=== PATIENT | female | born 1945 | race Caucasian/White ===

== ENCOUNTER 2021-11-06 13:30 | Inpatient (IN) | payer MEDICARE, MEDICAID, SELFPAY ==
[2021-11-06] VITALS (7 sets, daily range): BP systolic 116–150; BP diastolic 68–83; PULSE 59–94; RESP 16–26; TEMP 36.4–36.6; O2SAT 91–97; BMI 58.6; BMI 63.8
--- NOTE | 2021-11-06 13:43 | ECG_ITS ---
[facility] Test Date: 2021-11-06 Pat Name: Rossy Brooke Department: Room: Gender: Female Clinical Care Leader: : 1945 Requested By: Rg Yusuf Order Number: [id number] Irwin MD: Emilee Pitts M.D. Measurements Intervals [place] Rate: 54 P: MT: QRS: 5 QRSD: 102 T: 36 QT: 425 QTc: 406 Interpretive Statements Sinus rhythm with a second-degree type I AV block LOW QRS VOLTAGE IN PRECORDIAL LEADS [QRS DEFLECTION < 1.0 mV IN CHEST LEADS] ABNORMAL RHYTHM ECG Compared to ECG 11/06/2021 14:08:55 No significant changes Electronically Signed On 11-06-2021 23:28:58 CDT by Emilee Pitts M.D. [id number]
--- NOTE | 2021-11-06 13:43 | XRR_ITS ---
PROCEDURE INFORMATION: Exam: XR Chest Exam date and time: 11/06/2021 1:55 PM Age: 76 years old Clinical indication: Dyspnea TECHNIQUE: Imaging protocol: XR of the chest. Views: 1 view. COMPARISON: No relevant prior studies available. FINDINGS: Lungs: There is a patchy airspace opacity in the right lung base in association with indistinctness of the right hemidiaphragm loss of volume, suggestive of atelectasis. Streaky atelectasis noted in the left lung base. Pneumonia should be excluded clinically. Pleural spaces: Unremarkable. No pleural effusion. No pneumothorax. Heart/Mediastinum: Mildly enlarged heart. Bones/joints: Unremarkable. XR/XR chest 1V portable [id number] IMPRESSION: Patchy airspace opacity with loss of volume in the right lower lobe, concerning for atelectasis. Pneumonia should be excluded clinically.
--- NOTE | 2021-11-06 13:51 | ED_ITS ---
HPI - General Adult General: Chief complaint: Shortness of Breath/Dyspnea Stated complaint: SOB, SWELLING OF FEET Time Seen by Provider: 11/06/21 13:40 History of Present Illness: CC: Dyspnea HPI: This is a [76]yo patient w/ hx of CHF, COPD on 3L of NC at baseline presenting ot the ED with dyspnea and chest pain x 3 weeks in the setting of increased weight gain and lower extremity swelling. Endorses of orthopnea and increased pillow usage at night. At baseline, patient takes 80mg of lasix at at baseline. Patient also reports intermittent chest pain throughout last few weeks. She denies N/V, diaphoresis, shoulder pain pain or back pain. Patient has no fever/chill, or sputum production. No GI or other complaints. Denies any pleuritic chest pain, recent surgery/immobilization/travel, or hematemesis or hx of VTE in the past. Onset: 3 weeks ago Duration: ongoing for the last 3 weeks Location: home Severity: moderate/severe Associated symptoms: Reports chest pain and dyspnea; Deny nausea, rash, palpitations or vomiting Review of Systems Const: Denies: fever(s) or chills Eyes: Denies: change in vision ENMT: Denies: mouth pain Card: Reports: chest pain; Denies: palpitations Resp: Reports: dyspnea; Denies: non-productive cough GI: Denies: abdominal pain, nausea, vomiting or diarrhea : Denies: dysuria Musc: Denies: extremity pain Skin/Breast: Denies: rash or new lesions Neuro: Denies: weakness in extremities Psych: Reports: other (Normal mood) Jose Luis/Lymph: Denies: easy bruising [facility] ED PFSH: Medical History (Updated 11/06/21 @ 13:52 by Rg Yusuf MD) CHF exacerbation COPD (chronic obstructive pulmonary disease) Requires oxygen therapy Social History (Updated 11/06/21 @ 13:52 by Rg Yusuf MD) Smoking and tobacco status: never smoked Alcohol intake: never Substance/Drug Use: never Physical Exam Const: COMMON NORMALS: alert HENMT: COMMON NORMALS: atraumatic HEAD & SCALP: atraumatic MOUTH: moist mucous membranes not abnormal Eye: COMMON NORMALS: EOMs intact bilaterally and conjunctivae normal CONJUNCTIVA: Yes conjunctivae normal Neck/C-Spine: COMMON NORMALS: full ROM and supple Resp: COMMON NORMALS: normal respiratory effort OTHER: +coarse breath sounds b/l Cardio: COMMON NORMALS: regular rate RATE: regular rate GI: COMMON NORMALS: Soft to palpation PALPATION: Yes Soft to palpation OTHER: +abdominal distension, no focal TTP. NO guarding rebound, guarding, rigidity. No CVA tenderness to percussion. Neg Wall/Neg McBurney's point tenderness, no suprabupic tenderness to palpation. Extremity: COMMON NORMALS: full ROM OTHER: 3+ lower extremity edema b/l Neuro: SENSORIUM/ORIENTATION: Yes alert MOTOR EXAM: No Abnormal motor strength present and Other motor observations present (no focal motor deficits) Psych: COMMON NORMALS: speech normal SPEECH: Yes normal speech MOOD & AFFECT: Yes euthymic mood Course Vital Signs: Vital signs: Vital Signs Pulse Rate 75 11/06/21 13:46 Respiratory Rate 26 H 11/06/21 13:46 Blood Pressure 150/77 11/06/21 13:46 Pulse Oximetry 97 11/06/21 13:46 MDM - General Adult Medical Decision Making [76]yo pt w/ hx of CHF, COPD on 3L of NC chronically presenting to the ED with dyspnea and increased work of breathing and worsening leg swelling w/ intermittent chest pain. Physical exam consistent signs of fluid overload including crackles bilaterally and LE swelling. Workup today: ECGx 2, CBC, BMP, Troponinx2, BNP, CXR. Intervention: IV lasix after potassium check Based on history, exam and findings, presentation most consistent with acute on chronic heart failure. Low suspicion for PNA, ACS, tamponade, aortic dissection. EKG: No STEMI and no evidence of Brugada?s sign, delta wave, epsilon wave, significantly prolonged QTc, or malignant arrhythmia. CXR: diffuse interstitial edema consistent with CHF exacerbation. [3:30pm] On reassessment, patient is stable and patient is mentating without issues. On NC 3L. Given lasix 80mg x 1 in the ER with significant symptom improvement in dyspnea. No signs of increased work of breathing requiring BIPAP. Given the current presentation, I believe the patient would benefit from inpatient admission for continued diuresis and fluid removal. I have discussed a plan with a patient who agrees with inpatient admission. On chest x-ray, patient was found to have right-sided airspace opacity. Clinically, patient is afebrile, has no leukocytosis, has no cough or sputum production, I do not suspect that this is pneumonia. Disposition: Admission Lab Data : 11/06/21 13:55 11/06/21 13:55 Radiology Impressions Chest X-Ray 11/06/21 13:43 IMPRESSION: Patchy airspace opacity with loss of volume in the right lower lobe, concerning for atelectasis. Pneumonia should be excluded clinically. Laboratory Results WBC 9.3 10^3/uL (4.0-10.0) 11/06/21 13:55 RBC 3.77 10^6/uL (4.1-5.3) L 11/06/21 13:55 Hgb 9.7 g/dL (11.5-15.3) L 11/06/21 13:55 Hct 32.8 % (37.0-47.0) L 11/06/21 13:55 MCV 87.0 fl (81-99) 11/06/21 13:55 MCH 25.7 pg (28.0-34.0) L 11/06/21 13:55 MCHC 29.6 g/dL (30.0-36.0) L 11/06/21 13:55 RDW 14.3 % (12.1-15.1) 11/06/21 13:55 Plt Count 230 10^3/cmm (130-400) 11/06/21 13:55 MPV 10.0 fL (7.4-10.4) 11/06/21 13:55 Neut % (Auto) 73.0 % 11/06/21 13:55 Lymph % (Auto) 15.7 % 11/06/21 13:55 Meagher % (Auto) 8.4 % 11/06/21 13:55 Eos % (Auto) 2.2 % 11/06/21 13:55 Baso % (Auto) 0.4 % 11/06/21 13:55 Neut # (Auto) 6.79 10^3/uL (1.8-7.7) 11/06/21 13:55 Lymph # (Auto) 1.5 10^3/uL (0.8-4.8) 11/06/21 13:55 Meagher # (Auto) 0.8 10^3/uL (0.2-0.9) 11/06/21 13:55 Eos # (Auto) 0.2 10^3/uL (0.0-0.8) 11/06/21 13:55 Baso # (Auto) 0.0 10^3/uL (0.0-0.1) 11/06/21 13:55 Nucleated RBC % (auto) 0 % 11/06/21 13:55 Nucleated RBCs # 0.0 /100WBC 11/06/21 13:55 Imaging Data Other Imaging: Radiologist's impression: [facility] [employer] [address] XRay Report Signed Patient: Rossy Brooke Unit #: [id number] : 1945 Age/Sex: 76 / F ADM Date: 11/06/21 Loc: ER Room/Bed: Attending Dr: Ordering Provider/Ordering MD: Rg Yusuf MD Date of Service: 11/06/21 Procedure(s): XR chest 1V portable [id number] Accession Number(s): [id number] Report Number: [id number] PROCEDURE INFORMATION: Exam: XR Chest Exam date and time: 11/06/2021 1:55 PM Age: 76 years old Clinical indication: Dyspnea TECHNIQUE: Imaging protocol: XR of the chest. Views: 1 view. COMPARISON: No relevant prior studies available. FINDINGS: Lungs: There is a patchy airspace opacity in the right lung base in association with indistinctness of the right hemidiaphragm loss of volume, suggestive of atelectasis. Streaky atelectasis noted in the left lung base. Pneumonia should be excluded clinically. Pleural spaces: Unremarkable. No pleural effusion. No pneumothorax. Heart/Mediastinum: Mildly enlarged heart. Bones/joints: Unremarkable. XR/XR chest 1V portable [id number] IMPRESSION: Patchy airspace opacity with loss of volume in the right lower lobe, concerning for atelectasis. Pneumonia should be excluded clinically. ? Dictated By: Boo Zarate Signed By: Boo Zarate Signed Date/Time: 11/06/21 1432 DD/ 1355 Discharge Plan Discharge Patient Disposition: Admitted As Inpatient Clinical Impression: Volume overload, CHF exacerbation Condition: Stable Coding Level of Care Code ED Communication Skills Instructor for g Fwd Exam Comprehensive
[2021-11-06 14:21] LABS: Basophils % 0.4 %; Eosinophils # 0.2 10^3/uL (0.0-0.8); Eosinophils % 2.2 %; Hematocrit 32.8 % (37.0-47.0); Hemoglobin 9.7 g/dL (11.5-15.3); Lymphocytes # 1.5 10^3/uL (0.8-4.8); Lymphocytes % 15.7 %; Mean Corpuscular HGB Conc 29.6 g/dL (30.0-36.0); Mean Corpuscular Hemoglobin 25.7 pg (28.0-34.0); Monocytes # 0.8 10^3/uL (0.2-0.9); Monocytes % 8.4 %; Neutrophils # 6.79 10^3/uL (1.8-7.7); Nucleated Red Blood Cells % 0 %; Platelet Count 230 10^3/cmm (130-400); Red Blood Count 3.77 10^6/uL (4.1-5.3); Red Cell Distribution Width 14.3 % (12.1-15.1); White Blood Count 9.3 10^3/uL (4.0-10.0)
[2021-11-06 14:52] LABS: Troponin(5th) Baseline 21 ng/L (0-10)
[2021-11-06 15:01] LABS: Blood Urea Nitrogen 20 mg/dL (8-23); Calcium 9.4 mg/dL (8.5-10.5); Carbon Dioxide 39 mmol/L (22-29); Chloride 94 mmol/L (98-107); Glucose 113 mg/dL (65-115); NT Pro B Type Natriuretic Pept 221 pg/mL (0-450); Osmolality Calculated 291 mOsm/kg (285-295); Sodium 139 mmol/L (136-145)
[2021-11-06 15:02] LABS: Anion Gap 10.2 (5-19); Potassium 4.2 mmol/L (3.5-5.1)
[2021-11-06] MEDS: FUROsemide 10 mg/mL SDV 10mL 80 MG IVP (15:53)
--- NOTE | 2021-11-06 16:00 | PC.NURSE ---
Pt was incontinent of stool, states she has IBS and had celery today. Assisted pt up to BSC, soiled pants removed,skin cleaned. Pt had additional BM while sitting BSC. Assisted pt back to bed, skin cleaned. Increased shortness of breath with activity.
[2021-11-06 16:25] LABS: Troponin 5 2HR 22.93 ng/L (0-10); Troponin 5 2HR Delta 1.93 ABS# (0-10)
--- NOTE | 2021-11-06 17:03 | PC.NURSE ---
800cc yellow urine emptied from catheter bag
--- NOTE | 2021-11-06 17:14 | USCV_ITS ---
Rossy Brooke Age: 76 Gender: F : 1945 Exam Date: 11/06/2021 23:38 Ordering Phys: Marbin Zhang MD Technologist: Sulaiman Inman Exam Location: [facility] [place] Indication: SOB BP: / HR: 62 Rhythm: Sinus Technical Quality: Adequate MEASUREMENTS (Male / Female) Normal Values 2D ECHO LV Diastolic Diameter PLAX 4.1 cm 4.2 - 5.9 / 3.9 - 5.3 cm LV Systolic Diameter PLAX 2.3 cm IVS Diastolic Thickness 1.1 cm 0.6 - 1.0 / 0.6 - 0.9 cm IVS Systolic Thickness 2.2 cm LVPW Diastolic Thickness 1.9 cm 0.6 - 1.0 / 0.6 - 0.9 cm LVPW Systolic Thickness 2.1 cm LVOT Diameter 2.1 cm LV Ejection Fraction 2D Teich 75.5 % LV Ejection Fraction MOD 2C 67.6 % LV Ejection Fraction 2C AL 68.2 % LA Diameter 3.7 cm LA Width 3.6 cm LA Height 5.2 cm RA Width 3.6 cm RA Height 4.6 cm Aorta at Sinotubular Diameter 2.5 cm M-MODE Aortic Annulus Diameter 2.4 cm LA Ao Ratio MM 1.8 MV E Point Septal Separation 0.8 cm DOPPLER AV Peak Velocity 155.0 cm/s LVOT Peak Velocity 110.0 cm/s AV Area Cont Eq vti 2.0 cm squared AV Area Cont Eq pk 2.5 cm squared MV Peak Velocity 88.0 cm/s MV Area PHT 2.4 cm squared Mitral E to A Ratio 0.8 MV E' Velocity 40.5 cm/s Mitral E to MV E' Ratio 7.0 Mitral E to LV E' Lateral Ratio 7.1 Mitral E to LV E' Septal Ratio 7.0 TR Peak Velocity 279.4 cm/s TR Peak Gradient 31.2 mmHg TR Mean Velocity 204.6 cm/s TR Mean Gradient 19.0 mmHg TR Velocity Time Integral 81.2 cm Right Atrial Pressure 15.0 mmHg Pulmonary Artery Systolic Pressu 46.2 mmHg PV Peak Velocity 119.0 cm/s RV Acceleration Time 0.2 s RV Ejection Time 0.4 s RV AcT/ET 0.6 FINDINGS Left Ventricle Normal left ventricular size. LV systolic function is normal with EF of 55-60%. No regional wall motion abnormalities.Grade 1 diastolic dysfunction Right Ventricle The right ventricle is normal in size and function. Right Atrium The right atrium is normal in size. Left Atrium The left atrium is normal in size. Mitral Valve Mild mitral annular calcification without significant stenosis or prolapse. There is trace mitral regurgitation. Aortic Valve Structurally normal aortic valve without significant sclerosis or stenosis. There is no aortic regurgitation. Tricuspid Valve Structurally normal tricuspid valve without significant stenosis. Mild tricuspid regurgitation. Pulmonary artery systolic pressure is normal. Pulmonic Valve Structurally normal pulmonic valve without significant stenosis. There is no pulmonic regurgitation. Pericardium Normal pericardium without effusion. Aorta Normal ascending aorta dimension. CONCLUSIONS Technically limited quality echocardiogram because of poor ultrasonic windows LV systolic function is normal with EF of 55-60% Grade 1 diastolic dysfunction Mild mitral annuarl calcifcation Trace mitral regurgitation Mild tricuspid regurgitation No comparison studies are available Chidi Benitez MD (Electronically Signed) Final Date: 07 November 2021 11:28 S
--- NOTE | 2021-11-06 17:17 | PM.HP ---
Providers/Chief Complaint Chief Complaint: SOB, SWELLING OF FEET History of Present Illness Rossy Brooke is a 76 year old female with past medical history of COPD on 3Ls home oxygen , heart failure , morbid obesity , diabetes , hypothyroidism was brought in with chief complaint of worsening shortness of breath, PND , orthopnea, worsening bilateral lower extremity swelling, weight gain, nonproductive cough, going on for the last 3 weeks, she denies any fever chills , headache, nausea vomiting, diarrhea. Upon arrival in the ER she was worked up for above-mentioned complaint: Imaging studies: X-ray chest: Patchy airspace opacity with loss of volume in the right lower lobe, concerning for atelectasis. Pneumonia should be excluded clinically. EC sinus rhythm with blocked PACs EC Mobitz type I Pertinent labs: WBC : 9.3 , H&H 9.7 32.8, PLT : 230 , sodium 139 potassium 4.2 BUN serum creatinine 20 / 0.7 , Troponin trend: 21 ,22 , proBNP 221 Patient received 80 of Lasix one-time dose in the ER Review of Systems General: Reports: 10 or more systems reviewed and unremarkable except in HPI and below Const: Denies: fever(s), chills, body aches, change in appetite or diaphoresis Card: Reports: edema, swelling of feet/ankles, dyspnea on exertion and orthopnea; Denies: palpitations or leg pain with exertion Resp: Reports: dyspnea; Denies: productive cough, wheezing or pain on inspiration GI: Denies: abdominal pain, nausea, vomiting, diarrhea or constipation : Denies: flank pain Musc: Reports: extremity swelling; Denies: back pain or extremity pain Neuro: Denies: headache(s), difficulty walking or confusion Medications/Allergies Home Medications Medication Instructions Recorded Confirmed Last Taken Type aspirin 81 mg chewable tablet 81 mg PO DAILY 11/06/21 11/06/21 11/06/21 History atorvastatin 40 mg tablet 40 mg PO BEDTIME 11/06/21 11/06/21 11/05/21 History furosemide 40 mg tablet 40 mg PO BID 11/06/21 11/06/21 11/06/21 History hyoscyamine sulfate 0.125 mg tablet 0.125 mg PO Q12H PRN 11/06/21 11/06/21 Unknown History levothyroxine 75 mcg tablet 75 mcg PO DAILY 11/06/21 11/06/21 11/06/21 History metformin 500 mg tablet 500 mg PO BID 11/06/21 11/06/21 11/06/21 History metoprolol tartrate 50 mg tablet 25 mg PO DAILY 11/06/21 11/06/21 11/06/21 History mirabegron 50 mg tablet,extended 50 mg PO DAILY 11/06/21 11/06/21 11/06/21 History release 24 hr (Myrbetriq) potassium chloride 20 mEq 20 meq PO BID 11/06/21 11/06/21 11/06/21 History tablet,extended release(part/cryst) Allergies Allergy/AdvReac Type Severity Reaction Status Date / Time cinnamon Allergy Unknown Unknown Verified 11/06/21 14:49 Sulfa (Sulfonamide Allergy Unknown Unknown Verified 11/06/21 14:49 Antibiotics) PFSH Acute PFSH: Medical History (Updated 11/06/21 @ 17:37 by Marbin Zhang MD) CHF exacerbation COPD (chronic obstructive pulmonary disease) Requires oxygen therapy Social History (Updated 11/06/21 @ 13:52 by Rg Yusuf MD) Smoking and tobacco status: never smoked Alcohol intake: never Substance/Drug Use: never Vitals/I&O/Wt Last Vital Signs Pulse 64 11/06/21 15:51 Resp 18 11/06/21 15:51 BP 136/83 11/06/21 15:51 Pulse Ox 95 11/06/21 15:51 Weight last 48 hrs Weight 136.078 kg Physical Exam Const: COMMON NORMALS: patient oriented x3 HENMT: COMMON NORMALS: normocephalic and atraumatic HEAD & SCALP: normocephalic and atraumatic Eye: GENERAL EYE: appearance normal, both eyes and all related structures Chest: CHEST: Yes Symmetrical chest wall rise Resp: COMMON NORMALS: normal respiratory effort and clear to auscultation bilaterally EFFORT & INSPECTION: Yes symmetric chest movement AUSCULTATION: clear to auscultation bilaterally OTHER: Diminished air entry bilaterally Cardio: COMMON NORMALS: regular rate, regular rhythm, S1 normal heart sound present, S2 normal heart sound present, No gallops present (Cardio), No murmurs present (Cardio), No rub (Cardio) and Peripheral pulses 2+ throughout RATE: regular rate RHYTHM: regular rhythm HEART SOUNDS: S1 normal heart sound present and S2 normal heart sound present PERIPHERAL PULSES: Peripheral pulses 2+ throughout GI: COMMON NORMALS: Normal to inspection, nondistended, normoactive bowel sounds present, Soft to palpation, non-tender, No hepatosplenomegaly present and no masses AUSCULTATION: Yes normoactive bowel sounds PALPATION: Yes Soft to palpation and Yes No hepatosplenomegaly present RECTAL EXAM: deferred Extremity: NARRATIVE EXTREMITY EXAM: 2+ bilateral pitting edema in both the lower extremity Neuro: COMMON NORMALS: patient oriented x3 Data : 11/06/21 13:55 11/06/21 13:55 A&P Assessment and plan (1) CHF exacerbation: Status: Acute (2) COPD (chronic obstructive pulmonary disease): Status: Acute (3) Diabetes: Status: Acute (4) Hypothyroidism: Status: Acute Plan 76 year old female is on 3 L home oxygen , heart failure , morbid obesity , diabetes , hypothyroidism was brought in with chief complaint of worsening shortness of breath, PND , orthopnea, worsening bilateral lower extremity swelling, weight gain, nonproductive cough, going on for the last 3 weeks. Assessment: Decompensated heart failure: Patient came in with chief complaint of worsening shortness of breath PND orthopnea weight gain bilateral lower extremities swelling. Follow 2D echo proBNP:221 Intake output charting Daily weight K.4,MG>2 Lasix 60 IV twice daily #Diabetes: Sliding scale insulin Finger stick glucose Carb consistent diet HbA1c #Hypothyroidism: Continue levothyroxine 75 mcg p.o. daily #COPD: Currently not in exacerbation DuoNebs as needed #CODE STATUS: Full code #DVT prophylaxis: On Lovenox Attestations Medical Necessity Statement*: Patient is still in hospital management of decompensated heart failure.Anticipated length of stay greater than 2 midnights Time Spent in Patient Care: Greater than 35 minutes (>than 50% of time spent in counselling and/or direct pt care on unit). Coding Level of Care Code Acute Channel Lip Wetter for Chg Fwd Exam Comprehensive Diagnoses CHF exacerbation I50.9 COPD (chronic obstructive pulmonary disease) J44.9 Diabetes E11.9 Hypothyroidism E03.9
[2021-11-06] MEDS: enoxaparin 40 mg/0.4 mL Syringe SUBCUT (19:24)
--- NOTE | 2021-11-06 19:43 | ECG_ITS ---
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 Measurements Intervals [place] Rate: 65 P: MN: QRS: 6 QRSD: 98 T: 37 QT: 408 QTc: 426 Interpretive Statements Sinus rhythm with a second-degree type I AV block LOW QRS VOLTAGE IN PRECORDIAL LEADS [QRS DEFLECTION < 1.0 mV IN CHEST LEADS] ABNORMAL RHYTHM ECG No previous ECG available for comparison Electronically Signed On 11-06-2021 23:32:29 CDT by Emilee Pitts M.D. [id number]
[2021-11-06] MEDS: atorvastatin 40 mg Tablet PO (20:20)
[2021-11-06 21:02] LABS: Glucose Point of Care 177 mg/dL (70-110)
[2021-11-06 21:15] LABS: Troponin 5 6HR 18.89 ng/L (0-10)
[2021-11-06 21:28] LABS: Troponin 5 6HR Delta -2.11 ng/L (0-12)
[2021-11-07] VITALS (8 sets, daily range): BP systolic 107–128; BP diastolic 55–82; PULSE 65–106; RESP 17–19; TEMP 36.7–37.3; O2SAT 90–94
[2021-11-07 06:14] LABS: Glucose Point of Care 111 mg/dL (70-110)
[2021-11-07] MEDS: FUROsemide 10 mg/mL SDV 10mL 60 MG IVP ×2 (06:40→17:49)
[2021-11-07] MEDS: levothyroxine 75 mcg Tablet PO (08:28)
[2021-11-07] MEDS: potassium chloride ER 20 mEq Tablet PO ×2 (08:28→17:50)
[2021-11-07] MEDS: aspirin 81 mg Chew Tablet PO (08:28)
[2021-11-07 10:22] LABS: Basophils % 0.4 %; Eosinophils # 0.1 10^3/uL (0.0-0.8); Eosinophils % 1.3 %; Hematocrit 35.9 % (37.0-47.0); Hemoglobin 10.1 g/dL (11.5-15.3); Lymphocytes # 0.9 10^3/uL (0.8-4.8); Lymphocytes % 9.3 %; Mean Corpuscular HGB Conc 28.1 g/dL (30.0-36.0); Mean Corpuscular Hemoglobin 25.1 pg (28.0-34.0); Mean Corpuscular Volume 89.1 fl (81-99); Mean Platelet Volume 10.1 fL (7.4-10.4); Monocytes # 0.6 10^3/uL (0.2-0.9); Monocytes % 6.2 %; Neutrophils # 7.59 10^3/uL (1.8-7.7); Neutrophils % 82.5 %; Nucleated Red Blood Cells % 0 %; Platelet Count 228 10^3/cmm (130-400); Red Blood Count 4.03 10^6/uL (4.1-5.3); Red Cell Distribution Width 14.2 % (12.1-15.1); White Blood Count 9.2 10^3/uL (4.0-10.0)
[2021-11-07 10:44] LABS: Blood Urea Nitrogen 16 mg/dL (8-23); Calcium 9.2 mg/dL (8.5-10.5); Carbon Dioxide 38 mmol/L (22-29); Chloride 93 mmol/L (98-107); Glucose 158 mg/dL (65-115); Magnesium 2.1 mg/dL (1.7-2.3); Osmolality Calculated 292 mOsm/kg (285-295); Sodium 139 mmol/L (136-145)
--- NOTE | 2021-11-07 10:57 | PC.CHAP ---
Pastoral Care Encounter/Spiritual Assessment Type of Contact [] Declined on air director visit [] Patient/Family/Request visit [] Outpatient visit [] Follow-up visit [] Physician referral [] Code/Alert [x] Routine visit [] Staff referral [] Actively dying [] Patient sleeping [] Family support [] [] Out of room [] Palliative care [] [x] Receiving care in room [] Pre-surgical visit [] Trauma [] Long length of stay [] ICU visit [] Other: Relational/Emotional Strength [x] Patient feels connected with others/family/visitors/staff [] Distress [] Loneliness/isolation [] Abandonment Spirituality of Patient [x] Person of Solange [] Attends Baptism of their Solange [x] Believes in Prayer [] Reads Bible or Voodoo materials [] There are Spiritual issues to be addressed News Editor Interventions [x] Prayer [x] Active listening [x] Non-anxious presence [x] Spiritual/emotional support [] Crisis/trauma care [x] Spiritual counseling [] Bereavement support [] Provided bereavement packet [] Provided Bible/devotional materials [] Provided toy/stuffed animal, coloring book to patient or family member [] Provided Communion [] Anointing/[place] [] Salvation [x] Completed spiritual assessment [] Other: Impact on Illness or Injury [] Angry [] Fearful [x] Anxious [] Often cries [] Exhaustion [] Unable to work [] Unable to attend christianity [] Unable to walk/stand [] Unable to read [] Unable to drive [] Unable to eat/drink [] Unable to sleep [] Unable to be with family [] Patient intubated [] Other: Summary had a fusion on back in some pain will be going home has a good attitude Time spent with patient 10 mins
[2021-11-07 12:39] LABS: Glucose Point of Care 150 mg/dL (70-110)
[2021-11-07] MEDS: insulin lispro 100 unit/1 mL SUBCUT (13:11)
[2021-11-07] MEDS: pantoprazole 40 mg SDV IVP (13:11)
[2021-11-07] MEDS: fluticasone nasal spray 16gm Btl 1 SPRAY NASAL (13:11)
[2021-11-07] MEDS: azithromycin 500 MG in sodium chloride 0.9% 250 ML 250 MG IV (13:13)
--- NOTE | 2021-11-07 14:01 | P.PN_ITS ---
Subjective Subjective: Patient is complaining of acidity as well as, nagging cough, shortness of breath is improved, good urine output overnight. Her other vitals and labs have been reviewed Medications: Medication Review Details: Generic Name Dose Route Start Last Admin Trade Name Chaya PRN Reason Stop Dose Admin Aspirin 81 mg 11/07/21 09:00 11/07/21 08:28 Aspirin 81 Mg Ch ew Tablet PO 81 mg DAILY RODO Administration Atorvastatin Calci um 40 mg 11/06/21 21:00 11/06/21 20:20 Atorvastatin 40 Mg Tablet PO 40 mg BEDTIME RODO Administration Enoxaparin Sodium 40 mg 11/06/21 17:15 11/06/21 19:24 Enoxaparin 40 Mg /0.4 Ml Syringe SUBCUT 40 mg Q24H RODO Administration Fluticasone Propio mic 1 spray 11/07/21 12:20 11/07/21 13:11 Fluticasone Nasa l [place] 16gm Btl NASAL 1 spray DAILY RODO Administration Furosemide 60 mg 11/07/21 07:00 11/07/21 06:40 Furosemide 10 Mg /Ml Sdv 10ml IVP 60 mg BID RODO Administration Azithromycin 500 m g/ Sodium 250 mls @ 250 mls /hr 11/07/21 12:30 11/07/21 13:13 Chloride IV 250 mls/hr Q24H RODO Administration Protocol Insulin Human Lisp ro 0 unit 11/07/21 08:00 11/07/21 13:11 Insulin Lispro 1 00 Unit/1 Ml SUBCUT 2 unit TIDWM RODO Administration Protocol Levothyroxine Sodi um 75 mcg 11/07/21 09:00 11/07/21 08:28 Levothyroxine 75 Mcg Tablet PO 75 mcg DAILY RODO Administration Potassium Chloride 20 meq 11/07/21 09:00 11/07/21 08:28 Potassium Chlori de Er 20 Meq Table t PO 20 meq BID RODO Administration Vitals/I&O/Wt Last Vital Signs Temp 98.7 F 11/07/21 11:27 Pulse 75 11/07/21 11:27 Resp 18 11/07/21 11:27 BP 128/82 11/07/21 11:27 Pulse Ox 93 11/07/21 11:27 11/06/21 11/07/21 11/07/21 22:59 06:59 14:59 Intake Total 300 / 300 900 / 1200 240 / 240 Output Total 1500 / 1500 800 / 2300 1100 / 1100 Balance -1200 / -1200 100 / -1100 -860 / -860 Weight last 48 hrs Weight 108 kg Weight 148.37 kg Weight 136.078 kg Physical Exam Const: COMMON NORMALS: patient oriented x3 HENMT: COMMON NORMALS: normocephalic and atraumatic HEAD & SCALP: normocephalic and atraumatic Eye: COMMON NORMALS: no scleral icterus GENERAL EYE: appearance normal, katia th eyes and all related structures Chest: CHEST: Yes Symmetrical chest wall rise Resp: COMMON NORMALS: normal respiratory effort and clear to auscultation bilaterally EFFORT & INSPECTION: Yes symmetric chest movement AUSCULTATION: clear to auscultation bilaterally OTHER: Diminished air entry bilaterally likely secondary to body habitus Cardio: COMMON NORMALS: regular rate, regular rhythm, S1 normal heart sound present, S2 normal heart sound present, No gallops present (Cardio), No murmurs present (Cardio), No rub (Cardio) and Peripheral pulses 2+ throughout RATE: regular rate RHYTHM: regular rhythm HEART SOUNDS: S1 normal heart sound present and S2 normal heart sound present PERIPHERAL PULSES: Peripheral pulses 2+ throughout GI: COMMON NORMALS: Normal to inspection, nondistended, normoactive bowel sounds present, Soft to palpation, non-tender, No hepatosplenomegaly present and no masses AUSCULTATION: Yes normoactive bowel sounds PALPATION: Yes Soft to palpation and Yes No hepatosplenomegaly present RECTAL EXAM: deferred Extremity: COMMON NORMALS: no clubbing, cyanosis or edema and no pedal edema NARRATIVE EXTREMITY EXAM: 2+ bilateral pitting edema in both the lower extremity Neuro: COMMON NORMALS: patient oriented x3 Data : 11/07/21 10:00 11/07/21 10:00 A&P Assessment and plan (1) CHF exacerbation: Status: Acute (2) COPD (chronic obstructive pulmonary disease): Status: Acute (3) Diabetes: Status: Acute (4) Hypothyroidism: Status: Acute Plan 76 year old female is on 3 L home oxygen , heart failure , morbid obesity , diabetes , hypothyroidism was brought in with chief complaint of worsening shortness of breath, PND , orthopnea, worsening bilateral lower extremity swelling, weight gain, nonproductive cough, going on for the last 3 weeks. Assessment: Decompensated heart failure: Patient came in with chief complaint of worsening shortness of breath PND orthopnea weight gain bilateral lower extremities swelling. 2D echo: LV systolic function is normal with EF of 55-60% Grade 1 diastolic dysfunction ?Mild mitral annuarl calcifcation ,Trace mitral regurgitation Mild tricuspid regurgitation. proBNP:[id number] Intake output charting Daily weight K.4,MG>2 Lasix 60 IV twice daily #Acute bronchitis On azithromycin #Diabetes: Sliding scale insulin Finger stick glucose Carb consistent diet HbA1c #Hypothyroidism: Continue levothyroxine 75 mcg p.o. daily #COPD: Currently not in exacerbation DuoNebs as needed #CODE STATUS: Full code #DVT prophylaxis: On Lovenox Attestations Medical Necessity Statement*: Patient needs to be in hospital for management of decompensated heart failure. Time Spent in Patient Care: Greater than 35 minutes (>than 50% of time spent in counselling and/or direct pt care on unit) . 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
--- NOTE | 2021-11-07 15:59 | PC.NURSE ---
Patient got to chair for the majority of the shift. Worked with PT and OT today. Patient gets up with 1 assistance with walker. Abx given. No pain reported. Vitals stable. Will continue to monitor and give report to night nurse.
[2021-11-07 17:22] LABS: Glucose Point of Care 98 mg/dL (70-110)
[2021-11-07] MEDS: enoxaparin 40 mg/0.4 mL Syringe SUBCUT (17:50)
[2021-11-07] MEDS: atorvastatin 40 mg Tablet PO (20:16)
[2021-11-07 21:11] LABS: Glucose Point of Care 189 mg/dL (70-110)
[2021-11-08] VITALS (10 sets, daily range): BP systolic 103–137; BP diastolic 63–84; PULSE 72–110; RESP 17–20; TEMP 36.5–37; O2SAT 92–98
--- NOTE | 2021-11-08 05:39 | PC.NURSE ---
SHIFT SUMMARY Rested well tonight. Was up in chair in the evening. Says still has SOB with exertion but is normal for her. O2 in place at 3l per NC. Has a occ prod cough. Denies pain. Reddened/excorated areas under bilat breasts, abd folds and armpits. All areas were cleansed, dried well and place cloths for moisture control. Says this is not new for her and usually uses cornstarch. Pt is quite obese. Pitting edema to BLE. Quijano draining well.
[2021-11-08 05:47] LABS: Basophils % 0.3 %; Eosinophils # 0.1 10^3/uL (0.0-0.8); Eosinophils % 1.8 %; Hematocrit 33.2 % (37.0-47.0); Hemoglobin 9.4 g/dL (11.5-15.3); Lymphocytes # 1.3 10^3/uL (0.8-4.8); Lymphocytes % 16.2 %; Mean Corpuscular HGB Conc 28.3 g/dL (30.0-36.0); Mean Corpuscular Hemoglobin 25.1 pg (28.0-34.0); Mean Corpuscular Volume 88.5 fl (81-99); Mean Platelet Volume 9.6 fL (7.4-10.4); Monocytes # 0.6 10^3/uL (0.2-0.9); Monocytes % 7.7 %; Neutrophils # 5.82 10^3/uL (1.8-7.7); Neutrophils % 73.7 %; Nucleated Red Blood Cells % 0 %; Platelet Count 193 10^3/cmm (130-400); Red Blood Count 3.75 10^6/uL (4.1-5.3); Red Cell Distribution Width 14.4 % (12.1-15.1); White Blood Count 7.9 10^3/uL (4.0-10.0)
[2021-11-08 06:00] LABS: Anion Gap 12.2 (5-19); Blood Urea Nitrogen 15 mg/dL (8-23); Calcium 8.9 mg/dL (8.5-10.5); Carbon Dioxide 37 mmol/L (22-29); Chloride 93 mmol/L (98-107); Glucose 114 mg/dL (65-115); Osmolality Calculated 288 mOsm/kg (285-295); Potassium 4.2 mmol/L (3.5-5.1); Sodium 138 mmol/L (136-145)
[2021-11-08] MEDS: acetaminophen 325 mg Tablet 650 MG PO ×2 (06:29→20:56)
[2021-11-08 06:56] LABS: Glucose Point of Care 118 mg/dL (70-110)
[2021-11-08] MEDS: levothyroxine 75 mcg Tablet PO (08:09)
[2021-11-08] MEDS: aspirin 81 mg Chew Tablet PO (08:09)
[2021-11-08] MEDS: FUROsemide 10 mg/mL SDV 10mL 60 MG IVP ×2 (08:09→17:26)
[2021-11-08] MEDS: pantoprazole DR 40 mg Tablet PO (08:09)
[2021-11-08] MEDS: potassium chloride ER 20 mEq Tablet PO ×2 (08:09→17:26)
[2021-11-08] MEDS: fluticasone nasal spray 16gm Btl 1 SPRAY NASAL (08:19)
--- NOTE | 2021-11-08 10:34 | XR_ITS ---
WS: [id number] Right shoulder, AP view, 11/08/2021 Clinical Data: rt shoulder pain Comparison: None. Findings: The right humeral head appears dislocated medially and probably inferiorly. 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 There is a monitor lead over the right chest wall. No fractures are seen. XR/XR shoulder RT 1V [id number] Impression: Probable medial and inferior dislocation of the right humeral head.
[2021-11-08 11:04] LABS: Glucose Point of Care 190 mg/dL (70-110)
[2021-11-08] MEDS: insulin lispro 100 unit/1 mL SUBCUT (12:07)
[2021-11-08] MEDS: azithromycin 500 MG in sodium chloride 0.9% 250 ML 250 MG IV (12:07)
--- NOTE | 2021-11-08 14:26 | PM.PN ---
Subjective Subjective: Patient was seen and examined this morning, shortness of breath has improved a lot , bilateral lower extremity pitting edema is improving, good urine output, was complaining of right shoulder discomfort and Limitation in range of motion, x-ray right shoulder done. Medications: Medication Review Details: Generic Name Dose Route Start Last Admin Trade Name Chaya PRN Reason Stop Dose Admin Aspirin 81 mg 11/07/21 09:00 11/07/21 08:28 Aspirin 81 Mg Ch ew Tablet PO 81 mg DAILY RODO Administration Atorvastatin Calci um 40 mg 11/06/21 21:00 11/06/21 20:20 Atorvastatin 40 Mg Tablet PO 40 mg BEDTIME RODO Administration Enoxaparin Sodium 40 mg 11/06/21 17:15 11/06/21 19:24 Enoxaparin 40 Mg /0.4 Ml Syringe SUBCUT 40 mg Q24H RODO Administration Fluticasone Propio mic 1 spray 11/07/21 12:20 11/07/21 13:11 Fluticasone Nasa l [place] 16gm Btl NASAL 1 spray DAILY RODO Administration Furosemide 60 mg 11/07/21 07:00 11/07/21 06:40 Furosemide 10 Mg /Ml Sdv 10ml IVP 60 mg BID RODO Administration Azithromycin 500 m g/ Sodium 250 mls @ 250 mls /hr 11/07/21 12:30 11/07/21 13:13 Chloride IV 250 mls/hr Q24H RODO Administration Protocol Insulin Human Lisp ro 0 unit 11/07/21 08:00 11/07/21 13:11 Insulin Lispro 1 00 Unit/1 Ml SUBCUT 2 unit TIDWM RODO Administration Protocol Levothyroxine Sodi um 75 mcg 11/07/21 09:00 11/07/21 08:28 Levothyroxine 75 Mcg Tablet PO 75 mcg DAILY RODO Administration Potassium Chloride 20 meq 11/07/21 09:00 11/07/21 08:28 Potassium Chlori de Er 20 Meq Table t PO 20 meq BID RODO Administration Vitals/I&O/Wt Last Vital Signs Temp 98.6 F 11/08/21 11:24 Pulse 83 11/08/21 11:24 Resp 18 11/08/21 11:24 BP 134/71 11/08/21 11:24 Pulse Ox 97 11/08/21 11:24 11/07/21 11/08/21 11/08/21 22:59 06:59 14:59 Intake Total 240 / 730 480 / 1210 490 / 490 Output Total 700 / 1800 1500 / 3300 1100 / 1100 Balance -460 / -1070 -1020 / -2090 -610 / -610 Weight last 48 hrs Weight 147.191 kg Weight 108 kg Weight 148.37 kg Physical Exam Const: COMMON NORMALS: patient oriented x3 HENMT: COMMON NORMALS: normocephalic and atraumatic HEAD & SCALP: normocephalic and atraumatic Eye: COMMON NORMALS: no scleral icterus GENERAL EYE: appearance normal, both eyes and all related structures Chest: CHEST: Yes Symmetrical chest wall rise Resp: COMMON NORMALS: normal respiratory effort and clear to auscultation bilaterally EFFORT & INSPECTION: Yes symmetric chest movement AUSCULTATION: clear to auscultation bilaterally OTHER: Diminished air entry bilaterally likely secondary to body habitus Cardio: COMMON NORMALS: regular rate, regular rhythm, S1 normal heart sound present, S2 normal heart sound present, No gallops present (Cardio), No murmurs present (Cardio), No rub (Cardio) and Peripheral pulses 2+ throughout RATE: regular rate RHYTHM: regular rhythm HEART SOUNDS: S1 normal heart sound present and S2 normal heart sound present PERIPHERAL PULSES: Peripheral pulses 2+ throughout GI: COMMON NORMALS: Normal to inspection, nondistended, normoactive bowel sounds present, Soft to palpation, non-tender, No hepatosplenomegaly present and no masses AUSCULTATION: Yes normoactive bowel sounds PALPATION: Yes Soft to palpation and Yes No hepatosplenomegaly present RECTAL EXAM: deferred Extremity: COMMON NORMALS: no clubbing, cyanosis or edema and no pedal edema NARRATIVE EXTREMITY EXAM: 2+ bilateral pitting edema in both the lower extremity Neuro: COMMON NORMALS: patient oriented x3 Data : 11/08/21 05:30 11/08/21 05:30 A&P Assessment and plan (1) CHF exacerbation: Status: Acute (2) COPD (chronic obstructive pulmonary disease): Status: Acute (3) Diabetes: Status: Acute (4) Hypothyroidism: Status: Acute Plan 76 year old female is on 3 L home oxygen , heart failure , morbid obesity , diabetes , hypothyroidism was brought in with chief complaint of worsening shortness of breath, PND , orthopnea, worsening bilateral lower extremity swelling, weight gain, nonproductive cough, going on for the last 3 weeks. Assessment: Decompensated heart failure: Patient came in with chief complaint of worsening shortness of breath PND orthopnea weight gain bilateral lower extremities swelling. 2D echo: LV systolic function is normal with EF of 55-60% Grade 1 diastolic dysfunction ?Mild mitral annuarl calcifcation ,Trace mitral regurgitation Mild tricuspid regurgitation. proBNP:221 Intake output charting Daily weight K.4,MG>2 Lasix 60 IV twice daily #Acute bronchitis On azithromycin #Diabetes: Sliding scale insulin Finger stick glucose Carb consistent diet HbA1c #Hypothyroidism: Continue levothyroxine 75 mcg p.o. daily #Right shoulder pain: #COPD: Currently not in exacerbation DuoNebs as needed #CODE STATUS: Full code #DVT prophylaxis: On Lovenox Attestations Medical Necessity Statement*: Patient is in hospital for management of decompensated heart failure, need for IV diuresis. Time Spent in Patient Care: 16 - 35 minutes (>than 50% of time spent in counselling and/or direct pt care on unit). 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
--- NOTE | 2021-11-08 15:17 | PC.NURSE ---
Patient got up to chair for most of the day today. Patient received a shower today. Interdry ordered. Vitals stable. Patients diop is intact and clean, with adequate output. Patient had one bowel movement. New IV placed today. Will continue to monitor and give report to night nurse.
--- NOTE | 2021-11-08 16:08 | CTR_ITS ---
PROCEDURE INFORMATION: Exam: CT Right Upper Extremity Without Contrast, Shoulder Exam date and time: 11/08/2021 7:51 PM Age: 76 years old Clinical indication: Right; Patient HX: C/O R shoulder pain w/o specific injury; Additional info: RT shoulder pain TECHNIQUE: Imaging protocol: CT of the Right upper extremity without contrast was performed. Exam focused on the shoulder. Radiation optimization: All CT scans at this facility use at least one of these dose optimization techniques: automated exposure control; mA and/or kV adjustment per patient size (includes targeted exams where dose is matched to clinical indication); or iterative reconstruction. COMPARISON: CR XR shoulder RT 1V [id number] 11/08/2021 10:46 AM RADIATION DOSE METRICS: Total DLP (mGy-cm): 4063.97 FINDINGS: Bones/joints: There are findings of a chronic right anterior glenohumeral joint subluxation/dislocation with underlying chronic deformity of the glenoid in severe secondary osteoarthritic changes a probable remote impacted Bankart fracture. There is no acute fracture. Severe osteoarthritic changes of the acromioclavicular joint are noted with abundant fluid from the subacromial and subdeltoid bursa communicating with the joint and protruding cephalad. There is a large glenohumeral joint effusion with a large amount of fluid in the subcoracoid bursa. Large amount of glenohumeral joint fluid is also communicating with the subacromial and subdeltoid bursa through a chronic appearing complete rotator cuff tear of the supraspinatus and infraspinatus. The humerus is high riding with respect to the glenoid and secondary osteoarthritic changes/bony remodeling of the undersurface of the acromion is noted. The there is a small divot or area of flattening of the articular surface of the humeral head that may reflect a small area of osteonecrosis and secondary collapse. No acute fracture or dislocation. Soft tissues: There is marked atrophy of the supraspinatus and infraspinatus. The right thyroid lobe is enlarged and there is a 2.1 cm hypodense nodule right thyroid lobe. CT/CT shoulder RT wo con* [id number] IMPRESSION: 1. There are findings of a chronic right anterior glenohumeral joint subluxation/dislocation with underlying chronic deformity of the glenoid and severe secondary osteoarthritic changes a probable remote impacted Bankart fracture. The subluxation/dislocation has a chronic appearance secondary to the marked deformity of the humerus and glenoid. No acute bony abnormality. 2. Chronic retracted rotator cuff tear of the supraspinatus and infraspinatus with muscle atrophy, severe bony remodeling of the undersurface of the acromion and large glenohumeral joint effusion communicating with the bursa. 3. The right thyroid lobe is enlarged and there is a 2.1 cm hypodense nodule right thyroid lobe. Follow-up non-emergent thyroid ultrasound is recommended.
[2021-11-08 17:09] LABS: Glucose Point of Care 102 mg/dL (70-110)
[2021-11-08] MEDS: enoxaparin 40 mg/0.4 mL Syringe SUBCUT (17:26)
[2021-11-08] MEDS: atorvastatin 40 mg Tablet PO (20:56)
[2021-11-08 21:56] LABS: Glucose Point of Care 131 mg/dL (70-110)
[2021-11-09] VITALS (9 sets, daily range): BP systolic 111–133; BP diastolic 74–81; PULSE 67–118; RESP 16–24; TEMP 36.4–37.1; O2SAT 85–95
[2021-11-09] MEDS: acetaminophen 325 mg Tablet 650 MG PO ×2 (03:06→20:21)
[2021-11-09 05:47] LABS: Basophils % 0.2 %; Eosinophils # 0.2 10^3/uL (0.0-0.8); Eosinophils % 2.3 %; Hematocrit 33.7 % (37.0-47.0); Hemoglobin 9.8 g/dL (11.5-15.3); Lymphocytes # 1.5 10^3/uL (0.8-4.8); Lymphocytes % 17.9 %; Mean Corpuscular HGB Conc 29.1 g/dL (30.0-36.0); Mean Corpuscular Hemoglobin 25.2 pg (28.0-34.0); Mean Corpuscular Volume 86.6 fl (81-99); Mean Platelet Volume 9.8 fL (7.4-10.4); Monocytes # 0.7 10^3/uL (0.2-0.9); Neutrophils # 5.82 10^3/uL (1.8-7.7); Nucleated Red Blood Cells % 0 %; Platelet Count 212 10^3/cmm (130-400); Red Blood Count 3.89 10^6/uL (4.1-5.3); Red Cell Distribution Width 14.3 % (12.1-15.1); White Blood Count 8.2 10^3/uL (4.0-10.0)
[2021-11-09 06:02] LABS: Anion Gap 9.2 (5-19); Blood Urea Nitrogen 13 mg/dL (8-23); Calcium 8.6 mg/dL (8.5-10.5); Carbon Dioxide 39 mmol/L (22-29); Chloride 93 mmol/L (98-107); Glucose 119 mg/dL (65-115); Osmolality Calculated 285 mOsm/kg (285-295); Potassium 4.2 mmol/L (3.5-5.1); Sodium 137 mmol/L (136-145)
[2021-11-09 06:47] LABS: Glucose Point of Care 104 mg/dL (70-110)
[2021-11-09] MEDS: potassium chloride ER 20 mEq Tablet PO ×2 (08:18→17:54)
[2021-11-09] MEDS: levothyroxine 75 mcg Tablet PO (08:18)
[2021-11-09] MEDS: pantoprazole DR 40 mg Tablet PO (08:19)
[2021-11-09] MEDS: fluticasone nasal spray 16gm Btl 1 SPRAY NASAL (08:19)
[2021-11-09] MEDS: FUROsemide 10 mg/mL SDV 10mL 60 MG IVP (08:19)
[2021-11-09] MEDS: aspirin 81 mg Chew Tablet PO (08:19)
[2021-11-09] MEDS: nystatin powder 15 gm Btl 1 APPLIC TOPICAL (08:20)
--- NOTE | 2021-11-09 10:41 | PC.SOCIAL ---
Pg 2 IMM Explained to pt Pg 2 IMM. No questions voiced. Provided pt a copy. Initialed, dated, & timed a copy & placed in chart.
--- NOTE | 2021-11-09 11:31 | PM.DCS ---
Discharge Providers Date of Admission: 11/06/21 16:54 Date of Discharge: November 09, 2021 Attending Provider at Admission: Marbin Zhang MD Attending Provider at Discharge: Marbin Zhang MD Diagnoses at Discharge Discharge Diagnosis (1) CHF exacerbation: Status: Acute (2) COPD (chronic obstructive pulmonary disease): Status: Acute (3) Diabetes: Status: Acute (4) Hypothyroidism: Status: Acute Reason for Visit Reason for Visit: SOB, SWELLING OF FEET Hospital Course Hospital Course HPI: Rossy Brooke is a 76 year old female with past medical history of COPD on 3Ls home oxygen , heart failure , morbid obesity , diabetes , hypothyroidism was brought in with chief complaint of worsening shortness of breath, PND , orthopnea, worsening bilateral lower extremity swelling, weight gain, nonproductive cough, going on for the last 3 weeks, she denies any fever chills , headache, nausea vomiting, diarrhea. Upon arrival in the ER she was worked up for above-mentioned complaint: Imaging studies: X-ray chest:?Patchy airspace opacity with loss of volume in the right lower lobe, concerning for atelectasis. Pneumonia should be excluded clinically. EC sinus rhythm with blocked PACs EC Mobitz type I Pertinent labs: WBC : 9.3 , H&H 9.7 32.8, PLT : 230 , sodium 139 potassium 4.2 BUN serum creatinine 20 / 0.7 , Troponin trend: 21 ,22 , proBNP 221 Patient received 80 of Lasix one-time dose in the ER: Hospital course: She was admitted for management of decompensated heart failure with preserved ejection fraction, She was kept on IV diuresis, to which she responded well, 2D echo was done: LV systolic function is normal with EF of 55-60% Grade 1 diastolic dysfunction ?Mild mitral annuarl calcifcation ,Trace mitral regurgitation . Mild tricuspid regurgitation. At the time of discharge she was not complaining of shortness of breath ,pnd, orthopnea and bilateral extremity swelling has significantly improved. She was also managed for acute bronchitis for which she was on azithromycin. Patient responded well to above medical management and discharged in stable condition to home she will continue to follow cardiology as well as primary care physician as an outpatient. Physical Exam Const: COMMON NORMALS: patient oriented x3 HENMT: COMMON NORMALS: normocephalic and atraumatic HEAD & SCALP: normocephalic and atraumatic Eye: COMMON NORMALS: no scleral icterus GENERAL EYE: appearance normal, both eyes and all related structures Chest: CHEST: Yes Symmetrical chest wall rise Resp: COMMON NORMALS: normal respiratory effort and clear to auscultation bilaterally EFFORT & INSPECTION: Yes symmetric chest movement AUSCULTATION: clear to auscultation bilaterally OTHER: Diminished air entry bilaterally likely secondary to body habitus Cardio: COMMON NORMALS: regular rate, regular rhythm, S1 normal heart sound present, S2 normal heart sound present, No gallops present (Cardio), No murmurs present (Cardio), No rub (Cardio) and Peripheral pulses 2+ throughout RATE: regular rate RHYTHM: regular rhythm HEART SOUNDS: S1 normal heart sound present and S2 normal heart sound present PERIPHERAL PULSES: Peripheral pulses 2+ throughout GI: COMMON NORMALS: Normal to inspection, nondistended, normoactive bowel sounds present, Soft to palpation, non-tender, No hepatosplenomegaly present and no masses AUSCULTATION: Yes normoactive bowel sounds PALPATION: Yes Soft to palpation and Yes No hepatosplenomegaly present RECTAL EXAM: deferred Extremity: COMMON NORMALS: no clubbing, cyanosis or edema and no pedal edema NARRATIVE EXTREMITY EXAM: 1+ bilateral pitting edema in both the lower extremity Neuro: COMMON NORMALS: patient oriented x3 Discharge Data Studies Completed and Pending Completed Studies During Hospitalization Category Date Time Status CT shoulder RT wo con* [id number] Routine Cat Scan 11/08/21 16:08 Completed XR chest 1V portable [id number] Urgent Exams 11/06/21 13:43 Completed XR shoulder RT 1V [id number] Routine Exams 11/08/21 10:34 Completed CV. echo complete* [id number] Routine Ultrasound 11/06/21 17:14 Completed Radiology Impressions Chest X-Ray 11/06/21 13:43 IMPRESSION: Patchy airspace opacity with loss of volume in the right lower lobe, concerning for atelectasis. Pneumonia should be excluded clinically. Shoulder X-Ray 11/08/21 10:34 Impression: Probable medial and inferior dislocation of the right humeral head. Shoulder CT 11/08/21 16:08 IMPRESSION: 1. There are findings of a chronic right anterior glenohumeral joint subluxation/dislocation with underlying chronic deformity of the glenoid and severe secondary osteoarthritic changes a probable remote impacted Bankart fracture. The subluxation/dislocation has a chronic appearance secondary to the marked deformity of the humerus and glenoid. No acute bony abnormality. 2. Chronic retracted rotator cuff tear of the supraspinatus and infraspinatus with muscle atrophy, severe bony remodeling of the undersurface of the acromion and large glenohumeral joint effusion communicating with the bursa. 3. The right thyroid lobe is enlarged and there is a 2.1 cm hypodense nodule right thyroid lobe. Follow-up non-emergent thyroid ultrasound is recommended. Laboratory Results WBC 8.2 10^3/uL (4.0-10.0) 11/09/21 05:19 RBC 3.89 10^6/uL (4.1-5.3) L 11/09/21 05:19 Hgb 9.8 g/dL (11.5-15.3) L 11/09/21 05:19 Hct 33.7 % (37.0-47.0) L 11/09/21 05:19 MCV 86.6 fl (81-99) 11/09/21 05:19 MCH 25.2 pg (28.0-34.0) L 11/09/21 05:19 MCHC 29.1 g/dL (30.0-36.0) L 11/09/21 05:19 RDW 14.3 % (12.1-15.1) 11/09/21 05:19 Plt Count 212 10^3/cmm (130-400) 11/09/21 05:19 MPV 9.8 fL (7.4-10.4) 11/09/21 05:19 Neut % (Auto) 71.0 % 11/09/21 05:19 Lymph % (Auto) 17.9 % 11/09/21 05:19 Cassia % (Auto) 8.0 % 11/09/21 05:19 Eos % (Auto) 2.3 % 11/09/21 05:19 Baso % (Auto) 0.2 % 11/09/21 05:19 Neut # (Auto) 5.82 10^3/uL (1.8-7.7) 11/09/21 05:19 Lymph # (Auto) 1.5 10^3/uL (0.8-4.8) 11/09/21 05:19 Cassia # (Auto) 0.7 10^3/uL (0.2-0.9) 11/09/21 05:19 Eos # (Auto) 0.2 10^3/uL (0.0-0.8) 11/09/21 05:19 Baso # (Auto) 0.0 10^3/uL (0.0-0.1) 11/09/21 05:19 Nucleated RBC % (auto) 0 % 11/09/21 05:19 Nucleated RBCs # 0.0 /100WBC 11/09/21 05:19 Sodium 137 mmol/L (136-145) 11/09/21 05:19 Potassium 4.2 mmol/L (3.5-5.1) 11/09/21 05:19 Chloride 93 mmol/L (98-107) L 11/09/21 05:19 Carbon Dioxide 39 mmol/L (22-29) H 11/09/21 05:19 Anion Gap 9.2 (5-19) 11/09/21 05:19 BUN 13 mg/dL (8-23) 11/09/21 05:19 Creatinine 0.7 mg/dL (0.5-0.9) 11/09/21 05:19 GFR Calculation Not Reportable 11/09/21 05:19 Glucose 119 mg/dL (65-115) H 11/09/21 05:19 POC Glucose 104 mg/dL (70-110) 11/09/21 06:22 Calculated Osmolality 285 mOsm/kg (285-295) 11/09/21 05:19 Calcium 8.6 mg/dL (8.5-10.5) 11/09/21 05:19 Magnesium 2.1 mg/dL (1.7-2.3) 11/07/21 10:00 Troponin T Baseline 21 ng/L (0-10) H 11/06/21 13:55 Troponin T 120 Minute 22.93 ng/L (0-10) H 11/06/21 15:50 Delta Troponin T 1.93 ABS# (0-10) 11/06/21 15:50 Troponin T Hi Sens 6Hr 18.89 ng/L (0-10) H 11/06/21 20:19 Troponin T Hi Sens 6Hr Delta -2.11 ng/L (0-12) L 11/06/21 20:19 NT-Pro-B Natriuret Pep 221 pg/mL (0-450) 11/06/21 13:55 Vitals Last Vital Signs Temp 97.6 F 11/09/21 07:28 Pulse 105 H 11/09/21 08:29 Resp 16 11/09/21 07:28 BP 133/81 11/09/21 07:28 Pulse Ox 94 11/09/21 08:29 Discharge Plan Discharge Patient Disposition: Home Condition: Stable Prescriptions: New 24 Hour Allergy Relief 50 mcg/actuation spray,suspension 1 spray intranasal DAILY Qty: 16 2RF Rx Instructions: administer into each nostril Lasix 40 mg tablet 40 mg PO BID Qty: 60 3RF Continued hyoscyamine sulfate 0.125 mg tablet 0.125 mg PO Q12H PRN (Reason: IBS Symptoms) 0RF Myrbetriq 50 mg tablet extended release 24 hr 50 mg PO DAILY 0RF atorvastatin 40 mg tablet 40 mg PO BEDTIME 30 Days Qty: 30 0RF metformin 500 mg tablet 500 mg PO BID 30 Days Qty: 60 0RF levothyroxine 75 mcg tablet 75 mcg PO DAILY 30 Days Qty: 30 0RF potassium chloride 20 mEq tablet,ER particles/crystals 20 meq PO BID 30 Days Qty: 60 0RF metoprolol tartrate 50 mg Tablet 25 mg PO DAILY 30 Days Qty: 30 0RF aspirin 81 mg Tablet,Chewable 81 mg PO DAILY 30 Days Qty: 30 0RF Discontinued furosemide 40 mg tablet 40 mg PO BID 0RF Discharge Orders: Discharge Order (Routine); Ordered 11/09/21 Ordered By: Marbin Zhang Other Ambulatory Orders: DME: Oxygen (Order) Location: None Selected Ordered By: Marbin Zhang Referrals: Chidi Benitez M.D [Physician] - 1 month (should call with appt info) Discharge Diet: Diabetic Discharge Activity: Increase activity as tolerated Patient Instructions: Type 2 Diabetes, Heart Failure (DC), Hypothyroidism (DC), COPD (Chronic Obstructive Pulmonary Disease) (DC), Opioid Safety Discharge Attestations Time Spent in Discharge Care*: greater than 30 min Specific Discharge Activities: educating patient, educating and/or supporting family/caregiver, discussing with pcp/other providers, discussing with telephonic nurse case manager/social workers/dc planners, documenting/other paperwork and evaluating patient/reviewing data Quality Metrics Clinical Quality Measures [ No reported AMI, CVA or VTE this stay] Coding Level of Care Code Acute g [facility] note Diagnoses CHF exacerbation I50.9 COPD (chronic obstructive pulmonary disease) J44.9 Diabetes E11.9 Hypothyroidism E03.9
[2021-11-09 11:48] LABS: Glucose Point of Care 194 mg/dL (70-110)
[2021-11-09] MEDS: azithromycin 500 MG in sodium chloride 0.9% 250 ML 250 MG IV (12:21)
[2021-11-09] MEDS: insulin lispro 100 unit/1 mL SUBCUT (12:21)
--- NOTE | 2021-11-09 12:27 | PC.NURSE ---
Quijano catheter removed at 1225. Catheter intact. Patient tolerated well.
--- NOTE | 2021-11-09 16:05 | PC.NURSE ---
Discharge teaching and education were given to patient, all questions were answered at this time. Belongings accounted for. Iv discontinued. Patient urinated after catheter was removed. Vitals stable. Patient is supposed to be picked up by EMS later tonight.
[2021-11-09 17:55] LABS: Glucose Point of Care 123 mg/dL (70-110)
[2021-11-09] MEDS: atorvastatin 40 mg Tablet PO (20:13)
[2021-11-10 06:39] LABS: Glucose Point of Care 141 mg/dL (70-110)
== END 2021-11-09 22:20 | disposition home or self-care (01) | DRG 292 ==
LOC: ER 17:25 → MEDSURG 18:15
PROVIDERS: Admitting Provider Internal Medicine; Emergency Provider Emergency Medicine; Visit Provider Internal Medicine
DX: I50.33 Acute on chronic diastolic (congestive) heart failure (principal); J44.0 Chronic obstructive pulmonary disease with (acute) lower respiratory infection; Z68.44 Body mass index [BMI] 60.0-69.9, adult; J20.9 Acute bronchitis, unspecified; Z99.81 Dependence on supplemental oxygen; E66.01 Morbid (severe) obesity due to excess calories; E11.9 Type 2 diabetes mellitus without complications; E03.9 Hypothyroidism, unspecified; M25.511 Pain in right shoulder; Z79.84 Long term (current) use of oral hypoglycemic drugs; Z79.82 Long term (current) use of aspirin
CPT/HCPCS: 36415; 36416; 71045; 73020; 73200; 80048; 82962; 83735; 83880; 84484; 85025; 93005; 93306; 96372; 96374; 97161; 99285; C9113; J0456; J1650; J1815; J1940; J7050

== ENCOUNTER 2021-11-26 17:02 | Emergency (ER) | payer MEDICARE, MEDICAID, SELFPAY ==
[2021-11-26 16:27] VITALS: BP 133/84; PULSE 70; RESP 20; TEMP 36.6; O2SAT 96; BMI 57.6
--- NOTE | 2021-11-26 16:43 | XRR_ITS ---
PROCEDURE INFORMATION: Exam: XR Chest Exam date and time: 11/26/2021 4:53 PM Age: 76 years old Clinical indication: Shortness of breath; Patient HX: Lower ext swelling; Additional info: Dyspnea/cough TECHNIQUE: Imaging protocol: XR of the chest. Views: 1 view. COMPARISON: CR XR chest 1V portable [id number] 11/06/2021 1:55 PM FINDINGS: Lungs: Cardiac silhouette size, and vascularity are somewhat accentuated, likely related to poor inspiration/expansion however clinical correlation for mild CHF should be obtained. Upper lungs are clear. Lung bases are suboptimally assessed. Streaky opacities in both lung bases, likely atelectasis however follow-up should be obtained to exclude developing pneumonia. Pleural spaces: Unremarkable. No pleural effusion. No pneumothorax. Heart/Mediastinum: As above. Bones/joints: No acute osseous findings. Other findings: Single view was submitted. XR/XR chest 1V portable [id number] IMPRESSION: 1. Accentuated cardiac silhouette size and vascularity. See discussion above. 2. Bibasilar streaky opacities as described.
[2021-11-26 17:15] LABS: Basophils % 0.2 %; Eosinophils # 0.3 10^3/uL (0.0-0.8); Eosinophils % 2.2 %; Hematocrit 33.5 % (37.0-47.0); Hemoglobin 9.9 g/dL (11.5-15.3); Lymphocytes # 1.5 10^3/uL (0.8-4.8); Mean Corpuscular HGB Conc 29.6 g/dL (30.0-36.0); Mean Corpuscular Hemoglobin 25.1 pg (28.0-34.0); Mean Corpuscular Volume 84.8 fl (81-99); Mean Platelet Volume 9.9 fL (7.4-10.4); Monocytes # 0.6 10^3/uL (0.2-0.9); Monocytes % 5.2 %; Neutrophils # 9.17 10^3/uL (1.8-7.7); Neutrophils % 79.1 %; Nucleated Red Blood Cells % 0 %; Platelet Count 212 10^3/cmm (130-400); Red Blood Count 3.95 10^6/uL (4.1-5.3); Red Cell Distribution Width 14.5 % (12.1-15.1); White Blood Count 11.6 10^3/uL (4.0-10.0)
--- NOTE | 2021-11-26 17:23 | ECG_ITS ---
[facility] Test Date: 2021-11-26 Pat Name: Rossy Brooke Department: Room: Gender: Female Director [employer]: : 1945 Requested By: Al Leigh Order Number: [id number] Irwin MD: Chidi Benitez M.D. Measurements Intervals [place] Rate: 68 P: -41 SD: 310 QRS: -5 QRSD: 89 T: 31 QT: 390 QTc: 416 Interpretive Statements SINUS RHYTHM WITH FIRST DEGREE AV BLOCK LOW QRS VOLTAGE IN PRECORDIAL LEADS [QRS DEFLECTION < 1.0 mV IN CHEST LEADS] Compared to ECG 11/06/2021 16:28:46 First degree AV block now present Electronically Signed On 11-26-2021 20:46:49 CDT by Chidi Benitez M.D. [id number]
--- NOTE | 2021-11-26 17:32 | W.ED.SOB ---
HPI - SOB/Dyspnea General: Chief Complaint: Shortness of Breath/Dyspnea Stated Complaint: lower ext edema Source: patient Mode of arrival: EMS Limitations: no limitations History of Present Illness: HPI Narrative: 76-year-old female presents emergency room complaining of shortness of breath. She has sudden brief episode of shortness of breath at home she normally uses 2 L by nasal cannula at home she lives in assisted living. She has completely resolved now. She said chest discomfort on the right side does not radiate last few sets of seconds and resolved. She has not had any recurrence of it. She does have some swelling in her legs from time to time and the swelling is actually decreased at this point. MD elicited complaint: shortness of breath Pertinent past history: congestive heart failure Onset (ago): minute(s) Timing: intermittent and now resolved Severity: mild Exacerbating factors: nothing Relieving factors: nothing Known history of: congestive heart failure Associated symptoms: Reports chest congestion; Deny abdominal pain, chest pain, cough, diaphoresis, dizziness, extremity pain, fever(s), hemoptysis, lightheadedness, myalgias, nausea, orthopnea, palpitations, paresthesias, polydipsia, polyuria, rash, sense of impending doom, syncope or vomiting Treatment prior to arrival: oxygen Review of Systems Const: Denies: fever(s), chills or diaphoresis ENMT: Denies: throat pain, ear or mastoid pain, nasal discharge or nasal congestion Card: Denies: chest pain, palpitations, lightheadedness, syncope or orthopnea Resp: Reports: dyspnea and chest congestion; Denies: productive cough, non-productive cough, wheezing or hemoptysis GI: Denies: abdominal pain, nausea or vomiting : Denies: flank pain, difficulty voiding, dysuria, urinary frequency or urinary urgency Musc: Denies: extremity pain Skin/Breast: Denies: rash or pruritus Neuro: Denies: dizziness Endo: Denies: polyuria or polydipsia PFSH ED PFSH: Medical History CHF exacerbation CHF exacerbation COPD (chronic obstructive pulmonary disease) Diabetes Hypothyroidism Requires oxygen therapy Volume overload Social History Smoking and tobacco status: never smoked Alcohol intake: never Physical Exam Const: GENERAL APPEARANCE: cooperative and comfortable ORIENTATION/CONSCIOUSNESS: Yes awake, Yes oriented to person, Yes oriented to place and Yes oriented to time HENMT: COMMON NORMALS: normocephalic, atraumatic and hearing grossly normal bilaterally HEAD & SCALP: normocephalic and atraumatic Neck/C-Spine: COMMON NORMALS: no JVD Resp: COMMON NORMALS: normal respiratory effort, No retractions, No use of accessory muscles and clear to auscultation bilaterally AUSCULTATION: clear to auscultation bilaterally Cardio: COMMON NORMALS: no JVD, regular rate, regular rhythm and No murmurs present (Cardio) RATE: regular rate RHYTHM: regular rhythm GI: COMMON NORMALS: Soft to palpation and No hepatosplenomegaly present AUSCULTATION: Yes normoactive bowel sounds PALPATION: Yes Soft to palpation, No Tenderness to palpation present (GI), No Guarding due to palpation present (GI) and Yes No hepatosplenomegaly present Extremity: COMMON NORMALS: normal to inspection, capillary refill normal and no calf tenderness Neuro: SENSORIUM/ORIENTATION: Yes oriented to person, Yes oriented to place and Yes oriented to time Skin: COMMON NORMALS: no rashes or lesions noted GENERAL SKIN EXAM: no rashes or lesions noted Course Vital Signs: Vital signs: Vital Signs Temperature 98 F 11/26/21 16:27 Pulse Rate 70 11/26/21 16:27 Respiratory Rate 20 H 11/26/21 16:27 Blood Pressure 133/84 11/26/21 16:27 Pulse Oximetry 96 11/26/21 16:27 MDM - SOB/Dyspnea Medical Decision Making Patient reports of transient shortness of breath her sats are good here and she is actually relatively asymptomatic. Overall her swelling in her legs appears to have been worse in the past as not a lot of tension on the skin at this point. 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 Labs and imaging and EKG reviewed as on the chart. Medical Records I reviewed the patient's medical records. Lab Data I reviewed the patient's lab results. : 11/26/21 17:08 11/26/21 17:08 Labs/Radiology: Radiology Impressions Chest X-Ray 11/26/21 16:43 IMPRESSION: 1. Accentuated cardiac silhouette size and vascularity. See discussion above. 2. Bibasilar streaky opacities as described. Laboratory Results WBC 11.6 10^3/uL (4.0-10.0) H 11/26/21 17:08 RBC 3.95 10^6/uL (4.1-5.3) L 11/26/21 17:08 Hgb 9.9 g/dL (11.5-15.3) L 11/26/21 17:08 Hct 33.5 % (37.0-47.0) L 11/26/21 17:08 MCV 84.8 fl (81-99) 11/26/21 17:08 MCH 25.1 pg (28.0-34.0) L 11/26/21 17:08 MCHC 29.6 g/dL (30.0-36.0) L 11/26/21 17:08 RDW 14.5 % (12.1-15.1) 11/26/21 17:08 Plt Count 212 10^3/cmm (130-400) 11/26/21 17:08 MPV 9.9 fL (7.4-10.4) 11/26/21 17:08 Neut % (Auto) 79.1 % 11/26/21 17:08 Lymph % (Auto) 13.0 % 11/26/21 17:08 [place] % (Auto) 5.2 % 11/26/21 17:08 Eos % (Auto) 2.2 % 11/26/21 17:08 Baso % (Auto) 0.2 % 11/26/21 17:08 Neut # (Auto) 9.17 10^3/uL (1.8-7.7) H 11/26/21 17:08 Lymph # (Auto) 1.5 10^3/uL (0.8-4.8) 11/26/21 17:08 [place] # (Auto) 0.6 10^3/uL (0.2-0.9) 11/26/21 17:08 Eos # (Auto) 0.3 10^3/uL (0.0-0.8) 11/26/21 17:08 Baso # (Auto) 0.0 10^3/uL (0.0-0.1) 11/26/21 17:08 Nucleated RBC % (auto) 0 % 11/26/21 17:08 Nucleated RBCs # 0.0 /100WBC 11/26/21 17:08 Sodium 137 mmol/L (136-145) 11/26/21 17:08 Potassium 4.3 mmol/L (3.5-5.1) 11/26/21 17:08 Chloride 95 mmol/L (98-107) L 11/26/21 17:08 Carbon Dioxide 36 mmol/L (22-29) H 11/26/21 17:08 Anion Gap 10.3 (5-19) 11/26/21 17:08 BUN 16 mg/dL (8-23) 11/26/21 17:08 Creatinine 0.8 mg/dL (0.5-0.9) 11/26/21 17:08 GFR Calculation Not Reportable 11/26/21 17:08 Glucose 118 mg/dL (65-115) H 11/26/21 17:08 Calculated Osmolality 286 mOsm/kg (285-295) 11/26/21 17:08 Calcium 8.6 mg/dL (8.5-10.5) 11/26/21 17:08 Total Bilirubin 0.3 mg/dL (0.15-1.2) 11/26/21 17:08 AST 13 U/L (0-32) 11/26/21 17:08 ALT 9 U/L (0-33) 11/26/21 17:08 Alkaline Phosphatase 181 IU/L (35-105) H 11/26/21 17:08 Total Protein 7.1 g/dL (6.6-8.7) 11/26/21 17:08 Albumin 3.9 g/dL (3.5-5.2) 11/26/21 17:08 Globulin 3.2 g/dL (1.3-4.6) 11/26/21 17:08 Discharge Plan Discharge Patient Disposition: Home Clinical Impression: Congestive heart failure Condition: Stable Prescriptions: No Action hyoscyamine sulfate 0.125 mg tablet 0.125 mg PO Q12H PRN (Reason: IBS Symptoms) 0RF Myrbetriq 50 mg tablet extended release 24 hr 50 mg PO DAILY 0RF 24 Hour Allergy Relief 50 mcg/actuation spray,suspension 1 spray intranasal DAILY Qty: 16 2RF Rx Instructions: administer into each nostril Lasix 40 mg tablet 40 mg PO BID Qty: 60 3RF atorvastatin 40 mg tablet 40 mg PO BEDTIME 30 Days Qty: 30 0RF metformin 500 mg tablet 500 mg PO BID 30 Days Qty: 60 0RF levothyroxine 75 mcg tablet 75 mcg PO DAILY 30 Days Qty: 30 0RF potassium chloride 20 mEq tablet,ER particles/crystals 20 meq PO BID 30 Days Qty: 60 0RF metoprolol tartrate 50 mg Tablet 25 mg PO DAILY 30 Days Qty: 30 0RF aspirin 81 mg Tablet,Chewable 81 mg PO DAILY 30 Days Qty: 30 0RF Discharge Orders: Discharge ED (Routine); Ordered 11/26/21 Ordered By: Al Valdovinos Discharge Diet: Usual diet Discharge Activity: Resume usual activity Patient Instructions: Opioid Safety Activity Restrictions/Additional Instructions: Continue same meds and rechek with your doctor in 2-3 days. Coding Level of Care Code ED Kiss Setter Hand for Coby Fwd Exam Comprehensive
[2021-11-26 17:36] LABS: Alanine Aminotransferase 9 U/L (0-33); Albumin Level 3.9 g/dL (3.5-5.2); Alkaline Phosphatase 181 IU/L (35-105); Anion Gap 10.3 (5-19); Aspartate Amino Transferase 13 U/L (0-32); Blood Urea Nitrogen 16 mg/dL (8-23); Calcium 8.6 mg/dL (8.5-10.5); Carbon Dioxide 36 mmol/L (22-29); Chloride 95 mmol/L (98-107); Globulin 3.2 g/dL (1.3-4.6); Glucose 118 mg/dL (65-115); Osmolality Calculated 286 mOsm/kg (285-295); Potassium 4.3 mmol/L (3.5-5.1); Sodium 137 mmol/L (136-145); Total Bilirubin 0.3 mg/dL (0.15-1.2); Total Protein 7.1 g/dL (6.6-8.7)
[2021-11-26] MEDS: FUROsemide 10 mg/mL SDV 4mL 40 MG IVP (18:37)
== END 2021-11-26 21:18 | disposition home or self-care (01) ==
PROVIDERS: Emergency Provider Family Medicine
DX: I50.9 Heart failure, unspecified (principal); J44.9 Chronic obstructive pulmonary disease, unspecified; E11.9 Type 2 diabetes mellitus without complications; Z99.81 Dependence on supplemental oxygen; Z79.82 Long term (current) use of aspirin; Z79.84 Long term (current) use of oral hypoglycemic drugs
CPT/HCPCS: 71045; 80053; 85025; 93005; 96374; 99284; J1940

== ENCOUNTER → 2022-02-18 10:29 | Outpatient (BNVA) | payer MEDICARE, MEDICAID, SELFPAY | PROVIDERS: Visit Provider Otolaryngology | DX: E04.2 Nontoxic multinodular goiter (principal); E04.1 Nontoxic single thyroid nodule; E03.9 Hypothyroidism, unspecified; H65.03 Acute serous otitis media, bilateral; E66.01 Morbid (severe) obesity due to excess calories; Z68.43 Body mass index [BMI] 50.0-59.9, adult | CPT/HCPCS: 99203 ==

== ENCOUNTER → 2022-03-25 13:00 | Outpatient (BNVA) | payer MEDICARE, MEDICAID, SELFPAY | PROVIDERS: Referring Provider Physician Assistant; Visit Provider Student in an Organized Health Care Education/Training Program | DX: M19.011 Primary osteoarthritis, right shoulder (principal) | CPT/HCPCS: 73030; 99204 ==

== ENCOUNTER 2022-04-15 12:14 | Emergency (ER) | payer MEDICARE, MEDICAID, SELFPAY ==
[2022-04-15 13:20] VITALS: BMI 60.5
[2022-04-15 13:23] VITALS: BP 144/83; PULSE 75; RESP 21; TEMP 36.7; O2SAT 98
--- NOTE | 2022-04-15 14:24 | XRR_ITS ---
PROCEDURE INFORMATION: Exam: XR Left Knee Exam date and time: 04/15/2022 2:39 PM Age: 76 years old Clinical indication: Pain; Knee; Left; Additional info: Pain with weight bearing TECHNIQUE: Imaging protocol: Radiologic exam of the Left knee. Views: 1 or 2 views. COMPARISON: No relevant prior studies available. FINDINGS: Bones/joints: There is severe tricompartmental osteoarthritis with prominent osteophytes and subchondral sclerosis. There is also minimal lateral subluxation of the tibia relative to the femur on the frontal view, likely on a chronic degenerative basis. No obvious acute fracture or significant dislocation. Probably no significant joint effusion however details are limited. Soft tissues: Details are somewhat limited due to body habitus. Prominent soft tissue which suggest obesity and/or diffuse edema. No soft tissue gas. Other findings: Two nonweightbearing views submitted. XR/XR knee LT 1-2V [id number] IMPRESSION: Advanced OA with no obvious acute fracture.
--- NOTE | 2022-04-15 15:27 | W.ED.EXTPRO ---
HPI - Extremity Problem General: Chief complaint: Extremity Problem,Nontraumatic Stated complaint: knee pain Time Seen by Provider: 04/15/22 13:30 History of Present Illness: 76-year-old female in today for complaints of left knee pain. Patient reports that she was in seeing orthopedic a couple weeks ago for her shoulder. She reports that when they stood her to do the x-ray her left knee gave out and she has been able to bear very little weight on it since that time. She offers that she normally is not able to bear weight for extended periods of time on her legs, however this has been worsened since the incident. She does offer that she has osteoarthritis. Associated symptoms: Deny chest pain or fever(s) Review of Systems Const: Denies: fever(s), chills or body aches Card: Denies: chest pain or palpitations Resp: Denies: dyspnea Musc: Reports: joint pain (Left knee) [facility] ED PFSH: Medical History Arthritis of shoulder region, right, degenerative CHF exacerbation CHF exacerbation COPD (chronic obstructive pulmonary disease) Diabetes Hypothyroidism Requires oxygen therapy Volume overload Surgical History H/O knee surgery Social History Smoking and tobacco status: never smoked Alcohol intake: never Physical Exam Const: COMMON NORMALS: patient oriented x3 and alert NUTRITIONAL APPEARANCE: obese morbidly obese (Wheelchair bound) Resp: COMMON NORMALS: normal respiratory effort and No use of accessory muscles Extremity: LEFT LOWER EXTREMITY: Yes knee joint Left knee: Yes inspection and Yes palpation (Tenderness to palpation MCL) OTHER: It is difficult to fully appreciate and assess the knee as the patient is mostly wheelchair-bound. She is also morbidly obese. There is no obvious bony or soft tissue deformity appreciated to the knee. CSM is within normal limits to the distal leg and foot. There is tenderness to palpation along the medial collateral ligament. No significant tenderness to palpation to the patella. Neuro: COMMON NORMALS: patient oriented x3 SENSORIUM/ORIENTATION: Yes alert Course Vital Signs: Vital signs: Vital Signs Temperature 98.0 F 04/15/22 13:23 Pulse Rate 75 04/15/22 13:23 Respiratory Rate 21 H 04/15/22 13:23 Blood Pressure 144/83 04/15/22 13:23 Pulse Oximetry 98 04/15/22 13:23 Oxygen Delivery Me thod 04/15/22 13:23 Oxygen Flow Rate 3 04/15/22 13:23 MDM - Extremity (Nontraumatic) Medical Decision Making Morbidly obese female in for complaints of left knee pain x2 weeks after her knee buckled while she was at the orthopedic surgeons office. She reports that she is not typically able to stand for extended periods of time but it has been even worse since the incident. She is mostly wheelchair-bound. She is concerned because she heard a pop. X-ray of the knee was done and negative for any acute fractures. Patient has significant osteoarthritis. She is being seen by orthopedic surgeon for her shoulder and starting steroid injections in her shoulder. I will refer her back to orthopedic surgeon for her knee. We discussed conservative treatments at home. Follow-up with Ortho. Return to the ER for any new or worsening symptoms. Lab Data Radiology Impressions Knee X-Ray 04/15/22 14:24 IMPRESSION: Advanced OA with no obvious acute fracture. Discharge Plan Discharge Patient Disposition: Home Clinical Impression: Osteoarthritis, Acute knee pain Condition: Stable Prescriptions: New Voltaren Arthritis Pain 1 % gel 2 g topical QID Qty: 100 0RF Rx Instructions: apply topically to left knee No Action hyoscyamine sulfate 0.125 mg tablet 0.125 mg PO Q12H PRN (Reason: IBS Symptoms) Myrbetriq 50 mg tablet extended release 24 hr 50 mg PO DAILY 24 Hour Allergy Relief 50 mcg/actuation spray,suspension 1 spray intranasal DAILY Qty: 16 2RF Rx Instructions: administer into each nostril Lasix 40 mg tablet 40 mg PO BID Qty: 60 3RF atorvastatin 40 mg tablet 40 mg PO BEDTIME 30 Days Qty: 30 0RF metformin 500 mg tablet 500 mg PO BID 30 Days Qty: 60 0RF levothyroxine 75 mcg tablet 75 mcg PO DAILY 30 Days Qty: 30 0RF potassium chloride 20 mEq tablet,ER particles/crystals 20 meq PO BID 30 Days Qty: 60 0RF metoprolol tartrate 50 mg Tablet 25 mg PO DAILY 30 Days Qty: 30 0RF aspirin 81 mg Tablet,Chewable 81 mg PO DAILY 30 Days Qty: 30 0RF Discharge Orders: Discharge ED (Routine); Ordered 04/15/22 Ordered By: Estefany Minaya Discharge Diet: Usual diet Patient Instructions: Osteoarthritis (ED) Activity Restrictions/Additional Instructions: Follow-up with Dr. Bonilla for osteoarthritis of your left knee. Use the Voltaren gel as prescribed. Follow-up with your primary care provider. Return to the ER for any new or worsening symptoms. Coding Level of Care Code ED Manufacturing Engineer [employer]otive for Coby Cintron
--- NOTE | 2022-04-16 10:18 | DCPLANNER ---
Addendum entered by Milla Godwin 07/07/22 15:31: Patient had a follow up appointment scheduled with ortho - patient did attend appointment. Addendum entered by Milla Godwin 04/16/22 15:28: Patient has a follow up appointment scheduled for Monday, April 18, 2022 at 10:[address] Bonilla with ortho. Clinic will call patient with appointment information. Original Note: health club manager had message to schedule a follow up appointment for patient with ortho. health club manager sent patients information to the front office staff at ortho. Patients information will be printed and reviewed. Clinic will call patient with appointment information.
== END 2022-04-15 16:06 | disposition home or self-care (01) ==
PROVIDERS: Emergency Provider Nurse Practitioner Family
DX: M17.12 Unilateral primary osteoarthritis, left knee (principal); Z79.84 Long term (current) use of oral hypoglycemic drugs; Z79.82 Long term (current) use of aspirin; I11.0 Hypertensive heart disease with heart failure; I50.9 Heart failure, unspecified; J44.9 Chronic obstructive pulmonary disease, unspecified; E11.9 Type 2 diabetes mellitus without complications
CPT/HCPCS: 73560; 99283

== ENCOUNTER 2022-04-16 18:20 | Emergency (ER) | payer MEDICARE, MEDICAID, SELFPAY ==
[2022-04-16 18:21] VITALS: BP 133/68; PULSE 91; RESP 14; TEMP 36.7; O2SAT 96; BMI 109.5
--- NOTE | 2022-04-16 18:34 | ED_ITS ---
HPI - Extremity Problem General: Chief complaint: Extremity Injury, Lower Stated complaint: left knee pain Time Seen by Provider: 04/16/22 18:30 History of Present Illness: Patient is a 76-year-old female comes to the ED with left knee pain. Patient was seen here in the ED yesterday April 23 for same complaint. X-rays of left knee yesterday showed no acute fractures but did show osteoarthritis. The emergency department provider yesterday put in a referral for patient to be seen with Ortho for follow-up on knee pain and patient says she has an appointment with orthopedics on Thursday. Left knee pain is the same as it was yesterday. Associated symptoms: Deny chest pain, fever(s) or rash Review of Systems Const: Denies: fever(s), chills or fatigue Eyes: Denies: change in vision or eye discomfort ENMT: Denies: throat pain, odynophagia, nasal discharge or nasal congestion Card: Denies: chest pain, palpitations, edema, swelling of feet/ankles, dyspnea on exertion or orthopnea Resp: Denies: dyspnea, productive cough or non-productive cough GI: Denies: abdominal pain, nausea, vomiting, diarrhea, constipation or hematochezia : Denies: flank pain, dysuria or hematuria Musc: Reports: extremity pain (Left knee pain) and joint pain (Left knee pain); Denies: neck pain, back pain or extremity swelling Skin/Breast: Denies: rash or new lesions Neuro: Denies: headache(s), numbness in extremities or weakness in extremities [facility] ED PFSH: Medical History Arthritis of shoulder region, right, degenerative CHF exacerbation CHF exacerbation COPD (chronic obstructive pulmonary disease) Diabetes Hypothyroidism Requires oxygen therapy Volume overload Surgical History H/O knee surgery Social History Smoking and tobacco status: never smoked Alcohol intake: never Physical Exam Const: COMMON NORMALS: no acute distress and patient oriented x3 NUTRITIONAL APPEARANCE: obese morbidly obese HENMT: COMMON NORMALS: normocephalic HEAD & SCALP: normocephalic MOUTH: Normal oral and palatal mucosa present THROAT: posterior oropharynx normal and uvula midline Neck/C-Spine: COMMON NORMALS: supple GENERAL: Yes normal visual inspection Resp: COMMON NORMALS: normal respiratory effort, No retractions, No use of accessory muscles and clear to auscultation bilaterally AUSCULTATION: clear to auscultation bilaterally Cardio: COMMON NORMALS: regular rate, regular rhythm, S1 normal heart sound present, S2 normal heart sound present, No gallops present (Cardio), No clicks present (Cardio), No murmurs present (Cardio) and Peripheral pulses 2+ throughout RATE: regular rate RHYTHM: regular rhythm HEART SOUNDS: S1 normal heart sound present and S2 normal heart sound present PERIPHERAL PULSES: Peripheral pulses 2+ throughout GI: COMMON NORMALS: Normal to inspection, nondistended, normoactive bowel sounds present, Soft to palpation, non-tender and no masses PALPATION: Yes Soft to palpation : COMMON NORMALS: Yes no CVA tenderness BLADDER/KIDNEY EXAM: Yes no CVA tenderness Back/Pelvis: COMMON NORMALS: no CVA tenderness Extremity: NARRATIVE EXTREMITY EXAM: Left knee?no visible deformity of left knee noted. Neurovascular intact. Neuro: COMMON NORMALS: patient oriented x3 GAIT: Yes Normal gait present Skin: GENERAL SKIN EXAM: dry skin Course Vital Signs: Vital signs: Vital Signs Temperature 98.0 F 04/16/22 18:21 Pulse Rate 91 04/16/22 18:21 Respiratory Rate 14 04/16/22 18:21 Blood Pressure 133/68 04/16/22 18:21 Pulse Oximetry 96 04/16/22 18:21 Oxygen Delivery Me thod 04/16/22 18:21 MDM - Extremity (Nontraumatic) Medical Decision Making Patient is a 76-year-old female comes to the ED with left knee pain. Patient was seen here in the ED for same complaint yesterday April 15 and an x-ray was performed and showed osteoarthritis but no acute fractures. Patient was referred to Ortho to reevaluate knee pain and has a appointment set up with orthopedic doctor on this coming Thursday. Denies any new complaint here in the ED. Patient was stable for discharge home and told to follow-up with Ortho at scheduled appointment for further evaluation of left knee pain. Discharge Plan Discharge Patient Disposition: Home Clinical Impression: Osteoarthritis of left knee Qualifiers: Osteoarthritis type: primary Qualified Code(s): M17.12 - Unilateral primary osteoarthritis, left knee Condition: Stable Prescriptions: No Action hyoscyamine sulfate 0.125 mg tablet 0.125 mg PO Q12H PRN (Reason: IBS Symptoms) Myrbetriq 50 mg tablet extended release 24 hr 50 mg PO DAILY 24 Hour Allergy Relief 50 mcg/actuation spray,suspension 1 spray intranasal DAILY Qty: 16 2RF Rx Instructions: administer into each nostril Lasix 40 mg tablet 40 mg PO BID Qty: 60 3RF atorvastatin 40 mg tablet 40 mg PO BEDTIME 30 Days Qty: 30 0RF metformin 500 mg tablet 500 mg PO BID 30 Days Qty: 60 0RF levothyroxine 75 mcg tablet 75 mcg PO DAILY 30 Days Qty: 30 0RF potassium chloride 20 mEq tablet,ER particles/crystals 20 meq PO BID 30 Days Qty: 60 0RF metoprolol tartrate 50 mg Tablet 25 mg PO DAILY 30 Days Qty: 30 0RF aspirin 81 mg Tablet,Chewable 81 mg PO DAILY 30 Days Qty: 30 0RF Voltaren Arthritis Pain 1 % gel 2 g topical QID Qty: 100 0RF Rx Instructions: apply topically to left knee Discharge Orders: Discharge ED (Routine); Ordered 04/16/22 Ordered By: Markel Bonilla Discharge Diet: Regular Discharge Activity: Increase activity as tolerated Patient Instructions: Osteoarthritis (DC), Knee Pain (ED) Activity Restrictions/Additional Instructions: Follow-up with orthopedics at your scheduled appointment on this coming Thursday. Continue taking all home medications as prescribed. Please read and understand discharge instructions. Thank you for choosing [facility] for your healthcare needs today. Please realize this is an emergency room and that we are providing you with a medical screening exam and this may not be complete and all inclusive of all the testing and or work up that you may need to determine your ailment or severity of your illness. It is very important that you follow up as instructed or that you return to the Emergency Department should you have concerns or if your condition changes or worsens in any way. Coding Level of Care Code ED Devil Dog for Coby Cintron
== END 2022-04-16 20:00 | disposition home or self-care (01) ==
PROVIDERS: Emergency Provider Physician Assistant
DX: M17.12 Unilateral primary osteoarthritis, left knee (principal); Z79.84 Long term (current) use of oral hypoglycemic drugs; Z79.82 Long term (current) use of aspirin; I50.9 Heart failure, unspecified; J44.9 Chronic obstructive pulmonary disease, unspecified; E11.9 Type 2 diabetes mellitus without complications; Z99.81 Dependence on supplemental oxygen
CPT/HCPCS: 99281

== ENCOUNTER 2022-05-20 06:00 | Outpatient (RCR) | payer MEDICARE, MEDICAID, SELFPAY | END 2022-05-26 23:59 | disposition home or self-care (01) | LOC: MPT 06:00 | PROVIDERS: Visit Provider Physician Assistant | DX: M25.562 Pain in left knee (principal); R26.2 Difficulty in walking, not elsewhere classified; Z72.3 Lack of physical exercise | CPT/HCPCS: 97162 ==

== ENCOUNTER 2022-05-21 13:21 | Observation (INO) | payer MEDICARE, MEDICAID, SELFPAY ==
[2022-05-21] VITALS (23 sets, daily range): BP systolic 109–138; BP diastolic 62–81; PULSE 61–89; RESP 16–20; TEMP 36.7; O2SAT 89–97; BMI 60.5
[2022-05-21 14:59] LABS: Basophils % 0.3 %; Eosinophils # 0.1 10^3/uL (0.0-0.8); Eosinophils % 1.5 %; Hematocrit 36.6 % (37.0-47.0); Hemoglobin 10.8 g/dL (11.5-15.3); Lymphocytes # 1.5 10^3/uL (0.8-4.8); Lymphocytes % 16.7 %; Mean Corpuscular HGB Conc 29.5 g/dL (30.0-36.0); Mean Corpuscular Hemoglobin 26.3 pg (28.0-34.0); Mean Corpuscular Volume 89.1 fl (81-99); Mean Platelet Volume 9.3 fL (7.4-10.4); Monocytes # 0.7 10^3/uL (0.2-0.9); Monocytes % 8.1 %; Neutrophils # 6.59 10^3/uL (1.8-7.7); Nucleated Red Blood Cells % 0 %; Platelet Count 226 10^3/cmm (130-400); Red Blood Count 4.11 10^6/uL (4.1-5.3); Red Cell Distribution Width 14.8 % (12.1-15.1)
[2022-05-21 15:28] LABS: Alanine Aminotransferase 10 U/L (0-33); Albumin Level 3.2 g/dL (3.5-5.2); Alkaline Phosphatase 185 U/L (35-105); Anion Gap 11.4 (5-19); Aspartate Amino Transferase 14 U/L (0-32); Blood Urea Nitrogen 16 mg/dL (8-23); Calcium 9.1 mg/dL (8.5-10.5); Carbon Dioxide 36 mmol/L (22-29); Chloride 93 mmol/L (98-107); Globulin 3.9 g/dL (1.3-4.6); Glucose 87 mg/dL (65-115); Osmolality Calculated 283 mOsm/kg (285-295); Potassium 4.4 mmol/L (3.5-5.1); Sodium 136 mmol/L (136-145); Total Bilirubin 0.2 mg/dL (0.15-1.2); Total Protein 7.1 g/dL (6.6-8.7)
--- NOTE | 2022-05-21 15:48 | ED_ITS ---
HPI - Dizziness General: Chief Complaint: Dizziness Stated Complaint: Dizziness Time Seen by Provider: 05/21/22 15:48 PFSH ED PFSH: Medical History Arthritis of shoulder region, right, degenerative CHF exacerbation CHF exacerbation COPD (chronic obstructive pulmonary disease) Diabetes Hypothyroidism Requires oxygen therapy Volume overload Surgical History H/O knee surgery Social History Smoking and tobacco status: never smoked Alcohol intake: never Course Vital Signs: Vital signs: Vital Signs Temperature 98.1 F 05/21/22 14:17 Pulse Rate 61 05/21/22 14:17 Respiratory Rate 17 05/21/22 14:17 Blood Pressure 109/62 05/21/22 14:17 Pulse Oximetry 97 05/21/22 14:17 Oxygen Delivery Me thod 05/21/22 14:17 Oxygen Flow Rate 3 05/21/22 14:17 MDM - Dizziness Lab Data : 05/21/22 14:51 05/21/22 14:51 Laboratory Results WBC 9.0 10^3/uL (4.0-10.0) 05/21/22 14:51 RBC 4.11 10^6/uL (4.1-5.3) 05/21/22 14:51 Hgb 10.8 g/dL (11.5-15.3) L 05/21/22 14:51 Hct 36.6 % (37.0-47.0) L 05/21/22 14:51 MCV 89.1 fl (81-99) 05/21/22 14:51 MCH 26.3 pg (28.0-34.0) L 05/21/22 14:51 MCHC 29.5 g/dL (30.0-36.0) L 05/21/22 14:51 RDW 14.8 % (12.1-15.1) 05/21/22 14:51 Plt Count 226 10^3/cmm (130-400) 05/21/22 14:51 MPV 9.3 fL (7.4-10.4) 05/21/22 14:51 Neut % (Auto) 73.0 % 05/21/22 14:51 Lymph % (Auto) 16.7 % 05/21/22 14:51 Pettis % (Auto) 8.1 % 05/21/22 14:51 Eos % (Auto) 1.5 % 05/21/22 14:51 Baso % (Auto) 0.3 % 05/21/22 14:51 Neut # (Auto) 6.59 10^3/uL (1.8-7.7) 05/21/22 14:51 Lymph # (Auto) 1.5 10^3/uL (0.8-4.8) 05/21/22 14:51 Pettis # (Auto) 0.7 10^3/uL (0.2-0.9) 05/21/22 14:51 Eos # (Auto) 0.1 10^3/uL (0.0-0.8) 05/21/22 14:51 Baso # (Auto) 0.0 10^3/uL (0.0-0.1) 05/21/22 14:51 Nucleated RBC % (auto) 0 % 05/21/22 14:51 Nucleated RBCs # 0.0 /100WBC 05/21/22 14:51 Sodium 136 mmol/L (136-145) 05/21/22 14:51 Potassium 4.4 mmol/L (3.5-5.1) 05/21/22 14:51 Chloride 93 mmol/L (98-107) L 05/21/22 14:51 Carbon Dioxide 36 mmol/L (22-29) H 05/21/22 14:51 Anion Gap 11.4 (5-19) 05/21/22 14:51 BUN 16 mg/dL (8-23) 05/21/22 14:51 Creatinine 0.7 mg/dL (0.5-0.9) 05/21/22 14:51 GFR Calculation Not Reportable 05/21/22 14:51 Glucose 87 mg/dL (65-115) 05/21/22 14:51 Calculated Osmolality 283 mOsm/kg (285-295) L 05/21/22 14:51 Calcium 9.1 mg/dL (8.5-10.5) 05/21/22 14:51 Total Bilirubin 0.2 mg/dL (0.15-1.2) 05/21/22 14:51 AST 14 U/L (0-32) 05/21/22 14:51 ALT 10 U/L (0-33) 05/21/22 14:51 Alkaline Phosphatase 185 U/L (35-105) H 05/21/22 14:51 Total Protein 7.1 g/dL (6.6-8.7) 05/21/22 14:51 Albumin 3.2 g/dL (3.5-5.2) L 05/21/22 14:51 Globulin 3.9 g/dL (1.3-4.6) 05/21/22 14:51 Discharge Plan Discharge Condition: Stable Prescriptions: No Action hyoscyamine sulfate 0.125 mg tablet 0.125 mg PO Q12H PRN (Reason: IBS Symptoms) Myrbetriq 50 mg tablet extended release 24 hr 50 mg PO DAILY 24 Hour Allergy Relief 50 mcg/actuation spray,suspension 1 spray intranasal DAILY Qty: 16 2RF Rx Instructions: administer into each nostril Lasix 40 mg tablet 40 mg PO BID Qty: 60 3RF atorvastatin 40 mg tablet 40 mg PO BEDTIME 30 Days Qty: 30 0RF metformin 500 mg tablet 500 mg PO BID 30 Days Qty: 60 0RF levothyroxine 75 mcg tablet 75 mcg PO DAILY 30 Days Qty: 30 0RF potassium chloride 20 mEq tablet,ER particles/crystals 20 meq PO BID 30 Days Qty: 60 0RF metoprolol tartrate 50 mg Tablet 25 mg PO DAILY 30 Days Qty: 30 0RF aspirin 81 mg Tablet,Chewable 81 mg PO DAILY 30 Days Qty: 30 0RF Voltaren Arthritis Pain 1 % gel 2 g topical QID Qty: 100 0RF Rx Instructions: apply topically to left knee Coding Level of Care Code ED Sas Programmer Analyst for Chg Saida
--- NOTE | 2022-05-21 16:08 | XRR_ITS ---
PROCEDURE INFORMATION: Exam: XR Chest Exam date and time: 05/21/2022 4:12 PM Age: 76 years old Clinical indication: Shortness of breath; Additional info: SOB TECHNIQUE: Imaging protocol: Radiologic exam of the chest. Views: 1 view. COMPARISON: CR (CHEST, ) 11/26/2021 4:53 PM FINDINGS: Lungs: Right lower lobe atelectasis versus minimal infiltrate. Pleural spaces: Unremarkable. No pleural effusion. No pneumothorax. Heart/Mediastinum: Unremarkable. No cardiomegaly. Bones/joints: Unremarkable. XR/XR chest 1V portable [id number] IMPRESSION: Right lower lobe atelectasis versus minimal infiltrate.
--- NOTE | 2022-05-21 16:08 | ECG_ITS ---
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 Measurements Intervals Sanders Rate: 50 P: MN: QRS: 7 QRSD: 93 T: 46 QT: 425 QTc: 391 Interpretive Statements ATRIAL FIBRILLATION WITH SLOW VENTRICULAR RESPONSE LOW QRS VOLTAGE IN PRECORDIAL LEADS [QRS DEFLECTION < 1.0 mV IN CHEST LEADS] POSSIBLE ANTERIOR MYOCARDIAL INFARCTION , OF INDETERMINATE AGE [30 ms Q WAVE IN V3/V4, OR R < 0.2 mV IN V4] Compared to ECG 11/26/2021 18:37:15 Myocardial infarct finding now present Sinus rhythm no longer present First degree AV block no longer present Electronically Signed On 05-22-2022 7:07:05 CDT by Josep Echeverria M.D. [email or web address]
[2022-05-21] MEDS: ipratropium-albuterol 3 mL Neb INHALATION ×2 (16:17→20:25)
--- NOTE | 2022-05-21 16:26 | ED_ITS ---
HPI - General Adult General: Chief complaint: Dizziness Stated complaint: Dizziness Time Seen by Provider: 05/21/22 15:48 History of Present Illness: Ms. Brooke is a 76-year-old lady with complex past medical history including chronic hypoxic respiratory failure on 3 L at baseline presenting to the emergency department due to shortness of breath. Worsening of symptoms for approximately 1 week associated with mild increased productive cough. Denies fevers or GI complaints. Did initially present with stated complaint of dizziness however she more reports this is lightheadedness when she gets up too quickly. Denies other focal neurologic symptoms associated with this or symptoms outside of this context. Intensity symptoms is moderate. Course has worsened. She does have some difficulty having home albuterol treatments. No other specific changes in health, exacerbating, or alleviating factors identified. Onset (ago): day(s) Severity: moderate Exacerbating factors: other (Exertion) Associated symptoms: Reports cough, dyspnea and malaise Review of Systems General: Reports: 10 or more systems reviewed and unremarkable except in HPI and below Const: Reports: malaise Resp: Reports: dyspnea PFSH ED PFSH: Medical History Arthritis of shoulder region, right, degenerative CHF exacerbation CHF exacerbation COPD (chronic obstructive pulmonary disease) Diabetes Hypothyroidism Requires oxygen therapy Volume overload Surgical History H/O knee surgery Family History (Updated 05/21/22 @ 18:42 by Brianna Montemayor MD) Denies family history of CAD (coronary artery disease) Social History Smoking and tobacco status: never smoked Alcohol intake: never Physical Exam Const: COMMON NORMALS: patient oriented x3 and alert GENERAL APPEARANCE: cooperative, well developed and ill appearing (Chronically) HENMT: COMMON NORMALS: normocephalic and atraumatic HEAD & SCALP: normocephalic and atraumatic Eye: COMMON NORMALS: conjunctivae normal CONJUNCTIVA: Yes conjunctivae normal SCLERA: sclerae normal Neck/C-Spine: COMMON NORMALS: supple GENERAL: Yes trachea midline Resp: EFFORT & INSPECTION: Yes able to speak in complete sentences and Yes tachypneic AUSCULTATION: wheezes (Trace end expiratory, coarse throughout) and diminished lung sounds Cardio: COMMON NORMALS: regular rate and regular rhythm RATE: regular rate RHYTHM: regular rhythm GI: COMMON NORMALS: Soft to palpation PALPATION: Yes Soft to palpation and No Tenderness to palpation present (GI) Extremity: GENERAL: Yes normal exam except as noted and No edema Neuro: COMMON NORMALS: patient oriented x3, CN's II-XII intact bilaterally, moves all extremities, no focal motor deficits and no sensory deficits noted SENSORIUM/ORIENTATION: Yes alert and No Orientation impaired Psych: COMMON NORMALS: mental status grossly normal and Normal thought process present THOUGHT PROCESS: Normal thought process present Skin: NARRATIVE SKIN EXAM: Likely moisture related/fungal skin changes under her folds Course Vital Signs: Vital signs: Vital Signs Temperature 97.8 F 05/27/22 12:00 Pulse Rate 71 05/27/22 12:00 Respiratory Rate 21 H 05/27/22 12:00 Blood Pressure 127/76 05/27/22 12:00 Pulse Oximetry 92 05/27/22 12:00 Oxygen Delivery Me thod 05/27/22 07:45 Oxygen Flow Rate 3 05/27/22 07:45 MDM - General Adult Medical Decision Making 76-year-old lady presenting with dizziness. Additionally concerns over worsening oxygen requirement and respiratory symptoms. No focal neurologic deficits and patient is nontoxic though does have increased respiratory effort and respiratory signs on exam. EKG notable for atrial fibrillation with slow ventricular response, nonspecific ST segment abnormalities, no STEMI. RT treatment and steroids as well as doxycycline ordered for COPD exacerbation treatment. Laboratory studies notable for no leukocytosis, normocytic anemia similar to baseline. Metabolic panel also similar to baseline, renal function preserved, glucose normal. Delta troponin at 2 hours is negative. Chest x-ray concerning for right lower lobe pneumonia. Ceftriaxone ordered in addition to the previously ordered doxycycline for community-acquired pneumonia. The results of ED evaluation were discussed with the patient including plan for admission due to requirement for level of care not available if discharged to prevent significant worsening/deterioration. Patient has high degree of comorbidity and is requiring more oxygen than baseline. Patient agreeable with plan. Medical Records I reviewed the patient's medical records. Lab Data I reviewed the patient's lab results. : 05/22/22 04:31 05/22/22 04:31 Radiology Impressions Chest X-Ray 05/21/22 16:08 IMPRESSION: Right lower lobe atelectasis versus minimal infiltrate. Laboratory Results WBC 9.0 10^3/uL (4.0-10.0) 05/21/22 14:51 RBC 4.11 10^6/uL (4.1-5.3) 05/21/22 14:51 Hgb 10.8 g/dL (11.5-15.3) L 05/21/22 14:51 Hct 36.6 % (37.0-47.0) L 05/21/22 14:51 MCV 89.1 fl (81-99) 05/21/22 14:51 MCH 26.3 pg (28.0-34.0) L 05/21/22 14:51 MCHC 29.5 g/dL (30.0-36.0) L 05/21/22 14:51 RDW 14.8 % (12.1-15.1) 05/21/22 14:51 Plt Count 226 10^3/cmm (130-400) 05/21/22 14:51 MPV 9.3 fL (7.4-10.4) 05/21/22 14:51 Neut % (Auto) 73.0 % 05/21/22 14:51 Lymph % (Auto) 16.7 % 05/21/22 14:51 Gooding % (Auto) 8.1 % 05/21/22 14:51 Eos % (Auto) 1.5 % 05/21/22 14:51 Baso % (Auto) 0.3 % 05/21/22 14:51 Neut # (Auto) 6.59 10^3/uL (1.8-7.7) 05/21/22 14:51 Lymph # (Auto) 1.5 10^3/uL (0.8-4.8) 05/21/22 14:51 Gooding # (Auto) 0.7 10^3/uL (0.2-0.9) 05/21/22 14:51 Eos # (Auto) 0.1 10^3/uL (0.0-0.8) 05/21/22 14:51 Baso # (Auto) 0.0 10^3/uL (0.0-0.1) 05/21/22 14:51 Nucleated RBC % (auto) 0 % 05/21/22 14:51 Nucleated RBCs # 0.0 /100WBC 05/21/22 14:51 Sodium 136 mmol/L (136-145) 05/21/22 14:51 Potassium 4.4 mmol/L (3.5-5.1) 05/21/22 14:51 Chloride 93 mmol/L (98-107) L 05/21/22 14:51 Carbon Dioxide 36 mmol/L (22-29) H 05/21/22 14:51 Anion Gap 11.4 (5-19) 05/21/22 14:51 BUN 16 mg/dL (8-23) 05/21/22 14:51 Creatinine 0.7 mg/dL (0.5-0.9) 05/21/22 14:51 GFR Calculation Not Reportable 05/21/22 14:51 Glucose 87 mg/dL (65-115) 05/21/22 14:51 Estimat Average Glucose 103 05/21/22 14:51 Hemoglobin A1c 5.2 % (4.0-6.0) 05/21/22 14:51 Calculated Osmolality 283 mOsm/kg (285-295) L 05/21/22 14:51 Calcium 9.1 mg/dL (8.5-10.5) 05/21/22 14:51 Total Bilirubin 0.2 mg/dL (0.15-1.2) 05/21/22 14:51 AST 14 U/L (0-32) 05/21/22 14:51 ALT 10 U/L (0-33) 05/21/22 14:51 Alkaline Phosphatase 185 U/L (35-105) H 05/21/22 14:51 Troponin T Baseline 28 ng/L (0-10) H 05/21/22 14:51 Troponin T 120 Minute 27.51 ng/L (0-10) H 05/21/22 16:57 Delta Troponin T -0.49 ABS# (0-10) L 05/21/22 16:57 NT-Pro-B Natriuret Pep 302 pg/mL (0-450) 05/21/22 14:51 Total Protein 7.1 g/dL (6.6-8.7) 05/21/22 14:51 Albumin 3.2 g/dL (3.5-5.2) L 05/21/22 14:51 Globulin 3.9 g/dL (1.3-4.6) 05/21/22 14:51 Procalcitonin 0.04 ng/mL (0-0.5) 05/21/22 14:51 Discharge Plan Discharge Patient Disposition: Placed in Observation Admit Provider: Polina Jaffe Clinical Impression: Pneumonia, Acute exacerbation of chronic obstructive pulmonary disease Discharge Diet: Diabetic Discharge Activity: Use walker/crutches as instructed and As per PT/OT instructions Coding Level of Care Code ED Wine Bottle Inspector for Chg Fwd Exam Comprehensive
[2022-05-21 17:32] LABS: Troponin 5 2HR 27.51 ng/L (0-10)
[2022-05-21] MEDS: doxycycline 100 MG in sodium chloride 0.9% (plus) 100 ML IV (17:40)
[2022-05-21 17:47] LABS: Troponin(5th) Baseline 28 ng/L (0-10)
[2022-05-21 18:01] LABS: NT Pro B Type Natriuretic Pept 302 pg/mL (0-450)
[2022-05-21 18:28] LABS: Troponin 5 2HR Delta -0.49 ABS# (0-10)
--- NOTE | 2022-05-21 18:40 | PM.HP ---
Providers/Chief Complaint Chief Complaint: Dizziness History of Present Illness Rossy Brooke is a 76 year old female who has history of chronic ulcer dependent COPD, uses 2 L of oxygen at assisted living, presented to hospital for dizziness and worsening shortness of breath. Patient stating that her symptoms started roughly 2 weeks ago she has not noticed any fever but she has been extremely fatigued and lethargic, she cannot get up and carry her daily activities because of that shoulder and knee joints, she is stating that she will need to go to short-term rehab in order to go back to assisted living otherwise she will be discharged from assisted living. She has not noticed any fever, nausea, vomiting, chest pain. She is vaccinated for COVID-19. In the ER she has been diagnosed with a right lower lobe pneumonia She is still requiring 3 L of oxygen No fever, afebrile no signs of sepsis she has received steroids for active wheezing Review of Systems Const: Reports: chills and body aches Eyes: Denies: change in vision ENMT: Denies: throat pain Card: Denies: chest pain Resp: Reports: dyspnea GI: Denies: abdominal pain : Denies: flank pain Musc: Reports: extremity pain Skin/Breast: Denies: rash Neuro: Denies: headache(s) Psych: Reports: anxiety Endo: Denies: polyuria Jose Luis/Lymph: Denies: easy bruising All/Imm: Denies: urticaria Medications/Allergies Home Medications Medication Instructions Recorded Confirmed Last Taken Type hyoscyamine sulfate 0.125 mg tablet 0.125 mg PO Q12H PRN IBS Symptoms 11/06/21 03/25/22 Unknown History mirabegron 50 mg tablet,extended 50 mg PO DAILY 11/06/21 03/25/22 11/06/21 History release 24 hr (Myrbetriq) aspirin 81 mg chewable tablet 81 mg PO DAILY 30 days #30 tabs 11/09/21 03/25/22 Unknown Rx atorvastatin 40 mg tablet 40 mg PO BEDTIME 30 days #30 tabs 11/09/21 03/25/22 Unknown Rx fluticasone propionate 50 1 spray intranasal DAILY #16 grams 11/09/21 03/25/22 Unknown Rx mcg/actuation nasal spray,suspension (24 Hour Allergy Relief) furosemide 40 mg tablet (Lasix) 40 mg PO BID #60 tabs 11/09/21 03/25/22 Unknown Rx levothyroxine 75 mcg tablet 75 mcg PO DAILY 30 days #30 tabs 11/09/21 03/25/22 Unknown Rx metformin 500 mg tablet 500 mg PO BID 30 days #60 tabs 11/09/21 03/25/22 Unknown Rx metoprolol tartrate 50 mg tablet 25 mg PO DAILY 30 days #30 tabs 11/09/21 03/25/22 Unknown Rx potassium chloride 20 mEq 20 meq PO BID 30 days #60 tabs 11/09/21 03/25/22 Unknown Rx tablet,extended release(part/cryst) diclofenac sodium 1 % topical gel 2 g topical QID #100 grams 04/15/22 Unknown Rx (Voltaren Arthritis Pain) Allergies Allergy/AdvReac Type Severity Reaction Status Date / Time cinnamon Allergy Unknown Unknown Verified 03/25/22 12:50 morphine Allergy Unknown Unknown Verified 04/15/22 15:28 Sulfa (Sulfonamide Allergy Unknown Unknown Verified 03/25/22 12:50 Antibiotics) PFSH Acute PFSH: Medical History Arthritis of shoulder region, right, degenerative CHF exacerbation CHF exacerbation COPD (chronic obstructive pulmonary disease) Diabetes Hypothyroidism Requires oxygen therapy Volume overload Surgical History H/O knee surgery Family History (Updated 05/21/22 @ 18:42 by Brianna Montemayor MD) Denies family history of CAD (coronary artery disease) Social History Smoking and tobacco status: never smoked Alcohol intake: never Vitals/I&O/Wt Last Vital Signs Temp 98.1 F 05/21/22 14:17 Pulse 68 05/21/22 16:27 Resp 20 H 05/21/22 16:17 BP 109/62 05/21/22 14:17 Pulse Ox 94 05/21/22 16:17 O2 Del Method 05/21/22 16:17 O2 Flow Rate 3 05/21/22 16:17 Weight last 48 hrs Weight 140.614 kg Physical Exam Narrative: Patient is awake and alert Morbidly obese Abdomen distended nontender Lower extremity nonpitting edema Awake and alert Currently on 3 L No audible stridor or wheezing S1, S2 sinus rhythm Awake and alert Nonfocal neuro exam Pleasant and cooperative during my evaluation Data : 05/21/22 14:51 05/21/22 14:51 A&P Assessment and plan (1) Pneumonia: (2) Arthritis of shoulder region, right, degenerative: (3) Hypothyroidism: Plan Medical pneumonia Chronic hypoxia No acute worsening Patient is still requiring 3 L of oxygen For her active wheezing she has received steroids I will continue her prednisone 40 mg daily Start DuoNeb I will give her ceftriaxone and p.o. azithromycin Get PT evaluation She might need short-term rehab before her return to assisted living Full code Consistent carb diet DVT prophylaxis Heparin And anticipating worsening leukocytosis in the morning because of high-dose steroids given today Attestations Medical Necessity Statement*: Anticipating discharge within 48 hours Time Spent in Patient Care: 35 Coding Level of Care Code Acute Supervisor Metal Cans for Coby Cintron Diagnoses Pneumonia J18.9 Arthritis of shoulder region, right, degenerative M19.011 Hypothyroidism E03.9
--- NOTE | 2022-05-21 18:42 | ECG_ITS ---
[facility] Test Date: 2022-05-21 Pat Name: Rossy Brooke Department: Room: Gender: Female Relay Worker: : 1945 Requested By: Bill Muñoz Order Number: [id number] Irwin MD: Josep Echeverria M.D. Measurements Intervals [place] Rate: 55 P: [place]: QRS: 1 QRSD: 82 T: 39 QT: 385 QTc: 369 Interpretive Statements POSSIBLE HIGH DEGREE av BLOCK LOW QRS VOLTAGE IN PRECORDIAL LEADS [QRS DEFLECTION < 1.0 mV IN CHEST LEADS] POSSIBLE ANTERIOR MYOCARDIAL INFARCTION , PROBABLY OLD [30 ms Q WAVE IN V3/V4, OR R < 0.2 mV IN V4] ABNORMAL RHYTHM ECG Compared to ECG 05/21/2022 16:32:26 No significant changes Electronically Signed On 05-22-2022 7:14:23 CDT by Josep Echeverria M.D. [id number]
[2022-05-21] MEDS: heparin 5,000 unit/mL INJ 1 mL 5000 UNIT SUBCUT (18:58)
[2022-05-21] MEDS: cefTRIAXone 1,000 MG in sodium chloride 0.9% (plus) 50 ML 100 MG IV (19:02)
[2022-05-21 19:03] LABS: Procalcitonin 0.04 ng/mL (0-0.5)
[2022-05-21 19:44] LABS: Glucose Point of Care 114 mg/dL (70-110)
[2022-05-21 19:50] LABS: Coronavirus 229E,HKU1,NL63,OC4 Not Detected (NOT DETECT)
[2022-05-21 19:56] LABS: Adenovirus Not Detected (NOT DETECT); Chlamydia Pneumoniae Not Detected (NOT DETECT); Human Metapneumovirus Not Detected (NOT DETECT); Human Rhinovirus/Enterovirus Detected (NOT DETECT); Influenza A Not Detected (NOT DETECT); Influenza A H1 Not Detected (NOT DETECT); Influenza A H1-2009 Not Detected (NOT DETECT); Influenza A H3 Not Detected (NOT DETECT); Influenza B Not Detected (NOT DETECT); Mycoplasma Pneumoniae Not Detected (NOT DETECT); Parainfluenza Virus Type 1 Not Detected (NOT DETECT); Parainfluenza Virus Type 2 Not Detected (NOT DETECT); Parainfluenza Virus Type 3 Not Detected (NOT DETECT); Parainfluenza Virus Type 4 Not Detected (NOT DETECT); Respiratory Syncytial Virus A Not Detected (NOT DETECT); Respiratory Syncytial Virus B Not Detected (NOT DETECT); SARS-COV-2 Not Detected (NOT DETECT)
[2022-05-21 20:44] LABS: Human Metapneumovirus Not Detected (NOT DETECT); Human Rhinovirus/Enterovirus Detected (NOT DETECT); Results from Genmark
[2022-05-21 20:57] LABS: Troponin 5 6HR 26.33 ng/L (0-10)
[2022-05-21 21:00] LABS: Lactic Sepsis W/Reflex 0.8 mmol/L (0.5-2.2)
[2022-05-21 21:02] LABS: Troponin 5 6HR Delta -1.67 ng/L (0-12)
[2022-05-21 21:35] LABS: Glucose Point of Care 243 mg/dL (70-110)
--- NOTE | 2022-05-21 22:08 | ECG_ITS ---
[facility] Test Date: 2022-05-21 Pat Name: Rossy Brooke Department: Room: 251 Gender: Female Saddle Maker: : 1945 Requested By: Bill Muñoz Order Number: [id number] Irwin MD: Josep Echeverria M.D. Measurements Intervals [place] Rate: 80 P: 28 VT: 328 QRS: -7 QRSD: 95 T: 31 QT: 374 QTc: 434 Interpretive Statements SINUS RHYTHM WITH FIRST DEGREE AV BLOCK LOW QRS VOLTAGE IN PRECORDIAL LEADS [QRS DEFLECTION < 1.0 mV IN CHEST LEADS] POSSIBLE ANTERIOR MYOCARDIAL INFARCTION , PROBABLY OLD [30 ms Q WAVE IN V3/V4, OR R < 0.2 mV IN V4] Compared to ECG 05/21/2022 18:42:07 First degree AV block now present Atrial fibrillation no longer present Myocardial infarct finding still present Electronically Signed On 05-22-2022 7:15:03 CDT by Josep Echeverria M.D. [id number]
[2022-05-21] MEDS: atorvastatin 40 mg Tablet PO (23:27)
[2022-05-21] MEDS: insulin lispro 100 unit/1 mL SUBCUT (23:28)
[2022-05-21] MEDS: acetaminophen 325 mg Tablet 650 MG PO (23:28)
[2022-05-22] VITALS (14 sets, daily range): BP systolic 93–135; BP diastolic 58–84; PULSE 75–90; RESP 16–19; TEMP 36.4–37; O2SAT 91–94
[2022-05-22 02:51] LABS: Add Urine Microscopic? NO; Charge for UA Resulting for Rev
[2022-05-22 03:33] LABS: Bilirubin Urine Neg (Negative); Blood Urine Neg (Negative); Glucose Urine UA Norm (Normal); Ketones Urine 1+ (Negative); Leukocyte Esterase Urine Negative (Negative); Nitrate Urine Negative (Negative); Protein Urine Neg (Negative); Specific Gravity, Urine 1.015 (1.005-1.030); Urine Appearance Clear (CLEAR); Urine Color Yellow (Yellow); Urobilinogen Urine Norm (Negative); pH Urine 6 (5-7)
[2022-05-22 05:14] LABS: Basophils % 0.2 %; Hematocrit 36.1 % (37.0-47.0); Hemoglobin 10.7 g/dL (11.5-15.3); Lymphocytes # 0.7 10^3/uL (0.8-4.8); Lymphocytes % 7.4 %; Mean Corpuscular HGB Conc 29.6 g/dL (30.0-36.0); Mean Corpuscular Hemoglobin 26.6 pg (28.0-34.0); Mean Corpuscular Volume 89.8 fl (81-99); Monocytes # 0.1 10^3/uL (0.2-0.9); Monocytes % 1.4 %; Neutrophils # 9.05 10^3/uL (1.8-7.7); Neutrophils % 90.2 %; Nucleated Red Blood Cells % 0 %; Platelet Count 216 10^3/cmm (130-400); Red Blood Count 4.02 10^6/uL (4.1-5.3); Red Cell Distribution Width 14.6 % (12.1-15.1)
[2022-05-22 05:38] LABS: Alanine Aminotransferase 11 U/L (0-33); Albumin Level 3.3 g/dL (3.5-5.2); Alkaline Phosphatase 180 U/L (35-105); Anion Gap 14.8 (5-19); Aspartate Amino Transferase 16 U/L (0-32); Blood Urea Nitrogen 19 mg/dL (8-23); Calcium 9.5 mg/dL (8.5-10.5); Carbon Dioxide 30 mmol/L (22-29); Chloride 93 mmol/L (98-107); Globulin 3.5 g/dL (1.3-4.6); Glucose 149 mg/dL (65-115); Magnesium 2.3 mg/dL (1.7-2.3); Osmolality Calculated 281 mOsm/kg (285-295); Phosphorus 3.5 mg/dL (2.5-4.5); Potassium 4.8 mmol/L (3.5-5.1); Sodium 133 mmol/L (136-145); Total Bilirubin 0.2 mg/dL (0.15-1.2); Total Protein 6.8 g/dL (6.6-8.7)
[2022-05-22 05:49] LABS: Estmated Average Glucose 103; Hemoglobin A1C 5.2 % (4.0-6.0)
[2022-05-22] MEDS: heparin 5,000 unit/mL INJ 1 mL 5000 UNIT SUBCUT ×2 (06:49→17:33)
[2022-05-22 06:59] LABS: Glucose Point of Care 173 mg/dL (70-110)
[2022-05-22] MEDS: azithromycin 250 mg Tablet 500 MG PO (08:42)
[2022-05-22] MEDS: aspirin 81 mg Chew Tablet PO (08:42)
[2022-05-22] MEDS: metoprolol tartrate 50 mg Tablet 25 MG PO (08:42)
[2022-05-22] MEDS: levothyroxine 75 mcg Tablet PO (08:42)
[2022-05-22] MEDS: FUROsemide 40 mg Tablet PO (08:42)
[2022-05-22] MEDS: insulin lispro 100 unit/1 mL SUBCUT ×3 (08:43→21:11)
[2022-05-22] MEDS: cefTRIAXone 1,000 MG in sodium chloride 0.9% (plus) 50 ML 100 MG IV (08:43)
[2022-05-22] MEDS: ipratropium-albuterol 3 mL Neb INHALATION ×4 (09:18→20:06)
--- NOTE | 2022-05-22 09:26 | PM.PN ---
Subjective Subjective: Patient is doing fine To work with PT today A. fib Oxygen requirement has not worsened Vitals/I&O/Wt Last Vital Signs Temp 98.3 F 05/22/22 07:49 Pulse 83 05/22/22 09:24 Resp 16 05/22/22 09:21 BP 132/79 05/22/22 07:49 Pulse Ox 94 05/22/22 09:21 O2 Del Method 05/22/22 09:21 O2 Flow Rate 3 05/22/22 09:21 05/21/22 05/22/22 05/22/22 22:59 06:59 14:59 Intake Total 150 / 150 Output Total 30 / 30 Balance 150 / 150 -30 / 120 Weight last 48 hrs Weight 140.614 kg Physical Exam Narrative: Awake and alert Currently on previous nasal cannula Pleasant and cooperative Bilateral breath sound without adventitious rhonchi or crackles Abdomen soft Nonfocal neuro exam Pleasant and cooperative S1, S2 Data : 05/22/22 04:31 05/22/22 04:31 A&P Assessment and plan (1) Pneumonia: (2) Hypothyroidism: Plan Community-acquired pneumonia Will de-escalate antibiotics to p.o. Levaquin Oxygen requirement has not worsened Most likely she will need detention placement for return to assisted living She is full code Continue DVT prophylaxis Afebrile Attestations Medical Necessity Statement*: Continue medical management Time Spent in Patient Care: 20 Coding Level of Care Code Acute Sheet Metal Duct Worker Supervisor for Coby Fwd Diagnoses Pneumonia J18.9 Hypothyroidism E03.9
--- NOTE | 2022-05-22 11:06 | PC.CHAP ---
Pastoral Care Encounter/Spiritual Assessment Type of Contact [] Declined drawbench operator visit [] Patient/Family/Request visit [] Outpatient visit [] Follow-up visit [] Physician referral [] Code/Alert [x] Routine visit [] Staff referral [] Actively dying [] Patient sleeping [] Family support [] [] Out of room [x] Palliative care [] [x] Receiving care in room [] Pre-surgical visit [] Trauma [x] Long length of stay [] ICU visit [] Other: Relational/Emotional Strength [x] Patient feels connected with others/family/visitors/staff [] Distress [] Loneliness/isolation [] Abandonment Spirituality of Patient [x] Person of Solange [] Attends Mosque of their Solange [x] Believes in Prayer [] Reads Bible or Buddhist materials [] There are Spiritual issues to be addressed Sole Painter Interventions [x] Prayer [x] Active listening [x] Non-anxious presence [x] Spiritual/emotional support [] Crisis/trauma care [xx] Spiritual counseling [] Bereavement support [] Provided bereavement packet [] Provided Bible/devotional materials [] Provided toy/stuffed animal, coloring book to patient or family member [] Provided Communion [] Anointing/[place] [] Salvation [x] Completed spiritual assessment [] Other: Impact on Illness or Injury [] Angry [] Fearful [x] Anxious [] Often cries [] Exhaustion [x] Unable to work [] Unable to attend islam [] Unable to walk/stand [] Unable to read [] Unable to drive [] Unable to eat/drink [] Unable to sleep [] Unable to be with family [] Patient intubated [] Other: Summary holly well go to rehab for recoveriy has a good attititude Time spent with patient 10 mins
--- NOTE | 2022-05-22 11:25 | PC.PHAR ---
pt states she has home health with [facility] called they state she is not a pt with them-[facility] all state they dont have her as a pt-pt states she does know she takes vitamin c daily and a multivitamin daily-medications entered are meds that the pharmacy states they have filled for the pt recently notes are made in the pharmacy comments-
[2022-05-22 11:34] LABS: Glucose Point of Care 174 mg/dL (70-110)
[2022-05-22] MEDS: acetaminophen 325 mg Tablet 650 MG PO ×2 (15:14→21:48)
[2022-05-22 16:42] LABS: Glucose Point of Care 104 mg/dL (70-110)
[2022-05-22] MEDS: atorvastatin 40 mg Tablet PO (21:00)
[2022-05-22 21:03] LABS: Glucose Point of Care 161 mg/dL (70-110)
[2022-05-23] VITALS (10 sets, daily range): BP systolic 78–120; BP diastolic 48–80; PULSE 70–97; RESP 16–22; TEMP 36.4–36.8; O2SAT 90–96
[2022-05-23] MEDS: levoFLOXacin 750 mg Tablet PO (05:31)
[2022-05-23] MEDS: heparin 5,000 unit/mL INJ 1 mL 5000 UNIT SUBCUT ×2 (05:31→17:18)
[2022-05-23 06:24] LABS: Glucose Point of Care 120 mg/dL (70-110)
[2022-05-23] MEDS: ipratropium-albuterol 3 mL Neb INHALATION ×3 (07:35→15:51)
[2022-05-23] MEDS: metoprolol tartrate 50 mg Tablet 25 MG PO (08:45)
[2022-05-23] MEDS: levothyroxine 75 mcg Tablet PO (08:45)
[2022-05-23] MEDS: aspirin 81 mg Chew Tablet PO (08:45)
[2022-05-23] MEDS: FUROsemide 40 mg Tablet PO (08:45)
--- NOTE | 2022-05-23 09:33 | P.PN_ITS ---
Subjective Subjective: And is awaiting placement Patient stating that after producing a lot of sputum today she is feeling better Currently on 3 L Afebrile Spoke with her son as well Vitals/I&O/Wt Last Vital Signs Temp 97.7 F 05/23/22 07:07 Pulse 97 05/23/22 07:41 Resp 20 H 05/23/22 07:35 BP 108/73 05/23/22 07:07 Pulse Ox 94 05/23/22 07:35 O2 Del Method 05/23/22 07:35 O2 Flow Rate 3 05/23/22 08:00 05/22/22 05/23/22 05/23/22 22:59 06:59 14:59 Intake Total 720 / 1130 120 / 1250 120 / 120 Balance 720 / 1130 120 / 1250 120 / 120 Weight last 48 hrs Weight 140.614 kg Physical Exam Narrative: Patient is awake and alert Sitting in a chair Currently on 3 L Bilateral breath sounds with rhonchi Abdomen distended however soft Lower extremity no edema Pleasant and cooperative No audible stridor or wheezing No conversational dyspnea Data : 05/22/22 04:31 05/22/22 04:31 A&P Assessment and plan (1) Pneumonia: (2) Hypothyroidism: Plan Chronic hypoxia which has not worsened Still requiring 3 L Community-acquired pneumonia Generalized weakness and fatigue She will need short-term rehab before her discharge back to assisted living Awaiting placement Afebrile No acute worsening I would not repeat CBC BMP for tomorrow Continue DVT prophylaxis Give her Mucinex for productive cough Check sputum culture Attestations Medical Necessity Statement*: Awaiting placementAwaiting placement Time Spent in Patient Care: 35 Coding Level of Care Code Acute Senior Client Advisor for Coby Fwd Diagnoses Pneumonia J18.9 Hypothyroidism E03.9
[2022-05-23 11:14] LABS: Glucose Point of Care 114 mg/dL (70-110)
[2022-05-23 16:48] LABS: Glucose Point of Care 91 mg/dL (70-110)
[2022-05-23] MEDS: guaiFENesin 600 mg Tablet PO (17:18)
[2022-05-23 20:20] LABS: Glucose Point of Care 134 mg/dL (70-110)
[2022-05-23] MEDS: atorvastatin 40 mg Tablet PO (20:42)
[2022-05-23] MEDS: acetaminophen 325 mg Tablet 650 MG PO (20:43)
[2022-05-24] VITALS (10 sets, daily range): BP systolic 92–115; BP diastolic 56–72; PULSE 69–85; RESP 17–20; TEMP 36.6–36.7; O2SAT 92–95
[2022-05-24] MEDS: acetaminophen 325 mg Tablet 650 MG PO ×2 (02:46→21:17)
[2022-05-24] MEDS: heparin 5,000 unit/mL INJ 1 mL 5000 UNIT SUBCUT ×2 (05:32→17:20)
[2022-05-24] MEDS: levoFLOXacin 750 mg Tablet PO (05:32)
[2022-05-24 06:17] LABS: Glucose Point of Care 95 mg/dL (70-110)
[2022-05-24] MEDS: ipratropium-albuterol 3 mL Neb INHALATION ×4 (07:48→19:39)
--- NOTE | 2022-05-24 08:39 | PM.PN ---
Subjective Subjective: No overnight events Patient is stating that she was able to walk to some extent with physical therapist She is endorsing nasal congestion Vitals/I&O/Wt Last Vital Signs Temp 97.8 F 05/24/22 04:00 Pulse 85 05/24/22 07:48 Resp 18 05/24/22 07:48 BP 92/58 05/24/22 04:00 Pulse Ox 94 05/24/22 07:48 O2 Del Method 05/24/22 07:48 O2 Flow Rate 3 05/24/22 07:48 05/23/22 05/24/22 05/24/22 22:59 06:59 14:59 Intake Total 480 / 600 480 / 1080 Output Total Balance 450 / 570 480 / 1050 Physical Exam Narrative: Awake and alert Euvolemic Currently on 2 L Pleasant and cooperative Watching television Abdomen soft however distended Lower extremity no edema Data : 05/22/22 04:31 05/22/22 04:31 A&P Assessment and plan (1) Pneumonia: Plan Patient will go to [facility] on Thursday I will cut back on her Lasix Hold Lasix and metoprolol if blood pressure is soft Full code DVT prophylaxis on board Cardiac diet Decrease Lasix dose to 20 mg daily Continue levofloxacin for community-acquired pneumonia after requirement has not worsened Working with PT every day Attestations Medical Necessity Statement*: Awaiting placement Time Spent in Patient Care: 40 Coding Level of Care Code Acute Trailer Sections Assembler for Coby Cintron Diagnoses Pneumonia J18.9
[2022-05-24] MEDS: FUROsemide 40 mg Tablet 20 MG PO (08:57)
[2022-05-24] MEDS: levothyroxine 75 mcg Tablet PO (08:57)
[2022-05-24] MEDS: metoprolol tartrate 50 mg Tablet 25 MG PO (08:57)
[2022-05-24] MEDS: guaiFENesin 600 mg Tablet PO ×2 (08:57→17:21)
[2022-05-24] MEDS: aspirin 81 mg Chew Tablet PO (08:57)
[2022-05-24 11:03] LABS: Glucose Point of Care 138 mg/dL (70-110)
[2022-05-24 17:05] LABS: Glucose Point of Care 102 mg/dL (70-110)
[2022-05-24] MEDS: atorvastatin 40 mg Tablet PO (21:17)
[2022-05-24 21:33] LABS: Glucose Point of Care 146 mg/dL (70-110)
[2022-05-24] MEDS: insulin lispro 100 unit/1 mL SUBCUT (23:22)
[2022-05-25] VITALS (10 sets, daily range): BP systolic 103–148; BP diastolic 64–82; PULSE 68–89; RESP 15–20; TEMP 36.4–36.7; O2SAT 95–99
[2022-05-25] MEDS: levoFLOXacin 750 mg Tablet PO (05:53)
[2022-05-25] MEDS: heparin 5,000 unit/mL INJ 1 mL 5000 UNIT SUBCUT ×2 (05:53→18:15)
[2022-05-25 06:21] LABS: Glucose Point of Care 126 mg/dL (70-110)
[2022-05-25] MEDS: ipratropium-albuterol 3 mL Neb INHALATION ×4 (07:39→19:53)
[2022-05-25] MEDS: aspirin 81 mg Chew Tablet PO (09:05)
[2022-05-25] MEDS: guaiFENesin 600 mg Tablet PO ×2 (09:05→18:17)
[2022-05-25] MEDS: FUROsemide 40 mg Tablet 20 MG PO (09:06)
[2022-05-25] MEDS: metoprolol tartrate 50 mg Tablet 25 MG PO (09:07)
[2022-05-25] MEDS: levothyroxine 75 mcg Tablet PO (09:07)
--- NOTE | 2022-05-25 10:18 | P.PN_ITS ---
Subjective Subjective: Patient is awaiting placement No overnight events Vitals/I&O/Wt Last Vital Signs Temp 98.0 F 05/25/22 08:00 Pulse 75 05/25/22 08:00 Resp 18 05/25/22 08:00 BP 129/67 05/25/22 08:00 Pulse Ox 99 05/25/22 08:00 O2 Del Method 05/25/22 08:00 O2 Flow Rate 3 05/25/22 07:39 05/24/22 05/25/22 05/25/22 22:59 06:59 14:59 Intake Total 360 / 600 Balance 360 / 600 Physical Exam Narrative: Awake and alert Sitting in a chair Eating breakfast, currently on 2 L Bilateral breath sounds with mild rhonchi Abdomen soft Morbid obesity Awake and alert Pleasant and cooperative Data : 05/22/22 04:31 05/22/22 04:31 A&P Assessment and plan (1) Pneumonia: Plan Pending placement Plan to discharge her to half-way once she gets accepted prior authorization has been initiated cash manager updated Currently on 2 L Pneumonia: Resolved with No fever Cultures negative DVT prophylaxis on board Full code DuoNeb treatment as needed Attestations Medical Necessity Statement*: Discharge once accepted to half-way Time Spent in Patient Care: 30 Coding Level of Care Code Acute Blower Blast Furnace for Coby Fwlexii Diagnoses Pneumonia J18.9
[2022-05-25 11:15] LABS: Glucose Point of Care 131 mg/dL (70-110)
[2022-05-25] MEDS: acetaminophen 325 mg Tablet 650 MG PO (13:51)
[2022-05-25 17:12] LABS: Glucose Point of Care 115 mg/dL (70-110)
--- NOTE | 2022-05-25 18:59 | PC.NURSE ---
verbal order for nystatin powder from Dr. Montemayor
[2022-05-25 21:16] LABS: Glucose Point of Care 166 mg/dL (70-110)
[2022-05-25] MEDS: atorvastatin 40 mg Tablet PO (21:31)
[2022-05-25] MEDS: insulin lispro 100 unit/1 mL SUBCUT (21:31)
[2022-05-26] VITALS (11 sets, daily range): BP systolic 110–139; BP diastolic 70–86; PULSE 60–89; RESP 15–20; TEMP 36.4–37; O2SAT 90–96
[2022-05-26] MEDS: heparin 5,000 unit/mL INJ 1 mL 5000 UNIT SUBCUT ×2 (05:29→17:30)
[2022-05-26] MEDS: levoFLOXacin 750 mg Tablet PO (05:29)
[2022-05-26 06:16] LABS: Glucose Point of Care 140 mg/dL (70-110)
[2022-05-26] MEDS: aspirin 81 mg Chew Tablet PO (08:36)
[2022-05-26] MEDS: metoprolol tartrate 50 mg Tablet 25 MG PO (08:37)
[2022-05-26] MEDS: levothyroxine 75 mcg Tablet PO (08:38)
[2022-05-26] MEDS: guaiFENesin 600 mg Tablet PO ×2 (08:38→17:30)
[2022-05-26] MEDS: FUROsemide 40 mg Tablet 20 MG PO (08:39)
[2022-05-26] MEDS: nystatin powder 15 gm Btl 1 APPLIC TOPICAL ×2 (08:40→17:38)
[2022-05-26] MEDS: ipratropium-albuterol 3 mL Neb INHALATION ×4 (08:58→19:51)
--- NOTE | 2022-05-26 10:31 | P.PN_ITS ---
Subjective Subjective: 76-year-old female who presents to the hospital for worsening of generalized fatigue and weakness, we try to get [facility] rehab before her return back to assisted living however she was not approved to go to jail, patient is requesting if she could be discharged back to assisted living and get outpatient physical therapy, adult protective caseworker updated. Patient at baseline uses 2 to 3 L of oxygen, her oxycodone did not worsen during hospitalization, she was diagnosed with pneumonia and required levofloxacin, she remained afebrile, cultures negative. Vitals/I&O/Wt Last Vital Signs Temp 98.3 F 05/26/22 08:00 Pulse 88 05/26/22 09:02 Resp 17 05/26/22 08:50 BP 139/86 05/26/22 08:00 Pulse Ox 94 05/26/22 08:50 O2 Del Method 05/26/22 08:50 O2 Flow Rate 3 05/26/22 08:50 05/25/22 05/26/22 05/26/22 22:59 06:59 14:59 Intake Total 120 / 600 750 / 1350 360 / 360 Output Total 600 / 600 300 / 900 Balance -480 / 0 450 / 450 360 / 360 Physical Exam Narrative: Patient was eating breakfast Sitting in a chair Currently on 2 L Awake and alert Nonfocal neuro exam No acute worsening of edema Morbidly obese Pleasant and cooperative Data : 05/22/22 04:31 05/22/22 04:31 Micro: Microbiology 05/23/22 11:20 Gram Stain - Final Sputum - Expectorated Sputum Sputum Culture - Preliminary Gram Negative Rods A&P Assessment and plan (1) Pneumonia: Plan Patient is medically cleared to be discharged today, we are looking into options if she could be discharged back to assisted living with options to try outpatient physical therapy, adult protective caseworker has been updated to arrange a ride Continue levofloxacin DVT prophylaxis on board Patient is full code Cardiac diet Attestations Medical Necessity Statement*: Discharge later today versus tomorrow Time Spent in Patient Care: 30 Coding Level of Care Code Acute Laborer Ammunition Assembly for Coby Cintron Diagnoses Pneumonia J18.9
[2022-05-26 12:00] LABS: Glucose Point of Care 95 mg/dL (70-110)
[2022-05-26 17:07] LABS: Glucose Point of Care 219 mg/dL (70-110)
[2022-05-26] MEDS: insulin lispro 100 unit/1 mL SUBCUT (17:30)
[2022-05-26] MEDS: atorvastatin 40 mg Tablet PO (20:20)
[2022-05-26 20:22] LABS: Glucose Point of Care 108 mg/dL (70-110)
[2022-05-26] MEDS: acetaminophen 325 mg Tablet 650 MG PO (20:27)
[2022-05-27] VITALS (7 sets, daily range): BP systolic 112–127; BP diastolic 73–76; PULSE 71–88; RESP 16–21; TEMP 36.6–36.9; O2SAT 91–97
[2022-05-27] MEDS: levoFLOXacin 750 mg Tablet PO (05:50)
[2022-05-27] MEDS: heparin 5,000 unit/mL INJ 1 mL 5000 UNIT SUBCUT (05:50)
[2022-05-27 06:22] LABS: Glucose Point of Care 147 mg/dL (70-110)
[2022-05-27] MEDS: ipratropium-albuterol 3 mL Neb INHALATION (07:56)
[2022-05-27] MEDS: aspirin 81 mg Chew Tablet PO (08:27)
[2022-05-27] MEDS: levothyroxine 75 mcg Tablet PO (08:27)
[2022-05-27] MEDS: metoprolol tartrate 50 mg Tablet 25 MG PO (08:27)
[2022-05-27] MEDS: nystatin powder 15 gm Btl 1 APPLIC TOPICAL (08:27)
[2022-05-27] MEDS: FUROsemide 40 mg Tablet 20 MG PO (08:28)
[2022-05-27] MEDS: guaiFENesin 600 mg Tablet PO (08:28)
[2022-05-27] MEDS: insulin lispro 100 unit/1 mL SUBCUT (08:29)
--- NOTE | 2022-05-27 09:27 | PM.PN ---
Subjective Subjective: Patient patient is endorsing feeling better Currently on 3 L nasal cannula Patient is stating that her mucus/sputum has become thin and Mucinex is really helped Vitals/I&O/Wt Last Vital Signs Temp 98.2 F 05/27/22 04:00 Pulse 88 05/27/22 07:55 Resp 18 05/27/22 07:45 BP 117/73 05/27/22 07:24 Pulse Ox 97 05/27/22 07:45 O2 Del Method 05/27/22 07:45 O2 Flow Rate 3 05/27/22 07:45 05/26/22 05/27/22 05/27/22 22:59 06:59 14:59 Intake Total 240 / 960 Balance 240 / 960 Physical Exam Narrative: Awake and alert Nonfocal neuro exam currently on 3 L Morbid obese No signs of fluid overload Abdomen soft however distended Nonfocal neuro exam S1, S2 Data : 05/22/22 04:31 05/22/22 04:31 Micro: Microbiology 05/23/22 11:20 Gram Stain - Final Sputum - Expectorated Sputum Sputum Culture - Final Stenotrophomonas maltophilia A&P Assessment and plan (1) Pneumonia: Plan Patient is awaiting placement Currently on 3 L Medically cleared to be discharged flight reservations manager updated Afebrile Productive cough improved Full code DVT prophylaxis on board Will do 2 more days of levofloxacin Cardiac diet Attestations Medical Necessity Statement*: Awaiting placement Time Spent in Patient Care: 10 Coding Level of Care Code Acute Nursing Assistant for g Fwd Diagnoses Pneumonia J18.9
--- NOTE | 2022-05-27 10:12 | PC.CHAP ---
Pastoral Care Encounter/Spiritual Assessment Type of Contact [] Declined rail washer visit [] Patient/Family/Request visit [] Outpatient visit [] Follow-up visit [] Physician referral [] Code/Alert [x] Routine visit [] Staff referral [] Actively dying [] Patient sleeping [] Family support [] [] Out of room [] Palliative care [] [] Receiving care in room [] Pre-surgical visit [] Trauma [] Long length of stay [] ICU visit [] Other: Relational/Emotional Strength [x] Patient feels connected with others/family/visitors/staff [] Distress [] Loneliness/isolation [] Abandonment Spirituality of Patient [x Person of Solange [] Attends Anabaptist of their [place] [x] Believes in Prayer [] Reads Bible or Temple materials [] There are Spiritual issues to be addressed Lathe Tender Interventions [x] Prayer [x Active listening [] Non-anxious presence [] Spiritual/emotional support [] Crisis/trauma care [] Spiritual counseling [] Bereavement support [] Provided bereavement packet [] Provided Bible/devotional materials [] Provided toy/stuffed animal, coloring book to patient or family member [] Provided Communion [] Anointing/[place] [] Salvation [x] Completed spiritual assessment [] Other: Impact on Illness or Injury [] Angry [] Fearful [] Anxious [] Often cries [] Exhaustion [] Unable to work [] Unable to attend judaism [] Unable to walk/stand [] Unable to read [] Unable to drive [] Unable to eat/drink [] Unable to sleep [] Unable to be with family [] Patient intubated [] Other: Summary Time spent with patient 5 min
--- NOTE | 2022-05-27 10:54 | P.DS_ITS ---
Discharge Providers Date of Admission: 05/21/22 17:38 Date of Discharge: May 27, 2022 Attending Provider at Admission: Polina Jaffe MD Attending Provider at Discharge: Brianna Montemayor MD Diagnoses at Discharge Discharge Diagnosis (1) Pneumonia: Status: Acute Reason for Visit Reason for Visit: Dizziness Hospital Course Hospital Course 76-year-old female who presents to the hospital for worsening of generalized fatigue and weakness, we tried to get her accepted at long term for short- term rehab before her return back to assisted living however she was not approved to go to long term, patient is requesting if she could be discharged back to home and get outpatient physical therapy, human services case manager has worked along. Patient at baseline uses 2 to 3 L of oxygen, her oxygen requirement did not worsen during hospitalization, she was diagnosed with pneumonia and required levofloxacin, she remained afebrile, cultures negative. Her GFR is not reportable hence I will discontinue metformin hemoglobin A1c 5.4, she does become hyperglycemic I will add Januvia and discontinue metformin. It does have risk of hypoglycemia however lower as compared to glipizide. Physical Exam Narrative: Patient was eating breakfast Sitting in a chair Currently on 2 L Awake and alert Nonfocal neuro exam No acute worsening of edema Morbidly obese Pleasant and cooperative Discharge Data Studies Completed and Pending Completed Studies During Hospitalization Category Date Time Status XR chest 1V portable [id number] Stat Exams 05/21/22 16:08 Completed Radiology Impressions Chest X-Ray 05/21/22 16:08 IMPRESSION: Right lower lobe atelectasis versus minimal infiltrate. Laboratory Results WBC 10.0 10^3/uL (4.0-10.0) 05/22/22 04:31 RBC 4.02 10^6/uL (4.1-5.3) L 05/22/22 04:31 Hgb 10.7 g/dL (11.5-15.3) L 05/22/22 04:31 Hct 36.1 % (37.0-47.0) L 05/22/22 04:31 MCV 89.8 fl (81-99) 05/22/22 04:31 MCH 26.6 pg (28.0-34.0) L 05/22/22 04:31 MCHC 29.6 g/dL (30.0-36.0) L 05/22/22 04:31 RDW 14.6 % (12.1-15.1) 05/22/22 04:31 Plt Count 216 10^3/cmm (130-400) 05/22/22 04:31 MPV 10.0 fL (7.4-10.4) 05/22/22 04:31 Neut % (Auto) 90.2 % 05/22/22 04:31 Lymph % (Auto) 7.4 % 05/22/22 04:31 [place] % (Auto) 1.4 % 05/22/22 04:31 Eos % (Auto) 0.0 % 05/22/22 04:31 Baso % (Auto) 0.2 % 05/22/22 04:31 Neut # (Auto) 9.05 10^3/uL (1.8-7.7) H 05/22/22 04:31 Lymph # (Auto) 0.7 10^3/uL (0.8-4.8) L 05/22/22 04:31 [place] # (Auto) 0.1 10^3/uL (0.2-0.9) L 05/22/22 04:31 Eos # (Auto) 0.0 10^3/uL (0.0-0.8) 05/22/22 04:31 Baso # (Auto) 0.0 10^3/uL (0.0-0.1) 05/22/22 04:31 Nucleated RBC % (auto) 0 % 05/22/22 04:31 Nucleated RBCs # 0.0 /100WBC 05/22/22 04:31 Sodium 133 mmol/L (136-145) L 05/22/22 04:31 Potassium 4.8 mmol/L (3.5-5.1) 05/22/22 04:31 Chloride 93 mmol/L (98-107) L 05/22/22 04:31 Carbon Dioxide 30 mmol/L (22-29) H 05/22/22 04:31 Anion Gap 14.8 (5-19) 05/22/22 04:31 BUN 19 mg/dL (8-23) 05/22/22 04:31 Creatinine 0.6 mg/dL (0.5-0.9) 05/22/22 04:31 GFR Calculation Not Reportable 05/22/22 04:31 Glucose 149 mg/dL (65-115) H 05/22/22 04:31 POC Glucose 147 mg/dL (70-110) H 05/27/22 06:19 Estimat Average Glucose 103 05/21/22 14:51 Hemoglobin A1c 5.2 % (4.0-6.0) 05/21/22 14:51 Calculated Osmolality 281 mOsm/kg (285-295) L 05/22/22 04:31 Lactic Acid 0.8 mmol/L (0.5-2.2) 05/21/22 20:14 Calcium 9.5 mg/dL (8.5-10.5) 05/22/22 04:31 Phosphorus 3.5 mg/dL (2.5-4.5) 05/22/22 04:31 Magnesium 2.3 mg/dL (1.7-2.3) 05/22/22 04:31 Total Bilirubin 0.2 mg/dL (0.15-1.2) 05/22/22 04:31 AST 16 U/L (0-32) 05/22/22 04:31 ALT 11 U/L (0-33) 05/22/22 04:31 Alkaline Phosphatase 180 U/L (35-105) H 05/22/22 04:31 Troponin T Baseline 28 ng/L (0-10) H 05/21/22 14:51 Troponin T 120 Minute 27.51 ng/L (0-10) H 05/21/22 16:57 Delta Troponin T -0.49 ABS# (0-10) L 05/21/22 16:57 Troponin T Hi Sens 6Hr 26.33 ng/L (0-10) H 05/21/22 20:21 Troponin T Hi Sens 6Hr Delta -1.67 ng/L (0-12) L 05/21/22 20:21 NT-Pro-B Natriuret Pep 302 pg/mL (0-450) 05/21/22 14:51 Total Protein 6.8 g/dL (6.6-8.7) 05/22/22 04:31 Albumin 3.3 g/dL (3.5-5.2) L 05/22/22 04:31 Globulin 3.5 g/dL (1.3-4.6) 05/22/22 04:31 Procalcitonin 0.04 ng/mL (0-0.5) 05/21/22 14:51 Urine Color Yellow (Yellow) 05/22/22 01:40 Urine Appearance Clear (CLEAR) 05/22/22 01:40 Urine pH 6 (5-7) 05/22/22 01:40 Ur Specific [place] 1.015 (1.005-1.030) 05/22/22 01:40 Urine Protein Neg (Negative) 05/22/22 01:40 Urine Glucose (UA) Norm (Normal) 05/22/22 01:40 Urine Ketones 1+ (Negative) H 05/22/22 01:40 Urine Blood Neg (Negative) 05/22/22 01:40 Urine Nitrate Negative (Negative) 05/22/22 01:40 Urine Bilirubin Neg (Negative) 05/22/22 01:40 Urine Urobilinogen Norm mg/dL (Negative) 05/22/22 01:40 Ur Leukocyte Esterase Negative (Negative) 05/22/22 01:40 Coronavirus 229E (PCR) Not detected (NOT DETECT) 05/21/22 17:55 Human Metapneumovir PCR Not detected (NOT DETECT) 05/21/22 19:57 Entero/Rhino (PCR) Detected (NOT DETECT) A 05/21/22 19:57 SARS-CoV-2 (PCR) Not detected (NOT DETECT) 05/21/22 17:55 Vitals Last Vital Signs Temp 98.2 F 05/27/22 04:00 Pulse 88 05/27/22 07:55 Resp 18 05/27/22 07:45 BP 117/73 05/27/22 07:24 Pulse Ox 97 05/27/22 07:45 O2 Del Method 05/27/22 07:45 O2 Flow Rate 3 05/27/22 07:45 Discharge Plan Discharge Patient Disposition: Home Condition: Stable Prescriptions: New sitagliptin 25 mg tablet 25 mg PO DAILY Qty: 60 0RF levofloxacin 750 mg Tablet 750 mg PO DAILY@0600 Qty: 3 0RF nystatin [Nystop] 100,000 unit/gram Powder 1 applic topical BID Qty: 30 0RF Continued hyoscyamine sulfate 0.125 mg tablet 0.125 mg PO Q12H PRN (Reason: IBS Symptoms) Myrbetriq 50 mg tablet extended release 24 hr 50 mg PO DAILY atorvastatin 40 mg tablet 40 mg PO BEDTIME 30 Days Qty: 30 0RF levothyroxine 75 mcg tablet 75 mcg PO DAILY 30 Days Qty: 30 0RF aspirin 81 mg Tablet,Chewable 81 mg PO DAILY 30 Days Qty: 30 0RF multivitamin Tablet 1 tab PO DAILY furosemide 40 mg tablet See Rx Instructions .ROUTE .COMPLEX Rx Instructions: 80mg po qam and 60mg po qpm for 7 days then go back to the 60mg bid albuterol sulfate 2.5 mg /3 mL (0.083 %) solution for nebulization 2.5 mg inhalation TID PRN (Reason: Shortness Of Breath) Zyrtec 10 mg Tablet 10 mg PO DAILY potassium chloride 20 mEq tablet,ER particles/crystals 20 meq PO DAILY Vitamin C 500 mg Tablet 500 mg PO DAILY iron 325 mg (65 mg iron) Tablet 325 mg PO DAILY clotrimazole 1 % cream 1 applic TOPICAL BID esomeprazole magnesium 20 mg capsule,delayed release(DR/EC) 20 mg PO DAILY metoprolol tartrate 50 mg Tablet 50 mg PO BID diclofenac sodium [Voltaren Arthritis Pain] 1 % gel 2 g topical QID Qty: 100 0RF Rx Instructions: apply topically to left knee Discontinued metformin 500 mg tablet 500 mg PO BID 30 Days Qty: 60 0RF cefdinir 300 mg capsule 300 mg PO Q12H Rx Instructions: rx filled 05/08/22 7d/s Discharge Orders: Discharge Order (Routine); Ordered 05/27/22 Ordered By: Brianna Montemayor Discharge Diet: Diabetic Discharge Activity: Use walker/crutches as instructed and As per PT/OT instructions Patient Instructions: Opioid Safety Discharge Attestations Time Spent in Discharge Care*: less than 30 min Quality Metrics Clinical Quality Measures [ No reported AMI, CVA or VTE this stay] Coding Level of Care Code Acute Chg FW DC note Diagnoses Pneumonia J18.9
[2022-05-27 12:16] LABS: Glucose Point of Care 87 mg/dL (70-110)
--- NOTE | 2022-05-27 14:41 | PC.NURSE ---
Discussed discharge follow up appointments, new medications, stopped medications and continued medications. All questions answered. Verbalized understanding.
== END 2022-05-27 16:30 | disposition home or self-care (01) ==
LOC: ER 18:46 → MEDSURG 22:21 → ER IP 05-22 02:39
PROVIDERS: Family Medicine; Admitting Provider Internal Medicine; Emergency Provider Emergency Medicine; Visit Provider Internal Medicine
DX: J18.9 Pneumonia, unspecified organism (principal); M19.011 Primary osteoarthritis, right shoulder; E03.9 Hypothyroidism, unspecified; Z99.81 Dependence on supplemental oxygen; E11.9 Type 2 diabetes mellitus without complications; J96.11 Chronic respiratory failure with hypoxia; I50.9 Heart failure, unspecified; R06.02 Shortness of breath; J44.9 Chronic obstructive pulmonary disease, unspecified; Z79.82 Long term (current) use of aspirin
CPT/HCPCS: 36415; 36416; 51702; 71045; 80053; 81003; 82962; 83036; 83605; 83735; 83880; 84100; 84145; 84484; 85025; 87070; 87077; 87186; 87205; 87635; 87801; 93005; 94640; 94664; 96365; 96372; 96375; 97110; 97116; 97161; 97167; 97530; 97535; 99285; A9281; G0378; J0696; J1644; J1815; J2930; J3490; Q0144

== ENCOUNTER 2022-05-27 06:00 | Outpatient (RCR) | payer MEDICARE, MEDICAID, SELFPAY | END 2022-06-25 23:59 | disposition home or self-care (01) | LOC: MPT 06:00 | PROVIDERS: Visit Provider Physician Assistant | DX: M25.562 Pain in left knee (principal) | CPT/HCPCS: 97110; 97530 ==

== ENCOUNTER → 2022-05-29 14:07 | Outpatient (BNVA) | payer MEDICARE, MEDICAID, SELFPAY | PROVIDERS: Visit Provider Student in an Organized Health Care Education/Training Program | DX: M17.12 Unilateral primary osteoarthritis, left knee (principal); M19.011 Primary osteoarthritis, right shoulder | CPT/HCPCS: 20610; 99214; J3301 ==

== ENCOUNTER 2022-08-22 12:51 | Inpatient (IN) | payer MEDICARE, MEDICAID, SELFPAY ==
[2022-08-22] VITALS (25 sets, daily range): BP systolic 93–136; BP diastolic 60–89; PULSE 61–87; RESP 13–24; TEMP 37.5; O2SAT 74–97; BMI 58.9
--- NOTE | 2022-08-22 13:17 | ECG_ITS ---
[facility] Test Date: 2022-08-22 Pat Name: Rossy Brooke Department: Room: Gender: Female Surfboard Designer: : 1945 Requested By: Al Leigh Order Number: [id number] Irwin MD: Chidi Benitez M.D. Measurements Intervals [place] Rate: 64 P: 0 GA: 0 QRS: -4 QRSD: 86 T: 23 QT: 378 QTc: 390 Interpretive Statements Second-degree AV block type I LOW QRS VOLTAGE IN PRECORDIAL LEADS [QRS DEFLECTION < 1.0 mV IN CHEST LEADS] POSSIBLE ANTERIOR MYOCARDIAL INFARCTION , PROBABLY OLD [30 ms Q WAVE IN V3/V4, OR R < 0.2 mV IN V4] ABNORMAL RHYTHM ECG Compared to ECG 05/21/2022 22:20:57 First degree AV block no longer present Myocardial infarct finding still present Electronically Signed On 08-24-2022 11:31:14 TELEPHONE SERVICE REPRESENTATIVE by Chidi Benitez M.D. [id number]
--- NOTE | 2022-08-22 13:28 | XR_ITS ---
WS: [id number] Exam: XR chest 1V portable [id number] Date/Time of Exam: 08/22/2022 1:28 PM Reason For Exam: dyspnea/cough Comparison 05/21/2022. Bibasal plaque atelectasis. Chronic mild elevation of the right diaphragm. Heart size top limits norm al. Remaining lung sahni are clear. No pneumothorax. No pleural effusion seen. Bony structures are i ntact. XR/XR chest 1V portable [id number] IMPRESSION: 1. Bibasal plaque atelectasis. Low lung volumes secondary to limited inspiratio n. 2. No acute process noted.
--- NOTE | 2022-08-22 13:49 | W.ED.SOB ---
HPI - SOB/Dyspnea General: Chief Complaint: Shortness of Breath/Dyspnea Stated Complaint: SOB Time Seen by Provider: 08/22/22 13:16 Source: patient Mode of arrival: ambulatory History of Present Illness: HPI Narrative: 76-year-old female presents emergency room with shortness of breath. She normally is on oxygen at home and reported that she had O2 sat of 75% on 3 L which is her usual oxygen on arrival here she is at 96% on 4 L were able to titrate her back to 3 L and her sats remaining in the mid to low 90s. However they did not track very well on the oximeter. She denies any chest pain she has been a little bit congested and will increase in swelling in the legs. She usually takes 60 mg Lasix twice daily but is only taken 1 dose in the last 2 days. She has had an increased nonproductive cough no fever sweats or chills. She also usually use nebulizer at home has not used any since last evening. MD elicited complaint: shortness of breath and cough Pertinent past history: congestive heart failure Onset (ago): day(s) (2) Timing: constant Severity: moderate Exacerbating factors: nothing Relieving factors: nothing Known history of: congestive heart failure Associated symptoms: Reports chest congestion, cough and orthopnea; Deny abdominal pain, chest pain, diaphoresis, dizziness, extremity pain, fever(s), hemoptysis, lightheadedness, myalgias, nausea, palpitations, paresthesias, polydipsia, polyuria, rash, sense of impending doom, syncope or vomiting Treatment prior to arrival: oxygen Review of Systems Const: Denies: fever(s), chills, fatigue, malaise or diaphoresis ENMT: Denies: throat pain, ear or mastoid pain, nasal discharge or nasal congestion Card: Reports: edema, dyspnea on exertion and orthopnea; Denies: chest pain, palpitations, irregular heart rhythm, lightheadedness or syncope Resp: Reports: dyspnea, non-productive cough and chest congestion; Denies: productive cough or hemoptysis GI: Denies: abdominal pain, nausea or vomiting : Denies: flank pain, difficulty voiding, dysuria, urinary frequency or urinary urgency Musc: Denies: extremity pain Skin/Breast: Denies: rash or pruritus Neuro: Denies: dizziness Endo: Denies: polyuria or polydipsia PFSH ED PFSH: Medical History (Updated 08/27/22 @ 08:29 by Al Valdovinos DO) Acute exacerbation of chronic obstructive pulmonary disease Arthritis of shoulder region, right, degenerative CHF exacerbation CHF exacerbation COPD (chronic obstructive pulmonary disease) Diabetes Hypothyroidism Hypothyroidism Pneumonia Requires oxygen therapy Volume overload Surgical History H/O knee surgery Family History (Updated 08/22/22 @ 17:30 by Holland Starkey MD) Father CAD (coronary artery disease) Social History (Updated 08/22/22 @ 17:30 by Holland Starkey MD) Smoking and tobacco status: never smoked Alcohol intake: never Substance/Drug Use: never Physical Exam Const: GENERAL APPEARANCE: cooperative and comfortable ORIENTATION/CONSCIOUSNESS: Yes awake, Yes oriented to person, Yes oriented to place and Yes oriented to time HENMT: COMMON NORMALS: normocephalic, atraumatic and hearing grossly normal bilaterally HEAD & SCALP: normocephalic and atraumatic Cardio: COMMON NORMALS: regular rate, regular rhythm and No murmurs present (Cardio) RATE: regular rate RHYTHM: regular rhythm GI: COMMON NORMALS: Soft to palpation and No hepatosplenomegaly present AUSCULTATION: Yes normoactive bowel sounds PALPATION: Yes Soft to palpation, No Tenderness to palpation present (GI), No Guarding due to palpation present (GI) and Yes No hepatosplenomegaly present Neuro: SENSORIUM/ORIENTATION: Yes oriented to person, Yes oriented to place and Yes oriented to time Skin: COMMON NORMALS: no rashes or lesions noted GENERAL SKIN EXAM: no rashes or lesions noted Course Vital Signs: Vital signs: Vital Signs Temperature 98 F 08/27/22 08:00 Pulse Rate 79 08/27/22 08:00 Respiratory Rate 17 08/27/22 08:00 Blood Pressure 149/94 08/27/22 08:00 Pulse Oximetry 95 08/27/22 08:00 Oxygen Delivery Me thod 08/27/22 07:46 Oxygen Flow Rate 4 08/27/22 07:46 Fraction of Inspir ed Oxygen 40 08/25/22 00:54 MDM - SOB/Dyspnea Medical Decision Making Patient has slight elevation of troponin but trend is at her baseline. Suspect it is due to her congestive heart failure hypercapnic respiratory failure. Orders written. Medical Records I reviewed the patient's medical records. Lab Data I reviewed the patient's lab results. 08/22/22 13:43 Labs/Radiology: Radiology Impressions Chest X-Ray 08/22/22 13:28 IMPRESSION: 1. Bibasal plaque atelectasis. Low lung volumes secondary to limited inspiration. 2. No acute process noted. Venous Duplex 08/23/22 11:01 IMPRESSION: No evidence of deep vein thrombosis. Laboratory Results WBC 8.1 10^3/uL (4.0-10.0) 08/22/22 15:43 Corrected WBC Cancelled 08/22/22 13:43 RBC 4.52 10^6/uL (4.1-5.3) 08/22/22 15:43 Hgb 11.9 g/dL (11.5-15.3) 08/22/22 15:43 Hct 42.1 % (37.0-47.0) 08/22/22 15:43 MCV 93.1 fl (81-99) 08/22/22 15:43 MCH 26.3 pg (28.0-34.0) L 08/22/22 15:43 MCHC 28.3 g/dL (30.0-36.0) L 08/22/22 15:43 RDW 13.9 % (12.1-15.1) 08/22/22 15:43 Plt Count 189 10^3/cmm (130-400) 08/22/22 15:43 MPV 10.0 fL (7.4-10.4) 08/22/22 15:43 Gran % Cancelled 08/22/22 13:43 Neut % (Auto) 71.6 % 08/22/22 15:43 Lymph % (Auto) 19.8 % 08/22/22 15:43 [place] % (Auto) 4.6 % 08/22/22 15:43 Eos % (Auto) 2.9 % 08/22/22 15:43 Baso % (Auto) 0.2 % 08/22/22 15:43 Neut # (Auto) 5.78 10^3/uL (1.8-7.7) 08/22/22 15:43 Lymph # (Auto) 1.6 10^3/uL (0.8-4.8) 08/22/22 15:43 [place] # (Auto) 0.4 10^3/uL (0.2-0.9) 08/22/22 15:43 Eos # (Auto) 0.2 10^3/uL (0.0-0.8) 08/22/22 15:43 Baso # (Auto) 0.0 10^3/uL (0.0-0.1) 08/22/22 15:43 Absolute Gran (auto) Cancelled 08/22/22 13:43 Nucleated RBC % (auto) 0 % 08/22/22 15:43 Nucleated RBCs # 0.0 /100WBC 08/22/22 15:43 D-Dimer 0.70 ug/mIFEU (0-0.59) H 08/22/22 16:51 Specimen Type Arterial 08/22/22 15:38 Sample Site Radial, left 08/22/22 15:38 ABG pH 7.27 (7.35-7.45) L 08/22/22 15:38 ABG pCO2 89.4 mmHg (35-45) H* 08/22/22 15:38 ABG pO2 37.1 mmHg (80.0-100.0) L* 08/22/22 15:38 ABG HCO3 41.4 mmol/L (22-26) H 08/22/22 15:38 ABG O2 Saturation 64.4 08/22/22 15:38 ABG Base Excess 11.0 mmol/L (-2.0-2.0) H 08/22/22 15:38 Best Test Pos 08/22/22 15:38 A-a O2 Gradient 11.2 mmHg (5-10) H 08/22/22 15:38 Hematocrit 38.1 % (37-47) 08/22/22 15:38 Hgb O2 Saturation 63.2 % (95-100) L 08/22/22 15:38 Carboxyhemoglobin 1.4 %THgb (0.4-20.1) 08/22/22 15:38 Methemoglobin 0.5 % (0.4-1.5) 08/22/22 15:38 Total Hemoglobin 12.4 g/dL (12-16) 08/22/22 15:38 Sodium 141.0 mmol/L (131-143) 08/22/22 15:38 Potassium 4.3 mmol/L (3.5-5.0) 08/22/22 15:38 Glucose 127.0 mg/dL (70-115) H 08/22/22 15:38 Ionized Calcium 1.2 mmol/L (1.1-1.4) 08/22/22 15:38 O2 Delivery Device Nc 08/22/22 15:38 O2 Liters/Min 3.0 % 08/22/22 15:38 FiO2 32.0 % 08/22/22 15:38 Educational Therapy Teacher ID Cak 08/22/22 15:38 Sodium 137 mmol/L (136-145) 08/22/22 15:43 Potassium 4.0 mmol/L (3.5-5.1) 08/22/22 15:43 Chloride 91 mmol/L (98-107) L 08/22/22 15:43 Carbon Dioxide 35 mmol/L (22-29) H 08/22/22 15:43 Anion Gap 15.0 (5-19) 08/22/22 15:43 BUN 13 mg/dL (8-23) 08/22/22 15:43 Creatinine 0.6 mg/dL (0.5-0.9) 08/22/22 15:43 GFR Calculation Not Reportable 08/22/22 15:43 Glucose 124 mg/dL (65-115) H 08/22/22 15:43 Estimat Average Glucose 123 08/22/22 15:43 Hemoglobin A1c 5.9 % (4.0-6.0) 08/22/22 15:43 Calculated Osmolality 286 mOsm/kg (285-295) 08/22/22 15:43 Lactic Acid 0.9 mmol/L (0.5-2.2) 08/22/22 13:43 Calcium 9.2 mg/dL (8.5-10.5) 08/22/22 15:43 Total Bilirubin 0.3 mg/dL (0.15-1.2) 08/22/22 15:43 AST 19 U/L (0-32) 08/22/22 15:43 ALT 12 U/L (0-33) 08/22/22 15:43 Alkaline Phosphatase 186 U/L (35-105) H 08/22/22 15:43 Troponin T Baseline 23 ng/L (0-10) H 08/22/22 13:43 Troponin T 120 Minute 22.02 ng/L (0-10) H 08/22/22 15:43 Delta Troponin T -0.98 ABS# (0-10) L 08/22/22 15:43 C-Reactive Protein 9.3 mg/L (0.0-4.9) H 08/22/22 16:51 NT-Pro-B Natriuret Pep 506 pg/mL (0-450) H 08/22/22 13:43 Total Protein 7.3 g/dL (6.6-8.7) 08/22/22 15:43 Albumin 3.8 g/dL (3.5-5.2) 08/22/22 15:43 Globulin 3.5 g/dL (1.3-4.6) 08/22/22 15:43 Procalcitonin 0.02 ng/mL (0-0.5) 08/22/22 16:51 Urine Color Straw (Yellow) 08/22/22 15:16 Urine Appearance Clear (CLEAR) 08/22/22 15:16 Urine pH 6.5 (5-7) 08/22/22 15:16 Ur Specific [place] 1.010 (1.005-1.030) 08/22/22 15:16 Urine Protein Neg (Negative) 08/22/22 15:16 Urine Glucose (UA) Norm (Normal) 08/22/22 15:16 Urine Ketones Negative (Negative) 08/22/22 15:16 Urine Blood Neg (Negative) 08/22/22 15:16 Urine Nitrate Negative (Negative) 08/22/22 15:16 Urine Bilirubin Neg (Negative) 08/22/22 15:16 Urine Urobilinogen Neg mg/dL (Negative) 08/22/22 15:16 Ur Leukocyte Esterase 1+ (Negative) H 08/22/22 15:16 Urine RBC None /hpf (0-2) 08/22/22 15:16 Urine WBC 0-4 /hpf (0-5) H 08/22/22 15:16 Ur Squamous Epith Cells 0-4 /hpf (0-5) H 08/22/22 15:16 Amorphous Sediment Not Reportable 08/22/22 15:16 Urine Bacteria None /hpf (NONE) 08/22/22 15:16 Coronavirus 229E (PCR) Not detected (NOT DETECT) 08/22/22 17:10 SARS-CoV-2 (PCR) Detected (NOT DETECT) A 08/22/22 17:10 Discharge Plan Discharge Patient Disposition: Admitted As Inpatient Admit Provider: Holland Starkey Clinical Impression: Acute hypercapnic respiratory failure, Morbid obesity with BMI of 50.0-59.9, adult, CHF exacerbation, Acute exacerbation of chronic obstructive pulmonary disease, Obesity hypoventilation syndrome Condition: Stable Coding Level of Care Code ED Napping Machine Operator for Chg Fwd Exam Detailed
[2022-08-22] MEDS: ondansetron 2 mg/ML SDV 2 mL 4 MG IVP (14:15)
[2022-08-22] MEDS: FUROsemide 10 mg/mL SDV 10mL 60 MG IVP (14:17)
[2022-08-22] MEDS: ipratropium 0.5 mg/2.5 mL Neb INHALATION ×2 (14:29→19:45)
[2022-08-22] MEDS: albuterol 2.5 mg/3 mL Neb INHALATION ×2 (14:29→19:44)
[2022-08-22 14:34] LABS: Lactic Sepsis W/Reflex 0.9 mmol/L (0.5-2.2)
[2022-08-22 14:39] LABS: Troponin(5th) Baseline 23 ng/L (0-10)
[2022-08-22 14:41] LABS: NT Pro B Type Natriuretic Pept 506 pg/mL (0-450)
--- NOTE | 2022-08-22 15:12 | PC.PHAR ---
Addendum entered by Sabina Souza 08/22/22 15:49: still waiting on fax from [facility]-pt states that she knows most her meds-pt states she has been out of her januvia 25mg daily for about a week-[facility] states they took the januvia to the pt on 08/18/22 90d/s-pt states since shes been out she has been taking metformin 500mg qam prn-ext med history shows last filled 06/09/22 90d/s for 500mg bid-pt states she is taking half of a 50mg metoprolol tartrate 25mg qam- ext med history shows last filled 12/11/21 90d/s for 50mg bid-notes are made in the pharmacy comments Original Note: pt states [facility]
--- NOTE | 2022-08-22 15:17 | ECG_ITS ---
[facility] Test Date: 2022-08-22 Pat Name: Rossy Brooke Department: Room: Gender: Female Attic Blower: : 1945 Requested By: Al Leigh Order Number: [id number] Reading MD: Chiid Benitez M.D. Measurements Intervals [place] Rate: 77 P: 0 [place]: 0 QRS: -10 QRSD: 90 T: 40 QT: 376 QTc: 426 Interpretive Statements SINUS RHYTHM WITH FIRST DEGREE AV block WITH PACS LOW QRS VOLTAGE IN PRECORDIAL LEADS [QRS DEFLECTION < 1.0 mV IN CHEST LEADS] POSSIBLE ANTERIOR MYOCARDIAL INFARCTION , PROBABLY OLD [30 ms Q WAVE IN V3/V4, OR R < 0.2 mV IN V4] Compared to ECG 08/22/2022 13:45:11 No significant changes Electronically Signed On 08-24-2022 11:37:12 ALARM MECHANISM ADJUSTER by Chidi Benitez M.D. [id number]
[2022-08-22 15:38] LABS: Bilirubin Urine Neg (Negative); Blood Urine Neg (Negative); Glucose Urine UA Norm (Normal); Ketones Urine Negative (Negative); Leukocyte Esterase Urine 1+ (Negative); Nitrate Urine Negative (Negative); Protein Urine Neg (Negative); Urine Appearance Clear (CLEAR); Urine Color Straw (Yellow); Urobilinogen Urine Neg (Negative); pH Urine 6.5 (5-7)
[2022-08-22 15:39] LABS: Add Urine Microscopic? YES
[2022-08-22 15:49] LABS: Arterial Blood Gas Hematocrit 38.1 % (37-47); Blood Gas Allen Test Pos; Blood Gas Operator Identificat CAK; Blood Gas Sample Type Arterial; Ionized Calcium Level - ABG 1.2 mmol/L (1.1-1.4); Oxygen Device NC; Potassium Level - ABG 4.3 mmol/L (3.5-5.0); Total Hemoglobin 12.4 g/dL (12-16)
[2022-08-22 15:50] LABS: Add Urine Culture? No; Squamous Epithelial Cell Urine 0-4 /hpf (0-5); WBC Urine 0-4 /hpf (0-5)
[2022-08-22 15:50] LABS: ABG PH Result 7.27 (7.35-7.45); Alveolar-Arterial Oxygen Gradi 11.2 mmHg (5-10); Blood Gas Sample Site Radial, left; Carboxyhemoglobin 1.4 %THgb (0.4-20.1); HCO3 ABG 41.4 mmol/L (22-26); HGB O2 Sat 63.2 % (95-100); Methemoglobin 0.5 % (0.4-1.5); Oxygen Saturation ABG 64.4; PO2 ABG 37.1 mmHg (80.0-100.0)
[2022-08-22 15:51] LABS: ABG PCO2 89.4 mmHg (35-45)
[2022-08-22 15:59] LABS: Basophils % 0.2 %; Eosinophils # 0.2 10^3/uL (0.0-0.8); Eosinophils % 2.9 %; Hematocrit 42.1 % (37.0-47.0); Hemoglobin 11.9 g/dL (11.5-15.3); Lymphocytes # 1.6 10^3/uL (0.8-4.8); Lymphocytes % 19.8 %; Mean Corpuscular HGB Conc 28.3 g/dL (30.0-36.0); Mean Corpuscular Hemoglobin 26.3 pg (28.0-34.0); Mean Corpuscular Volume 93.1 fl (81-99); Monocytes # 0.4 10^3/uL (0.2-0.9); Monocytes % 4.6 %; Neutrophils # 5.78 10^3/uL (1.8-7.7); Neutrophils % 71.6 %; Nucleated Red Blood Cells % 0 %; Platelet Count 189 10^3/cmm (130-400); Red Blood Count 4.52 10^6/uL (4.1-5.3); Red Cell Distribution Width 13.9 % (12.1-15.1); White Blood Count 8.1 10^3/uL (4.0-10.0)
[2022-08-22 16:14] LABS: Alanine Aminotransferase 12 U/L (0-33); Albumin Level 3.8 g/dL (3.5-5.2); Alkaline Phosphatase 186 U/L (35-105); Aspartate Amino Transferase 19 U/L (0-32); Blood Urea Nitrogen 13 mg/dL (8-23); Calcium 9.2 mg/dL (8.5-10.5); Carbon Dioxide 35 mmol/L (22-29); Chloride 91 mmol/L (98-107); Globulin 3.5 g/dL (1.3-4.6); Glucose 124 mg/dL (65-115); Osmolality Calculated 286 mOsm/kg (285-295); Sodium 137 mmol/L (136-145); Total Bilirubin 0.3 mg/dL (0.15-1.2); Total Protein 7.3 g/dL (6.6-8.7)
[2022-08-22 16:18] LABS: Troponin 5 2HR 22.02 ng/L (0-10)
[2022-08-22 16:25] LABS: Troponin 5 2HR Delta -0.98 ABS# (0-10)
--- NOTE | 2022-08-22 17:25 | P.HP_ITS ---
Providers/Chief Complaint Chief Complaint: SOB History of Present Illness Rossy Brooke is a 76 year old female with a past medical history of morbid obesity, obesity hypoventilation syndrome, hypertension, ylj-vpecrct-eonlbaegu type 2 diabetes mellitus, hypothyroidism, hyperlipidemia who presents [facility] for shortness of breath. Patient tells me that she cut down her Lasix for the last few days. She has been feeling increasingly short of breath, she tells me that she is not very mobile at baseline, she is mostly stays in a chair, no recent falls, no history of injuries, no recent surgeries, no calf pain, calf swelling, hemoptysis. No fevers, no chills. No cough. No history of smoking. She tells me that she has been feeling increasingly short of breath at rest for the last few days, no headache, no blurry vision, no nausea, no vomiting, no confusion Review of Systems Const: Denies: fever(s), chills, fatigue or malaise Eyes: Denies: change in vision ENMT: Denies: nasal congestion Card: Denies: chest pain Resp: Reports: dyspnea; Denies: productive cough, non-productive cough or wheezing GI: Denies: abdominal pain : Denies: dysuria or urinary frequency Skin/Breast: Denies: rash Neuro: Denies: headache(s), dizziness or vertigo Endo: Denies: polyuria or polydipsia Medications/Allergies Home Medications Medication Instructions Recorded Confirmed Last Taken Type hyoscyamine sulfate 0.125 mg tablet 0.125 mg PO Q12H PRN IBS Symptoms 11/06/21 08/22/22 Unknown History mirabegron 50 mg tablet,extended 50 mg PO DAILY 11/06/21 08/22/22 11/06/21 History release 24 hr (Myrbetriq) aspirin 81 mg chewable tablet 81 mg PO DAILY 30 days #30 tabs 11/09/21 08/22/22 Unknown Rx atorvastatin 40 mg tablet 40 mg PO BEDTIME 30 days #30 tabs 11/09/21 08/22/22 Unknown Rx albuterol sulfate 2.5 mg/3 mL 2.5 mg inhalation TID PRN 05/22/22 08/22/22 08/22/22 History (0.083 %) solution for nebulization Shortness Of Breath ascorbic acid (vitamin C) 500 mg 500 mg PO DAILY 05/22/22 08/22/22 Unknown History tablet (Vitamin C) cetirizine 10 mg tablet (Zyrtec) 10 mg PO DAILY 05/22/22 08/22/22 Unknown History esomeprazole magnesium 20 mg 20 mg PO DAILY 05/22/22 08/22/22 Unknown History capsule,delayed release ferrous sulfate 325 mg (65 mg 325 mg PO DAILY 05/22/22 08/22/22 Unknown History iron) tablet (iron) furosemide 40 mg tablet See Rx Instructions .Route .COMPLEX 05/22/22 08/22/22 Unknown History metoprolol tartrate 50 mg tablet 25 mg PO QAM 05/22/22 08/22/22 08/22/22 History potassium chloride 20 mEq 20 meq PO QAM 05/22/22 08/22/22 08/22/22 History tablet,extended release(part/cryst) sitagliptin phosphate 25 mg tablet 25 mg PO DAILY #60 tabs 05/27/22 08/22/22 1 Week Ago Rx ~08/15/22 pt states out for a diclofenac sodium 1 % topical gel 2 g topical QID PRN Pain 08/22/22 08/22/22 Unknown History (Voltaren Arthritis Pain) levothyroxine 75 mcg tablet 75 mcg PO QAM 08/22/22 08/22/22 08/22/22 History metformin 500 mg tablet 500 mg PO QAM PRN blood sugar 08/22/22 08/22/22 Unknown History nystatin 100,000 unit/gram topical 1 applic topical BID PRN unknown 08/22/22 08/22/22 Unknown History powder (Nystop) Allergies Allergy/AdvReac Type Severity Reaction Status Date / Time cinnamon Allergy Unknown Unknown Verified 05/29/22 14:20 morphine Allergy Unknown Unknown Verified 05/29/22 14:20 Sulfa (Sulfonamide Allergy Unknown Unknown Verified 05/29/22 14:20 Antibiotics) niacin Allergy ADR/ALGY-Fl Verified 08/22/22 15:31 ushing PFSH Acute PFSH: Medical History (Updated 08/22/22 @ 17:32 by Holland Starkey MD) Acute exacerbation of chronic obstructive pulmonary disease Arthritis of shoulder region, right, degenerative CHF exacerbation CHF exacerbation COPD (chronic obstructive pulmonary disease) Diabetes Hypothyroidism Hypothyroidism Pneumonia Requires oxygen therapy Volume overload Surgical History H/O knee surgery Family History (Updated 08/22/22 @ 17:30 by Holland Starkey MD) Father CAD (coronary artery disease) Social History (Updated 08/22/22 @ 17:30 by Holland Starkey MD) Smoking and tobacco status: never smoked Alcohol intake: never Substance/Drug Use: never Vitals/I&O/Wt Last Vital Signs Temp 99.5 F 08/22/22 12:54 Pulse 83 08/22/22 16:00 Resp 16 08/22/22 14:29 BP 120/89 08/22/22 17:00 Pulse Ox 94 08/22/22 17:00 O2 Del Method 08/22/22 14:29 O2 Flow Rate 3 08/22/22 14:29 FiO2 50 08/22/22 16:00 Weight last 48 hrs Weight 136.985 kg Physical Exam Urinary Catheter Management: Quijano: Cath Placed During This Visit: yes Urinary Catheter Date of Insertion: 08/22/22 Urinary Catheter Time of Insertion: 16:00 Data 08/22/22 15:43 08/22/22 15:43 Micro: Microbiology 08/22/22 15:03 Blood Culture - Preliminary Blood SPECIMEN COLLECTED 08/22/22 16:51 Blood Culture - Preliminary Blood SPECIMEN COLLECTED A&P Assessment and plan (1) Morbid obesity with BMI of 50.0-59.9, adult: (2) Obesity hypoventilation syndrome: (3) Acute exacerbation of chronic obstructive pulmonary disease: (4) CHF exacerbation: (5) NSTEMI (non-ST elevated myocardial infarction): (6) Acute hypercapnic respiratory failure: (7) Goals of care, counseling/discussion: Plan Acute hypercarbic respiratory failure -Secondary to obesity hypoventilation syndrome -COPD exacerbation -CHF exacerbation -pH 7.27, PCO2 89.4, Plan -Admit to ICU -Continue BiPAP, scheduled during the night -Repeat ABG monitor PCO2, if it continues to increase will then have to discuss about electively intubating, patient agreeable if it will be for short period of time -If PCO2 improving, continue BiPAP - will consider Precedex -Doxycycline 100 IV twice daily -Solu-Medrol 125 followed by 40 every 8 hours -Lasix 40 IV twice daily -DuoNeb, budesonide -Place Quijano catheter -Monitor respiratory status -Monitor urine output -Monitor creatinine, magnesium, phosphorus -Pro-Loco, CRP, D-dimer we will do a she needs a CT angiogram -Morbid obesity -Full code -Lovenox for DVT prophylaxis Hypothyroidism, check TSH, levothyroxine Type 2 diabetes mellitus, low-dose sliding scale NSTEMI, serial EKGs, serial troponins, telemetry monitoring Goals of care discussion patient is agreeable to be a full code, she is agreeable to elective intubation, however only wants to be on a ventilator for short period of time does not want to remain as a vegetable on ventilation Attestations Medical Necessity Statement*: Patient requires hospitalization, inpatient, greater than 2 midnights, for acute hypercarbic respiratory failure, obesity h ypoventilation syndrome, COPD exacerbation, CHF exacerbation, NSTEMI, inpatient, critical care time spent 50 minutes Critical Care Time: 50 minutes Coding Level of Care Code Acute Code for Chg Fwd Diagnoses Morbid obesity with BMI of 50.0-59.9, adult E66.01; Z68.43 Obesity hypoventilation syndrome E66.2 Acute exacerbation of chronic obstructive pulmonary disease J44.1 CHF exacerbation I50.9 NSTEMI (non-ST elevated myocardial infarction) I21.4 Acute hypercapnic respiratory failure J96.02 Goals of care, counseling/discussion Z71.89
[2022-08-22 17:54] LABS: Procalcitonin 0.02 ng/mL (0-0.5)
[2022-08-22 18:11] LABS: C Reactive Protein 9.3 mg/L (0.0-4.9)
[2022-08-22 18:33] LABS: ABG PCO2 78.6 mmHg (35-45); ABG PH Result 7.33 (7.35-7.45); Arterial Blood Gas Hematocrit 36.5 % (37-47); Base Excess ABG 12.2 mmol/L (-2.0-2.0); Blood Gas Allen Test Pos; Blood Gas Operator Identificat CAK; Blood Gas Sample Site Brachial, left; Blood Gas Sample Type Arterial; HCO3 ABG 41.2 mmol/L (22-26); Oxygen Device BIPAP; PO2 ABG 93.9 mmHg (80.0-100.0)
[2022-08-22 19:11] LABS: Adenovirus Not Detected (NOT DETECT); Chlamydia Pneumoniae Not Detected (NOT DETECT); Coronavirus 229E,HKU1,NL63,OC4 Not Detected (NOT DETECT); Human Metapneumovirus Not Detected (NOT DETECT); Human Rhinovirus/Enterovirus Not Detected (NOT DETECT); Influenza A Not Detected (NOT DETECT); Influenza A H1 Not Detected (NOT DETECT); Influenza A H1-2009 Not Detected (NOT DETECT); Influenza A H3 Not Detected (NOT DETECT); Influenza B Not Detected (NOT DETECT); Mycoplasma Pneumoniae Not Detected (NOT DETECT); Parainfluenza Virus Type 1 Not Detected (NOT DETECT); Parainfluenza Virus Type 2 Not Detected (NOT DETECT); Parainfluenza Virus Type 3 Not Detected (NOT DETECT); Parainfluenza Virus Type 4 Not Detected (NOT DETECT); Respiratory Syncytial Virus A Not Detected (NOT DETECT); Respiratory Syncytial Virus B Not Detected (NOT DETECT); SARS-COV-2 Detected (NOT DETECT)
[2022-08-22] MEDS: enoxaparin 40 mg/0.4 mL Syringe SUBCUT (19:23)
[2022-08-22] MEDS: doxycycline 100 MG in sodium chloride 0.9% (plus) 100 ML IV (19:23)
[2022-08-22] MEDS: pantoprazole 40 mg SDV IVP (19:23)
[2022-08-22 19:43] LABS: Influenza A by IFA negative (Negative); Influenza B by IFA negative (Negative)
[2022-08-22 19:44] LABS: Troponin 5 6HR 21.72 ng/L (0-10)
[2022-08-22] MEDS: budesonide 0.5 mg/2 mL Neb INHALATION (19:44)
[2022-08-22 19:47] LABS: Troponin 5 6HR Delta -1.28 ng/L (0-12)
[2022-08-22 20:01] LABS: ABG PH Result 7.33 (7.35-7.45); Arterial Blood Gas Hematocrit 36.6 % (37-47); Base Excess ABG 11.8 mmol/L (-2.0-2.0); Blood Gas Allen Test Pos; Blood Gas Sample Site Radial, right; Blood Gas Sample Type Arterial; HCO3 ABG 40.8 mmol/L (22-26); Oxygen Device BIPAP; PO2 ABG 91.7 mmHg (80.0-100.0)
[2022-08-22 20:04] LABS: ABG PCO2 78.3 mmHg (35-45)
[2022-08-22] MEDS: atorvastatin 40 mg Tablet PO (20:59)
[2022-08-22 21:02] LABS: Estmated Average Glucose 123; Hemoglobin A1C 5.9 % (4.0-6.0)
[2022-08-23] VITALS (31 sets, daily range): BP systolic 95–187; BP diastolic 56–116; PULSE 62–120; RESP 14–38; TEMP 36.7–37.1; O2SAT 77–99
[2022-08-23] MEDS: FUROsemide 10 mg/mL SDV 4mL 40 MG IVP (05:08)
[2022-08-23] MEDS: potassium chloride ER 20 mEq Tablet PO (05:08)
[2022-08-23] MEDS: metoprolol tartrate 25 mg Tablet PO (05:08)
[2022-08-23] MEDS: levothyroxine 75 mcg Tablet PO (05:08)
[2022-08-23 05:17] LABS: Hematocrit 37.2 % (37.0-47.0); Hemoglobin 10.8 g/dL (11.5-15.3); Lymphocytes # 0.5 10^3/uL (0.8-4.8); Lymphocytes % 17.2 %; Mean Corpuscular Hemoglobin 26.5 pg (28.0-34.0); Mean Corpuscular Volume 91.2 fl (81-99); Mean Platelet Volume 9.8 fL (7.4-10.4); Monocytes # 0.2 10^3/uL (0.2-0.9); Neutrophils # 2.28 10^3/uL (1.8-7.7); Neutrophils % 75.5 %; Nucleated Red Blood Cells % 0 %; Platelet Count 158 10^3/cmm (130-400); Red Blood Count 4.08 10^6/uL (4.1-5.3); Red Cell Distribution Width 13.6 % (12.1-15.1)
[2022-08-23 05:33] LABS: INR 1.08 (0.8-1.2)
[2022-08-23] MEDS: doxycycline 100 MG in sodium chloride 0.9% (plus) 100 ML IV ×2 (05:34→17:58)
[2022-08-23 05:57] LABS: Alanine Aminotransferase 10 U/L (0-33); Albumin Level 3.4 g/dL (3.5-5.2); Alkaline Phosphatase 171 U/L (35-105); Anion Gap 11.7 (5-19); Aspartate Amino Transferase 16 U/L (0-32); Blood Urea Nitrogen 15 mg/dL (8-23); Calcium 9.3 mg/dL (8.5-10.5); Carbon Dioxide 38 mmol/L (22-29); Chloride 92 mmol/L (98-107); Globulin 3.4 g/dL (1.3-4.6); Glucose 103 mg/dL (65-115); NT Pro B Type Natriuretic Pept 419 pg/mL (0-450); Osmolality Calculated 285 mOsm/kg (285-295); Potassium 4.7 mmol/L (3.5-5.1); Sodium 137 mmol/L (136-145); Thyroid Stimulating Hormone 0.68 uIU/mL (0.27-4.20); Total Bilirubin 0.4 mg/dL (0.15-1.2); Total Protein 6.8 g/dL (6.6-8.7)
[2022-08-23 07:41] LABS: Glucose Point of Care 109 mg/dL (70-110)
[2022-08-23] MEDS: budesonide 0.5 mg/2 mL Neb INHALATION ×2 (08:22→20:15)
[2022-08-23] MEDS: albuterol 2.5 mg/3 mL Neb INHALATION ×4 (08:22→20:15)
[2022-08-23] MEDS: ipratropium 0.5 mg/2.5 mL Neb INHALATION ×4 (08:22→20:15)
[2022-08-23] MEDS: ascorbic acid 500 mg Tablet PO (08:49)
[2022-08-23] MEDS: dexamethasone 10 mg/mL INJ 6 MG IVP (08:49)
[2022-08-23] MEDS: remdesivir 200 MG in sodium chloride 0.9% (100 ml) 60 ML 100 MG IV (08:49)
[2022-08-23] MEDS: ferrous sulfate EC 325 mg Tablet PO (08:49)
[2022-08-23] MEDS: aspirin 81 mg Chew Tablet PO (08:49)
[2022-08-23 09:22] LABS: ABG PH Result 7.43 (7.35-7.45); Arterial Blood Gas Hematocrit 34.1 % (37-47); Base Excess ABG 14.4 mmol/L (-2.0-2.0); Blood Gas Allen Test Pos; Blood Gas Operator Identificat GD; Blood Gas Sample Site Radial, left; Blood Gas Sample Type Arterial; HCO3 ABG 41.2 mmol/L (22-26); Oxygen Device NC; PO2 ABG 54.3 mmHg (80.0-100.0)
[2022-08-23 09:23] LABS: ABG PCO2 62.7 mmHg (35-45)
--- NOTE | 2022-08-23 11:00 | PM.PN ---
Subjective Subjective: Patient was shocked to learn that she has COVID-19 this morning, she feels a lot better, no fevers overnight, no nausea, no vomiting, no chest pain Vitals/I&O/Wt Last Vital Signs Temp 99.5 F 08/22/22 12:54 Pulse 63 08/23/22 08:25 Resp 22 H 08/23/22 08:20 BP 127/72 08/23/22 08:00 Pulse Ox 99 08/23/22 08:25 O2 Del Method 08/23/22 08:20 O2 Flow Rate 3 08/22/22 14:29 FiO2 50 08/23/22 08:25 08/22/22 08/23/22 08/23/22 22:59 06:59 14:59 Intake Total 100 / 100 460 / 560 Output Total 700 / 700 Balance 100 / 100 -240 / -140 Weight last 48 hrs Weight 136.985 kg Physical Exam Const: COMMON NORMALS: no acute distress and patient oriented x3 Resp: COMMON NORMALS: normal respiratory effort, No retractions, No use of accessory muscles and clear to auscultation bilaterally AUSCULTATION: clear to auscultation bilaterally Cardio: COMMON NORMALS: regular rate, regular rhythm, S1 normal heart sound present and S2 normal heart sound present RATE: regular rate RHYTHM: regular rhythm HEART SOUNDS: S1 normal heart sound present and S2 normal heart sound present GI: COMMON NORMALS: Normal to inspection, nondistended, normoactive bowel sounds present, non-tender and no bruits Extremity: COMMON NORMALS: no pedal edema Neuro: COMMON NORMALS: patient oriented x3 Psych: COMMON NORMALS: mental status grossly normal Urinary Catheter Management: Quijano: Cath Placed During This Visit: yes Reason for Continuing Indwelling Catheter: Accurate Measurement of Urinary Output in Critically Ill Patients Urinary Catheter Date of Insertion: 08/22/22 Urinary Catheter Time of Insertion: 16:00 Data 08/23/22 05:00 08/23/22 05:00 Micro: Microbiology 08/22/22 15:03 Blood Culture - Preliminary Blood SPECIMEN COLLECTED 08/22/22 16:51 Blood Culture - Preliminary Blood SPECIMEN COLLECTED A&P Assessment and plan (1) Pneumonia due to COVID-19 virus: (2) Morbid obesity with BMI of 50.0-59.9, adult: (3) Obesity hypoventilation syndrome: (4) Acute exacerbation of chronic obstructive pulmonary disease: (5) CHF exacerbation: (6) NSTEMI (non-ST elevated myocardial infarction): (7) Acute hypercapnic respiratory failure: (8) Goals of care, counseling/discussion: (9) Leukopenia: Plan Acute hypercarbic respiratory failure - COVID-19 pneumonia -Secondary to obesity hypoventilation syndrome -COPD exacerbation -CHF exacerbation -pH 7.43, PCO2 62.7, PO2 54.3 on BiPAP therapy Plan -Admit to ICU -Continue BiPAP, scheduled during the night -Agreeable to elective intubation if required - will consider Precedex for agitation -Start remdesivir -Doxycycline 100 IV twice daily -Decadron 6 mg IV push daily -Lasix 40 IV once a day -DuoNeb, budesonide -Quijano catheter in place -Monitor respiratory status -Monitor urine output -Monitor creatinine, magnesium, phosphorus -Morbid obesity -Full code -Lovenox for DVT prophylaxis Leukopenia, likely secondary to COVID-19, isolation precautions Hypothyroidism, levothyroxine Type 2 diabetes mellitus, low-dose sliding scale NSTEMI, serial EKGs, serial troponins, telemetry monitoring Goals of care discussion patient is agreeable to be a full code, she is agreeable to elective intubation, however only wants to be on a ventilator for short period of time does not want to remain as a vegetable on ventilation Plan for today, adjust Lasix dosing to once daily, add Decadron and remdesivir monitor respiratory status continue BiPAP therapy, up out of bed to chair Attestations Medical Necessity Statement*: Patient requires hospitalization for acute hypercarbic respiratory failure, COVID-19, obesity hypoventilation syndrome COPD, CHF, Coding Level of Care Code Acute Code for [facility] Fwd Diagnoses Pneumonia due to COVID-19 virus U07.1; J12.82 Morbid obesity with BMI of 50.0-59.9, adult E66.01; Z68.43 Obesity hypoventilation syndrome E66.2 Acute exacerbation of chronic obstructive pulmonary disease J44.1 CHF exacerbation I50.9 NSTEMI (non-ST elevated myocardial infarction) I21.4 Acute hypercapnic respiratory failure J96.02 Goals of care, counseling/discussion Z71.89 Leukopenia D72.819
--- NOTE | 2022-08-23 11:01 | USR_ITS ---
PROCEDURE INFORMATION: Exam: US Duplex Lower Extremity Veins, Bilateral Exam date and time: 08/23/2022 4:44 PM Age: 76 years old Clinical indication: Condition or disease; Other: Covid; Additional info: Dvt TECHNIQUE: Imaging protocol: Real-time duplex ultrasound of the bilateral extremities with 2-D spence scale, color Doppler flow and spectral waveform analysis including responses to compression and other maneuvers (when performed) with image documentation. Complete exam focused on the lower extremity veins. COMPARISON: CR XR knee LT 1-2V [id number] 04/15/2022 2:39 PM FINDINGS: Right deep veins: Unremarkable. The common femoral, femoral, proximal profunda femoral and popliteal veins are patent without thrombus. Normal Doppler waveforms. Normal compressibility and/or augmentation response. Right superficial veins: Saphenofemoral junction is patent without thrombus. Left deep veins: Unremarkable. The common femoral, femoral, proximal profunda femoral and popliteal veins are patent without thrombus. Normal Doppler waveforms. Normal compressibility and/or augmentation response. Left superficial veins: Saphenofemoral junction is patent without thrombus. Soft tissues: Unremarkable. US/[place] [id number] IMPRESSION: No evidence of deep vein thrombosis.
[2022-08-23 12:14] LABS: Glucose Point of Care 108 mg/dL (70-110)
[2022-08-23 17:54] LABS: Glucose Point of Care 104 mg/dL (70-110)
[2022-08-23] MEDS: pantoprazole 40 mg SDV IVP (17:57)
[2022-08-23] MEDS: enoxaparin 40 mg/0.4 mL Syringe SUBCUT (17:58)
[2022-08-23] MEDS: atorvastatin 40 mg Tablet PO (20:07)
[2022-08-24] VITALS (24 sets, daily range): BP systolic 102–156; BP diastolic 62–86; PULSE 59–102; RESP 15–26; TEMP 36.4–37.1; O2SAT 92–98
[2022-08-24 05:32] LABS: Basophils % 0.2 %; Eosinophils % 0.2 %; Hematocrit 35.1 % (37.0-47.0); Hemoglobin 10.4 g/dL (11.5-15.3); Lymphocytes # 1.3 10^3/uL (0.8-4.8); Lymphocytes % 25.1 %; Mean Corpuscular HGB Conc 29.6 g/dL (30.0-36.0); Mean Corpuscular Hemoglobin 26.1 pg (28.0-34.0); Mean Corpuscular Volume 88.2 fl (81-99); Mean Platelet Volume 10.3 fL (7.4-10.4); Monocytes # 0.5 10^3/uL (0.2-0.9); Monocytes % 9.8 %; Neutrophils # 3.27 10^3/uL (1.8-7.7); Neutrophils % 64.1 %; Nucleated Red Blood Cells % 0 %; Platelet Count 157 10^3/cmm (130-400); Red Blood Count 3.98 10^6/uL (4.1-5.3); Red Cell Distribution Width 13.9 % (12.1-15.1); White Blood Count 5.1 10^3/uL (4.0-10.0)
[2022-08-24] MEDS: remdesivir 100 MG in sodium chloride 0.9% (100 ml) 80 ML IV (05:44)
[2022-08-24] MEDS: FUROsemide 10 mg/mL SDV 4mL 40 MG IVP ×2 (05:45→17:38)
[2022-08-24] MEDS: metoprolol tartrate 25 mg Tablet PO (05:45)
[2022-08-24] MEDS: potassium chloride ER 20 mEq Tablet PO (05:46)
[2022-08-24 06:02] LABS: Alanine Aminotransferase 10 U/L (0-33); Albumin Level 3.4 g/dL (3.5-5.2); Alkaline Phosphatase 145 U/L (35-105); Anion Gap 9.1 (5-19); Aspartate Amino Transferase 16 U/L (0-32); Blood Urea Nitrogen 23 mg/dL (8-23); Calcium 9.4 mg/dL (8.5-10.5); Carbon Dioxide 39 mmol/L (22-29); Chloride 93 mmol/L (98-107); Globulin 2.9 g/dL (1.3-4.6); Glucose 89 mg/dL (65-115); NT Pro B Type Natriuretic Pept 521 pg/mL (0-450); Osmolality Calculated 287 mOsm/kg (285-295); Phosphorus 2.3 mg/dL (2.5-4.5); Potassium 4.1 mmol/L (3.5-5.1); Sodium 137 mmol/L (136-145); Total Bilirubin 0.2 mg/dL (0.15-1.2); Total Protein 6.3 g/dL (6.6-8.7)
[2022-08-24] MEDS: doxycycline 100 MG in sodium chloride 0.9% (plus) 100 ML IV ×2 (06:34→17:42)
[2022-08-24] MEDS: levothyroxine 75 mcg Tablet PO (06:39)
[2022-08-24 07:54] LABS: Glucose Point of Care 102 mg/dL (70-110)
[2022-08-24] MEDS: ferrous sulfate EC 325 mg Tablet PO (08:25)
[2022-08-24] MEDS: ascorbic acid 500 mg Tablet PO (08:25)
[2022-08-24] MEDS: metOLazone 5 MG Tablet PO (08:26)
[2022-08-24] MEDS: dexamethasone 10 mg/mL INJ 6 MG IVP (08:26)
[2022-08-24] MEDS: aspirin 81 mg Chew Tablet PO (08:26)
[2022-08-24] MEDS: budesonide 0.5 mg/2 mL Neb INHALATION ×2 (08:40→20:58)
[2022-08-24] MEDS: ipratropium 0.5 mg/2.5 mL Neb INHALATION ×4 (08:40→20:57)
[2022-08-24] MEDS: albuterol 2.5 mg/3 mL Neb INHALATION ×4 (08:40→20:58)
--- NOTE | 2022-08-24 12:43 | PM.PN ---
Subjective Subjective: Patient was seen this morning, she tells me that she feels a lot better with the BiPAP overnight, it helps her breathing, no fevers overnight, Vitals/I&O/Wt Last Vital Signs Temp 97.9 F 08/24/22 04:00 Pulse 70 08/24/22 11:15 Resp 22 H 08/24/22 11:00 BP 102/86 08/24/22 10:00 Pulse Ox 95 08/24/22 11:00 O2 Del Method 08/24/22 11:00 O2 Flow Rate 6 08/24/22 11:00 FiO2 40 08/24/22 06:00 08/23/22 08/24/22 08/24/22 22:59 06:59 14:59 Intake Total 920 / 1280 350 / 1630 Output Total 2100 / 2100 750 / 2850 Balance -1180 / -820 -400 / -1220 Weight last 48 hrs Weight 136.985 kg Physical Exam Const: COMMON NORMALS: no acute distress and patient oriented x3 Resp: COMMON NORMALS: normal respiratory effort, No retractions, No use of accessory muscles and clear to auscultation bilaterally AUSCULTATION: clear to auscultation bilaterally Cardio: COMMON NORMALS: regular rate, regular rhythm, S1 normal heart sound present and S2 normal heart sound present RATE: regular rate RHYTHM: regular rhythm HEART SOUNDS: S1 normal heart sound present and S2 normal heart sound present GI: COMMON NORMALS: Normal to inspection, nondistended, normoactive bowel sounds present, Soft to palpation and non-tender PALPATION: Yes Soft to palpation Extremity: NARRATIVE EXTREMITY EXAM: 1+ edema bilateral lower extremity Neuro: COMMON NORMALS: patient oriented x3 Psych: COMMON NORMALS: mental status grossly normal Urinary Catheter Management: Quijano: Cath Placed During This Visit: yes Reason for Continuing Indwelling Catheter: Accurate Measurement of Urinary Output in Critically Ill Patients Urinary Catheter Date of Insertion: 08/22/22 Urinary Catheter Time of Insertion: 16:00 Data 08/24/22 04:14 08/24/22 04:14 Micro: Microbiology 08/22/22 15:03 Blood Culture - Preliminary Blood NEGATIVE TO DATE 08/22/22 16:51 Blood Culture - Preliminary Blood NEGATIVE TO DATE A&P Assessment and plan (1) Pneumonia due to COVID-19 virus: (2) Morbid obesity with BMI of 50.0-59.9, adult: (3) Obesity hypoventilation syndrome: (4) Acute exacerbation of chronic obstructive pulmonary disease: (5) CHF exacerbation: (6) NSTEMI (non-ST elevated myocardial infarction): (7) Acute hypercapnic respiratory failure: (8) Goals of care, counseling/discussion: (9) Leukopenia: Plan Acute hypercarbic respiratory failure - COVID-19 pneumonia -Secondary to obesity hypoventilation syndrome -COPD exacerbation -CHF exacerbation -Persistent hypoxia, -Required BiPAP during the night Plan -We will move to general medical floors -Continue BiPAP, scheduled during the night -Agreeable to elective intubation if required -Patient clinically benefits with BiPAP for CHF, COPD, and think that it would help decrease her readmission, help with her breathing -Continue remdesivir -Doxycycline 100 IV twice daily -Decadron 6 mg IV push daily -Lasix 40 IV twice daily, 1 dose of metolazone today, -1.5 L -DuoNeb, budesonide -Quijano catheter in place -Monitor respiratory status -Monitor urine output -Monitor creatinine, magnesium, phosphorus -Morbid obesity -Full code -Lovenox for DVT prophylaxis Leukopenia, likely secondary to COVID-19, isolation precautions, resolving Hypothyroidism, levothyroxine Type 2 diabetes mellitus, low-dose sliding scale NSTEMI, serial EKGs, serial troponins, telemetry monitoring Goals of care discussion patient is agreeable to be a full code, she is agreeable to elective intubation, however only wants to be on a ventilator for short period of time does not want to remain as a vegetable on ventilation Plan for today, increase Lasix dose, moved to general medical floors, overnight pulse ox decrease oxygen requirements currently on 6 L Attestations Medical Necessity Statement*: Patient requires hospitalization for fluid overload hypoxia, requiring diuresis, BiPAP therapy, COVID and T pneumonia, hypoxia Coding Level of Care Code Acute Code for [facility] Fwd Diagnoses Pneumonia due to COVID-19 virus U07.1; J12.82 Morbid obesity with BMI of 50.0-59.9, adult E66.01; Z68.43 Obesity hypoventilation syndrome E66.2 Acute exacerbation of chronic obstructive pulmonary disease J44.1 CHF exacerbation I50.9 NSTEMI (non-ST elevated myocardial infarction) I21.4 Acute hypercapnic respiratory failure J96.02 Goals of care, counseling/discussion Z71.89 Leukopenia D72.812
[2022-08-24] MEDS: pantoprazole 40 mg SDV IVP (17:38)
[2022-08-24] MEDS: insulin lispro 100 unit/1 mL SUBCUT (17:41)
[2022-08-24] MEDS: enoxaparin 40 mg/0.4 mL Syringe SUBCUT (17:42)
[2022-08-24 17:46] LABS: Glucose Point of Care 174 mg/dL (70-110)
[2022-08-24 20:29] LABS: Glucose Point of Care 198 mg/dL (70-110)
[2022-08-24] MEDS: atorvastatin 40 mg Tablet PO (20:39)
[2022-08-25] VITALS (12 sets, daily range): BP systolic 112–127; BP diastolic 68–80; PULSE 69–99; RESP 14–19; TEMP 36.4–37.1; O2SAT 90–97
[2022-08-25 04:31] LABS: Basophils % 0.3 %; Hemoglobin 11.7 g/dL (11.5-15.3); Lymphocytes # 1.6 10^3/uL (0.8-4.8); Lymphocytes % 23.7 %; Mean Corpuscular HGB Conc 30.8 g/dL (30.0-36.0); Mean Corpuscular Hemoglobin 26.2 pg (28.0-34.0); Mean Corpuscular Volume 85.2 fl (81-99); Mean Platelet Volume 10.5 fL (7.4-10.4); Monocytes # 0.8 10^3/uL (0.2-0.9); Neutrophils # 4.22 10^3/uL (1.8-7.7); Neutrophils % 63.4 %; Nucleated Red Blood Cells % 0 %; Platelet Count 176 10^3/cmm (130-400); Red Blood Count 4.46 10^6/uL (4.1-5.3); Red Cell Distribution Width 13.9 % (12.1-15.1); White Blood Count 6.7 10^3/uL (4.0-10.0)
[2022-08-25 05:07] LABS: NT Pro B Type Natriuretic Pept 389 pg/mL (0-450)
[2022-08-25] MEDS: FUROsemide 10 mg/mL SDV 4mL 40 MG IVP (05:28)
[2022-08-25] MEDS: remdesivir 100 MG in sodium chloride 0.9% (100 ml) 80 ML IV (05:28)
[2022-08-25] MEDS: potassium chloride ER 20 mEq Tablet PO (05:32)
[2022-08-25] MEDS: metoprolol tartrate 25 mg Tablet PO (05:33)
[2022-08-25] MEDS: levothyroxine 75 mcg Tablet PO (05:36)
[2022-08-25 05:55] LABS: Alanine Aminotransferase 12 U/L (0-33); Albumin Level 3.5 g/dL (3.5-5.2); Alkaline Phosphatase 155 U/L (35-105); Anion Gap 17.8 (5-19); Aspartate Amino Transferase 20 U/L (0-32); Blood Urea Nitrogen 33 mg/dL (8-23); Calcium 9.5 mg/dL (8.5-10.5); Carbon Dioxide 35 mmol/L (22-29); Chloride 86 mmol/L (98-107); Globulin 3.1 g/dL (1.3-4.6); Glucose 107 mg/dL (65-115); Magnesium 1.8 mg/dL (1.7-2.3); Osmolality Calculated 288 mOsm/kg (285-295); Phosphorus 3.5 mg/dL (2.5-4.5); Potassium 3.8 mmol/L (3.5-5.1); Sodium 135 mmol/L (136-145); Total Bilirubin 0.3 mg/dL (0.15-1.2); Total Protein 6.6 g/dL (6.6-8.7)
[2022-08-25] MEDS: doxycycline 100 MG in sodium chloride 0.9% (plus) 100 ML IV ×2 (06:28→16:52)
[2022-08-25] MEDS: ipratropium 0.5 mg/2.5 mL Neb INHALATION ×4 (07:32→21:37)
[2022-08-25] MEDS: budesonide 0.5 mg/2 mL Neb INHALATION ×2 (07:56→21:37)
[2022-08-25 09:14] LABS: Glucose Point of Care 109 mg/dL (70-110)
[2022-08-25 09:14] LABS: Glucose Point of Care 125 mg/dL (70-110)
[2022-08-25] MEDS: metOLazone 5 MG Tablet PO (09:25)
[2022-08-25] MEDS: ferrous sulfate EC 325 mg Tablet PO (09:26)
[2022-08-25] MEDS: ascorbic acid 500 mg Tablet PO (09:26)
[2022-08-25] MEDS: aspirin 81 mg Chew Tablet PO (09:26)
[2022-08-25] MEDS: dexamethasone 10 mg/mL INJ 6 MG IVP (09:29)
[2022-08-25 11:27] LABS: Glucose Point of Care 119 mg/dL (70-110)
--- NOTE | 2022-08-25 11:49 | PC.SOCIAL ---
Pg 2 IMM Explained to pt Pg 2 IMM. No questions voiced. Provided pt a copy. Initialed, dated, & timed a copy & placed in chart.
--- NOTE | 2022-08-25 12:17 | P.PN_ITS ---
Subjective Subjective: patient was seen this morning, she feels better she tells, me she rests well with bipap, she is eager to get rehab at local nursing facility Vitals/I&O/Wt Last Vital Signs Temp 97.5 F L 08/25/22 08:00 Pulse 93 08/25/22 11:27 Resp 18 08/25/22 11:27 BP 127/77 08/25/22 08:00 Pulse Ox 94 08/25/22 11:27 O2 Del Method 08/25/22 11:27 O2 Flow Rate 4 08/25/22 11:27 FiO2 40 08/25/22 00:54 08/24/22 08/25/22 08/25/22 22:59 06:59 14:59 Intake Total 340 / 900 440 / 440 Output Total 2099 / 2099 1800 / 3900 2099 / 2099 Balance -1760 / -1200 -1800 / -3000 -1660 / -1660 Physical Exam Const: COMMON NORMALS: no acute distress and patient oriented x3 Resp: COMMON NORMALS: normal respiratory effort, No retractions, No use of accessory muscles and clear to auscultation bilaterally AUSCULTATION: clear to auscultation bilaterally Cardio: COMMON NORMALS: regular rate, regular rhythm, S1 normal heart sound p resent and S2 normal heart sound present RATE: regular rate RHYTHM: regular rhythm HEART SOUNDS: S1 normal heart sound present and S2 normal heart sound present GI: COMMON NORMALS: Normal to inspection, nondistended, normoactive bowel sounds present and non-tender Extremity: COMMON NORMALS: no pedal edema Neuro: COMMON NORMALS: patient oriented x3 Psych: COMMON NORMALS: mental status grossly normal Urinary Catheter Management: Quijano: Cath Placed During This Visit: yes Reason for Continuing Indwelling Catheter: Accurate Measurement of Urinary Output in Critically Ill Patients Urinary Catheter Date of Insertion: 08/22/22 Urinary Catheter Time of Insertion: 16:00 Data 08/25/22 03:43 08/25/22 03:43 A&P Assessment and plan (1) Pneumonia due to COVID-19 virus: (2) Morbid obesity with BMI of 50.0-59.9, adult: (3) Obesity hypoventilation syndrome: (4) Acute exacerbation of chronic obstructive pulmonary disease: (5) CHF exacerbation: (6) NSTEMI (non-ST elevated myocardial infarction): (7) Acute hypercapnic respiratory failure: (8) Goals of care, counseling/discussion: (9) Leukopenia: Plan Acute hypercarbic respiratory failure - COVID-19 pneumonia -Secondary to obesity hypoventilation syndrome -COPD exacerbation -CHF exacerbation -Persistent hypoxia, -Required BiPAP during the night Plan -on general medical floors -Continue BiPAP, scheduled during the night -Agreeable to elective intubation if required -Patient clinically benefits with BiPAP for CHF, COPD, and think that it would help decrease her readmission, help with her breathing -Continue remdesivir -Doxycycline 100 IV twice daily -Decadron 6 mg IV push daily -Lasix 40 IV twice daily, 1 dose of metolazone today, -3 L -DuoNeb, budesonide -Quijano catheter in place -Monitor respiratory status -Monitor urine output -Monitor creatinine, magnesium, phosphorus -Morbid obesity -Full code -Lovenox for DVT prophylaxis Leukopenia, likely secondary to COVID-19, isolation precautions, resolving Hypothyroidism, levothyroxine Type 2 diabetes mellitus, low-dose sliding scale NSTEMI, serial EKGs, serial troponins, telemetry monitoring Goals of care discussion patient is agreeable to be a full code, she is agreeable to elective intubation, however only wants to be on a ventilator for short period of time does not want to remain as a vegetable on ventilation Plan for today,1 dose metolazone, moved to general medical floors, overnight pulse ox decrease oxygen requirements currently on 6 L Attestations Medical Necessity Statement*: patient requires hospitaliztion for chf, fluid overload Coding Level of Care Code Acute Code for Chg Fwd Diagnoses Pneumonia due to COVID-19 virus U07.1; J12.82 Morbid obesity with BMI of 50.0-59.9, adult E66.01; Z68.43 Obesity hypoventilation syndrome E66.2 Acute exacerbation of chronic obstructive pulmonary disease J44.1 CHF exacerbation I50.9 NSTEMI (non-ST elevated myocardial infarction) I21.4 Acute hypercapnic respiratory failure J96.02 Goals of care, counseling/discussion Z71.89 Leukopenia D72.819
[2022-08-25] MEDS: insulin lispro 100 unit/1 mL SUBCUT (16:53)
[2022-08-25] MEDS: enoxaparin 40 mg/0.4 mL Syringe SUBCUT (16:53)
[2022-08-25 17:20] LABS: Glucose Point of Care 196 mg/dL (70-110)
[2022-08-25] MEDS: pantoprazole 40 mg SDV IVP (17:49)
[2022-08-25] MEDS: atorvastatin 40 mg Tablet PO (20:52)
[2022-08-25 20:54] LABS: Glucose Point of Care 146 mg/dL (70-110)
[2022-08-26] VITALS (13 sets, daily range): BP systolic 110–146; BP diastolic 73–90; PULSE 74–106; RESP 16–20; TEMP 36.5–36.8; O2SAT 90–96
[2022-08-26 02:41] LABS: Basophils % 0.1 %; Hematocrit 40.1 % (37.0-47.0); Hemoglobin 12.3 g/dL (11.5-15.3); Lymphocytes # 1.7 10^3/uL (0.8-4.8); Lymphocytes % 16.7 %; Mean Corpuscular HGB Conc 30.7 g/dL (30.0-36.0); Mean Corpuscular Hemoglobin 26.1 pg (28.0-34.0); Mean Corpuscular Volume 85.1 fl (81-99); Mean Platelet Volume 10.9 fL (7.4-10.4); Monocytes # 0.9 10^3/uL (0.2-0.9); Monocytes % 8.8 %; Neutrophils # 7.41 10^3/uL (1.8-7.7); Neutrophils % 73.9 %; Nucleated Red Blood Cells % 0 %; Platelet Count 201 10^3/cmm (130-400); Red Blood Count 4.71 10^6/uL (4.1-5.3); Red Cell Distribution Width 13.7 % (12.1-15.1)
[2022-08-26 03:06] LABS: Alanine Aminotransferase 14 U/L (0-33); Albumin Level 3.7 g/dL (3.5-5.2); Alkaline Phosphatase 171 U/L (35-105); Anion Gap 15.6 (5-19); Aspartate Amino Transferase 20 U/L (0-32); Blood Urea Nitrogen 36 mg/dL (8-23); Calcium 9.1 mg/dL (8.5-10.5); Carbon Dioxide 37 mmol/L (22-29); Chloride 85 mmol/L (98-107); Globulin 2.6 g/dL (1.3-4.6); Glucose 128 mg/dL (65-115); Magnesium 1.9 mg/dL (1.7-2.3); Osmolality Calculated 288 mOsm/kg (285-295); Phosphorus 5.2 mg/dL (2.5-4.5); Potassium 3.6 mmol/L (3.5-5.1); Sodium 134 mmol/L (136-145); Total Bilirubin 0.3 mg/dL (0.15-1.2); Total Protein 6.3 g/dL (6.6-8.7)
[2022-08-26 03:15] LABS: NT Pro B Type Natriuretic Pept 173 pg/mL (0-450)
[2022-08-26] MEDS: FUROsemide 10 mg/mL SDV 4mL 40 MG IVP (05:01)
[2022-08-26] MEDS: remdesivir 100 MG in sodium chloride 0.9% (100 ml) 80 ML IV (05:01)
[2022-08-26] MEDS: levothyroxine 75 mcg Tablet PO (05:02)
[2022-08-26] MEDS: metoprolol tartrate 25 mg Tablet PO (05:02)
[2022-08-26] MEDS: potassium chloride ER 20 mEq Tablet PO (05:02)
[2022-08-26] MEDS: doxycycline 100 MG in sodium chloride 0.9% (plus) 100 ML IV (06:03)
[2022-08-26 06:30] LABS: Glucose Point of Care 115 mg/dL (70-110)
[2022-08-26] MEDS: ipratropium 0.5 mg/2.5 mL Neb INHALATION ×4 (07:33→20:04)
[2022-08-26] MEDS: budesonide 0.5 mg/2 mL Neb INHALATION ×2 (07:33→20:07)
[2022-08-26] MEDS: dexamethasone 10 mg/mL INJ 6 MG IVP (08:37)
[2022-08-26] MEDS: aspirin 81 mg Chew Tablet PO (09:09)
[2022-08-26] MEDS: ferrous sulfate EC 325 mg Tablet PO (09:09)
[2022-08-26] MEDS: ascorbic acid 500 mg Tablet PO (09:09)
--- NOTE | 2022-08-26 10:25 | PM.PN ---
Subjective Subjective: Patient was seen this morning, she tells me she rested comfortably last night, no fevers, no chills Vitals/I&O/Wt Last Vital Signs Temp 98.1 F 08/26/22 08:00 Pulse 84 08/26/22 08:00 Resp 18 08/26/22 08:00 BP 117/76 08/26/22 08:00 Pulse Ox 90 08/26/22 08:00 O2 Del Method 08/26/22 08:00 O2 Flow Rate 4 08/26/22 08:00 FiO2 40 08/25/22 00:54 08/25/22 08/26/22 08/26/22 22:59 06:59 14:59 Intake Total 460 / 1140 100 / 1240 460 / 460 Output Total 1250 / 3350 1950 / 5300 Balance -790 / -2210 -1850 / -4060 460 / 460 Physical Exam Const: COMMON NORMALS: no acute distress and patient oriented x3 Resp: COMMON NORMALS: normal respiratory effort, No retractions, No use of accessory muscles and clear to auscultation bilaterally AUSCULTATION: clear to auscultation bilaterally Cardio: COMMON NORMALS: regular rate, regular rhythm, S1 normal heart sound present and S2 normal heart sound present RATE: regular rate RHYTHM: regular rhythm HEART SOUNDS: S1 normal heart sound present and S2 normal heart sound present GI: COMMON NORMALS: Normal to inspection, nondistended, normoactive bowel sounds present and non-tender Extremity: COMMON NORMALS: no pedal edema Neuro: COMMON NORMALS: patient oriented x3 Psych: COMMON NORMALS: mental status grossly normal Urinary Catheter Management: Quijano: Cath Placed During This Visit: yes Reason for Continuing Indwelling Catheter: Accurate Measurement of Urinary Output in Critically Ill Patients Urinary Catheter Date of Insertion: 08/22/22 Urinary Catheter Time of Insertion: 16:00 Data 08/26/22 01:14 08/26/22 01:14 A&P Assessment and plan (1) Pneumonia due to COVID-19 virus: (2) Morbid obesity with BMI of 50.0-59.9, adult: (3) Obesity hypoventilation syndrome: (4) Acute exacerbation of chronic obstructive pulmonary disease: (5) CHF exacerbation: (6) NSTEMI (non-ST elevated myocardial infarction): (7) Acute hypercapnic respiratory failure: (8) Goals of care, counseling/discussion: (9) Leukopenia: Plan Acute hypercarbic respiratory failure - COVID-19 pneumonia -Secondary to obesity hypoventilation syndrome -COPD exacerbation -CHF exacerbation -Persistent hypoxia, -Required BiPAP during the night Plan -on general medical floors -Continue BiPAP, scheduled during the night -Agreeable to elective intubation if required -Patient clinically benefits with BiPAP for CHF, COPD, and think that it would help decrease her readmission, help with her breathing -Continue remdesivir day 6 of 6 -Doxycycline 100 p.o. twice daily -Decadron 6 mg IV push daily, last day tomorrow -Switch to Lasix 40 mg p.o. daily, diuresed over 5 L yesterday -DuoNeb, budesonide -Quijano catheter in place -Monitor respiratory status -Monitor urine output -Monitor creatinine, magnesium, phosphorus -Morbid obesity -Full code -Lovenox for DVT prophylaxis Leukopenia, resolved, likely secondary to COVID-19, isolation precautions, resolving Hypothyroidism, levothyroxine Type 2 diabetes mellitus, low-dose sliding scale NSTEMI, serial EKGs, serial troponins, telemetry monitoring Goals of care discussion patient is agreeable to be a full code, she is agreeable to elective intubation, however only wants to be on a ventilator for short period of time does not want to remain as a vegetable on ventilation Plan for today, continue BiPAP therapy, Lasix therapy, Attestations Medical Necessity Statement*: Patient requires hospitalization for acute hypercarbic respiratory failure, requiring BiPAP therapy, diuresis, remdesivir, Decadron, for COVID-19 Coding Level of Care Code Acute Code for g Fwd Diagnoses Pneumonia due to COVID-19 virus U07.1; J12.82 Morbid obesity with BMI of 50.0-59.9, adult E66.01; Z68.43 Obesity hypoventilation syndrome E66.2 Acute exacerbation of chronic obstructive pulmonary disease J44.1 CHF exacerbation I50.9 NSTEMI (non-ST elevated myocardial infarction) I21.4 Acute hypercapnic respiratory failure J96.02 Goals of care, counseling/discussion Z71.89 Leukopenia D72.819
[2022-08-26 11:35] LABS: Glucose Point of Care 141 mg/dL (70-110)
[2022-08-26 17:37] LABS: Glucose Point of Care 166 mg/dL (70-110)
[2022-08-26] MEDS: insulin lispro 100 unit/1 mL SUBCUT (17:45)
[2022-08-26] MEDS: enoxaparin 40 mg/0.4 mL Syringe SUBCUT (17:45)
[2022-08-26] MEDS: pantoprazole 40 mg SDV IVP (18:15)
[2022-08-26] MEDS: doxycycline 100 mg Tablet PO (20:00)
[2022-08-26] MEDS: atorvastatin 40 mg Tablet PO (20:00)
[2022-08-27] VITALS (14 sets, daily range): BP systolic 114–149; BP diastolic 74–94; PULSE 75–100; RESP 17–18; TEMP 36.4–36.7; O2SAT 90–96
[2022-08-27 02:16] LABS: Basophils % 0.1 %; Eosinophils % 0.1 %; Hematocrit 41.8 % (37.0-47.0); Hemoglobin 13.1 g/dL (11.5-15.3); Lymphocytes # 1.5 10^3/uL (0.8-4.8); Lymphocytes % 14.6 %; Mean Corpuscular HGB Conc 31.3 g/dL (30.0-36.0); Mean Corpuscular Hemoglobin 26.4 pg (28.0-34.0); Mean Corpuscular Volume 84.3 fl (81-99); Mean Platelet Volume 10.6 fL (7.4-10.4); Monocytes # 0.9 10^3/uL (0.2-0.9); Monocytes % 8.4 %; Neutrophils # 7.67 10^3/uL (1.8-7.7); Neutrophils % 76.1 %; Nucleated Red Blood Cells % 0 %; Platelet Count 223 10^3/cmm (130-400); Red Blood Count 4.96 10^6/uL (4.1-5.3); Red Cell Distribution Width 13.9 % (12.1-15.1); White Blood Count 10.1 10^3/uL (4.0-10.0)
[2022-08-27 02:49] LABS: Anion Gap 15.3 (5-19); Blood Urea Nitrogen 38 mg/dL (8-23); Calcium 9.1 mg/dL (8.5-10.5); Carbon Dioxide 36 mmol/L (22-29); Chloride 84 mmol/L (98-107); Glucose 139 mg/dL (65-115); NT Pro B Type Natriuretic Pept 129 pg/mL (0-450); Osmolality Calculated 285 mOsm/kg (285-295); Potassium 3.3 mmol/L (3.5-5.1); Sodium 132 mmol/L (136-145)
[2022-08-27] MEDS: remdesivir 100 MG in sodium chloride 0.9% (100 ml) 80 ML IV (05:47)
[2022-08-27] MEDS: potassium chloride ER 20 mEq Tablet PO ×2 (05:47→17:55)
[2022-08-27] MEDS: levothyroxine 75 mcg Tablet PO (05:47)
[2022-08-27] MEDS: metoprolol tartrate 25 mg Tablet PO (05:47)
[2022-08-27 06:35] LABS: Glucose Point of Care 114 mg/dL (70-110)
[2022-08-27 06:35] LABS: Glucose Point of Care 177 mg/dL (70-110)
[2022-08-27] MEDS: ipratropium 0.5 mg/2.5 mL Neb INHALATION ×4 (07:45→20:58)
[2022-08-27] MEDS: budesonide 0.5 mg/2 mL Neb INHALATION ×2 (07:46→20:58)
[2022-08-27] MEDS: potassium chloride ER 20 mEq Tablet 40 MEQ PO (08:57)
--- NOTE | 2022-08-27 09:27 | PC.SOCIAL ---
IMM update IMM updated with patient. Copy Pg 2 provided. Verbalized an understanding. Initialled, dated, timed, and placed in chart.
[2022-08-27] MEDS: doxycycline 100 mg Tablet PO ×2 (09:45→17:55)
[2022-08-27] MEDS: FUROsemide 40 mg Tablet PO ×2 (09:45→17:55)
[2022-08-27] MEDS: ferrous sulfate EC 325 mg Tablet PO (09:46)
[2022-08-27] MEDS: aspirin 81 mg Chew Tablet PO (09:46)
[2022-08-27] MEDS: ascorbic acid 500 mg Tablet PO (09:46)
[2022-08-27] MEDS: dexamethasone 10 mg/mL INJ 6 MG IVP (09:46)
--- NOTE | 2022-08-27 10:04 | PM.DCS ---
Discharge Providers Date of Admission: 08/22/22 17:30 Date of Discharge: August 27, 2022 Attending Provider at Admission: Holland Starkey MD Attending Provider at Discharge: Holland Starkey MD Diagnoses at Discharge Discharge Diagnosis (1) Pneumonia due to COVID-19 virus: Status: Acute (2) Morbid obesity with BMI of 50.0-59.9, adult: Status: Acute (3) Obesity hypoventilation syndrome: Status: Acute (4) Acute exacerbation of chronic obstructive pulmonary disease: Status: Acute (5) CHF exacerbation: Status: Acute (6) NSTEMI (non-ST elevated myocardial infarction): Status: Acute (7) Acute hypercapnic respiratory failure: Status: Acute (8) Goals of care, counseling/discussion: Status: Acute (9) Leukopenia: Status: Acute Reason for Visit Reason for Visit: SOB Hospital Course Hospital Course Rossy Brooke is a 76 year old female with a past medical history of morbid obesity, obesity hypoventilation syndrome, hypertension, lvi-tbummbl-[id number] type 2 diabetes mellitus, hypothyroidism, hyperlipidemia who presents [facility] for shortness of breath.? Patient tells me that she cut down her Lasix for the last few days.? She has been feeling increasingly short of breath, she tells me that she is not very mobile at baseline, she is mostly stays in a chair, no recent falls, no history of injuries, no recent surgeries, no calf pain, calf swelling, hemoptysis.? No fevers, no chills.? No cough.? No history of smoking.? She tells me that she has been feeling increasingly short of breath at rest for the last few days, no headache, no blurry vision, no nausea, no vomiting, no confusion Patient was admitted to [facility] for acute hypercarbic respiratory failure secondary COVID-19 pneumonia, COPD exacerbation, CHF exacerbation, obesity hypoventilation syndrome. She was managed initially in the ICU, received Decadron remdesivir broad-spectrum antibiotic therapy, diuretic therapy, clinically monitored. Patient overall clinically improved, moved to general medical floors. For her COVID-19 pneumonia, she finished remdesivir and Decadron here as inpatient For patient's COPD exacerbation, she presented with hypercarbic respiratory failure, she was managed with steroid therapy, and BiPAP therapy. She finished steroid therapy as inpatient, she clinically benefited from BiPAP therapy, she was compliant with BiPAP therapy as an patient had an overnight pulse ox which qualified her for BiPAP discharge with BiPAP therapy to care home facility. Follow-up with pulmonary in 2 weeks For her CHF exacerbation likely diastolic CHF, received BiPAP therapy for which she clinically improved, she was tolerant to it, she she felt better with BiPAP therapy diuresed over 8 L. Discharged with Lasix therapy, potassium replacement therapy with close follow-up with recheck kidney function potassium in 48 hours. Physical Exam Const: COMMON NORMALS: no acute distress and patient oriented x3 Resp: COMMON NORMALS: normal respiratory effort, No retractions, No use of accessory muscles and clear to auscultation bilaterally AUSCULTATION: clear to auscultation bilaterally Cardio: COMMON NORMALS: regular rate, regular rhythm, S1 normal heart sound present and S2 normal heart sound present RATE: regular rate RHYTHM: regular rhythm HEART SOUNDS: S1 normal heart sound present and S2 normal heart sound present GI: COMMON NORMALS: Normal to inspection, nondistended, normoactive bowel sounds present and non-tender Extremity: COMMON NORMALS: no pedal edema Neuro: COMMON NORMALS: patient oriented x3 Psych: COMMON NORMALS: mental status grossly normal Urinary Catheter Management: Quijano: Cath Placed During This Visit: yes, but has since been removed by the nurse Reason for Continuing Indwelling Catheter: Decision to DC Catheter Urinary Catheter Date of Insertion: 08/22/22 Urinary Catheter Time of Insertion: 16:00 Date Urinary Catheter Removed: 08/26/22 Time Urinary Catheter Discontinued: 19:00 Discharge Data Studies Completed and Pending Completed Studies During Hospitalization Category Date Time Status XR chest 1V portable [id number] Stat Exams 08/22/22 13:28 [place] [id number] Routine Ultrasound 08/23/22 11:01 Completed Pending at discharge Category Date Time Status Basic Metabolic Panel AM LABS Lab 08/28/22 04:00 Ordered Basic Metabolic Panel AM LABS Lab 08/29/22 04:00 Ordered Blood Culture Stat Lab 08/22/22 15:03 Results Complete Blood Count w/Auto AM LABS Lab 08/28/22 04:00 Ordered Complete Blood Count w/Auto AM LABS Lab 08/29/22 04:00 Ordered Magnesium AM LABS Lab 08/28/22 04:00 Ordered Magnesium AM LABS Lab 08/29/22 04:00 Ordered NT Pro B Type Natriuretic Pept QAM Lab 08/28/22 06:00 Ordered NT Pro B Type Natriuretic Pept QAM Lab 08/29/22 06:00 Ordered Radiology Impressions Chest X-Ray 08/22/22 13:28 IMPRESSION: 1. Bibasal plaque atelectasis. Low lung volumes secondary to limited inspiration. 2. No acute process noted. Venous Duplex 08/23/22 11:01 IMPRESSION: No evidence of deep vein thrombosis. Laboratory Results WBC 10.1 10^3/uL (4.0-10.0) H 08/27/22 01:10 Corrected WBC Cancelled 08/22/22 13:43 RBC 4.96 10^6/uL (4.1-5.3) 08/27/22 01:10 Hgb 13.1 g/dL (11.5-15.3) 08/27/22 01:10 Hct 41.8 % (37.0-47.0) 08/27/22 01:10 MCV 84.3 fl (81-99) 08/27/22 01:10 MCH 26.4 pg (28.0-34.0) L 08/27/22 01:10 MCHC 31.3 g/dL (30.0-36.0) 08/27/22 01:10 RDW 13.9 % (12.1-15.1) 08/27/22 01:10 Plt Count 223 10^3/cmm (130-400) 08/27/22 01:10 MPV 10.6 fL (7.4-10.4) H 08/27/22 01:10 Gran % Cancelled 08/22/22 13:43 Neut % (Auto) 76.1 % 08/27/22 01:10 Lymph % (Auto) 14.6 % 08/27/22 01:10 [place] % (Auto) 8.4 % 08/27/22 01:10 Eos % (Auto) 0.1 % 08/27/22 01:10 Baso % (Auto) 0.1 % 08/27/22 01:10 Neut # (Auto) 7.67 10^3/uL (1.8-7.7) 08/27/22 01:10 Lymph # (Auto) 1.5 10^3/uL (0.8-4.8) 08/27/22 01:10 [place] # (Auto) 0.9 10^3/uL (0.2-0.9) 08/27/22 01:10 Eos # (Auto) 0.0 10^3/uL (0.0-0.8) 08/27/22 01:10 Baso # (Auto) 0.0 10^3/uL (0.0-0.1) 08/27/22 01:10 Absolute Gran (auto) Cancelled 08/22/22 13:43 Nucleated RBC % (auto) 0 % 08/27/22 01:10 Nucleated RBCs # 0.0 /100WBC 08/27/22 01:10 PT 14.30 SECONDS (12.1-14.9) 08/23/22 05:00 INR 1.08 (0.8-1.2) 08/23/22 05:00 D-Dimer 0.70 ug/mIFEU (0-0.59) H 08/22/22 16:51 Specimen Type Arterial 08/23/22 09:05 Sample Site Radial, left 08/23/22 09:05 ABG pH 7.43 (7.35-7.45) 08/23/22 09:05 ABG pCO2 62.7 mmHg (35-45) H* 08/23/22 09:05 ABG pO2 54.3 mmHg (80.0-100.0) L 08/23/22 09:05 ABG HCO3 41.2 mmol/L (22-26) H 08/23/22 09:05 ABG O2 Saturation 64.4 08/22/22 15:38 ABG Base Excess 14.4 mmol/L (-2.0-2.0) H 08/23/22 09:05 Best Test Pos 08/23/22 09:05 A-a O2 Gradient 11.2 mmHg (5-10) H 08/22/22 15:38 Hematocrit 34.1 % (37-47) L 08/23/22 09:05 Hgb O2 Saturation 63.2 % (95-100) L 08/22/22 15:38 Carboxyhemoglobin 1.4 %THgb (0.4-20.1) 08/22/22 15:38 Methemoglobin 0.5 % (0.4-1.5) 08/22/22 15:38 Total Hemoglobin 12.4 g/dL (12-16) 08/22/22 15:38 Sodium 141.0 mmol/L (131-143) 08/22/22 15:38 Potassium 4.3 mmol/L (3.5-5.0) 08/22/22 15:38 Glucose 127.0 mg/dL (70-115) H 08/22/22 15:38 Ionized Calcium 1.2 mmol/L (1.1-1.4) 08/22/22 15:38 O2 Delivery Device Nc 08/23/22 09:05 O2 Liters/Min 6.0 % 08/23/22 09:05 FiO2 44.0 % 08/23/22 09:05 [employer] Internship ID Gd 08/23/22 09:05 Sodium 132 mmol/L (136-145) L 08/27/22 01:10 Potassium 3.3 mmol/L (3.5-5.1) L 08/27/22 01:10 Chloride 84 mmol/L (98-107) L 08/27/22 01:10 Carbon Dioxide 36 mmol/L (22-29) H 08/27/22 01:10 Anion Gap 15.3 (5-19) 08/27/22 01:10 BUN 38 mg/dL (8-23) H 08/27/22 01:10 Creatinine 0.7 mg/dL (0.5-0.9) 08/27/22 01:10 GFR Calculation Not Reportable 08/27/22 01:10 Glucose 139 mg/dL (65-115) H 08/27/22 01:10 POC Glucose 114 mg/dL (70-110) H 08/27/22 06:28 Estimat Average Glucose 123 08/22/22 15:43 Hemoglobin A1c 5.9 % (4.0-6.0) 08/22/22 15:43 Calculated Osmolality 285 mOsm/kg (285-295) 08/27/22 01:10 Lactic Acid 0.9 mmol/L (0.5-2.2) 08/22/22 13:43 Calcium 9.1 mg/dL (8.5-10.5) 08/27/22 01:10 Phosphorus 5.2 mg/dL (2.5-4.5) H 08/26/22 01:14 Magnesium 2.0 mg/dL (1.7-2.3) 08/27/22 01:10 Total Bilirubin 0.3 mg/dL (0.15-1.2) 08/26/22 01:14 AST 20 U/L (0-32) 08/26/22 01:14 ALT 14 U/L (0-33) 08/26/22 01:14 Alkaline Phosphatase 171 U/L (35-105) H 08/26/22 01:14 Troponin T Baseline 23 ng/L (0-10) H 08/22/22 13:43 Troponin T 120 Minute 22.02 ng/L (0-10) H 08/22/22 15:43 Delta Troponin T -0.98 ABS# (0-10) L 08/22/22 15:43 Troponin T Hi Sens 6Hr 21.72 ng/L (0-10) H 08/22/22 19:17 Troponin T Hi Sens 6Hr Delta -1.28 ng/L (0-12) L 08/22/22 19:17 C-Reactive Protein 9.3 mg/L (0.0-4.9) H 08/22/22 16:51 NT-Pro-B Natriuret Pep 129 pg/mL (0-450) 08/27/22 01:10 Total Protein 6.3 g/dL (6.6-8.7) L 08/26/22 01:14 Albumin 3.7 g/dL (3.5-5.2) 08/26/22 01:14 Globulin 2.6 g/dL (1.3-4.6) 08/26/22 01:14 Procalcitonin 0.02 ng/mL (0-0.5) 08/22/22 16:51 TSH 0.68 uIU/mL (0.27-4.20) 08/23/22 05:00 Urine Color Straw (Yellow) 08/22/22 15:16 Urine Appearance Clear (CLEAR) 08/22/22 15:16 Urine pH 6.5 (5-7) 08/22/22 15:16 Ur Specific [place] 1.010 (1.005-1.030) 08/22/22 15:16 Urine Protein Neg (Negative) 08/22/22 15:16 Urine Glucose (UA) Norm (Normal) 08/22/22 15:16 Urine Ketones Negative (Negative) 08/22/22 15:16 Urine Blood Neg (Negative) 08/22/22 15:16 Urine Nitrate Negative (Negative) 08/22/22 15:16 Urine Bilirubin Neg (Negative) 08/22/22 15:16 Urine Urobilinogen Neg mg/dL (Negative) 08/22/22 15:16 Ur Leukocyte Esterase 1+ (Negative) H 08/22/22 15:16 Urine RBC None /hpf (0-2) 08/22/22 15:16 Urine WBC 0-4 /hpf (0-5) H 08/22/22 15:16 Ur Squamous Epith Cells 0-4 /hpf (0-5) H 08/22/22 15:16 Amorphous Sediment Not Reportable 08/22/22 15:16 Urine Bacteria None /hpf (NONE) 08/22/22 15:16 Coronavirus 229E (PCR) Not detected (NOT DETECT) 08/22/22 17:10 Influenza Type A Ag negative (Negative) 08/22/22 19:10 Influenza Type B Ag negative (Negative) 08/22/22 19:10 SARS-CoV-2 (PCR) Detected (NOT DETECT) A 08/22/22 17:10 Vitals Last Vital Signs Temp 98 F 08/27/22 08:00 Pulse 79 08/27/22 08:00 Resp 17 08/27/22 08:00 BP 149/94 08/27/22 08:00 Pulse Ox 95 08/27/22 08:00 O2 Del Method 08/27/22 07:46 O2 Flow Rate 4 08/27/22 07:46 FiO2 40 08/25/22 00:54 Discharge Plan Discharge Patient Disposition: Home Condition: Stable Prescriptions: New fluticasone propion-salmeterol [Advair Diskus] 100-50 mcg/dose blister with device 1 inh inhalation BID Qty: 60 0RF furosemide 40 mg Tablet 40 mg PO Q12H 30 Days Qty: 60 0RF albuterol sulfate 90 mcg/actuation HFA aerosol inhaler 1 inh inhalation Q4H PRN (Reason: shortness of breath or wheezing) Qty: 8.5 0RF Continued hyoscyamine sulfate 0.125 mg tablet 0.125 mg PO Q12H PRN (Reason: IBS Symptoms) Myrbetriq 50 mg tablet extended release 24 hr 50 mg PO DAILY atorvastatin 40 mg tablet 40 mg PO BEDTIME 30 Days Qty: 30 0RF aspirin 81 mg Tablet,Chewable 81 mg PO DAILY 30 Days Qty: 30 0RF albuterol sulfate 2.5 mg /3 mL (0.083 %) solution for nebulization 2.5 mg inhalation TID PRN (Reason: Shortness Of Breath) cetirizine [Zyrtec] 10 mg Tablet 10 mg PO DAILY ascorbic acid (vitamin C) [Vitamin C] 500 mg Tablet 500 mg PO DAILY ferrous sulfate [iron] 325 mg (65 mg iron) Tablet 325 mg PO DAILY esomeprazole magnesium 20 mg capsule,delayed release(DR/EC) 20 mg PO DAILY metoprolol tartrate 50 mg Tablet 25 mg PO QAM Voltaren Arthritis Pain 1 % gel 2 g topical QID PRN (Reason: Pain) Rx Instructions: apply topically to left knee levothyroxine 75 mcg tablet 75 mcg PO QAM Nystop 100,000 unit/gram powder 1 applic topical BID PRN (Reason: unknown) Changed metformin 500 mg tablet 500 mg PO QAM 30 Days Qty: 30 0RF potassium chloride 20 mEq tablet,ER particles/crystals 20 meq PO Q12H 30 Days Qty: 60 0RF Discontinued furosemide 40 mg tablet See Rx Instructions .ROUTE .COMPLEX Rx Instructions: 40mg po qam and 20mg po qpm sitagliptin phosphate 25 mg tablet 25 mg PO DAILY Qty: 60 0RF Discharge Orders: Discharge Order (Routine); Ordered 08/27/22 Ordered By: Holland Starkey Referrals: Datar,Domingo Reynolds MD [Physician] - 1 week Discharge Diet: Cardiac Discharge Activity: Resume usual activity Patient Instructions: Opioid Safety Activity Restrictions/Additional Instructions: - Continue to use by BiPAP nightly -Lasix 40 mg twice daily with potassium replacement recheck potassium and kidney function in 48 hours -Please have patient follow-up with lung doctor in 2 weeks -For type 2 diabetes mellitus, I have stopped her Sitagliptin she can continue metformin 500 mg p.o. every morning, monitor blood sugars 3 times daily, can consider using metformin as needed based on blood sugars Discharge Attestations Time Spent in Discharge Care*: greater than 30 min Quality Metrics Clinical Quality Measures [ No reported AMI, CVA or VTE this stay] Coding Level of Care Code Acute Chg FW DC note Diagnoses Pneumonia due to COVID-19 virus U07.1; J12.82 Morbid obesity with BMI of 50.0-59.9, adult E66.01; Z68.43 Obesity hypoventilation syndrome E66.2 Acute exacerbation of chronic obstructive pulmonary disease J44.1 CHF exacerbation I50.9 NSTEMI (non-ST elevated myocardial infarction) I21.4 Acute hypercapnic respiratory failure J96.02 Goals of care, counseling/discussion Z71.89 Leukopenia D72.819
--- NOTE | 2022-08-27 10:51 | PM.PN ---
Subjective Subjective: Patient was seen this morning, she feels a lot better, less short of breath, Vitals/I&O/Wt Last Vital Signs Temp 98 F 08/27/22 08:00 Pulse 79 08/27/22 08:00 Resp 17 08/27/22 08:00 BP 149/94 08/27/22 08:00 Pulse Ox 95 08/27/22 08:00 O2 Del Method 08/27/22 07:46 O2 Flow Rate 3 08/27/22 08:00 FiO2 40 08/25/22 00:54 08/26/22 08/27/22 08/27/22 22:59 06:59 14:59 Intake Total 240 / 940 100 / 1040 350 / 350 Balance 240 / 40 100 / 140 350 / 350 Physical Exam Const: COMMON NORMALS: no acute distress and patient oriented x3 Resp: COMMON NORMALS: normal respiratory effort, No retractions, No use of accessory muscles and clear to auscultation bilaterally AUSCULTATION: clear to auscultation bilaterally Cardio: COMMON NORMALS: regular rate, regular rhythm, S1 normal heart sound present and S2 normal heart sound present RATE: regular rate RHYTHM: regular rhythm HEART SOUNDS: S1 normal heart sound present and S2 normal heart sound present GI: COMMON NORMALS: Normal to inspection, nondistended, normoactive bowel sounds present and non-tender Extremity: COMMON NORMALS: no pedal edema Neuro: COMMON NORMALS: patient oriented x3 Psych: COMMON NORMALS: mental status grossly normal Urinary Catheter Management: Quijano: Cath Placed During This Visit: yes, but has since been removed by the nurse Reason for Continuing Indwelling Catheter: Decision to DC Catheter Urinary Catheter Date of Insertion: 08/22/22 Urinary Catheter Time of Insertion: 16:00 Date Urinary Catheter Removed: 08/26/22 Time Urinary Catheter Discontinued: 19:00 Data 08/27/22 01:10 08/27/22 01:10 A&P Assessment and plan (1) Pneumonia due to COVID-19 virus: (2) Morbid obesity with BMI of 50.0-59.9, adult: (3) Obesity hypoventilation syndrome: (4) Acute exacerbation of chronic obstructive pulmonary disease: (5) CHF exacerbation: (6) NSTEMI (non-ST elevated myocardial infarction): (7) Acute hypercapnic respiratory failure: (8) Goals of care, counseling/discussion: (9) Leukopenia: Plan Acute hypercarbic respiratory failure - COVID-19 pneumonia -Secondary to obesity hypoventilation syndrome -COPD exacerbation -CHF exacerbation -Persistent hypoxia, -Required BiPAP during the night Plan -on general medical floors -Continue BiPAP, scheduled during the night -Patient clinically benefits with BiPAP for CHF, COPD, and think that it would help decrease her readmission, help with her breathing for COPD and CHF -Complete remdesivir -Doxycycline 100 p.o. twice daily -Complete Decadron -Continue Lasix 40 twice daily -DuoNeb, budesonide -Quijano catheter removed -Monitor respiratory status -Monitor urine output -Monitor creatinine, magnesium, phosphorus -Morbid obesity -Full code -Lovenox for DVT prophylaxis Leukopenia, resolved, likely secondary to COVID-19, isolation precautions, resolved Hypothyroidism, levothyroxine Type 2 diabetes mellitus, low-dose sliding scale NSTEMI, serial EKGs, serial troponins, telemetry monitoring Goals of care discussion patient is agreeable to be a full code, she is agreeable to elective intubation, however only wants to be on a ventilator for short period of time does not want to remain as a vegetable on ventilation Plan for today, continue BiPAP therapy, Lasix therapy, plan on discharging in the next 24 hours Attestations Medical Necessity Statement*: Patient requires hospitalization for acute hypercarbic respiratory failure, CHF exacerbation requiring diuresis BiPAP therapy Coding Level of Care Code Acute Code for Chg Fwd Diagnoses Pneumonia due to COVID-19 virus U07.1; J12.82 Morbid obesity with BMI of 50.0-59.9, adult E66.01; Z68.43 Obesity hypoventilation syndrome E66.2 Acute exacerbation of chronic obstructive pulmonary disease J44.1 CHF exacerbation I50.9 NSTEMI (non-ST elevated myocardial infarction) I21.4 Acute hypercapnic respiratory failure J96.02 Goals of care, counseling/discussion Z71.89 Leukopenia D72.819
[2022-08-27 11:57] LABS: Glucose Point of Care 171 mg/dL (70-110)
[2022-08-27] MEDS: insulin lispro 100 unit/1 mL SUBCUT ×2 (12:33→17:55)
[2022-08-27 16:47] LABS: Glucose Point of Care 190 mg/dL (70-110)
[2022-08-27] MEDS: enoxaparin 40 mg/0.4 mL Syringe SUBCUT (17:56)
--- NOTE | 2022-08-27 18:29 | PC.NURSE ---
Patient resting in bed, AAOx4, VSS on supplemental oxygen, refusing most turns but will somewhat turn self and assist when requesting turns. Good UOP, tolerating diet, no c/o pain, room clean and clutter free with call light in reach and no new events. Will report bedside to oncoming nurse handoff.
[2022-08-27 20:27] LABS: Glucose Point of Care 176 mg/dL (70-110)
[2022-08-27] MEDS: atorvastatin 40 mg Tablet PO (20:27)
[2022-08-28] VITALS (11 sets, daily range): BP systolic 98–134; BP diastolic 70–86; PULSE 79–103; RESP 16–20; TEMP 36.4–36.8; O2SAT 90–97
[2022-08-28] MEDS: temazepam 15 mg Capsule PO (02:08)
[2022-08-28 02:12] LABS: Basophils % 0.2 %; Hematocrit 42.7 % (37.0-47.0); Hemoglobin 13.4 g/dL (11.5-15.3); Lymphocytes % 9.9 %; Mean Corpuscular HGB Conc 31.4 g/dL (30.0-36.0); Mean Corpuscular Hemoglobin 26.4 pg (28.0-34.0); Mean Corpuscular Volume 84.1 fl (81-99); Mean Platelet Volume 10.6 fL (7.4-10.4); Monocytes # 0.9 10^3/uL (0.2-0.9); Monocytes % 8.5 %; Neutrophils # 8.27 10^3/uL (1.8-7.7); Neutrophils % 80.3 %; Nucleated Red Blood Cells % 0 %; Platelet Count 229 10^3/cmm (130-400); Red Blood Count 5.08 10^6/uL (4.1-5.3); Red Cell Distribution Width 13.8 % (12.1-15.1); White Blood Count 10.3 10^3/uL (4.0-10.0)
[2022-08-28 02:40] LABS: Magnesium 1.7 mg/dL (1.7-2.3)
[2022-08-28 02:43] LABS: Blood Urea Nitrogen 38 mg/dL (8-23); Calcium 9.2 mg/dL (8.5-10.5); Carbon Dioxide 31 mmol/L (22-29); Chloride 86 mmol/L (98-107); Glucose 157 mg/dL (65-115); NT Pro B Type Natriuretic Pept 169 pg/mL (0-450); Osmolality Calculated 288 mOsm/kg (285-295); Sodium 133 mmol/L (136-145)
[2022-08-28 02:57] LABS: Anion Gap 19.9 (5-19); Potassium 3.9 mmol/L (3.5-5.1)
[2022-08-28] MEDS: metoprolol tartrate 25 mg Tablet PO (05:07)
[2022-08-28] MEDS: potassium chloride ER 20 mEq Tablet PO ×2 (05:07→18:02)
[2022-08-28] MEDS: FUROsemide 40 mg Tablet PO ×2 (05:07→18:02)
[2022-08-28] MEDS: levothyroxine 75 mcg Tablet PO (05:07)
[2022-08-28 06:15] LABS: Glucose Point of Care 141 mg/dL (70-110)
[2022-08-28] MEDS: ipratropium 0.5 mg/2.5 mL Neb INHALATION ×3 (07:26→15:43)
[2022-08-28] MEDS: budesonide 0.5 mg/2 mL Neb INHALATION (10:26)
[2022-08-28] MEDS: aspirin 81 mg Chew Tablet PO (10:32)
[2022-08-28] MEDS: ascorbic acid 500 mg Tablet PO (10:32)
[2022-08-28] MEDS: doxycycline 100 mg Tablet PO ×2 (10:32→18:02)
[2022-08-28] MEDS: pantoprazole DR 40 mg Tablet PO (10:32)
[2022-08-28] MEDS: ferrous sulfate EC 325 mg Tablet PO (10:32)
[2022-08-28] MEDS: insulin lispro 100 unit/1 mL SUBCUT ×3 (10:33→18:02)
[2022-08-28 11:51] LABS: Glucose Point of Care 171 mg/dL (70-110)
[2022-08-28 16:54] LABS: Glucose Point of Care 143 mg/dL (70-110)
[2022-08-28] MEDS: atorvastatin 40 mg Tablet PO (20:22)
--- NOTE | 2022-08-28 20:50 | PC.NURSE ---
pt discharged to SNF via Ambulance, all personal belongings with pt.
== END 2022-08-28 20:52 | disposition skilled nursing facility (03) | DRG 177 ==
LOC: ER 16:18 → ICU 17:30 → MEDSURG 08-24 11:35
PROVIDERS: Admitting Provider Family Medicine; Emergency Provider Family Medicine; Visit Provider Family Medicine
DX: U07.1 COVID-19 (principal); I21.4 Non-ST elevation (NSTEMI) myocardial infarction; J12.82 Pneumonia due to coronavirus disease 2019; I50.31 Acute diastolic (congestive) heart failure; J96.02 Acute respiratory failure with hypercapnia; E66.2 Morbid (severe) obesity with alveolar hypoventilation; Z68.43 Body mass index [BMI] 50.0-59.9, adult; J44.1 Chronic obstructive pulmonary disease with (acute) exacerbation; E11.9 Type 2 diabetes mellitus without complications; E03.9 Hypothyroidism, unspecified; E78.5 Hyperlipidemia, unspecified; Z88.5 Allergy status to narcotic agent; Z88.2 Allergy status to sulfonamides; Z87.01 Personal history of pneumonia (recurrent); Z79.82 Long term (current) use of aspirin; Z79.84 Long term (current) use of oral hypoglycemic drugs; Z79.51 Long term (current) use of inhaled steroids; M17.0 Bilateral primary osteoarthritis of knee
CPT/HCPCS: 36415; 36416; 36600; 51702; 71045; 80048; 80051; 80053; 81001; 82330; 82803; 82805; 82962; 83036; 83605; 83735; 83880; 84100; 84145; 84443; 84484; 85025; 85378; 85610; 86140; 87040; 87635; 87804; 93005; 93970; 94640; 94660; 96372; 96374; 96375; 96376; 97110; 97161; 97166; 97530; 97535; 99291; C9113; J0248; J1100; J1650; J1815; J1940; J2405; J2930; J3490; J7611; J7613; J7626; J7644

== ENCOUNTER 2022-09-15 17:17 | Inpatient (IN) | payer MEDICARE, MEDICAID, SELFPAY ==
[2022-09-15 17:29] VITALS: BP 142/90; PULSE 71; RESP 20; TEMP 36.4; O2SAT 94
--- NOTE | 2022-09-15 17:32 | ECG_ITS ---
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 Measurements Intervals [place] Rate: 67 P: 0 GA: 0 QRS: 28 QRSD: 96 T: 13 QT: 372 QTc: 395 Interpretive Statements Possible sinus rhythm with second-degree type I AV block LOW QRS VOLTAGE IN PRECORDIAL LEADS [QRS DEFLECTION < 1.0 mV IN CHEST LEADS] ABNORMAL RHYTHM ECG Compared to ECG 08/22/2022 15:58:08 Sinus rhythm no longer present First degree AV block no longer present Myocardial infarct finding no longer present Electronically Signed On 09-15-2022 19:13:10 [employer]INC CHLORIDE OPERATOR by Emilee Pitts M.D. [email or web address] Consultmercy [id number]
--- NOTE | 2022-09-15 17:33 | XRR_ITS ---
PROCEDURE INFORMATION: Exam: XR Chest Exam date and time: 09/15/2022 6:08 PM Age: 77 years old Clinical indication: Shortness of breath; Additional info: Dyspnea TECHNIQUE: Imaging protocol: Radiologic exam of the chest. Views: 1 view. COMPARISON: CR XR chest 1V portable [id number] 08/22/2022 1:40 PM FINDINGS: Lungs: Shallow inspiration with parenchymal crowding. Bibasilar atelectasis. Ground-glass opacity in the right upper lobe. Pleural spaces: Unremarkable. No pleural effusion. No pneumothorax. Heart/Mediastinum: Unremarkable. No cardiomegaly. Bones/joints: Unremarkable. XR/XR chest 1V portable [id number] IMPRESSION: Pulmonary edema versus pneumonia suspected in the right upper lobe.
[2022-09-15 18:10] LABS: Basophils % 0.3 %; Eosinophils # 0.1 10^3/uL (0.0-0.8); Eosinophils % 1.6 %; Hematocrit 34.9 % (37.0-47.0); Hemoglobin 10.4 g/dL (11.5-15.3); Lymphocytes # 1.1 10^3/uL (0.8-4.8); Mean Corpuscular HGB Conc 29.8 g/dL (30.0-36.0); Mean Corpuscular Hemoglobin 27.2 pg (28.0-34.0); Mean Corpuscular Volume 91.1 fl (81-99); Mean Platelet Volume 9.5 fL (7.4-10.4); Monocytes # 0.6 10^3/uL (0.2-0.9); Monocytes % 7.3 %; Neutrophils # 5.65 10^3/uL (1.8-7.7); Neutrophils % 75.1 %; Nucleated Red Blood Cells % 0 %; Platelet Count 229 10^3/cmm (130-400); Red Blood Count 3.83 10^6/uL (4.1-5.3); Red Cell Distribution Width 14.2 % (12.1-15.1); White Blood Count 7.5 10^3/uL (4.0-10.0)
--- NOTE | 2022-09-15 18:30 | W.ED.SOB ---
HPI - SOB/Dyspnea General: Chief Complaint: Shortness of Breath/Dyspnea Stated Complaint: SHORTNESS OF BREATH/ CAN'T STAND UP Time Seen by Provider: 09/15/22 17:49 Source: patient History of Present Illness: HPI Narrative: This 77-year-old female with a history of COPD and morbid obesity presents to the ER with progressively worsening bilateral pedal edema. Patient was recently [facility] and was subsequently discharged to her home on Thursday (2 days ago). She notes that the leg swelling, which started while she was at the [facility], has worsened to the point that getting around at home is becoming a problem for her. She typically mobilizes with a walker. She has no fever, nausea or vomiting. She adds that she was on 60 mg Lasix twice a day prior to admission to the hospital. During her admission, her Lasix was dropped to 40 mg twice a day. She is chronically on 3 L of oxygen via nasal cannula and her oxygen saturation is well-maintained on that amount of oxygen. Associated symptoms: Deny chest pain or lightheadedness Review of Systems Const: Denies: chills, body aches or change in appetite Card: Reports: other (Bilateral leg and feet swelling); Denies: chest pain or lightheadedness Resp: Reports: dyspnea (On exertion) : Denies: dysuria Musc: Denies: neck pain or back pain Neuro: Denies: headache(s) or weakness in extremities Psych: Denies: depression Jose Luis/Lymph: Denies: easy bruising All/Imm: Denies: urticaria, tongue swelling or facial swelling PFSH ED PFSH: Medical History (Updated 09/15/22 @ 19:42 by Ramos Beckford MD) Acute exacerbation of chronic obstructive pulmonary disease Arthritis of shoulder region, right, degenerative CHF exacerbation CHF exacerbation COPD (chronic obstructive pulmonary disease) Diabetes Hypothyroidism Hypothyroidism Pneumonia Requires oxygen therapy Volume overload Surgical History H/O knee surgery Family History (Updated 08/22/22 @ 17:30 by Holland Starkey MD) Father CAD (coronary artery disease) Social History (Updated 08/22/22 @ 17:30 by Holland Starkey MD) Smoking and tobacco status: never smoked Alcohol intake: never Physical Exam Const: COMMON NORMALS: no acute distress, patient oriented x3, no limitations and alert OTHER: Morbid obesity Chest: COMMONS NORMALS: normal inspection of the chest Resp: COMMON NORMALS: normal respiratory effort, No retractions and No use of accessory muscles OTHER: On 3 L of oxygen. Diminished breath sounds at the bases, bibasilar coarse crackles. No acute respiratory distress. Cardio: COMMON NORMALS: regular rate, regular rhythm and No murmurs present (Cardio) RATE: regular rate RHYTHM: regular rhythm GI: COMMON NORMALS: Normal to inspection, nondistended, normoactive bowel sounds present and non-tender : COMMON NORMALS: Yes no CVA tenderness BLADDER/KIDNEY EXAM: Yes no CVA tenderness Back/Pelvis: COMMON NORMALS: no CVA tenderness and no thoracic nor lumbar tenderness Extremity: OTHER: Bilateral pitting pedal edema. Neuro: COMMON NORMALS: patient oriented x3 and no focal motor deficits SENSORIUM/ORIENTATION: Yes alert Course Vital Signs: Vital signs: Vital Signs Temperature 97.6 F 09/15/22 17:29 Pulse Rate 93 09/15/22 19:32 Respiratory Rate 20 H 09/15/22 19:32 Blood Pressure 142/90 09/15/22 17:29 Pulse Oximetry 95 09/15/22 19:32 Oxygen Delivery Me thod 09/15/22 19:32 Oxygen Flow Rate 3 09/15/22 19:32 MDM - SOB/Dyspnea Medical Decision Making Medical decision making: Patient presents with progressively worsening bilateral pedal edema. Edema is so bad to the point that she is not able to bear weight. She lives by herself and uses 3 L of oxygen at baseline. At this rate, it will be hard for her to cope alone at home. Work-up reveals elevated BNP of 1373. 2 weeks ago, it was 169. Chest x-ray is indicative of pulmonary edema versus pneumonia. Patient notes that she was originally on 60 mg of Lasix twice a day but it was reduced to 40 mg twice a day during her admission. She will be admitted for diuresis and further management. Case discussed with Dr. Doty who accepted patient for observation placement. Lab Data 09/15/22 17:59 09/15/22 17:59 Labs/Radiology: Radiology Impressions Chest X-Ray 09/15/22 17:33 IMPRESSION: Pulmonary edema versus pneumonia suspected in the right upper lobe. Laboratory Results WBC 7.5 10^3/uL (4.0-10.0) 09/15/22 17:59 RBC 3.83 10^6/uL (4.1-5.3) L 09/15/22 17:59 Hgb 10.4 g/dL (11.5-15.3) L 09/15/22 17:59 Hct 34.9 % (37.0-47.0) L 09/15/22 17:59 MCV 91.1 fl (81-99) 09/15/22 17:59 MCH 27.2 pg (28.0-34.0) L 09/15/22 17:59 MCHC 29.8 g/dL (30.0-36.0) L 09/15/22 17:59 RDW 14.2 % (12.1-15.1) 09/15/22 17:59 Plt Count 229 10^3/cmm (130-400) 09/15/22 17:59 MPV 9.5 fL (7.4-10.4) 09/15/22 17:59 Neut % (Auto) 75.1 % 09/15/22 17:59 Lymph % (Auto) 15.0 % 09/15/22 17:59 [place] % (Auto) 7.3 % 09/15/22 17:59 Eos % (Auto) 1.6 % 09/15/22 17:59 Baso % (Auto) 0.3 % 09/15/22 17:59 Neut # (Auto) 5.65 10^3/uL (1.8-7.7) 09/15/22 17:59 Lymph # (Auto) 1.1 10^3/uL (0.8-4.8) 09/15/22 17:59 [place] # (Auto) 0.6 10^3/uL (0.2-0.9) 09/15/22 17:59 Eos # (Auto) 0.1 10^3/uL (0.0-0.8) 09/15/22 17:59 Baso # (Auto) 0.0 10^3/uL (0.0-0.1) 09/15/22:59 Nucleated RBC % (auto) 0 % 09/15/22:59 Nucleated RBCs # 0.0 /100WBC 09/15/22 17:59 Sodium 136 mmol/L (136-145) 09/15/22 17:59 Potassium 4.2 mmol/L (3.5-5.1) 09/15/22 17:59 Chloride 92 mmol/L (98-107) L 09/15/22 17:59 Carbon Dioxide 38 mmol/L (22-29) H 09/15/22 17:59 Anion Gap 10.2 (5-19) 09/15/22 17:59 BUN 14 mg/dL (8-23) 09/15/22 17:59 Creatinine 0.6 mg/dL (0.5-0.9) 09/15/22 17:59 GFR Calculation Not Reportable 09/15/22 17:59 Glucose 101 mg/dL (65-115) 09/15/22 17:59 Calculated Osmolality 283 mOsm/kg (285-295) L 09/15/22 17:59 Calcium 9.1 mg/dL (8.5-10.5) 09/15/22 17:59 Total Bilirubin 0.3 mg/dL (0.15-1.2) 09/15/22 17:59 AST 13 U/L (0-32) 09/15/22 17:59 ALT 11 U/L (0-33) 09/15/22 17:59 Alkaline Phosphatase 196 U/L (35-105) H 09/15/22 17:59 NT-Pro-B Natriuret Pep 1327 pg/mL (0-450) H 09/15/22 17:59 Total Protein 6.7 g/dL (6.6-8.7) 09/15/22 17:59 Albumin 3.1 g/dL (3.5-5.2) L 09/15/22 17:59 Globulin 3.6 g/dL (1.3-4.6) 09/15/22 17:59 Discharge Plan Discharge Patient Disposition: Placed in Observation Clinical Impression: Acute exacerbation of CHF (congestive heart failure) Coding Level of Care Code ED 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
[2022-09-15 18:42] LABS: Alanine Aminotransferase 11 U/L (0-33); Albumin Level 3.1 g/dL (3.5-5.2); Alkaline Phosphatase 196 U/L (35-105); Anion Gap 10.2 (5-19); Aspartate Amino Transferase 13 U/L (0-32); Blood Urea Nitrogen 14 mg/dL (8-23); Calcium 9.1 mg/dL (8.5-10.5); Carbon Dioxide 38 mmol/L (22-29); Chloride 92 mmol/L (98-107); Globulin 3.6 g/dL (1.3-4.6); Glucose 101 mg/dL (65-115); NT Pro B Type Natriuretic Pept 1327 pg/mL (0-450); Osmolality Calculated 283 mOsm/kg (285-295); Potassium 4.2 mmol/L (3.5-5.1); Sodium 136 mmol/L (136-145); Total Bilirubin 0.3 mg/dL (0.15-1.2); Total Protein 6.7 g/dL (6.6-8.7)
[2022-09-15] MEDS: FUROsemide 10 mg/mL SDV 10mL 60 MG IVP (18:43)
[2022-09-15] MEDS: ipratropium-albuterol 3 mL Neb INHALATION (19:31)
[2022-09-15 19:32] VITALS: PULSE 93; RESP 20; O2SAT 95
[2022-09-15] MEDS: acetaZOLAMIDE 250 mg Tablet PO (20:25)
[2022-09-15 20:26] LABS: D Dimer 2.11 ug/mIFEU (0-0.59)
[2022-09-15 20:27] VITALS: BP 134/76; PULSE 87; RESP 22; O2SAT 94
--- NOTE | 2022-09-15 20:45 | PM.HP ---
Providers/Chief Complaint Admitting Physician: Parmjit Doty MD Chief Complaint: SHORTNESS OF BREATH/ CAN'T STAND UP History of Present Illness Rossy Brooke is a 77 year old female with past medical history of obesity hypoventilation syndrome not on home BiPAP, chronically on 3 L, diastolic heart failure, recent admission and discharged to SNF for respiratory failure in setting of COVID-19, type 2 diabetes mellitus, hypothyroidism in setting of multinodular goiter who was recently [facility] from [facility] to [facility] with home health. She lives by herself with son living nearby, usually leads a sedentary life but as per the patient by the time she was discharged from SNF she was able to walk around. On previous admission she was discharged to SNF on oral Lasix of 40 mg twice daily. Today she comes back to the ER because of increasing weakness along with increasing swelling in her lower limbs and pain in her bilateral feet which is making her difficult to stand up and mobilize currently for last 3 to 4 days. Otherwise denies any nausea, vomiting, headache. Review of Systems General: Reports: 10 or more systems reviewed and unremarkable except in HPI and below Const: Denies: fever(s), chills, body aches, change in appetite, change in weight, malaise, night sweats, diaphoresis, change in sleep pattern, daytime sleepiness or snoring Eyes: Denies: change in vision, blurry vision, photophobia, eye discomfort or eye discharge ENMT: Denies: throat pain, enlarged tonsils, hoarseness, mouth pain, oral sores, dry mouth, tinnitus, nasal congestion or post nasal drip Card: Denies: chest pain, palpitations, irregular heart rhythm, edema, swelling of feet/ankles, lightheadedness, syncope, pre-syncope, dyspnea on exertion, orthopnea, leg pain with exertion or acrocyanosis Resp: Denies: dyspnea, productive cough, non-productive cough, wheezing, stridor, pain on inspiration, change in phlegm color, hemoptysis or chest congestion GI: Denies: abdominal pain, nausea, vomiting, hematemesis, coffee ground emesis, dysphagia, heartburn, diarrhea, constipation, bloating, GI cramping, change in bowel habits, pain on defecation, hematochezia or melena : Denies: flank pain, dysuria, urinary frequency, urinary urgency, urinary hesitancy, nocturia or hematuria Musc: Denies: neck pain, back pain, extremity pain, joint pain, joint swelling, joint redness, joint stiffness or limited range of motion Neuro: Denies: headache(s), numbness in extremities, weakness in extremities, sensory changes, lack of coordination, difficulty walking, frequent falls, dizziness, vertigo, confusion, Slurred speech present, difficulty communicating thoughts or seizure-like activity Psych: Denies: anxiety, depression, mood swings, panic attacks, hopelessness or irritability Endo: Denies: polyuria, polydipsia, tired all the time, cold intolerance, excessive sweating, flushing or heat intolerance Jose Luis/Lymph: Denies: easy bruising or easy bleeding All/Imm: Denies: tongue swelling, facial swelling or acute wheezing Medications/Allergies Home Medications Medication Instructions Recorded Confirmed Last Taken Type hyoscyamine sulfate 0.125 mg tablet 0.125 mg PO Q12H PRN IBS Symptoms 11/06/21 08/29/22 Unknown History mirabegron 50 mg tablet,extended 50 mg PO DAILY 11/06/21 08/29/22 11/06/21 History release 24 hr (Myrbetriq) aspirin 81 mg chewable tablet 81 mg PO DAILY 30 days #30 tabs 11/09/21 08/29/22 Unknown Rx atorvastatin 40 mg tablet 40 mg PO BEDTIME 30 days #30 tabs 11/09/21 08/29/22 Unknown Rx albuterol sulfate 2.5 mg/3 mL 2.5 mg inhalation TID PRN 05/22/22 08/29/22 08/22/22 History (0.083 %) solution for nebulization Shortness Of Breath ascorbic acid (vitamin C) 500 mg 500 mg PO DAILY 05/22/22 08/29/22 Unknown History tablet (Vitamin C) cetirizine 10 mg tablet (Zyrtec) 10 mg PO DAILY 05/22/22 08/29/22 Unknown History esomeprazole magnesium 20 mg 20 mg PO DAILY 05/22/22 08/29/22 Unknown History capsule,delayed release ferrous sulfate 325 mg (65 mg 325 mg PO DAILY 05/22/22 08/29/22 Unknown History iron) tablet (iron) metoprolol tartrate 50 mg tablet 25 mg PO QAM 05/22/22 08/29/22 08/22/22 History diclofenac sodium 1 % topical gel 2 g topical QID PRN Pain 08/22/22 08/29/22 Unknown History (Voltaren Arthritis Pain) levothyroxine 75 mcg tablet 75 mcg PO QAM 08/22/22 08/29/22 08/22/22 History nystatin 100,000 unit/gram topical 1 applic topical BID PRN unknown 08/22/22 08/29/22 Unknown History powder (Nystop) albuterol sulfate 90 mcg/actuation 1 inh inhalation Q4H PRN shortness 08/27/22 08/29/22 Unknown Rx aerosol inhaler of breath or wheezing #8.5 grams fluticasone 100 mcg-salmeterol 50 1 inh inhalation BID #60 ea 08/27/22 08/29/22 Unknown Rx mcg/dose blistr powdr for inhalation (Advair Diskus) furosemide 40 mg tablet 40 mg PO Q12H 30 days #60 tabs 08/27/22 08/29/22 Unknown Rx metformin 500 mg tablet 500 mg PO QAM 30 days #30 tabs 08/27/22 08/29/22 Unknown Rx potassium chloride 20 mEq 20 meq PO Q12H 30 days #60 tabs 08/27/22 08/29/22 08/22/22 Rx tablet,extended release(part/cryst) Allergies Allergy/AdvReac Type Severity Reaction Status Date / Time cinnamon Allergy Unknown Unknown Verified 05/29/22 14:20 morphine Allergy Unknown Unknown Verified 05/29/22 14:20 Sulfa (Sulfonamide Allergy Unknown Unknown Verified 05/29/22 14:20 Antibiotics) niacin Allergy ADR/ALGY-Fl Verified 08/22/22 15:31 ushing PFSH Acute PFSH: Medical History (Updated 09/15/22 @ 23:43 by Parmjit Doty MD) Acute exacerbation of chronic obstructive pulmonary disease Arthritis of shoulder region, right, degenerative CHF exacerbation CHF exacerbation COPD (chronic obstructive pulmonary disease) Diabetes Hypothyroidism Hypothyroidism Pneumonia Requires oxygen therapy Volume overload Surgical History H/O knee surgery Family History (Updated 08/22/22 @ 17:30 by Holland Starkey MD) Father CAD (coronary artery disease) Social History (Updated 08/22/22 @ 17:30 by Holland Starkey MD) Smoking and tobacco status: never smoked Alcohol intake: never Vitals/I&O/Wt Last Vital Signs Temp 97.6 F 09/15/22 17:29 Pulse 87 09/15/22 20:27 Resp 22 H 09/15/22 20:27 BP 134/76 09/15/22 20:27 Pulse Ox 94 09/15/22 20:27 O2 Del Method 09/15/22 19:32 O2 Flow Rate 3 09/15/22 19:32 Weight last 48 hrs Weight 142.882 kg Physical Exam Narrative: General: No acute distress, AO x3, NC oxygen supplementation, 3 L, morbidly obese HEENT: PERRLA, pupils bilaterally equal and reactive Chest: Bilateral decreased air entry all over lung sahni with fine crackles in lower zones CVS: S1-S2 regular, no murmurs, no tachycardia, no gallops, no rubs Abdomen: Soft, nontender, no organomegaly, bowel sounds present, morbidly obese Neuro: No focal deficits, no facial deformity, AO x3, power 5/5 in all limbs Extremities: Bilateral pitting edema 1+ up to mid calf, no tenderness or redness or open wounds bilaterally Data 09/15/22 17:59 09/15/22 17:59 A&P Assessment and plan (1) Acute exacerbation of CHF (congestive heart failure): (2) Lower extremity edema: (3) Obesity hypoventilation syndrome: (4) Morbid obesity with BMI of 50.0-59.9, adult: (5) Hypothyroidism: TSH recently checked within normal limits. Continue with home dose of levothyroxine at 75 mcg daily. (6) Diabetes: Check A1c A1c recently checked at 5.9. Carb consistent diet. Hypoglycemia protocol. (7) Anemia: (8) Foot pain, right: Plan 77-year-old lady past medical history of OHS, diastolic heart failure who was recently discharged to SNF after managed for COVID-19 pneumonia and respiratory failure presents with difficulty to walk more than baseline in setting of lower limb edema. Lower limb edema: Most likely in setting of acute on chronic diastolic heart failure. Last echocardiogram from 11/15 showed an EF of 55 to 60% with grade 1 diastolic dysfunction, mild MR. On recent admission was discharged on lower Lasix of 40 mg twice daily. Questionable compliance. Check lower limb Dopplers to rule out DVT. Low concerns for cellulitis. IV Lasix 60 mg twice daily. Quijano catheterization. Strict input output charting, daily weights. Fluid restriction up to 1500 cc. High concerns for patient developing contraction alkalosis. Bicarb on admission 38 which could be at baseline. For now start patient on Diamox 250 mg daily for next 3 days. Can discontinue depending on bicarb levels to be checked daily. Hypoxia: Recent COVID-19 along with history of obesity hypoventilation syndrome: Low likelihood of pneumonia for now. Patient does not have any leukocytosis or fever. Cough seems to be improving. Check procalcitonin, sputum culture. Currently on 4 to 5 L of oxygen supplementation. While hospitalized we will switch from inhaler to nebulizer ipratropium, Xopenex every 6 hourly, budesonide twice daily. Oxygen supplementation keeping saturation over 88%. BiPAP nightly. Diuretics as above. Patient would benefit with outpatient sleep study for availability of BiPAP at home. She is agreeable and wants to use BiPAP going forward. Lower limb pain: Given history of back pain, morbid obesity, sedentary lifestyle high concerns for neurogenic. For now we will start on low-dose gabapentin 100 mg every 12 hourly. Patient is agreeable. Check vitamin B12, folate level. Anemia: Hemoglobin around 10-11. On previous admission was around 13. Check iron panel, vitamin B12, folate levels. Stool for occult blood. Analgesia: Tylenol as needed. Glycemic control: Hypoglycemia protocol. Nutrition: Carb consistent diet CODE STATUS: Full code PUD prophylaxis: Protonix DVT prophylaxis: Lovenox 40 mg subcu daily. Discharge planning: Home with home health versus SNF as per PT evaluation. Ad[facility] to [facility]. This documentation was created by [employer] manager storage software. Every effort was made to ensure accuracy of manager storage. Any obvious errors or omissions should be clarified with the author of the document. Attestations Medical Necessity Statement*: Admission for more than 2 midnights for management of acute on chronic diastolic heart failure leading to lower limb swelling, poor mobility as patient is at high risk of readmissions, fall while DVT and cellulitis is ruled out and safe discharge planning is sought. and Moderate Time for a total of 60 minutes, includes reviewing past or interval history, examining/interviewing patient, placing orders, counseling patient/family/other support, updating patient/family/other support, discussing plan of care with staff, communicating with other healthcare providers, documenting encounter and coordinating care Diagnoses Acute exacerbation of CHF (congestive heart failure) I50.9 Lower extremity edema R60.0 Obesity hypoventilation syndrome E66.2 Morbid obesity with BMI of 50.0-59.9, adult E66.01; Z68.43 Hypothyroidism E03.9 Diabetes E11.9 Anemia D64.9 Foot pain, right M79.671
[2022-09-15 21:39] VITALS: BP 109/68; PULSE 99; RESP 18; TEMP 36.7; O2SAT 93
[2022-09-15 22:31] LABS: Glucose Point of Care 125 mg/dL (70-110)
[2022-09-15 23:20] LABS: Procalcitonin 0.05 ng/mL (0-0.5); Vitamin B12 688 pg/mL (232-1245)
[2022-09-15 23:31] LABS: Iron 29 ug/dL (37-145); Percent Saturation 13.1 % (20-50); Total Iron Binding Capacity 221 mcg/dl; Unsaturated Iron Binding 192 ug/dL (112-347)
[2022-09-16] VITALS (12 sets, daily range): BP systolic 97–131; BP diastolic 63–85; PULSE 62–103; RESP 15–20; TEMP 36.4–36.6; O2SAT 90–96
[2022-09-16] MEDS: hyoscyamine ODT 0.125 mg Tablet PO ×2 (00:30→21:54)
[2022-09-16] MEDS: atorvastatin 40 mg Tablet PO ×2 (00:30→21:52)
[2022-09-16] MEDS: enoxaparin 40 mg/0.4 mL Syringe SUBCUT ×2 (00:30→21:52)
[2022-09-16 00:43] LABS: Folate Level > 20.0 ng/mL (4.8-37.3)
[2022-09-16] MEDS: levalbuterol 0.63 mg/3 mL Neb INHALATION ×3 (01:17→13:51)
[2022-09-16] MEDS: ipratropium 0.5 mg/2.5 mL Neb INHALATION ×3 (01:17→13:52)
[2022-09-16 02:07] LABS: Add Urine Microscopic? NO; Charge for UA Resulting for Rev
[2022-09-16 02:08] LABS: Urine Appearance Clear (CLEAR); Urine Color Yellow (Yellow); pH Urine 9 (5-7)
[2022-09-16 02:09] LABS: Bilirubin Urine Neg (Negative); Blood Urine Neg (Negative); Glucose Urine UA Norm (Normal); Ketones Urine Negative (Negative); Leukocyte Esterase Urine Negative (Negative); Nitrate Urine Negative (Negative); Protein Urine Neg (Negative); Specific Gravity, Urine 1.015 (1.005-1.030); Sulfosalicylic Acid Urine Negative (Negative); Urobilinogen Urine Norm (Negative)
[2022-09-16 02:23] LABS: Potassium, Radom Urine 23 mmol/L; Urine Random Chloride 91 mmol/L; Urine Random Sodium 129 mmol/L
[2022-09-16 05:43] LABS: Glucose Point of Care 113 mg/dL (70-110)
--- NOTE | 2022-09-16 06:00 | XR_ITS ---
WS: [id number] Exam: XR foot RT 2V [id number] Date/Time of Exam: 09/16/2022 6:00 AM Reason For Exam: pain, No obvious fracture or dislocation. Diffuse edema with pronounced soft tissue swelling over the dorsu m of the forefoot. Degenerative changes in the midfoot joints as well as the IP joints and first MP j oint. XR/XR foot RT 2 IMPRESSION: 1. No sign of fracture or bone destruction. 2. Diffuse soft tissue edema with focal swelling over the dorsum of the foot. T he possibility of mass or abscess might be considered. If the patient does not respond to conservative management, further assessment with CT or MRI might be considered.
[2022-09-16 06:25] LABS: Basophils % 0.2 %; Eosinophils # 0.2 10^3/uL (0.0-0.8); Eosinophils % 1.7 %; Hematocrit 33.9 % (37.0-47.0); Hemoglobin 9.9 g/dL (11.5-15.3); Lymphocytes # 1.2 10^3/uL (0.8-4.8); Lymphocytes % 12.9 %; Mean Corpuscular HGB Conc 29.2 g/dL (30.0-36.0); Mean Corpuscular Hemoglobin 26.5 pg (28.0-34.0); Mean Corpuscular Volume 90.6 fl (81-99); Monocytes # 0.6 10^3/uL (0.2-0.9); Monocytes % 6.4 %; Neutrophils # 7.49 10^3/uL (1.8-7.7); Neutrophils % 78.2 %; Nucleated Red Blood Cells % 0 %; Platelet Count 237 10^3/cmm (130-400); Red Blood Count 3.74 10^6/uL (4.1-5.3); Red Cell Distribution Width 14.4 % (12.1-15.1); White Blood Count 9.6 10^3/uL (4.0-10.0)
[2022-09-16] MEDS: metoprolol tartrate 50 mg Tablet 25 MG PO (06:34)
[2022-09-16] MEDS: levothyroxine 75 mcg Tablet PO (06:34)
[2022-09-16 06:44] LABS: Alanine Aminotransferase 10 U/L (0-33); Albumin Level 2.9 g/dL (3.5-5.2); Alkaline Phosphatase 186 U/L (35-105); Anion Gap 7.7 (5-19); Aspartate Amino Transferase 12 U/L (0-32); Blood Urea Nitrogen 12 mg/dL (8-23); Carbon Dioxide 37 mmol/L (22-29); Chloride 95 mmol/L (98-107); Chol HDL Ratio 2.56 mg/dL (0.0-4.40); Cholesterol 115 mg/dL (0-200); Globulin 3.4 g/dL (1.3-4.6); Glucose 111 mg/dL (65-115); HDL Cholesterol 45 mg/dL (60-100); LDL Cholesterol Calculated 44 mg/dL (50-129); Osmolality Calculated 282 mOsm/kg (285-295); Phosphorus 3.7 mg/dL (2.5-4.5); Potassium 3.7 mmol/L (3.5-5.1); Sodium 136 mmol/L (136-145); Total Bilirubin 0.3 mg/dL (0.15-1.2); Total Protein 6.3 g/dL (6.6-8.7); Triglycerides 129 mg/dL (0-150); VLDL Cholestrol Calculation 26 mg/dL (0-30)
[2022-09-16] MEDS: budesonide 0.5 mg/2 mL Neb INHALATION (08:30)
[2022-09-16] MEDS: acetaZOLAMIDE 250 mg Tablet PO (09:59)
[2022-09-16] MEDS: cetirizine 10 mg Tablet PO (09:59)
[2022-09-16] MEDS: aspirin 81 mg Chew Tablet PO (09:59)
[2022-09-16] MEDS: ferrous sulfate EC 325 mg Tablet PO ×2 (09:59→17:52)
[2022-09-16] MEDS: gabapentin 100 mg Capsule PO ×2 (09:59→17:52)
[2022-09-16] MEDS: pantoprazole DR 40 mg Tablet PO ×2 (09:59→17:52)
[2022-09-16] MEDS: FUROsemide 10 mg/mL SDV 10mL 60 MG IVP (10:22)
[2022-09-16 11:42] LABS: Glucose Point of Care 132 mg/dL (70-110)
--- NOTE | 2022-09-16 12:35 | PM.PN ---
Subjective Subjective: Patient was getting breathing treatment when I entered the room No active abdominal pain or chest pain No respiratory distress Currently on 3 L nasal cannula No abdominal discomfort Vitals/I&O/Wt Last Vital Signs Temp 97.6 F 09/16/22 12:00 Pulse 95 09/16/22 12:00 Resp 20 H 09/16/22 12:00 BP 131/78 09/16/22 12:00 Pulse Ox 95 09/16/22 12:00 O2 Del Method 09/16/22 08:27 O2 Flow Rate 4 09/16/22 08:27 09/15/22 09/16/22 09/16/22 22:59 06:59 14:59 Intake Total 120 / 120 Output Total 700 / 700 Balance -700 / -700 120 / 120 Weight last 48 hrs Weight 142.882 kg Physical Exam Narrative: 3 L nasal cannula Clinically mild signs of fluid overload Morbid obesity Lower extremity 1+ edema Quijano catheter draining dilute urine Abdomen soft distended visceral obesity S1, S2 Pleasant and cooperative Urinary Catheter Management: Quijano: Cath Placed During This Visit: yes Reason for Continuing Indwelling Catheter: Other Urinary Catheter Date of Insertion: 09/16/22 Urinary Catheter Time of Insertion: 00:30 Data 09/16/22 06:14 09/16/22 06:14 A&P Assessment and plan (1) Anemia: (2) Foot pain, right: (3) Diabetes: (4) Hypothyroidism: (5) Lower extremity edema: (6) Acute exacerbation of CHF (congestive heart failure): (7) Obesity hypoventilation syndrome: (8) Alkalosis: Plan Diastolic CHF exacerbation Continue IV Diuretics Discontinue acetazolamide Assess on daily basis Knee pain Morbid obesity making it hard to ambulate independently, she is wheelchair-bound Acute on chronic hypoxia at baseline uses 2 L currently on 4 L, will request CTA to obtain. We will rule out DVT Plan to discharge her by tomorrow back to her facility chronic anemia: Stable PUD PPX Protonix and full code Cardiac consistent carb diet Breathing regimen Attestations Medical Necessity Statement*: Discharge tomorrow Coding Level of Care Code 91907 Diagnoses Anemia D64.9 Foot pain, right M79.671 Diabetes E11.9 Hypothyroidism E03.9 Lower extremity edema R60.0 Acute exacerbation of CHF (congestive heart failure) I50.9 Obesity hypoventilation syndrome E66.2 Alkalosis E87.3
--- NOTE | 2022-09-16 12:37 | CT_ITS ---
WS: [id number] CTA OF THE CHEST WITH PULMONARY EMBOLISM PROTOCOL TECHNIQUE: High-resolution contrast enhanced CTA of the chest with coronal and sagittal reformatted i mages with pulmonary embolism protocol. MIP images are also reviewed. CLINICAL INFORMATION: hypoxia COMPARISON: None. DLP: 629.[address] scans at [facility] use at least one of these dose optimization techniques: automated e xposure control; mA and/or kV adjustment per patient size (includes targeted exams where dose is matc hed to clinical indication); or iterative reconstruction. FINDINGS: Some images degraded due to breathing artifact and body habitus. Proximal main pulmonary ar teries are normal. Normal segmental and subsegmental pulmonary arteries. No evidence of pulmonary emb olus. Normal caliber thoracic aorta. Aortic calcification. No mediastinal or hilar lymphadenopathy. Hepatom egaly. Diffuse fatty infiltration liver. Partially visualized cholelithiasis with prominent gallstone measuring 2.1 CM. Normal GE junction. Splenomegaly. Fatty atrophy of the pancreas. Splenic artery ca lcification. Thickening LEFT adrenal gland. RIGHT adrenal gland is normal. Shallow inspiration. Subsegmental atelectasis in the lung bases. No acute pulmonary infiltrates. No f ocal pneumonia. Trace LEFT pleural fluid. No mediastinal or hilar lymphadenopathy. Moderate thoracic kyphosis. Hypertrophic changes thoracic spine. CT/CT angio chest PE protcl [id number] IMPRESSION: 1. No evidence of pulmonary embolus. 2. Shallow inspiration with bibasilar atelectasis. Subsegmental atelectasis in the lung bases. No acute pulmonary infiltrates. 3. Trace LEFT pleural fluid. 4. Hepatomegaly and splenomegaly. 5. Cholelithiasis
[2022-09-16] MEDS: iohexol 350 mg/mL 500 mL Btl (per mL) IV (13:44)
[2022-09-16 17:30] LABS: Glucose Point of Care 104 mg/dL (70-110)
[2022-09-16 21:32] LABS: Glucose Point of Care 111 mg/dL (70-110)
[2022-09-16] MEDS: acetaminophen 325 mg Tablet 650 MG PO (21:55)
[2022-09-17] VITALS (13 sets, daily range): BP systolic 103–128; BP diastolic 68–81; PULSE 63–100; RESP 6–22; TEMP 36.6–37.4; O2SAT 90–97
[2022-09-17] MEDS: ipratropium 0.5 mg/2.5 mL Neb INHALATION ×3 (03:15→20:36)
[2022-09-17] MEDS: levalbuterol 0.63 mg/3 mL Neb INHALATION ×4 (03:15→20:36)
[2022-09-17] MEDS: levothyroxine 75 mcg Tablet PO (05:57)
[2022-09-17] MEDS: metoprolol tartrate 50 mg Tablet 25 MG PO (05:57)
[2022-09-17 06:10] LABS: Basophils % 0.2 %; Eosinophils # 0.2 10^3/uL (0.0-0.8); Eosinophils % 1.9 %; Hematocrit 35.1 % (37.0-47.0); Lymphocytes # 1.4 10^3/uL (0.8-4.8); Lymphocytes % 16.6 %; Mean Corpuscular HGB Conc 28.5 g/dL (30.0-36.0); Mean Corpuscular Hemoglobin 26.5 pg (28.0-34.0); Mean Corpuscular Volume 92.9 fl (81-99); Mean Platelet Volume 9.5 fL (7.4-10.4); Monocytes # 0.7 10^3/uL (0.2-0.9); Monocytes % 7.6 %; Neutrophils # 6.25 10^3/uL (1.8-7.7); Neutrophils % 72.3 %; Nucleated Red Blood Cells % 0 %; Platelet Count 254 10^3/cmm (130-400); Red Blood Count 3.78 10^6/uL (4.1-5.3); Red Cell Distribution Width 14.5 % (12.1-15.1); White Blood Count 8.6 10^3/uL (4.0-10.0)
[2022-09-17 06:39] LABS: Glucose Point of Care 108 mg/dL (70-110)
[2022-09-17 06:42] LABS: Blood Urea Nitrogen 12 mg/dL (8-23); Calcium 8.6 mg/dL (8.5-10.5); Carbon Dioxide 36 mmol/L (22-29); Chloride 97 mmol/L (98-107); Glucose 112 mg/dL (65-115); Osmolality Calculated 289 mOsm/kg (285-295); Sodium 139 mmol/L (136-145)
[2022-09-17] MEDS: cetirizine 10 mg Tablet PO (08:58)
[2022-09-17] MEDS: pantoprazole DR 40 mg Tablet PO ×2 (08:58→17:18)
[2022-09-17] MEDS: gabapentin 100 mg Capsule PO ×2 (08:58→17:18)
[2022-09-17] MEDS: aspirin 81 mg Chew Tablet PO (08:58)
[2022-09-17] MEDS: ferrous sulfate EC 325 mg Tablet PO ×2 (08:59→17:18)
[2022-09-17] MEDS: budesonide 0.5 mg/2 mL Neb INHALATION ×2 (09:38→20:37)
[2022-09-17] MEDS: FUROsemide 10 mg/mL SDV 10mL 60 MG IVP (11:35)
[2022-09-17] MEDS: hyoscyamine ODT 0.125 mg Tablet PO ×2 (11:38→21:25)
--- NOTE | 2022-09-17 12:12 | P.PN_ITS ---
Subjective Subjective: Patient is sitting at the bedside Willing to work with physical therapy, patient does not know that she might have to give her check in order to go to skilled nursing if she gets a I asked transplant case manager to update her on financial side Otherwise she is feeling slightly better Complaining of stuffy nose due to oxygen Discussed during MDR Patient is saying that she might go to [facility] if Aide Briseno declines I have updated transplant case manager Vitals/I&O/Wt Last Vital Signs Temp 98.5 F 09/17/22 08:00 Pulse 63 09/17/22 09:39 Resp 18 09/17/22 09:39 BP 119/68 09/17/22 08:00 Pulse Ox 95 09/17/22 09:39 O2 Del Method 09/17/22 09:39 O2 Flow Rate 4 09/17/22 09:39 09/16/22 09/17/22 09/17/22 22:59 06:59 14:59 Intake Total 480 / 480 Output Total 700 / 2300 175 / 2475 Balance -700 / -1720 -175 / -1895 480 / 480 Weight last 48 hrs Weight 142.882 kg Physical Exam Narrative: Awake and alert No active signs of fluid overload Lower extremity no swelling No active signs of septic joint Awake and alert currently on 3 L nasal cannula Abdomen soft however distended with obesity S1, S2 Nonfocal neuro exam Pleasant and cooperative Urinary Catheter Management: Quijano: Cath Placed During This Visit: yes Reason for Continuing Indwelling Catheter: Other Urinary Catheter Date of Insertion: 09/16/22 Urinary Catheter Time of Insertion: 00:30 Data 09/17/22 06:00 09/17/22 06:00 A&P Assessment and plan (1) Alkalosis: (2) Foot pain, right: (3) Anemia: (4) Diabetes: (5) Lower extremity edema: (6) Hypothyroidism: (7) Acute exacerbation of CHF (congestive heart failure): (8) Obesity hypoventilation syndrome: (9) Morbid obesity with BMI of 50.0-59.9, adult: (10) Multinodular goiter: Plan Contraction alkalosis: Improved I will not give her acetazolamide anymore I will give her a break from diuretics for next 24 hours Anemia: Stable Morbid obesity, knee pain related to osteoarthritis, patient is willing to work with PT, has been using a walker Patient is asking if we can look into [facility] and Aide Briseno, transplant case manager updated Changed to p.o. diuretics Chronic hypoxia, at baseline uses 2 L, wean oxygen down to 2 L from 4 L No active discomfort Medically cleared She will be able to be discharged once we get more information regarding prior Auth Attestations Medical Necessity Statement*: Ready to be discharged once prior Auth is bright roved Coding Level of Care Code 09314 Diagnoses Alkalosis E87.3 Foot pain, right M79.671 Anemia D64.9 Diabetes E11.9 Lower extremity edema R60.0 Hypothyroidism E03.9 Acute exacerbation of CHF (congestive heart failure) I50.9 Obesity hypoventilation syndrome E66.2 Morbid obesity with BMI of 50.0-59.9, adult E66.01; Z68.43 Multinodular goiter E04.2
[2022-09-17 17:48] LABS: Glucose Point of Care 185 mg/dL (70-110)
[2022-09-17 17:56] LABS: Glucose Point of Care 113 mg/dL (70-110)
[2022-09-17] MEDS: enoxaparin 40 mg/0.4 mL Syringe SUBCUT (21:24)
[2022-09-17] MEDS: atorvastatin 40 mg Tablet PO (21:24)
[2022-09-17] MEDS: acetaminophen 325 mg Tablet 650 MG PO (21:24)
[2022-09-17] MEDS: insulin lispro 100 unit/1 mL SUBCUT (23:05)
[2022-09-18] VITALS (8 sets, daily range): BP systolic 100–133; BP diastolic 64–88; PULSE 60–82; RESP 6–32; TEMP 36.3–36.7; O2SAT 91–97
[2022-09-18] MEDS: ipratropium 0.5 mg/2.5 mL Neb INHALATION ×2 (02:00→07:35)
[2022-09-18] MEDS: levalbuterol 0.63 mg/3 mL Neb INHALATION ×2 (02:00→07:35)
[2022-09-18] MEDS: levothyroxine 75 mcg Tablet PO (06:02)
[2022-09-18] MEDS: metoprolol tartrate 50 mg Tablet 25 MG PO (06:02)
[2022-09-18] MEDS: lanolin oint 7 gm 1 APPLIC TOPICAL (06:08)
[2022-09-18 06:51] LABS: Glucose Point of Care 107 mg/dL (70-110)
--- NOTE | 2022-09-18 09:17 | PC.SOCIAL ---
IMM update IMM Updated with patient. Verbalized an understanding. Copy Pg 2 provided. Initialled, dated, timed, and placed in chart.
--- NOTE | 2022-09-18 09:42 | P.DS_ITS ---
Discharge Providers Date of Admission: 09/15/22 20:18 Date of Discharge: September 18, 2022 Attending Provider at Admission: Parmjit Doty MD Attending Provider at Discharge: Brianna Montemayor MD Diagnoses at Discharge Discharge Diagnosis (1) Alkalosis: Status: Acute (2) Foot pain, right: Status: Acute (3) Anemia: Status: Acute (4) Diabetes: Status: Acute (5) Lower extremity edema: Status: Acute (6) Hypothyroidism: Status: Acute (7) Acute exacerbation of CHF (congestive heart failure): Status: Acute (8) Obesity hypoventilation syndrome: Status: Acute (9) Morbid obesity with BMI of 50.0-59.9, adult: Status: Acute (10) Multinodular goiter: Status: Acute Reason for Visit Reason for Visit: SHORTNESS OF BREATH/ CAN'T STAND UP Hospital Course Hospital Course 77-year-old female who was recently discharged from [facility], presented to the hospital for not being able to walk on her own, initially there was concern for diastolic CHF exacerbation, contraction alkalosis, she was given acetazolamide for 1 day, patient takes 60 mg of Lasix twice a day mostly which was recently changed to 80 mg daily which according to the patient was not enough. In the hospital she remained euvolemic no significant swelling of her lower extremities. She was diuresed judiciously. Patient is not willing to give up her Social Security check in order to go to rehab hands decision was made to discharge her home with in-home services. She is not able to walk because of her knee osteoarthritis I do not see any signs of worsening of edema to indicate that feet swelling is causing poor quality of life at this point. She follows up with Dr. Bonilla for knee injections as well. She remained hemodynamically stable. Worked with PT. She remained on 3 to 4 L of oxygen. High risk for readmissions, she would have to give up her check in order to go to the rehab. She prefers to go to [place] longterm in future. I have counseled patient to start taking Lasix 40 mg in the morning and 20 at night if morning dose is not improving her symptoms of shortness of breath or swelling of her extremities, and cut back on Lasix if she thinks she is getting over diuresed, clinically she is is not fluid overloaded, skin wrinkling is prominent, feet are not swollen, CTA did not show any signs of PE Patient does have signs of contraction alkalosis will prefer to stay conservative with dose of Lasix for now Physical Exam Narrative: Awake and alert Euvolemic Pleasant cooperative Currently on 3 L No audible stridor or wheezing Abdomen distended Morbid obesity S1, S2 Urinary Catheter Management: Quijano: Cath Placed During This Visit: yes Reason for Continuing Indwelling Catheter: Other Urinary Catheter Date of Insertion: 09/16/22 Urinary Catheter Time of Insertion: 00:30 Discharge Data Studies Completed and Pending Completed Studies During Hospitalization Category Date Time Status CTA PE [CT angio chest PE protcl [id number]] Routine Cat Scan 09/16/22 12:37 Completed XR chest 1V portable [id number] Stat Exams 09/15/22 17:33 Completed XR foot RT 2V [id number] QAM Exams 09/16/22 06:00 Completed Pending at discharge Category Date Time Status Occult Blood Stool [Immunochemical Fecal OCB] Routine Lab 09/16/22 06:43 Uncollected Sputum Culture and Gram Stain Routine Lab 09/15/22 23:45 Uncollected Radiology Impressions Chest X-Ray 09/15/22 17:33 IMPRESSION: Pulmonary edema versus pneumonia suspected in the right upper lobe. Foot X-Ray 09/16/22 06:00 IMPRESSION: 1. No sign of fracture or bone destruction. 2. Diffuse soft tissue edema with focal swelling over the dorsum of the foot. The possibility of mass or abscess might be considered. If the patient does not respond to conservative management, further assessment with CT or MRI might be considered. Chest CTA 09/16/22 12:37 IMPRESSION: 1. No evidence of pulmonary embolus. 2. Shallow inspiration with bibasilar atelectasis. Subsegmental atelectasis in the lung bases. No acute pulmonary infiltrates. 3. Trace LEFT pleural fluid. 4. Hepatomegaly and splenomegaly. 5. Cholelithiasis Laboratory Results WBC 8.6 10^3/uL (4.0-10.0) 09/17/22 06:00 RBC 3.78 10^6/uL (4.1-5.3) L 09/17/22 06:00 Hgb 10.0 g/dL (11.5-15.3) L 09/17/22 06:00 Hct 35.1 % (37.0-47.0) L 09/17/22 06:00 MCV 92.9 fl (81-99) 09/17/22 06:00 MCH 26.5 pg (28.0-34.0) L 09/17/22 06:00 MCHC 28.5 g/dL (30.0-36.0) L 09/17/22 06:00 RDW 14.5 % (12.1-15.1) 09/17/22 06:00 Plt Count 254 10^3/cmm (130-400) 09/17/22 06:00 MPV 9.5 fL (7.4-10.4) 09/17/22 06:00 Neut % (Auto) 72.3 % 09/17/22 06:00 Lymph % (Auto) 16.6 % 09/17/22 06:00 [place] % (Auto) 7.6 % 09/17/22 06:00 Eos % (Auto) 1.9 % 09/17/22 06:00 Baso % (Auto) 0.2 % 09/17/22 06:00 Neut # (Auto) 6.25 10^3/uL (1.8-7.7) 09/17/22 06:00 Lymph # (Auto) 1.4 10^3/uL (0.8-4.8) 09/17/22 06:00 [place] # (Auto) 0.7 10^3/uL (0.2-0.9) 09/17/22 06:00 Eos # (Auto) 0.2 10^3/uL (0.0-0.8) 09/17/22 06:00 Baso # (Auto) 0.0 10^3/uL (0.0-0.1) 09/17/22 06:00 Nucleated RBC % (auto) 0 % 09/17/22 06:00 Nucleated RBCs # 0.0 /100WBC 09/17/22 06:00 D-Dimer 2.11 ug/mIFEU (0-0.59) H 09/15/22 17:59 Sodium 139 mmol/L (136-145) 09/17/22 06:00 Potassium 4.0 mmol/L (3.5-5.1) 09/17/22 06:00 Chloride 97 mmol/L (98-107) L 09/17/22 06:00 Carbon Dioxide 36 mmol/L (22-29) H 09/17/22 06:00 Anion Gap 10.0 (5-19) 09/17/22 06:00 BUN 12 mg/dL (8-23) 09/17/22 06:00 Creatinine 0.8 mg/dL (0.5-0.9) 09/17/22 06:00 GFR Calculation Not Reportable 09/17/22 06:00 Glucose 112 mg/dL (65-115) 09/17/22 06:00 POC Glucose 107 mg/dL (70-110) 09/18/22 06:43 Calculated Osmolality 289 mOsm/kg (285-295) 09/17/22 06:00 Calcium 8.6 mg/dL (8.5-10.5) 09/17/22 06:00 Phosphorus 3.7 mg/dL (2.5-4.5) 09/16/22 06:14 Magnesium 2.0 mg/dL (1.7-2.3) 09/16/22 06:14 Iron 29 ug/dL (37-145) L 09/15/22 17:59 TIBC 221 mcg/dl 09/15/22 17:59 % Saturation 13.1 % (20-50) L 09/15/22 17:59 Unsat Iron Binding 192 ug/dL (112-347) 09/15/22 17:59 Total Bilirubin 0.3 mg/dL (0.15-1.2) 09/16/22 06:14 AST 12 U/L (0-32) 09/16/22 06:14 ALT 10 U/L (0-33) 09/16/22 06:14 Alkaline Phosphatase 186 U/L (35-105) H 09/16/22 06:14 NT-Pro-B Natriuret Pep 1327 pg/mL (0-450) H 09/15/22 17:59 Total Protein 6.3 g/dL (6.6-8.7) L 09/16/22 06:14 Albumin 2.9 g/dL (3.5-5.2) L 09/16/22 06:14 Globulin 3.4 g/dL (1.3-4.6) 09/16/22 06:14 Triglycerides 129 mg/dL (0-150) 09/16/22 06:14 Cholesterol 115 mg/dL (0-200) 09/16/22 06:14 LDL Cholesterol, Calc 44 mg/dL (50-129) L 09/16/22 06:14 Total VLDL Cholesterol 26 mg/dL (0-30) 09/16/22 06:14 HDL Cholesterol 45 mg/dL (60-100) L 09/16/22 06:14 Cholesterol/HDL Ratio 2.56 mg/dL (0.0-4.40) 09/16/22 06:14 Vitamin B12 688 pg/mL (232-1245) 09/15/22 17:59 Folate > 20.0 ng/mL (4.8-37.3) 09/15/22 17:59 Procalcitonin 0.05 ng/mL (0-0.5) 09/15/22 17:59 Urine Color Yellow (Yellow) 09/16/22 00:43 Urine Appearance Clear (CLEAR) 09/16/22 00:43 Urine pH 9 (5-7) H 09/16/22 00:43 Ur Specific [place] 1.015 (1.005-1.030) 09/16/22 00:43 Urine Protein Neg (Negative) 09/16/22 00:43 Urine Glucose (UA) Norm (Normal) 09/16/22 00:43 Urine Ketones Negative (Negative) 09/16/22 00:43 Urine Blood Neg (Negative) 09/16/22 00:43 Urine Nitrate Negative (Negative) 09/16/22 00:43 Urine Bilirubin Neg (Negative) 09/16/22 00:43 Prot Sulfosalicylic Acd Negative (Negative) 09/16/22 00:43 Urine Urobilinogen Norm mg/dL (Negative) 09/16/22 00:43 Ur Leukocyte Esterase Negative (Negative) 09/16/22 00:43 Ur Random Sodium 129 mmol/L 09/16/22 00:43 Ur Random Potassium 23 mmol/L 09/16/22 00:43 Ur Random Chloride 91 mmol/L 09/16/22 00:43 Vitals Last Vital Signs Temp 98.0 F 09/18/22 07:52 Pulse 60 09/18/22 07:52 Resp 17 09/18/22 07:52 BP 107/64 09/18/22 07:52 Pulse Ox 92 09/18/22 07:52 O2 Del Method 09/18/22 07:52 O2 Flow Rate 4 09/18/22 07:41 FiO2 40 09/18/22 04:09 Discharge Plan Discharge Patient Disposition: Home Condition: Stable Prescriptions: New furosemide [Lasix] 20 mg tablet 20 mg PO QPM PRN (Reason: weight gain) Qty: 60 0RF Rx Instructions: Only take on as-needed basis if 80 mg of Lasix is not enough furosemide [Lasix] 40 mg tablet 40 mg PO QAM Qty: 60 0RF Continued hyoscyamine sulfate 0.125 mg tablet 0.125 mg PO Q12H PRN (Reason: IBS Symptoms) Myrbetriq 50 mg tablet extended release 24 hr 50 mg PO DAILY atorvastatin 40 mg tablet 40 mg PO BEDTIME 30 Days Qty: 30 0RF aspirin 81 mg Tablet,Chewable 81 mg PO DAILY 30 Days Qty: 30 0RF albuterol sulfate 2.5 mg /3 mL (0.083 %) solution for nebulization 2.5 mg inhalation TID PRN (Reason: Shortness Of Breath) cetirizine [Zyrtec] 10 mg Tablet 10 mg PO DAILY ascorbic acid (vitamin C) [Vitamin C] 500 mg Tablet 500 mg PO DAILY ferrous sulfate [iron] 325 mg (65 mg iron) Tablet 325 mg PO DAILY esomeprazole magnesium 20 mg capsule,delayed release(DR/EC) 20 mg PO DAILY metoprolol tartrate 50 mg Tablet 25 mg PO QAM diclofenac sodium [Voltaren Arthritis Pain] 1 % gel 2 g topical QID PRN (Reason: Pain) Rx Instructions: apply topically to left knee levothyroxine 75 mcg tablet 75 mcg PO QAM nystatin [Nystop] 100,000 unit/gram powder 1 applic topical BID PRN (Reason: unknown) fluticasone propion-salmeterol [Advair Diskus] 100-50 mcg/dose blister with device 1 inh inhalation BID Qty: 60 0RF albuterol sulfate 90 mcg/actuation HFA aerosol inhaler 1 inh inhalation Q4H PRN (Reason: shortness of breath or wheezing) Qty: 8.5 0RF potassium chloride 20 mEq tablet,ER particles/crystals 20 meq PO Q12H 30 Days Qty: 60 0RF trazodone 50 mg tablet 50 mg PO BEDTIME PRN (Reason: Sleep) Januvia 25 mg tablet 25 mg PO DAILY diclofenac sodium 1 % gel See Rx Instructions .ROUTE .COMPLEX Rx Instructions: topically as directed Discontinued furosemide 40 mg Tablet 40 mg PO Q12H 30 Days Qty: 60 0RF metformin 500 mg tablet 500 mg PO QAM 30 Days Qty: 30 0RF Discharge Orders: Discharge Order (Routine); Ordered 09/18/22 Ordered By: Brianna Montemayor Referrals: Juan Jose Munoz DO [Referring] - 09/23/22 11:00 am Discharge Diet: Cardiac Discharge Activity: As per PT/OT instructions Patient Instructions: Opioid Safety Discharge Attestations Time Spent in Discharge Care*: less than 30 min Quality Metrics Clinical Quality Measures [ No reported AMI, CVA or VTE this stay] Coding Level of Care Code Acute Code for Chg Fwd Diagnoses Alkalosis E87.3 Foot pain, right M79.671 Anemia D64.9 Diabetes E11.9 Lower extremity edema R60.0 Hypothyroidism E03.9 Acute exacerbation of CHF (congestive heart failure) I50.9 Obesity hypoventilation syndrome E66.2 Morbid obesity with BMI of 50.0-59.9, adult E66.01; Z68.43 Multinodular goiter E04.2
[2022-09-18] MEDS: cetirizine 10 mg Tablet PO (10:21)
[2022-09-18] MEDS: ferrous sulfate EC 325 mg Tablet PO (10:21)
[2022-09-18] MEDS: pantoprazole DR 40 mg Tablet PO (10:21)
[2022-09-18] MEDS: docusate sodium 100 mg Capsule PO (10:21)
[2022-09-18] MEDS: aspirin 81 mg Chew Tablet PO (10:22)
[2022-09-18] MEDS: gabapentin 100 mg Capsule PO (10:27)
[2022-09-18] MEDS: hyoscyamine ODT 0.125 mg Tablet PO (10:28)
[2022-09-18 11:57] LABS: Glucose Point of Care 123 mg/dL (70-110)
[2022-09-18 12:17] LABS: SARS Covid-2 Antigen negative (Negative)
== END 2022-09-18 14:45 | disposition skilled nursing facility (03) | DRG 292 ==
LOC: ER 19:42 → MEDSURG 20:27
PROVIDERS: Family Medicine; Admitting Provider Student in an Organized Health Care Education/Training Program; Emergency Provider Family Medicine; Visit Provider Internal Medicine
DX: I50.33 Acute on chronic diastolic (congestive) heart failure (principal); E66.2 Morbid (severe) obesity with alveolar hypoventilation; E87.3 Alkalosis; Z68.43 Body mass index [BMI] 50.0-59.9, adult; R09.02 Hypoxemia; R26.2 Difficulty in walking, not elsewhere classified; D64.9 Anemia, unspecified; E11.9 Type 2 diabetes mellitus without complications; E03.9 Hypothyroidism, unspecified; E04.2 Nontoxic multinodular goiter; J44.9 Chronic obstructive pulmonary disease, unspecified; M79.671 Pain in right foot; M17.9 Osteoarthritis of knee, unspecified; Z86.16 Personal history of COVID-19; Z79.82 Long term (current) use of aspirin; Z79.84 Long term (current) use of oral hypoglycemic drugs; Z99.81 Dependence on supplemental oxygen
CPT/HCPCS: 36415; 36416; 51702; 71045; 71275; 73620; 80048; 80053; 80061; 81003; 82436; 82607; 82746; 82962; 83540; 83550; 83735; 83880; 84100; 84133; 84145; 84300; 85025; 85378; 87426; 93005; 94640; 94660; 94664; 96372; 96374; 97110; 97161; 97166; 97530; 99285; J1650; J1815; J1940; J7614; J7626; J7644; Q9967

== ENCOUNTER 2022-09-28 23:30 | Inpatient (IN) | payer MEDICARE, MEDICAID, SELFPAY ==
[2022-09-28 23:37] VITALS: BP 111/71; PULSE 94; RESP 22; TEMP 36.8; O2SAT 84; BMI 60.5
--- NOTE | 2022-09-28 23:40 | XRR_ITS ---
PROCEDURE INFORMATION: Exam: XR Chest Exam date and time: 09/28/2022 11:47 PM Age: 77 years old Clinical indication: Shortness of breath; Additional info: SOB TECHNIQUE: Imaging protocol: Radiologic exam of the chest. Views: 1 view. COMPARISON: CR (CHEST, ) 09/15/2022 6:08 PM FINDINGS: Lungs: Bibasilar left greater than right atelectasis versus infiltrate. Pleural spaces: Unremarkable. No pleural effusion. No pneumothorax. Heart/Mediastinum: Cardiomegaly and mild pulmonary vascular congestion. Bones/joints: Unremarkable. XR/XR chest 1V portable [id number] IMPRESSION: 1. Cardiomegaly and mild pulmonary vascular congestion. 2. Bibasilar left greater than right atelectasis versus infiltrate.
--- NOTE | 2022-09-28 23:42 | ED_ITS ---
Documented by User: TREY Low 09/29/22 17:20 HPI - SOB/Dyspnea General: Chief Complaint: Shortness of Breath/Dyspnea Stated Complaint: SOB Time Seen by Provider: 09/28/22 23:32 History of Present Illness: HPI Narrative: Patient is a 77-year-old female comes to the ED via EMS with shortness of breath. EMS gave patient an albuterol breathing treatment and 125 mg of Solu- Medrol while in route. Past medical history of CHF, COPD and is on 3 L of oxygen via nasal cannula continuously. patient currently resides at [facility] and says for the past 3 to 4 days she has been having upper respiratory symptoms. She reports having nasal congestion and drainage, cough and increased shortness of breath. Her cough is dry and not productive. Today she had a fever of over 101 degrees and the alf gave her some Tylenol. She denies any chills, body aches, chest pain, abdominal pain, nausea/vomiting or bladder or bowel symptoms. Patient has Quijano catheter in place. Associated symptoms: Reports fever(s); Deny abdominal pain, chest pain, nausea, orthopnea, palpitations or vomiting Review of Systems Const: Reports: fever(s); Denies: chills or fatigue Eyes: Denies: change in vision or eye discomfort ENMT: Reports: nasal discharge and nasal congestion; Denies: throat pain or odynophagia Card: Denies: chest pain, palpitations, edema, swelling of feet/ankles, dyspnea on exertion or orthopnea Resp: Reports: dyspnea and non-productive cough; Denies: productive cough GI: Denies: abdominal pain, nausea, vomiting, diarrhea, constipation or hematochezia : Denies: flank pain, dysuria or hematuria Musc: Denies: neck pain, back pain or extremity swelling Skin/Breast: Denies: rash or new lesions Neuro: Denies: headache(s), numbness in extremities or weakness in extremities PFSH ED PFSH: Medical History Acute exacerbation of CHF (congestive heart failure) Acute exacerbation of chronic obstructive pulmonary disease Alkalosis Anemia Arthritis of shoulder region, right, degenerative CHF exacerbation CHF exacerbation COPD (chronic obstructive pulmonary disease) Diabetes Foot pain, right Hypothyroidism Hypothyroidism Lower extremity edema Morbid obesity with BMI of 50.0-59.9, adult Multinodular goiter Obesity hypoventilation syndrome Pneumonia Requires oxygen therapy Volume overload Surgical History H/O knee surgery Family History Father CAD (coronary artery disease) Social History Smoking and tobacco status: never smoked Alcohol intake: never Physical Exam Const: COMMON NORMALS: patient oriented x3 and alert GENERAL APPEARANCE: cooperative NUTRITIONAL APPEARANCE: obese HENMT: COMMON NORMALS: normocephalic HEAD & SCALP: normocephalic MOUTH: Normal oral and palatal mucosa present THROAT: posterior oropharynx normal and uvula midline Neck/C-Spine: COMMON NORMALS: supple GENERAL: Yes normal visual inspection Resp: COMMON NORMALS: normal respiratory effort, No retractions and No use of accessory muscles AUSCULTATION: diminished lung sounds bilateral in the lower lung sahni Cardio: COMMON NORMALS: regular rate, regular rhythm, S1 normal heart sound present, S2 normal heart sound present, No gallops present (Cardio), No clicks present (Cardio), No murmurs present (Cardio) and Peripheral pulses 2+ throughout RATE: regular rate RHYTHM: regular rhythm HEART SOUNDS: S1 normal heart sound present and S2 normal heart sound present PERIPHERAL PULSES: Peripheral pulses 2+ throughout GI: COMMON NORMALS: Normal to inspection, nondistended, normoactive bowel sounds present, Soft to palpation, non-tender and no masses PALPATION: Yes Soft to palpation : COMMON NORMALS: Yes no CVA tenderness BLADDER/KIDNEY EXAM: Yes no CVA tenderness Back/Pelvis: COMMON NORMALS: no CVA tenderness Extremity: COMMON NORMALS: normal to inspection Neuro: COMMON NORMALS: patient oriented x3 SENSORIUM/ORIENTATION: Yes alert GAIT: Yes Normal gait present Skin: GENERAL SKIN EXAM: dry skin Course Vital Signs: Vital signs: Vital Signs Temperature 99.1 F 09/29/22 19:40 Pulse Rate 95 09/29/22 20:49 Respiratory Rate 18 09/29/22 20:49 Blood Pressure 118/71 09/29/22 19:40 Pulse Oximetry 95 09/29/22 20:49 Oxygen Delivery Me thod 09/29/22 20:49 Oxygen Flow Rate 4 09/29/22 20:49 MDM - SOB/Dyspnea Medical Decision Making Patient is a 77-year-old female comes to the ED via EMS with shortness of breath. EMS gave patient an albuterol breathing treatment and 125 mg of Solu- Medrol while in route. Past medical history of CHF, COPD and is on 3 L of oxygen via nasal cannula continuously. patient currently resides at alf and says for the past 3 to 4 days she has been having upper respiratory symptoms. She reports having nasal congestion and drainage, cough and increased shortness of breath. Her cough is dry and not productive. She had a fever today. Denies any chest pain. Patient's O2 saturation is 88% on 6 L via nasal cannula. The rest of her vitals are unremarkable. White blood cell count 11.8. Troponins negative and chest x-ray shows left greater than right infiltrate. I talked with Dr. Rosenberg about patient case and he agreed she needs to be admitted for likely pneumonia and her increase oxygen need from 3 L now to 6 L via nasal cannula. Dr. Rosenberg contacted the hospitalist patient was admitted. Lab Data I reviewed the patient's lab results. 09/29/22 00:00 09/29/22 00:00 Labs/Radiology: Radiology Impressions Chest X-Ray 09/28/22 23:40 IMPRESSION: 1. Cardiomegaly and mild pulmonary vascular congestion. 2. Bibasilar left greater than right atelectasis versus infiltrate. Chest CTA 09/29/22 12:08 IMPRESSION: 1. No evidence of pulmonary embolus. 2. Shallow inspiration. Tiny LEFT and trace RIGHT pleural fluid. 3. Splenomegaly. Hepatomegaly. 4. Cholelithiasis. Laboratory Results WBC 11.8 10^3/uL (4.0-10.0) H 09/29/22 00:00 RBC 3.91 10^6/uL (4.1-5.3) L 09/29/22 00:00 Hgb 10.3 g/dL (11.5-15.3) L 09/29/22 00:00 Hct 36.4 % (37.0-47.0) L 09/29/22 00:00 MCV 93.1 fl (81-99) 09/29/22 00:00 MCH 26.3 pg (28.0-34.0) L 09/29/22 00:00 MCHC 28.3 g/dL (30.0-36.0) L 09/29/22 00:00 RDW 14.3 % (12.1-15.1) 09/29/22 00:00 Plt Count 241 10^3/cmm (130-400) 09/29/22 00:00 MPV 10.0 fL (7.4-10.4) 09/29/22 00:00 Neut % (Auto) 77.2 % 09/29/22 00:00 Lymph % (Auto) 14.3 % 09/29/22 00:00 Pike % (Auto) 6.9 % 09/29/22 00:00 Eos % (Auto) 0.4 % 09/29/22 00:00 Baso % (Auto) 0.3 % 09/29/22 00:00 Neut # (Auto) 9.06 10^3/uL (1.8-7.7) H 09/29/22 00:00 Lymph # (Auto) 1.7 10^3/uL (0.8-4.8) 09/29/22 00:00 Pike # (Auto) 0.8 10^3/uL (0.2-0.9) 09/29/22 00:00 Eos # (Auto) 0.1 10^3/uL (0.0-0.8) 09/29/22 00:00 Baso # (Auto) 0.0 10^3/uL (0.0-0.1) 09/29/22 00:00 Nucleated RBC % (auto) 0.2 % 09/29/22 00:00 Nucleated RBCs # 0.0 /100WBC 09/29/22 00:00 D-Dimer 2.26 ug/mIFEU (0-0.59) H 09/29/22 03:13 Sodium 133 mmol/L (136-145) L 09/29/22 00:00 Potassium 5.2 mmol/L (3.5-5.1) H 09/29/22 00:00 Chloride 90 mmol/L (98-107) L 09/29/22 00:00 Carbon Dioxide 36 mmol/L (22-29) H 09/29/22 00:00 Anion Gap 12.2 (5-19) 09/29/22 00:00 BUN 10 mg/dL (8-23) 09/29/22 00:00 Creatinine 0.5 mg/dL (0.5-0.9) 09/29/22 00:00 GFR Calculation Not Reportable 09/29/22 00:00 Glucose 115 mg/dL (65-115) 09/29/22 00:00 Calculated Osmolality 276 mOsm/kg (285-295) L 09/29/22 00:00 Lactate 0.9 mmol/L (0.5-2.2) 09/29/22 03:13 Calcium 8.7 mg/dL (8.5-10.5) 09/29/22 00:00 Total Bilirubin 0.3 mg/dL (0.15-1.2) 09/29/22 00:00 AST 14 U/L (0-32) 09/29/22 00:00 ALT 9 U/L (0-33) 09/29/22 00:00 Alkaline Phosphatase 172 U/L (35-105) H 09/29/22 00:00 Troponin T Baseline 26 ng/L (0-10) H 09/29/22 00:00 Troponin T 120 Minute 25.75 ng/L (0-10) H 09/29/22 03:13 Delta Troponin T -0.25 ABS# (0-10) L 09/29/22 03:13 NT-Pro-B Natriuret Pep 412 pg/mL (0-450) 09/29/22 00:00 Total Protein 6.5 g/dL (6.6-8.7) L 09/29/22 00:00 Albumin 3.1 g/dL (3.5-5.2) L 09/29/22 00:00 Globulin 3.4 g/dL (1.3-4.6) 09/29/22 00:00 Nasal Influ A H1 2009 PCR Not detected (NOT DETECT) 09/29/22 00:05 Adenovirus (PCR) Not detected (NOT DETECT) 09/29/22 00:05 C. pneumoniae DNA (PCR) Not detected (NOT DETECT) 09/29/22 00:05 Coronavirus 229E (PCR) Not detected (NOT DETECT) 09/29/22 00:05 Human Metapneumovir PCR Not detected (NOT DETECT) 09/29/22 00:05 Influenza A (H1) PCR Not detected (NOT DETECT) 09/29/22 00:05 Influenza A (H3) PCR Not detected (NOT DETECT) 09/29/22 00:05 Influenza Type A (PCR) Not detected (NOT DETECT) 09/29/22 00:05 Influenza Type B (PCR) Not detected (NOT DETECT) 09/29/22 00:05 M. pneumoniae (PCR) Not detected (NOT DETECT) 09/29/22 00:05 Parainfluenza 1 (PCR) Not detected (NOT DETECT) 09/29/22 00:05 Parainfluenza 2 (PCR) Not detected (NOT DETECT) 09/29/22 00:05 Parainfluenza 3 (PCR) Not detected (NOT DETECT) 09/29/22 00:05 Parainfluenza 4 (PCR) Not detected (NOT DETECT) 09/29/22 00:05 RSV Type A (PCR) Not detected (NOT DETECT) 09/29/22 00:05 RSV Type B (PCR) Not detected (NOT DETECT) 09/29/22 00:05 Entero/Rhino (PCR) Not detected (NOT DETECT) 09/29/22 00:05 SARS-CoV-2 (PCR) Not detected (NOT DETECT) 09/29/22 00:05 Discharge Plan Discharge Patient Disposition: Admitted As Inpatient Admit Provider: Sonali Adan Clinical Impression: Community acquired pneumonia Qualifiers: Laterality: left Lung location: unspecified part of lung Qualified Code(s): J18.9 - Pneumonia, unspecified organism Condition: Stable Coding Level of Care Code ED Legal Paraprofessional for Chg Fwd Documented by User: Nj Rosenberg DO 09/29/22 22:20 HPI - SOB/Dyspnea General: Chief Complaint: Shortness of Breath/Dyspnea Stated Complaint: SOB Time Seen by Provider: 09/28/22 23:32 PFSH ED PFSH: Medical History Acute exacerbation of CHF (congestive heart failure) Acute exacerbation of chronic obstructive pulmonary disease Alkalosis Anemia Arthritis of shoulder region, right, degenerative CHF exacerbation CHF exacerbation COPD (chronic obstructive pulmonary disease) Diabetes Foot pain, right Hypothyroidism Hypothyroidism Lower extremity edema Morbid obesity with BMI of 50.0-59.9, adult Multinodular goiter Obesity hypoventilation syndrome Pneumonia Requires oxygen therapy Volume overload Surgical History H/O knee surgery Family History Father CAD (coronary artery disease) Social History Smoking and tobacco status: never smoked Alcohol intake: never Course Vital Signs: Vital signs: Vital Signs Temperature 99.1 F 09/29/22 19:40 Pulse Rate 95 09/29/22 20:49 Respiratory Rate 18 09/29/22 20:49 Blood Pressure 118/71 09/29/22 19:40 Pulse Oximetry 95 09/29/22 20:49 Oxygen Delivery Me thod 09/29/22 20:49 Oxygen Flow Rate 4 09/29/22 20:49 MDM - SOB/Dyspnea Medical Decision Making Patient is a 77-year-old female comes to the ED via EMS with shortness of breath. EMS gave patient an albuterol breathing treatment and 125 mg of Solu- Medrol while in route. Past medical history of CHF, COPD and is on 3 L of oxygen via nasal cannula continuously. patient currently resides at alf and says for the past 3 to 4 days she has been having upper respiratory symptoms. She reports having nasal congestion and drainage, cough and increased shortness of breath. Her cough is dry and not productive. She had a fever today. Denies any chest pain. Patient's O2 saturation is 88% on 6 L via nasal cannula. The rest of her vitals are unremarkable. White blood cell count 11.8. Troponins negative and chest x-ray shows left greater than right infiltrate. I talked with Dr. Rosenberg about patient case and he agreed she needs to be admitted for likely pneumonia and her increase oxygen need from 3 L now to 6 L via nasal cannula. Dr. Rosenberg contacted the hospitalist patient was admitted. This patient was initially seen by Mr. Irene PA-C. I agree with his history, evaluation, and treatment. Lab Data 09/29/22 00:00 09/29/22 00:00 Labs/Radiology: Radiology Impressions Chest X-Ray 09/28/22 23:40 IMPRESSION: 1. Cardiomegaly and mild pulmonary vascular congestion. 2. Bibasilar left greater than right atelectasis versus infiltrate. Chest CTA 09/29/22 12:08 IMPRESSION: 1. No evidence of pulmonary embolus. 2. Shallow inspiration. Tiny LEFT and trace RIGHT pleural fluid. 3. Splenomegaly. Hepatomegaly. 4. Cholelithiasis. Laboratory Results WBC 11.8 10^3/uL (4.0-10.0) H 09/29/22 00:00 RBC 3.91 10^6/uL (4.1-5.3) L 09/29/22 00:00 Hgb 10.3 g/dL (11.5-15.3) L 09/29/22 00:00 Hct 36.4 % (37.0-47.0) L 09/29/22 00:00 MCV 93.1 fl (81-99) 09/29/22 00:00 MCH 26.3 pg (28.0-34.0) L 09/29/22 00:00 MCHC 28.3 g/dL (30.0-36.0) L 09/29/22 00:00 RDW 14.3 % (12.1-15.1) 09/29/22 00:00 Plt Count 241 10^3/cmm (130-400) 09/29/22 00:00 MPV 10.0 fL (7.4-10.4) 09/29/22 00:00 Neut % (Auto) 77.2 % 09/29/22 00:00 Lymph % (Auto) 14.3 % 09/29/22 00:00 Pike % (Auto) 6.9 % 09/29/22 00:00 Eos % (Auto) 0.4 % 09/29/22 00:00 Baso % (Auto) 0.3 % 09/29/22 00:00 Neut # (Auto) 9.06 10^3/uL (1.8-7.7) H 09/29/22 00:00 Lymph # (Auto) 1.7 10^3/uL (0.8-4.8) 09/29/22 00:00 Pike # (Auto) 0.8 10^3/uL (0.2-0.9) 09/29/22 00:00 Eos # (Auto) 0.1 10^3/uL (0.0-0.8) 09/29/22 00:00 Baso # (Auto) 0.0 10^3/uL (0.0-0.1) 09/29/22 00:00 Nucleated RBC % (auto) 0.2 % 09/29/22 00:00 Nucleated RBCs # 0.0 /100WBC 09/29/22 00:00 D-Dimer 2.26 ug/mIFEU (0-0.59) H 09/29/22 03:13 Sodium 133 mmol/L (136-145) L 09/29/22 00:00 Potassium 5.2 mmol/L (3.5-5.1) H 09/29/22 00:00 Chloride 90 mmol/L (98-107) L 09/29/22 00:00 Carbon Dioxide 36 mmol/L (22-29) H 09/29/22 00:00 Anion Gap 12.2 (5-19) 09/29/22 00:00 BUN 10 mg/dL (8-23) 09/29/22 00:00 Creatinine 0.5 mg/dL (0.5-0.9) 09/29/22 00:00 GFR Calculation Not Reportable 09/29/22 00:00 Glucose 115 mg/dL (65-115) 09/29/22 00:00 Calculated Osmolality 276 mOsm/kg (285-295) L 09/29/22 00:00 Lactate 0.9 mmol/L (0.5-2.2) 09/29/22 03:13 Calcium 8.7 mg/dL (8.5-10.5) 09/29/22 00:00 Total Bilirubin 0.3 mg/dL (0.15-1.2) 09/29/22 00:00 AST 14 U/L (0-32) 09/29/22 00:00 ALT 9 U/L (0-33) 09/29/22 00:00 Alkaline Phosphatase 172 U/L (35-105) H 09/29/22 00:00 Troponin T Baseline 26 ng/L (0-10) H 09/29/22 00:00 Troponin T 120 Minute 25.75 ng/L (0-10) H 09/29/22 03:13 Delta Troponin T -0.25 ABS# (0-10) L 09/29/22 03:13 NT-Pro-B Natriuret Pep 412 pg/mL (0-450) 09/29/22 00:00 Total Protein 6.5 g/dL (6.6-8.7) L 09/29/22 00:00 Albumin 3.1 g/dL (3.5-5.2) L 09/29/22 00:00 Globulin 3.4 g/dL (1.3-4.6) 09/29/22 00:00 Nasal Influ A H1 2009 PCR Not detected (NOT DETECT) 09/29/22 00:05 Adenovirus (PCR) Not detected (NOT DETECT) 09/29/22 00:05 C. pneumoniae DNA (PCR) Not detected (NOT DETECT) 09/29/22 00:05 Coronavirus 229E (PCR) Not detected (NOT DETECT) 09/29/22 00:05 Human Metapneumovir PCR Not detected (NOT DETECT) 09/29/22 00:05 Influenza A (H1) PCR Not detected (NOT DETECT) 09/29/22 00:05 Influenza A (H3) PCR Not detected (NOT DETECT) 09/29/22 00:05 Influenza Type A (PCR) Not detected (NOT DETECT) 09/29/22 00:05 Influenza Type B (PCR) Not detected (NOT DETECT) 09/29/22 00:05 M. pneumoniae (PCR) Not detected (NOT DETECT) 09/29/22 00:05 Parainfluenza 1 (PCR) Not detected (NOT DETECT) 09/29/22 00:05 Parainfluenza 2 (PCR) Not detected (NOT DETECT) 09/29/22 00:05 Parainfluenza 3 (PCR) Not detected (NOT DETECT) 09/29/22 00:05 Parainfluenza 4 (PCR) Not detected (NOT DETECT) 09/29/22 00:05 RSV Type A (PCR) Not detected (NOT DETECT) 09/29/22 00:05 RSV Type B (PCR) Not detected (NOT DETECT) 09/29/22 00:05 Entero/Rhino (PCR) Not detected (NOT DETECT) 09/29/22 00:05 SARS-CoV-2 (PCR) Not detected (NOT DETECT) 09/29/22 00:05 Discharge Plan Discharge Patient Disposition: Admitted As Inpatient Admit Provider: Sonali Adan Clinical Impression: Community acquired pneumonia Qualifiers: Laterality: left Lung location: unspecified part of lung Qualified Code(s): J18.9 - Pneumonia, unspecified organism Condition: Stable Coding Level of Care Code ED Legal Paraprofessional for Coby Cintron
--- NOTE | 2022-09-28 23:58 | ECG_ITS ---
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 Measurements Intervals [place] Rate: 84 P: 0 NH: 0 QRS: 2 QRSD: 84 T: 48 QT: 356 QTc: 421 Interpretive Statements ATRIAL FIBRILLATION LOW QRS VOLTAGE IN PRECORDIAL LEADS [QRS DEFLECTION < 1.0 mV IN CHEST LEADS] Compared to ECG 09/15/2022 18:17:06 No significant changes Electronically Signed On 09-29-2022 11:19:05 VARNISH SUPERVISOR by Chidi Benitez M.D. [id number] f
[2022-09-29] VITALS (15 sets, daily range): BP systolic 115–139; BP diastolic 66–101; PULSE 86–103; RESP 16–22; TEMP 36.7–37.3; O2SAT 88–95
[2022-09-29 00:21] LABS: Basophils % 0.3 %; Eosinophils # 0.1 10^3/uL (0.0-0.8); Eosinophils % 0.4 %; Hematocrit 36.4 % (37.0-47.0); Hemoglobin 10.3 g/dL (11.5-15.3); Lymphocytes # 1.7 10^3/uL (0.8-4.8); Lymphocytes % 14.3 %; Mean Corpuscular HGB Conc 28.3 g/dL (30.0-36.0); Mean Corpuscular Hemoglobin 26.3 pg (28.0-34.0); Mean Corpuscular Volume 93.1 fl (81-99); Monocytes # 0.8 10^3/uL (0.2-0.9); Monocytes % 6.9 %; Neutrophils # 9.06 10^3/uL (1.8-7.7); Neutrophils % 77.2 %; Nucleated Red Blood Cells % 0.2 %; Platelet Count 241 10^3/cmm (130-400); Red Blood Count 3.91 10^6/uL (4.1-5.3); Red Cell Distribution Width 14.3 % (12.1-15.1); White Blood Count 11.8 10^3/uL (4.0-10.0)
[2022-09-29 00:54] LABS: Troponin(5th) Baseline 26 ng/L (0-10)
[2022-09-29 00:57] LABS: Alanine Aminotransferase 9 U/L (0-33); Albumin Level 3.1 g/dL (3.5-5.2); Alkaline Phosphatase 172 U/L (35-105); Blood Urea Nitrogen 10 mg/dL (8-23); Calcium 8.7 mg/dL (8.5-10.5); Carbon Dioxide 36 mmol/L (22-29); Chloride 90 mmol/L (98-107); Globulin 3.4 g/dL (1.3-4.6); Glucose 115 mg/dL (65-115); NT Pro B Type Natriuretic Pept 412 pg/mL (0-450); Osmolality Calculated 276 mOsm/kg (285-295); Sodium 133 mmol/L (136-145); Total Bilirubin 0.3 mg/dL (0.15-1.2); Total Protein 6.5 g/dL (6.6-8.7)
[2022-09-29 01:03] LABS: Anion Gap 12.2 (5-19); Aspartate Amino Transferase 14 U/L (0-32); Potassium 5.2 mmol/L (3.5-5.1)
[2022-09-29 02:06] LABS: Adenovirus Not Detected (NOT DETECT); Chlamydia Pneumoniae Not Detected (NOT DETECT); Coronavirus 229E,HKU1,NL63,OC4 Not Detected (NOT DETECT); Human Metapneumovirus Not Detected (NOT DETECT); Human Rhinovirus/Enterovirus Not Detected (NOT DETECT); Influenza A Not Detected (NOT DETECT); Influenza A H1 Not Detected (NOT DETECT); Influenza A H1-2009 Not Detected (NOT DETECT); Influenza A H3 Not Detected (NOT DETECT); Influenza B Not Detected (NOT DETECT); Mycoplasma Pneumoniae Not Detected (NOT DETECT); Parainfluenza Virus Type 1 Not Detected (NOT DETECT); Parainfluenza Virus Type 2 Not Detected (NOT DETECT); Parainfluenza Virus Type 3 Not Detected (NOT DETECT); Parainfluenza Virus Type 4 Not Detected (NOT DETECT); Respiratory Syncytial Virus A Not Detected (NOT DETECT); Respiratory Syncytial Virus B Not Detected (NOT DETECT); SARS-COV-2 Not Detected (NOT DETECT)
[2022-09-29] MEDS: piperacillin-tazobactam 4.5 GM in sodium chloride 0.9% (plus) 50 ML IV (02:55)
[2022-09-29 04:37] LABS: Lactate (Lactic Acid level) 0.9 mmol/L (0.5-2.2)
[2022-09-29 04:39] LABS: Troponin 5 2HR 25.75 ng/L (0-10); Troponin 5 2HR Delta -0.25 ABS# (0-10)
--- NOTE | 2022-09-29 06:06 | ECG_ITS ---
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 Measurements Intervals [place] Rate: 83 P: 33 HI: 284 QRS: 4 QRSD: 92 T: 55 QT: 354 QTc: 417 Interpretive Statements SINUS RHYTHM WITH FIRST DEGREE AV BLOCK LOW QRS VOLTAGE IN PRECORDIAL LEADS [QRS DEFLECTION < 1.0 mV IN CHEST LEADS] Compared to ECG 09/28/2022 23:58:36 First degree AV block now present Atrial fibrillation no longer present Electronically Signed On 09-29-2022 11:20:30 FOOD SERVICE ASSISTANT by Chidi Benitez M.D. [id number]
--- NOTE | 2022-09-29 06:50 | PM.HP ---
Providers/Chief Complaint Admitting Physician: Sonali Adan MD Chief Complaint: SOB History of Present Illness Rossy Brooke is a 77 year old female with past medical history of obesity hypoventilation syndrome not on home BiPAP, chronically on 3 L, diastolic heart failure, recent admission and discharged to SNF for respiratory failure in setting of COVID-19, type 2 diabetes mellitus, hypothyroidism in setting of multinodular goiter. Presents from the assisted today due to chief complaints of sore throat, fever and URI symptoms including runny nose and a slight cough. Sent from assisted due to concerns of possible pneumonia. Afebrile currently. Chest x-ray today shows bibasilar left greater than right atelectasis versus infiltrate and pulmonary vascular congestion. Review of Systems General: Reports: 10 or more systems reviewed and unremarkable except in HPI and below Const: Denies: fever(s), chills or body aches Eyes: Denies: change in vision, blurry vision or photophobia ENMT: Reports: hoarseness; Denies: throat pain, enlarged tonsils, odynophagia or nasal congestion Card: Denies: chest pain, palpitations, irregular heart rhythm, edema, swelling of feet/ankles, lightheadedness, pre-syncope, dyspnea on exertion or orthopnea Resp: Denies: dyspnea, productive cough, non-productive cough, wheezing, stridor, pain on inspiration, change in phlegm color, hemoptysis or chest congestion GI: Denies: abdominal pain, nausea, vomiting, hematemesis, coffee ground emesis, dysphagia, heartburn, diarrhea, constipation, GI cramping, change in stool character, hematochezia or melena : Denies: flank pain, difficulty voiding, dysuria, urinary frequency, urinary urgency, urinary hesitancy or hematuria Musc: Denies: neck pain, back pain, extremity pain, joint swelling, joint warmth or deformity Neuro: Denies: headache(s), numbness in extremities, weakness in extremities, sensory changes, difficulty walking, frequent falls, dizziness, vertigo, behavioral changes, Slurred speech present or seizure-like activity Psych: Denies: anxiety, depression, suicidal ideation or homicidal ideation Endo: Denies: polyuria, polydipsia, tired all the time, cold intolerance or hot flashes Jose Luis/Lymph: Denies: easy bruising or easy bleeding Medications/Allergies Home Medications Medication Instructions Recorded Confirmed Last Taken Type hyoscyamine sulfate 0.125 mg tablet 0.125 mg PO Q12H PRN IBS Symptoms 11/06/21 09/19/22 Unknown History mirabegron 50 mg tablet,extended 50 mg PO DAILY 11/06/21 09/19/22 11/06/21 History release 24 hr (Myrbetriq) aspirin 81 mg chewable tablet 81 mg PO DAILY 30 days #30 tabs 11/09/21 09/19/22 Unknown Rx atorvastatin 40 mg tablet 40 mg PO BEDTIME 30 days #30 tabs 11/09/21 09/19/22 Unknown Rx albuterol sulfate 2.5 mg/3 mL 2.5 mg inhalation TID PRN 05/22/22 09/19/22 08/22/22 History (0.083 %) solution for nebulization Shortness Of Breath ascorbic acid (vitamin C) 500 mg 500 mg PO DAILY 05/22/22 09/19/22 Unknown History tablet (Vitamin C) cetirizine 10 mg tablet (Zyrtec) 10 mg PO DAILY 05/22/22 09/19/22 Unknown History esomeprazole magnesium 20 mg 20 mg PO DAILY 05/22/22 09/19/22 Unknown History capsule,delayed release ferrous sulfate 325 mg (65 mg 325 mg PO DAILY 05/22/22 09/19/22 Unknown History iron) tablet (iron) metoprolol tartrate 50 mg tablet 25 mg PO QAM 05/22/22 09/19/22 08/22/22 History diclofenac sodium 1 % topical gel 2 g topical QID PRN Pain 08/22/22 09/19/22 Unknown History (Voltaren Arthritis Pain) levothyroxine 75 mcg tablet 75 mcg PO QAM 08/22/22 09/19/22 08/22/22 History nystatin 100,000 unit/gram topical 1 applic topical BID PRN unknown 08/22/22 09/19/22 Unknown History powder (Nystop) albuterol sulfate 90 mcg/actuation 1 inh inhalation Q4H PRN shortness 08/27/22 09/19/22 Unknown Rx aerosol inhaler of breath or wheezing #8.5 grams fluticasone 100 mcg-salmeterol 50 1 inh inhalation BID #60 ea 08/27/22 09/19/22 Unknown Rx mcg/dose blistr powdr for inhalation (Advair Diskus) potassium chloride 20 mEq 20 meq PO Q12H 30 days #60 tabs 08/27/22 09/19/22 08/22/22 Rx tablet,extended release(part/cryst) diclofenac sodium 1 % topical gel See Rx Instructions .Route .COMPLEX 09/16/22 09/19/22 Unknown History sitagliptin phosphate 25 mg tablet 25 mg PO DAILY 09/16/22 09/19/22 Unknown History (Januvia) trazodone 50 mg tablet 50 mg PO BEDTIME PRN Sleep 09/16/22 09/19/22 Unknown History furosemide 20 mg tablet (Lasix) 20 mg PO QPM PRN weight gain #60 09/18/22 09/19/22 Unknown Rx tabs furosemide 40 mg tablet (Lasix) 40 mg PO QAM #60 tabs 09/18/22 09/19/22 Unknown Rx Allergies Allergy/AdvReac Type Severity Reaction Status Date / Time cinnamon Allergy Unknown Unknown Verified 09/16/22 08:50 morphine Allergy Unknown Unknown Verified 09/16/22 08:50 Sulfa (Sulfonamide Allergy Unknown Unknown Verified 09/16/22 08:50 Antibiotics) niacin Allergy ADR/ALGY-Fl Verified 09/16/22 08:50 ushing PFSH Acute PFSH: Medical History Acute exacerbation of CHF (congestive heart failure) Acute exacerbation of chronic obstructive pulmonary disease Alkalosis Anemia Arthritis of shoulder region, right, degenerative CHF exacerbation CHF exacerbation COPD (chronic obstructive pulmonary disease) Diabetes Foot pain, right Hypothyroidism Hypothyroidism Lower extremity edema Morbid obesity with BMI of 50.0-59.9, adult Multinodular goiter Obesity hypoventilation syndrome Pneumonia Requires oxygen therapy Volume overload Surgical History H/O knee surgery Family History Father CAD (coronary artery disease) Social History Smoking and tobacco status: never smoked Alcohol intake: never Vitals/I&O/Wt Last Vital Signs Temp 98.4 F 09/29/22 05:18 Pulse 87 09/29/22 05:18 Resp 22 H 09/29/22 05:18 BP 115/78 09/29/22 05:18 Pulse Ox 92 09/29/22 05:18 O2 Del Method 09/29/22 05:18 O2 Flow Rate 5 09/29/22 05:18 09/28/22 09/28/22 09/29/22 14:59 22:59 06:59 Intake Total 50 / 50 Balance 50 / 50 Weight last 48 hrs Weight 140.614 kg Physical Exam Narrative: General: No acute distress, AO x3 HEENT: PERRLA, pupils bilaterally equal and reactive, pallors not present Chest: Normal vesicular breath sounds, no added sounds, equal good air entry bilaterally CVS: S1-S2 regular, no murmurs, no tachycardia, no gallops, no rubs Abdomen: Soft, nontender, no organomegaly, bowel sounds present Neuro: No focal deficits, no facial deformity, AO x3, power 5/5 in all limbs Extremities: no edema, clubbing or cyanosis Data 09/29/22 00:00 09/29/22 00:00 Micro: Microbiology 09/29/22 03:13 Blood Culture - Preliminary Blood SPECIMEN COLLECTED 09/29/22 03:11 Blood Culture - Preliminary Blood SPECIMEN COLLECTED Other data: Radiology Impressions Chest X-Ray 09/28/22 23:40 IMPRESSION: 1. Cardiomegaly and mild pulmonary vascular congestion. 2. Bibasilar left greater than right atelectasis versus infiltrate. Laboratory Results WBC 11.8 10^3/uL (4.0-10.0) H 09/29/22 00:00 RBC 3.91 10^6/uL (4.1-5.3) L 09/29/22 00:00 Hgb 10.3 g/dL (11.5-15.3) L 09/29/22 00:00 Hct 36.4 % (37.0-47.0) L 09/29/22 00:00 MCV 93.1 fl (81-99) 09/29/22 00:00 MCH 26.3 pg (28.0-34.0) L 09/29/22 00:00 MCHC 28.3 g/dL (30.0-36.0) L 09/29/22 00:00 RDW 14.3 % (12.1-15.1) 09/29/22 00:00 Plt Count 241 10^3/cmm (130-400) 09/29/22 00:00 MPV 10.0 fL (7.4-10.4) 09/29/22 00:00 Neut % (Auto) 77.2 % 09/29/22 00:00 Lymph % (Auto) 14.3 % 09/29/22 00:00 Kaufman % (Auto) 6.9 % 09/29/22 00:00 Eos % (Auto) 0.4 % 09/29/22 00:00 Baso % (Auto) 0.3 % 09/29/22 00:00 Neut # (Auto) 9.06 10^3/uL (1.8-7.7) H 09/29/22 00:00 Lymph # (Auto) 1.7 10^3/uL (0.8-4.8) 09/29/22 00:00 Kaufman # (Auto) 0.8 10^3/uL (0.2-0.9) 09/29/22 00:00 Eos # (Auto) 0.1 10^3/uL (0.0-0.8) 09/29/22 00:00 Baso # (Auto) 0.0 10^3/uL (0.0-0.1) 09/29/22 00:00 Nucleated RBC % (auto) 0.2 % 09/29/22 00:00 Nucleated RBCs # 0.0 /100WBC 09/29/22 00:00 Sodium 133 mmol/L (136-145) L 09/29/22 00:00 Potassium 5.2 mmol/L (3.5-5.1) H 09/29/22 00:00 Chloride 90 mmol/L (98-107) L 09/29/22 00:00 Carbon Dioxide 36 mmol/L (22-29) H 09/29/22 00:00 Anion Gap 12.2 (5-19) 09/29/22 00:00 BUN 10 mg/dL (8-23) 09/29/22 00:00 Creatinine 0.5 mg/dL (0.5-0.9) 09/29/22 00:00 GFR Calculation Not Reportable 09/29/22 00:00 Glucose 115 mg/dL (65-115) 09/29/22 00:00 Calculated Osmolality 276 mOsm/kg (285-295) L 09/29/22 00:00 Lactate 0.9 mmol/L (0.5-2.2) 09/29/22 03:13 Calcium 8.7 mg/dL (8.5-10.5) 09/29/22 00:00 Total Bilirubin 0.3 mg/dL (0.15-1.2) 09/29/22 00:00 AST 14 U/L (0-32) 09/29/22 00:00 ALT 9 U/L (0-33) 09/29/22 00:00 Alkaline Phosphatase 172 U/L (35-105) H 09/29/22 00:00 Troponin T Baseline 26 ng/L (0-10) H 09/29/22 00:00 Troponin T 120 Minute 25.75 ng/L (0-10) H 09/29/22 03:13 Delta Troponin T -0.25 ABS# (0-10) L 09/29/22 03:13 NT-Pro-B Natriuret Pep 412 pg/mL (0-450) 09/29/22 00:00 Total Protein 6.5 g/dL (6.6-8.7) L 09/29/22 00:00 Albumin 3.1 g/dL (3.5-5.2) L 09/29/22 00:00 Globulin 3.4 g/dL (1.3-4.6) 09/29/22 00:00 Nasal Influ A H1 2008 PCR Not detected (NOT DETECT) 09/29/22 00:05 Adenovirus (PCR) Not detected (NOT DETECT) 09/29/22 00:05 C. pneumoniae DNA (PCR) Not detected (NOT DETECT) 09/29/22 00:05 Coronavirus 229E (PCR) Not detected (NOT DETECT) 09/29/22 00:05 Human Metapneumovir PCR Not detected (NOT DETECT) 09/29/22 00:05 Influenza A (H1) PCR Not detected (NOT DETECT) 09/29/22 00:05 Influenza A (H3) PCR Not detected (NOT DETECT) 09/29/22 00:05 Influenza Type A (PCR) Not detected (NOT DETECT) 09/29/22 00:05 Influenza Type B (PCR) Not detected (NOT DETECT) 09/29/22 00:05 M. pneumoniae (PCR) Not detected (NOT DETECT) 09/29/22 00:05 Parainfluenza 1 (PCR) Not detected (NOT DETECT) 09/29/22 00:05 Parainfluenza 2 (PCR) Not detected (NOT DETECT) 09/29/22 00:05 Parainfluenza 3 (PCR) Not detected (NOT DETECT) 09/29/22 00:05 Parainfluenza 4 (PCR) Not detected (NOT DETECT) 09/29/22 00:05 RSV Type A (PCR) Not detected (NOT DETECT) 09/29/22 00:05 RSV Type B (PCR) Not detected (NOT DETECT) 09/29/22 00:05 Entero/Rhino (PCR) Not detected (NOT DETECT) 09/29/22 00:05 SARS-CoV-2 (PCR) Not detected (NOT DETECT) 09/29/22 00:05 A&P Assessment and plan (1) Community acquired pneumonia: Patient presenting with fever, cough, upper respiratory tract symptoms Chest x-ray shows left greater than right infiltrate Concern for community-acquired pneumonia Start patient on treatment with ceftriaxone 1 g IV every 24 hours and azithromycin 500 mg p.o. daily for 3 days Check sputum culture, bacterial antigen and MRSA PCR Recent history of COVID-19, patient today requiring 6 L/min supplemental O2 as against her usual 3 L/min oxygen. We will check D-dimer for screening. If elevated may need to evaluate further with a CTA. (2) CHF (congestive heart failure): Acute on chronic diastolic CHF Check BNP Lasix 40 mg IV x1 thereafter continue her home dose of 40 mg p.o. daily Attestations Medical Necessity Statement*: Anticipate greater than 2 midnight admission for management of community-acquired pneumonia Coding Level of Care Code Acute Code for Chg Fwd Moderate MDM includes number and complexity of problems actively addressed during encounter, amount and/or complexity of data reviewed/ordered and described risk of complication, morbidity or mortality of management as documented Diagnoses Community acquired pneumonia J18.9 CHF (congestive heart failure) I50.9
[2022-09-29 07:17] LABS: Troponin 5 6HR 21.57 ng/L (0-10)
[2022-09-29 07:20] LABS: Troponin 5 6HR Delta -4.43 ng/L (0-12)
[2022-09-29 07:40] LABS: D Dimer 2.26 ug/mIFEU (0-0.59)
[2022-09-29 08:13] LABS: Glucose Point of Care 148 mg/dL (70-110)
[2022-09-29] MEDS: FUROsemide 10 mg/mL SDV 4mL 40 MG IVP (08:58)
[2022-09-29] MEDS: cefTRIAXone 1,000 MG in sodium chloride 0.9% (plus) 50 ML 100 MG IV (08:59)
[2022-09-29] MEDS: insulin lispro 100 unit/1 mL SUBCUT ×2 (08:59→13:38)
[2022-09-29] MEDS: enoxaparin 40 mg/0.4 mL Syringe SUBCUT (08:59)
[2022-09-29] MEDS: aspirin 81 mg Chew Tablet PO (09:02)
[2022-09-29] MEDS: azithromycin 250 mg Tablet 500 MG PO (09:02)
[2022-09-29] MEDS: pantoprazole DR 40 mg Tablet PO (09:02)
[2022-09-29 11:20] LABS: Glucose Point of Care 171 mg/dL (70-110)
--- NOTE | 2022-09-29 12:06 | PM.MISC ---
Miscellaneous Note Note: Patient seen today Currently on 5 L nasal cannula Mild rhonchi with crackles positive on lung auscultation Awake and alert Laying supine No signs of active heart failure Abdomen soft Pleasant and cooperative Community-acquired pneumonia continue antibiotics Currently on 5 L at baseline uses 3 L Hemodynamically stable D-dimer is high Diastolic CHF without acute exacerbation Continue diuretic regimen Full code Patient can return to [facility] Might request CT chest rule out PE
--- NOTE | 2022-09-29 12:08 | CT_ITS ---
WS: [id number] CTA OF THE CHEST WITH PULMONARY EMBOLISM PROTOCOL TECHNIQUE: High-resolution contrast enhanced CTA of the chest with coronal and sagittal reformatted i mages with pulmonary embolism protocol. MIP images are also reviewed. CLINICAL INFORMATION: hypoxia COMPARISON: September 16, 2022 DLP: 499.[address] scans at [facility] use at least one of these dose optimization techniques: automated e xposure control; mA and/or kV adjustment per patient size (includes targeted exams where dose is matc hed to clinical indication); or iterative reconstruction. FINDINGS: Some images degraded due to breathing artifact and body habitus. Shallow inspiration. Tiny LEFT pleur al effusion. Trace RIGHT pleural effusion. Slight compressive atelectasis LEFT greater than RIGHT low er lobes. Upper lungs are well aerated. Proximal main pulmonary arteries are normal. Normal segmental and subsegmental pulmonary arteries. No evidence of pulmonary embolus. Normal caliber thoracic aorta. Aortic calcification. No mediastinal o r hilar lymphadenopathy. Hepatomegaly. Diffuse fatty infiltration liver. Partially visualized cholelithiasis with prominent ga llstone measuring 2.1 CM. Normal GE junction. Splenomegaly. Thickening LEFT adrenal gland. RIGHT adrenal gland is normal. Moderate thoracic kyphosis. Hypertrophi c changes thoracic spine. CT/CT angio chest PE protcl [id number] IMPRESSION: 1. No evidence of pulmonary embolus. 2. Shallow inspiration. Tiny LEFT and trace RIGHT pleural fluid. 3. Splenomegaly. Hepatomegaly. 4. Cholelithiasis.
[2022-09-29] MEDS: iohexol 350 mg/mL 500 mL Btl (per mL) IV (12:53)
[2022-09-29] MEDS: sodium polystyrene sulfonate 15 gm/60 mL Btl PO (13:38)
[2022-09-29 16:36] LABS: Glucose Point of Care 121 mg/dL (70-110)
[2022-09-29 20:47] LABS: Glucose Point of Care 127 mg/dL (70-110)
[2022-09-29] MEDS: atorvastatin 40 mg Tablet PO (21:31)
[2022-09-30 03:50] VITALS: BP 119/72; PULSE 80; RESP 16; TEMP 36.8; O2SAT 92
[2022-09-30 06:01] LABS: Basophils % 0.3 %; Eosinophils % 0.3 %; Hematocrit 36.6 % (37.0-47.0); Hemoglobin 10.7 g/dL (11.5-15.3); Lymphocytes # 1.9 10^3/uL (0.8-4.8); Lymphocytes % 20.2 %; Mean Corpuscular HGB Conc 29.2 g/dL (30.0-36.0); Mean Corpuscular Hemoglobin 26.7 pg (28.0-34.0); Mean Corpuscular Volume 91.3 fl (81-99); Mean Platelet Volume 10.5 fL (7.4-10.4); Monocytes # 1.1 10^3/uL (0.2-0.9); Monocytes % 11.2 %; Neutrophils # 6.35 10^3/uL (1.8-7.7); Neutrophils % 66.6 %; Nucleated Red Blood Cells % 0 %; Platelet Count 153 10^3/cmm (130-400); Red Blood Count 4.01 10^6/uL (4.1-5.3); Red Cell Distribution Width 14.8 % (12.1-15.1); White Blood Count 9.5 10^3/uL (4.0-10.0)
[2022-09-30 06:05] LABS: Slide Review Slide Review Perform
[2022-09-30 06:17] LABS: Alanine Aminotransferase 7 U/L (0-33); Albumin Level 3.2 g/dL (3.5-5.2); Alkaline Phosphatase 154 U/L (35-105); Blood Urea Nitrogen 12 mg/dL (8-23); Calcium 8.6 mg/dL (8.5-10.5); Carbon Dioxide 38 mmol/L (22-29); Chloride 92 mmol/L (98-107); Globulin 2.8 g/dL (1.3-4.6); Glucose 108 mg/dL (65-115); Osmolality Calculated 284 mOsm/kg (285-295); Sodium 137 mmol/L (136-145); Total Bilirubin 0.2 mg/dL (0.15-1.2)
[2022-09-30 06:35] LABS: Glucose Point of Care 139 mg/dL (70-110)
[2022-09-30 06:40] LABS: Anion Gap 11.6 (5-19); Aspartate Amino Transferase 13 U/L (0-32); Potassium 4.6 mmol/L (3.5-5.1)
[2022-09-30] MEDS: cefTRIAXone 1,000 MG in sodium chloride 0.9% (plus) 50 ML 100 MG IV (06:44)
[2022-09-30] MEDS: FUROsemide 40 mg Tablet PO ×2 (06:44→15:50)
[2022-09-30] MEDS: levothyroxine 75 mcg Tablet PO (06:44)
[2022-09-30] MEDS: metoprolol tartrate 25 mg Tablet PO (06:44)
[2022-09-30 08:00] VITALS: BP 138/80; PULSE 66; PULSE 96; RESP 16; RESP 19; TEMP 37.1; O2SAT 92; O2SAT 94
[2022-09-30] MEDS: pantoprazole DR 40 mg Tablet PO (08:55)
[2022-09-30] MEDS: enoxaparin 40 mg/0.4 mL Syringe SUBCUT (08:55)
[2022-09-30] MEDS: aspirin 81 mg Chew Tablet PO (08:55)
[2022-09-30] MEDS: acetaminophen 325 mg Tablet 650 MG PO (08:55)
[2022-09-30] MEDS: azithromycin 250 mg Tablet 500 MG PO (08:55)
--- NOTE | 2022-09-30 10:28 | PC.CHAP ---
Pastoral Care Encounter/Spiritual Assessment Type of Contact [] Declined passenger relations representative visit [] Patient/Family/Request visit [] Outpatient visit [] Follow-up visit [] Physician referral [] Code/Alert [x] Routine visit [] Staff referral [] Actively dying [] Patient sleeping [] Family support [] [] Out of room [] Palliative care [] [] Receiving care in room [] Pre-surgical visit [] Trauma [] Long length of stay [] ICU visit [] Other: Relational/Emotional Strength [x] Patient feels connected with others/family/visitors/staff [] Distress [] Loneliness/isolation [] Abandonment Spirituality of Patient [x] Person of Solange [] Attends Hoahaoism of their Solange [x] Believes in Prayer [] Reads Bible or Yazdanism materials [] There are Spiritual issues to be addressed Library Page Interventions [x] Prayer [x] Active listening [] Non-anxious presence [x] Spiritual/emotional support [] Crisis/trauma care [] Spiritual counseling [] Bereavement support [] Provided bereavement packet [] Provided Bible/devotional materials [] Provided toy/stuffed animal, coloring book to patient or family member [] Provided Communion [] Anointing/[place] [] Salvation [x] Completed spiritual assessment [] Other: Impact on Illness or Injury [] Angry [] Fearful [] Anxious [] Often cries [] Exhaustion [] Unable to work [] Unable to attend pentecostal [] Unable to walk/stand [] Unable to read [] Unable to drive [] Unable to eat/drink [] Unable to sleep [] Unable to be with family [] Patient intubated [] Other: Summary Time spent with patient 5 min
[2022-09-30 11:18] LABS: Glucose Point of Care 179 mg/dL (70-110)
[2022-09-30 12:00] VITALS: BP 109/62; PULSE 72; RESP 16; TEMP 36.8; O2SAT 94
[2022-09-30] MEDS: insulin lispro 100 unit/1 mL SUBCUT (12:40)
--- NOTE | 2022-09-30 12:56 | PM.PN ---
Subjective Subjective: Pneumonia rule out Challenge duration No evidence of PE Splenomegaly hepatomegaly Cholelithiasis Patient has been afebrile Patient wants to go back to [facility] for some rehab and then may return home however son was called who is stating that he would prefer some rehab/usp Vitals/I&O/Wt Last Vital Signs Temp 98.7 F 09/30/22 08:00 Pulse 66 09/30/22 08:00 Resp 16 09/30/22 08:00 BP 138/80 09/30/22 08:00 Pulse Ox 92 09/30/22 08:00 O2 Del Method 09/30/22 08:00 O2 Flow Rate 4 09/30/22 08:00 09/29/22 09/30/22 09/30/22 22:59 06:59 14:59 Intake Total 480 / 890 120 / 1010 290 / 290 Output Total 3250 / 3650 200 / 3850 Balance -2770 / -2760 -80 / -2840 290 / 290 Weight last 48 hrs Weight 140.614 kg Physical Exam Narrative: Patient has mild conversational dyspnea Afebrile Clinical signs of fluid overload however not worsened since yesterday Currently on 4 L nasal cannula Awake and alert Eating breakfast Watching television Hemodynamic stable Abdomen distended soft Lower extremity dried no active swelling noted GCS 15 Data 09/30/22 05:33 09/30/22 05:33 Micro: Microbiology 09/29/22 03:13 Blood Culture - Preliminary Blood NEGATIVE TO DATE 09/29/22 03:11 Blood Culture - Preliminary Blood NEGATIVE TO DATE A&P Assessment and plan (1) CHF (congestive heart failure): (2) Community acquired pneumonia: Qualifiers: Laterality: left Lung location: unspecified part of lung Qualified Code(s): J18.9 - Pneumonia, unspecified organism (3) Physical deconditioning: Plan Pneumonia: Ruled out Afebrile CT scan did not show any consolidation No signs of PE Diastolic CHF Continue Lasix 40 mg twice a day Watch for contraction alkalosis Acute on chronic hypoxia currently on 4 L This is related to hypoventilation atelectasis and morbid obesity Pneumonia ruled out Patient will need to go back to [facility] for her deconditioning, will request home O2 eval Son is also asking for placement Patient is stating that she is not ready to be placed in a [facility] for 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
[2022-09-30 16:00] VITALS: BP 125/75; PULSE 80; RESP 16; TEMP 37.3; O2SAT 95
[2022-09-30 17:21] LABS: Glucose Point of Care 97 mg/dL (70-110)
[2022-09-30 20:00] VITALS: BP 116/69; PULSE 73; RESP 16; TEMP 36.8; O2SAT 94
[2022-09-30 21:15] VITALS: PULSE 72; RESP 16; O2SAT 94
[2022-09-30 21:42] LABS: Glucose Point of Care 124 mg/dL (70-110)
[2022-09-30] MEDS: atorvastatin 40 mg Tablet PO (21:46)
[2022-10-01] VITALS (7 sets, daily range): BP systolic 114–132; BP diastolic 69–79; PULSE 66–85; RESP 15–18; TEMP 36.4–36.9; O2SAT 90–96
[2022-10-01] MEDS: acetaminophen 325 mg Tablet 650 MG PO ×2 (00:36→21:34)
[2022-10-01 05:33] LABS: Anion Gap 8.3 (5-19); Blood Urea Nitrogen 15 mg/dL (8-23); Calcium 8.5 mg/dL (8.5-10.5); Chloride 91 mmol/L (98-107); Glucose 109 mg/dL (65-115); Osmolality Calculated 287 mOsm/kg (285-295); Potassium 4.3 mmol/L (3.5-5.1); Sodium 138 mmol/L (136-145)
[2022-10-01 05:40] LABS: Carbon Dioxide 43 mmol/L (22-29)
[2022-10-01] MEDS: metoprolol tartrate 25 mg Tablet PO (06:03)
[2022-10-01] MEDS: levothyroxine 75 mcg Tablet PO (06:03)
[2022-10-01 06:45] LABS: Glucose Point of Care 106 mg/dL (70-110)
[2022-10-01] MEDS: enoxaparin 40 mg/0.4 mL Syringe SUBCUT (08:37)
[2022-10-01] MEDS: pantoprazole DR 40 mg Tablet PO (08:37)
[2022-10-01] MEDS: aspirin 81 mg Chew Tablet PO (08:37)
--- NOTE | 2022-10-01 10:58 | P.PN_ITS ---
Subjective Subjective: Overdiuresis Contraction alkalosis Held Lasix Afebrile Currently on 3.5 L Patient is agreeable to go back to [facility] she is stating that she is looking forward to go back to her rehab if that is not approved then she might consider another facility or staying home with her son She thinks she is getting better Vitals/I&O/Wt Last Vital Signs Temp 97.8 F 10/01/22 08:00 Pulse 69 10/01/22 08:57 Resp 16 10/01/22 08:57 BP 129/76 10/01/22 08:00 Pulse Ox 93 10/01/22 08:57 O2 Del Method 10/01/22 08:57 O2 Flow Rate 3.5 10/01/22 08:57 09/30/22 10/01/22 10/01/22 22:59 06:59 14:59 Intake Total 240 / 650 Output Total 1150 / 1150 250 / 1400 Balance -910 / -500 -250 / -750 Physical Exam 2 Narrative: Awake and alert Currently on 3.5 L S1, S2 variable Abdomen soft distended Lower extremity no edema Morbidly obese No audible stridor or wheezing Awake and alert watching television eating breakfast Cooperative Nonfocal neuro exam Data 09/30/22 05:33 10/01/22 04:43 A&P Assessment and plan (1) Physical deconditioning: (2) CHF (congestive heart failure): (3) Metabolic alkalosis: Plan Diastolic CHF exacerbation: Over diuresed Given acetazolamide today Hold Lasix Pneumonia: Ruled out Physical deconditioning Morbid obesity Quijano catheter can be removed today Acute on chronic hypoxia currently on 3.5 L At baseline is on 3 L Full code Cardiac diet Prior Auth needed Patient is high risk for readmissions considering her body habitus and CHF exacerbations, Attestations Medical Necessity Statement*: Awaiting placement and Moderate MDM includes number and complexity of problems actively addressed during encounter, amount and/or complexity of data reviewed/ordered and described risk of complication, morbidity or mortality of management as documented Diagnoses Physical deconditioning R53.81 CHF (congestive heart failure) I50.9 Metabolic alkalosis E87.3
[2022-10-01 11:59] LABS: Glucose Point of Care 150 mg/dL (70-110)
[2022-10-01 17:07] LABS: Glucose Point of Care 118 mg/dL (70-110)
[2022-10-01] MEDS: atorvastatin 40 mg Tablet PO (21:34)
[2022-10-01] MEDS: trazodone 50 mg Tablet PO (21:34)
[2022-10-01 22:13] LABS: Glucose Point of Care 112 mg/dL (70-110)
[2022-10-02] VITALS (7 sets, daily range): BP systolic 119–136; BP diastolic 70–84; PULSE 64–82; RESP 16–18; TEMP 36.6–36.9; O2SAT 85–97
[2022-10-02] MEDS: levothyroxine 75 mcg Tablet PO (05:20)
[2022-10-02] MEDS: metoprolol tartrate 25 mg Tablet PO (05:20)
[2022-10-02] MEDS: acetaminophen 325 mg Tablet 650 MG PO (05:23)
[2022-10-02 05:32] LABS: Anion Gap 6.2 (5-19); Blood Urea Nitrogen 13 mg/dL (8-23); Calcium 8.9 mg/dL (8.5-10.5); Chloride 91 mmol/L (98-107); Glucose 106 mg/dL (65-115); Osmolality Calculated 285 mOsm/kg (285-295); Potassium 4.2 mmol/L (3.5-5.1); Sodium 137 mmol/L (136-145)
[2022-10-02 05:41] LABS: Carbon Dioxide 44 mmol/L (22-29)
[2022-10-02 06:50] LABS: Glucose Point of Care 129 mg/dL (70-110)
[2022-10-02] MEDS: pantoprazole DR 40 mg Tablet PO (09:27)
[2022-10-02] MEDS: aspirin 81 mg Chew Tablet PO (09:28)
[2022-10-02] MEDS: enoxaparin 40 mg/0.4 mL Syringe SUBCUT (09:43)
[2022-10-02] MEDS: acetaZOLAMIDE 250 mg Tablet 500 MG PO (09:43)
--- NOTE | 2022-10-02 09:55 | P.DS_ITS ---
Discharge Providers Date of Admission: 09/29/22 04:36 Date of Discharge: October 02, 2022 Attending Provider at Admission: Sonali Adan MD Attending Provider at Discharge: Brianna Montemayor MD Diagnoses at Discharge Discharge Diagnosis (1) Physical deconditioning: Status: Acute (2) CHF (congestive heart failure): Status: Acute (3) Metabolic alkalosis: Status: Acute Reason for Visit Reason for Visit: SOB Hospital Course Hospital Course 77-year-old female who has a history of diastolic CHF, physical deconditioning, was recently discharged from the hospital for management of diastolic CHF exacerbation, her diuresis is a big challenge because it is very hard to assess volume status considering her body habitus, she tends to go towards contraction alkalosis, she has no motivation at all to get out of bed and walk with a walker however at [facility] she was admitted for rehab, she was sent back for worsening of shortness of breath with concerns of pneumonia she was given antibiotics initially however lung CT chest did not show any kind of pulmonary embolism or consolidation antibiotics were discontinued, she remained afebrile cultures negative. At baseline she requires 3 L of oxygen. In the hospital she has been fluctuating between 3 to 3.5 L. She is showing signs of contraction alkalosis, she was given 2 doses of acetazolamide. I have asked her to not take Lasix twice a day at home and only use 40 mg daily. In reality, she needs long- term placement but she is not wanting to give up her Social Security check at this point I did reinforce the point that she might not do well at home considering her deconditioning. At this point we are trying to arrange home health. shopping centre manager told me that there was some issues with home health arrangements last time, will look into outpatient physical therapy if home health services not possible at this point. She is at risk of readmissions, she gets steroid injections by Dr. Bonilla for knee pain. Limited physical activity. Spoke with her son multiple times during this hospitalization. Patient is stating that she will likely choose assisted living where her son could also be there across the [place] but she is not ready for that yet. Please note on my previous visit I recommended patient to take conservative approach in terms of diuretics but every time she gets short of breath which I believe is secondary to physical deconditioning, morbid obesity, atelectasis, hypoventilation she increase her Lasix dose to twice a day which aggravates her intravascular volume depletion. At this point I am not sure if she will be a suitable candidate for cardiac/pulmonary rehab Physical Exam Narrative: Skin wrinkling noted She is watching movie on her iPad No active distress No active chest pain S1, S2 Pleasant and cooperative Morbidly obese Discharge Data Studies Completed and Pending Completed Studies During Hospitalization Category Date Time Status CTA PE [CT angio chest PE protcl [id number]] Routine Cat Scan 09/29/22 12:08 Completed XR chest 1V portable [id number] Stat Exams 09/28/22 23:40 Completed Pending at discharge Category Date Time Status Bacterial Antigen Routine Lab 09/29/22 06:56 Uncollected Blood Culture Stat Lab 09/29/22 03:13 Results MRSA by PCR Routine Lab 09/29/22 06:56 Uncollected Radiology Impressions Chest X-Ray 09/28/22 23:40 IMPRESSION: 1. Cardiomegaly and mild pulmonary vascular congestion. 2. Bibasilar left greater than right atelectasis versus infiltrate. Chest CTA 09/29/22 12:08 IMPRESSION: 1. No evidence of pulmonary embolus. 2. Shallow inspiration. Tiny LEFT and trace RIGHT pleural fluid. 3. Splenomegaly. Hepatomegaly. 4. Cholelithiasis. Laboratory Results WBC 9.5 10^3/uL (4.0-10.0) 09/30/22 05:33 RBC 4.01 10^6/uL (4.1-5.3) L 09/30/22 05:33 Hgb 10.7 g/dL (11.5-15.3) L 09/30/22 05:33 Hct 36.6 % (37.0-47.0) L 09/30/22 05:33 MCV 91.3 fl (81-99) 09/30/22 05:33 MCH 26.7 pg (28.0-34.0) L 09/30/22 05:33 MCHC 29.2 g/dL (30.0-36.0) L 09/30/22 05:33 RDW 14.8 % (12.1-15.1) 09/30/22 05:33 Plt Count 153 10^3/cmm (130-400) D 09/30/22 05:33 MPV 10.5 fL (7.4-10.4) H 09/30/22 05:33 Neut % (Auto) 66.6 % 09/30/22 05:33 Lymph % (Auto) 20.2 % 09/30/22 05:33 [place] % (Auto) 11.2 % 09/30/22 05:33 Eos % (Auto) 0.3 % 09/30/22 05:33 Baso % (Auto) 0.3 % 09/30/22 05:33 Neut # (Auto) 6.35 10^3/uL (1.8-7.7) 09/30/22 05:33 Lymph # (Auto) 1.9 10^3/uL (0.8-4.8) 09/30/22 05:33 [place] # (Auto) 1.1 10^3/uL (0.2-0.9) H 09/30/22 05:33 Eos # (Auto) 0.0 10^3/uL (0.0-0.8) 09/30/22 05:33 Baso # (Auto) 0.0 10^3/uL (0.0-0.1) 09/30/22 05:33 Nucleated RBC % (auto) 0 % 09/30/22 05:33 Nucleated RBCs # 0.0 /100WBC 09/30/22 05:33 D-Dimer 2.26 ug/mIFEU (0-0.59) H 09/29/22 03:13 Sodium 137 mmol/L (136-145) 10/02/22 04:11 Potassium 4.2 mmol/L (3.5-5.1) 10/02/22 04:11 Chloride 91 mmol/L (98-107) L 10/02/22 04:11 Carbon Dioxide 44 mmol/L (22-29) H* 10/02/22 04:11 Anion Gap 6.2 (5-19) 10/02/22 04:11 BUN 13 mg/dL (8-23) 10/02/22 04:11 Creatinine 0.5 mg/dL (0.5-0.9) 10/02/22 04:11 GFR Calculation Not Reportable 10/02/22 04:11 Glucose 106 mg/dL (65-115) 10/02/22 04:11 POC Glucose 129 mg/dL (70-110) H 10/02/22 06:39 Calculated Osmolality 285 mOsm/kg (285-295) 10/02/22 04:11 Lactate 0.9 mmol/L (0.5-2.2) 09/29/22 03:13 Calcium 8.9 mg/dL (8.5-10.5) 10/02/22 04:11 Total Bilirubin 0.2 mg/dL (0.15-1.2) 09/30/22 05:33 AST 13 U/L (0-32) 09/30/22 05:33 ALT 7 U/L (0-33) 09/30/22 05:33 Alkaline Phosphatase 154 U/L (35-105) H 09/30/22 05:33 Troponin T Baseline 26 ng/L (0-10) H 09/29/22 00:00 Troponin T 120 Minute 25.75 ng/L (0-10) H 09/29/22 03:13 Delta Troponin T -0.25 ABS# (0-10) L 09/29/22 03:13 Troponin T Hi Sens 6Hr 21.57 ng/L (0-10) H 09/29/22 06:35 Troponin T Hi Sens 6Hr Delta -4.43 ng/L (0-12) L 09/29/22 06:35 NT-Pro-B Natriuret Pep 412 pg/mL (0-450) 09/29/22 00:00 Total Protein 6.0 g/dL (6.6-8.7) L 09/30/22 05:33 Albumin 3.2 g/dL (3.5-5.2) L 09/30/22 05:33 Globulin 2.8 g/dL (1.3-4.6) 09/30/22 05:33 Nasal Influ A H1 2008 PCR Not detected (NOT DETECT) 09/29/22 00:05 Adenovirus (PCR) Not detected (NOT DETECT) 09/29/22 00:05 C. pneumoniae DNA (PCR) Not detected (NOT DETECT) 09/29/22 00:05 Coronavirus 229E (PCR) Not detected (NOT DETECT) 09/29/22 00:05 Human Metapneumovir PCR Not detected (NOT DETECT) 09/29/22 00:05 Influenza A (H1) PCR Not detected (NOT DETECT) 09/29/22 00:05 Influenza A (H3) PCR Not detected (NOT DETECT) 09/29/22 00:05 Influenza Type A (PCR) Not detected (NOT DETECT) 09/29/22 00:05 Influenza Type B (PCR) Not detected (NOT DETECT) 09/29/22 00:05 M. pneumoniae (PCR) Not detected (NOT DETECT) 09/29/22 00:05 Parainfluenza 1 (PCR) Not detected (NOT DETECT) 09/29/22 00:05 Parainfluenza 2 (PCR) Not detected (NOT DETECT) 09/29/22 00:05 Parainfluenza 3 (PCR) Not detected (NOT DETECT) 09/29/22 00:05 Parainfluenza 4 (PCR) Not detected (NOT DETECT) 09/29/22 00:05 RSV Type A (PCR) Not detected (NOT DETECT) 09/29/22 00:05 RSV Type B (PCR) Not detected (NOT DETECT) 09/29/22 00:05 Entero/Rhino (PCR) Not detected (NOT DETECT) 09/29/22 00:05 SARS-CoV-2 (PCR) Not detected (NOT DETECT) 09/29/22 00:05 Vitals Last Vital Signs Temp 98.2 F 10/02/22 08:00 Pulse 64 10/02/22 08:00 Resp 16 10/02/22 08:00 BP 122/84 10/02/22 08:00 Pulse Ox 94 10/02/22 08:00 O2 Del Method 10/02/22 07:31 O2 Flow Rate 4 10/02/22 03:54 FiO2 3.5 10/02/22 07:31 Discharge Plan Discharge Patient Disposition: Home Condition: Stable Prescriptions: Continued hyoscyamine sulfate 0.125 mg tablet 0.125 mg PO Q12H PRN (Reason: IBS Symptoms) Myrbetriq 50 mg tablet extended release 24 hr 50 mg PO DAILY atorvastatin 40 mg tablet 40 mg PO BEDTIME 30 Days Qty: 30 0RF aspirin 81 mg Tablet,Chewable 81 mg PO DAILY 30 Days Qty: 30 0RF albuterol sulfate 2.5 mg /3 mL (0.083 %) solution for nebulization 2.5 mg inhalation TID PRN (Reason: Shortness Of Breath) cetirizine [Zyrtec] 10 mg Tablet 10 mg PO DAILY ascorbic acid (vitamin C) [Vitamin C] 500 mg Tablet 500 mg PO DAILY ferrous sulfate [iron] 325 mg (65 mg iron) Tablet 325 mg PO DAILY esomeprazole magnesium 20 mg capsule,delayed release(DR/EC) 20 mg PO DAILY diclofenac sodium [Voltaren Arthritis Pain] 1 % gel 2 g topical QID PRN (Reason: Pain) Rx Instructions: apply topically to left knee levothyroxine 75 mcg tablet 75 mcg PO QAM fluticasone propion-salmeterol [Advair Diskus] 100-50 mcg/dose blister with device 1 inh inhalation BID Qty: 60 0RF albuterol sulfate 90 mcg/actuation HFA aerosol inhaler 1 inh inhalation Q4H PRN (Reason: shortness of breath or wheezing) Qty: 8.5 0RF potassium chloride 20 mEq tablet,ER particles/crystals 20 meq PO Q12H 30 Days Qty: 60 0RF trazodone 50 mg tablet 50 mg PO BEDTIME PRN (Reason: Sleep) Januvia 25 mg tablet 25 mg PO DAILY diclofenac sodium 1 % gel See Rx Instructions .ROUTE .COMPLEX Rx Instructions: topically as directed Milk of Magnesia 400 mg/5 mL Suspension 30 ml PO Q3D PRN (Reason: Constipation) Dulcolax (bisacodyl) 10 mg Suppository 10 mg ID DAILY PRN (Reason: Constipation) Dulcolax (bisacodyl) 5 mg Tablet,Delayed Release (Dr/Ec) 20 mg PO DAILY PRN (Reason: Constipation) Mylanta 200-200-20 mg/5 mL Suspension 5 ml PO 5XD PRN (Reason: Indigestion) Rx Instructions: administer between meals and at bedtime metoprolol tartrate 25 mg tablet 25 mg PO DAILY Tylenol 325 mg Capsule 650 mg PO QID PRN (Reason: Pain) Mucinex 600 mg Tablet Extended Release 12hr 600 mg PO Q12H PRN (Reason: Congestion) furosemide [Lasix] 40 mg tablet 40 mg PO QAM Qty: 60 2RF Discontinued furosemide [Lasix] 20 mg tablet 20 mg PO QPM PRN (Reason: weight gain) Qty: 60 0RF Rx Instructions: Only take on as-needed basis if 80 mg of Lasix is not enough Discharge Orders: Discharge Order (Routine); Ordered 10/02/22 Ordered By: Reed Sim Discharge Diet: Cardiac Discharge Activity: Use walker/crutches as instructed Patient Instructions: Opioid Safety Discharge Attestations Time Spent in Discharge Care*: less than 30 min Quality Metrics Clinical Quality Measures [ No reported AMI, CVA or VTE this stay] Coding Level of Care Code Acute Code for Chg Fwd Diagnoses Physical deconditioning R53.81 CHF (congestive heart failure) I50.9 Metabolic alkalosis E87.3
[2022-10-02 12:06] LABS: Glucose Point of Care 165 mg/dL (70-110)
[2022-10-02] MEDS: insulin lispro 100 unit/1 mL SUBCUT (12:22)
== END 2022-10-02 15:05 | disposition home or self-care (01) | DRG 292 ==
LOC: ER 23:51 → MEDSURG 09-29 04:36
PROVIDERS: Emergency Medicine; Admitting Provider Student in an Organized Health Care Education/Training Program; Emergency Provider Physician Assistant; Visit Provider Internal Medicine
DX: I50.33 Acute on chronic diastolic (congestive) heart failure (principal); E66.2 Morbid (severe) obesity with alveolar hypoventilation; E87.20 Acidosis, unspecified; Z68.44 Body mass index [BMI] 60.0-69.9, adult; Z99.81 Dependence on supplemental oxygen; Z79.82 Long term (current) use of aspirin; Z79.51 Long term (current) use of inhaled steroids; Z79.891 Long term (current) use of opiate analgesic; Z86.16 Personal history of COVID-19; E11.9 Type 2 diabetes mellitus without complications; E04.2 Nontoxic multinodular goiter; J44.9 Chronic obstructive pulmonary disease, unspecified
CPT/HCPCS: 36415; 36416; 71045; 71275; 80048; 80053; 82962; 83605; 83880; 84484; 85025; 85378; 87040; 87486; 87581; 87633; 93005; 94760; 96365; 96372; 99285; J0696; J1650; J1815; J1940; J2543; Q0144; Q9967

== ENCOUNTER → 2022-10-29 11:47 | Outpatient (BNVA) | payer MEDICARE, MEDICAID, SELFPAY | PROVIDERS: PCP Family Medicine; Visit Provider Urology | DX: I50.9 Heart failure, unspecified (principal); R33.9 Retention of urine, unspecified; Z97.8 Presence of other specified devices | CPT/HCPCS: 99202 ==

== ENCOUNTER 2022-10-29 15:38 | Emergency (ER) | payer MEDICARE, MEDICAID, SELFPAY ==
[2022-10-29 15:42] VITALS: BP 116/78; PULSE 80; RESP 17; TEMP 36.6; O2SAT 95; BMI 61.5
--- NOTE | 2022-10-29 15:48 | W.ED.LOWEXIN ---
HPI - Extremity Injury (Lower) General: Chief Complaint: Fall Stated Complaint: FALL/ KNEE PAIN Time Seen by Provider: 10/29/22 15:48 History of Present Illness: Ms. Brooke is a 77-year-old lady with complex past medical history presenting to the emergency department for fall with knee pain. She reports history of difficulty ambulating and her knee giving out however this is waxed and waned over some period of time. Today she was transferring from a commode and fell with primary weight on the left leg. Immediately had pain specifically around the knee area. Moderate intensity. Worse with attempts to ambulate and weight-bear. No other specific changes in health, exacerbating, or alleviating factors identified. Onset (ago): hour(s) Type of Injury: blunt Severity: moderate Exacerbating factors: weight bearing and palpation Context: fall Associated symptoms: Reports no associated symptoms Review of Systems General: Reports: 10 or more systems reviewed and unremarkable except in HPI and below PFSH ED PFSH: Medical History Acute exacerbation of CHF (congestive heart failure) Acute exacerbation of chronic obstructive pulmonary disease Alkalosis Anemia Arthritis of shoulder region, right, degenerative CHF (congestive heart failure) CHF exacerbation CHF exacerbation Community acquired pneumonia COPD (chronic obstructive pulmonary disease) Diabetes Foot pain, right Hypothyroidism Hypothyroidism Lower extremity edema Metabolic alkalosis Morbid obesity with BMI of 50.0-59.9, adult Multinodular goiter Obesity hypoventilation syndrome Physical deconditioning Pneumonia Requires oxygen therapy Volume overload Surgical History H/O knee surgery Family History Father , at age 81 CAD (coronary artery disease) Mother , at age 82 No problems noted. Social History Smoking and tobacco status: never smoked Alcohol intake: never Marital status: Current occupational status: retired Physical Exam Const: COMMON NORMALS: alert GENERAL APPEARANCE: cooperative and well developed HENMT: COMMON NORMALS: normocephalic and atraumatic HEAD & SCALP: normocephalic and atraumatic Eye: COMMON NORMALS: conjunctivae normal CONJUNCTIVA: Yes conjunctivae normal SCLERA: sclerae normal Neck/C-Spine: COMMON NORMALS: supple GENERAL: Yes trachea midline Resp: COMMON NORMALS: normal respiratory effort EFFORT & INSPECTION: Yes able to speak in complete sentences Cardio: COMMON NORMALS: regular rate and regular rhythm RATE: regular rate RHYTHM: regular rhythm GI: COMMON NORMALS: Soft to palpation PALPATION: Yes Soft to palpation and No Tenderness to palpation present (GI) Extremity: NARRATIVE EXTREMITY EXAM: Left lower extremity with generalized tenderness palpation, no obvious deformity or evidence of open injury. GENERAL: Yes normal exam except as noted and No edema Neuro: COMMON NORMALS: moves all extremities SENSORIUM/ORIENTATION: Yes alert and No Orientation impaired Psych: COMMON NORMALS: mental status grossly normal and Normal thought process present THOUGHT PROCESS: Normal thought process present Course Vital Signs: Vital signs: Vital Signs Temperature 97.9 F 10/29/22 15:42 Pulse Rate 91 10/29/22 21:32 Respiratory Rate 20 H 10/29/22 21:32 Blood Pressure 116/78 10/29/22 15:42 Pulse Oximetry 95 10/29/22 21:32 Oxygen Delivery Me thod Nasal Cannula 10/29/22 15:42 Oxygen Flow Rate 3 10/29/22 15:42 MDM - Extremity Injury (Lower) Medical Decision Making 77-year-old lady presenting to the emerged department due to fall. Head to toe exam performed. Isolated lower extremity injury identified. Imaging is limited secondary to body habitus. X-rays are negative for significant abnormality. Given limitations and reassessment CT indicated. CT negative for fracture. Incidental findings discussed with patient. Improved with analgesia. The results of ED evaluation were discussed with the patient including prescriptions and/or symptomatic cares (if applicable) including appropriate and responsible use, followup plan, and return precautions. The patient verbalized understanding and felt safe for discharge. Medical Records I reviewed the patient's medical records. Lab Data I reviewed the patient's lab results. Radiology Impressions Femur X-Ray 10/29/22 15:54 IMPRESSION: Limited study. No acute bony abnormalities. Foot X-Ray 10/29/22 15:54 IMPRESSION: No acute bony abnormalities. Hip/Pelvis X-Ray 10/29/22 15:54 IMPRESSION: Limited examination. No acute bony abnormalities detected. Tibia/Fibula X-Ray 10/29/22 15:54 IMPRESSION: No acute bony abnormalities. Knee CT 10/29/22 16:46 IMPRESSION: 1. Negative for fracture or dislocation. 2. 3.8 cm Hill's cyst. 3. Small to moderate joint effusion. 4. 16 mm chronic appearing loose body in the suprapatellar joint space. 5. Severe tricompartmental osteoarthritis of the knee. 6. Subcutaneous edema about the knee, nonspecific. 7. Scattered vascular calcifications. Discharge Plan Discharge Patient Disposition: Home Clinical Impression: Fall, Knee pain, left Condition: Stable Prescriptions: No Action hyoscyamine sulfate 0.125 mg tablet 0.125 mg PO Q12H Myrbetriq 50 mg tablet extended release 24 hr 50 mg PO DAILY@12 atorvastatin 40 mg tablet 40 mg PO BEDTIME 30 Days Qty: 30 0RF aspirin 81 mg Tablet,Chewable 81 mg PO DAILY 30 Days Qty: 30 0RF albuterol sulfate 2.5 mg /3 mL (0.083 %) solution for nebulization 2.5 mg inhalation TID PRN (Reason: Shortness Of Breath) cetirizine [Zyrtec] 10 mg Tablet 10 mg PO DAILY@12 ascorbic acid (vitamin C) [Vitamin C] 500 mg Tablet 500 mg PO DAILY ferrous sulfate [iron] 325 mg (65 mg iron) Tablet 325 mg PO DAILY@12 esomeprazole magnesium 20 mg capsule,delayed release(DR/EC) 20 mg PO QAM diclofenac sodium [Voltaren Arthritis Pain] 1 % gel 2 g topical QID PRN (Reason: Pain) Rx Instructions: apply topically to left knee levothyroxine 75 mcg tablet 75 mcg PO QAM albuterol sulfate 90 mcg/actuation HFA aerosol inhaler 1 inh inhalation Q4H PRN (Reason: shortness of breath or wheezing) Qty: 8.5 0RF potassium chloride 20 mEq tablet,ER particles/crystals 20 meq PO Q12H 30 Days Qty: 60 0RF trazodone 50 mg tablet 50 mg PO BEDTIME PRN (Reason: Sleep) Januvia 25 mg tablet 25 mg PO DAILY metoprolol tartrate 25 mg tablet 25 mg PO DAILY@12 acetaminophen [Tylenol] 325 mg Capsule 650 mg PO QID PRN (Reason: Pain) Super B Complex Tablet 1 tab PO DAILY Biofreeze 0.2-3.5 % Gel 1 applic TOPICAL DAILY PRN (Reason: Pain) Rx Instructions: rub in gently and completely Lasix 40 mg tablet See Rx Instructions .ROUTE .COMPLEX Rx Instructions: 40mg po qam and 20mg po qpm Discharge Orders: Discharge ED (Routine); Ordered 10/29/22 Ordered By: Bill Muñoz Referrals: Juan Jose Munoz, [Primary Care Provider] - Discharge Diet: Usual diet Discharge Activity: Increase activity as tolerated Patient Instructions: Fall Prevention for Older Adults (ED), Knee Pain (ED), Opioid Safety Activity Restrictions/Additional Instructions: Thank you for visiting the emergency department. You were seen and evaluated for fall with knee pain. Based on ED evaluation you do not require hospitalization at this point. You may use [id number] medications such as acetaminophen and ibuprofen for pain however please do not exceed the daily recommended dosage as listed on the packaging and please keep in mind that many namebrand medications contain the same active ingredients. Please avoid these medications if previously instructed to do so by another physician due to other underlying medical condition. Please follow-up with your primary care provider. Return to the emergency department for anything that you are concerned about and feel needs emergency department evaluation. Coding Level of Care Code ED Project Control Manager for Coby Cintron
--- NOTE | 2022-10-29 15:54 | XRR_ITS ---
PROCEDURE INFORMATION: Exam: XR Left Femur Exam date and time: 10/29/2022 4:05 PM Age: 77 years old Clinical indication: Injury or trauma; Fall; Other: Pain; Additional info: Fall with left leg pain TECHNIQUE: Imaging protocol: Radiologic exam of the left femur. Views: 2 views. COMPARISON: CR XR hip LT 2-3V wo/w pel* [id number] 10/29/2022 4:02 PM FINDINGS: Limitations: Assessment is limited due to body habitus. Bones/joints: There are advanced degenerative changes left knee joint with prominent marginal osteophytes. Remainder of the visualized osseous structures are unremarkable. There is no underlying fracture deformity. Soft tissues: Difficult to evaluate due to body habitus. XR/XR femur LT min 2V* [id number] IMPRESSION: Limited study. No acute bony abnormalities.
--- NOTE | 2022-10-29 15:54 | XRR_ITS ---
PROCEDURE INFORMATION: Exam: XR Left Foot Exam date and time: 10/29/2022 4:10 PM Age: 77 years old Clinical indication: Injury or trauma; Fall; Other: Pain; Additional info: Fall with left leg pain TECHNIQUE: Imaging protocol: Radiologic exam of the left foot. Views: 3 or more views. COMPARISON: CR XR tibia fibula LT 2V [id number] 10/29/2022 4:09 PM FINDINGS: Bones/joints: There is mild midfoot osteoarthritis and small plantar spur arising from the calcaneus. There is no fracture, dislocation or gross malalignment. Soft tissues: Difficult to assess due to body habitus. XR/XR foot LT min 3V* [id number] IMPRESSION: No acute bony abnormalities.
--- NOTE | 2022-10-29 15:54 | XRR_ITS ---
PROCEDURE INFORMATION: Exam: XR Left Tibia and Fibula Exam date and time: 10/29/2022 4:09 PM Age: 77 years old Clinical indication: Injury or trauma; Fall; Other: Pain; Additional info: Fall with left leg pain TECHNIQUE: Imaging protocol: Radiologic exam of the left tibia and fibula. Views: 2 views. COMPARISON: CR XR knee LT 1-2V [id number] 04/15/2022 2:39 PM FINDINGS: Bones/joints: There are advanced degenerative changes at the knee joint. 4 cm indistinct ossific density projecting posterior to the knee joint within the popliteal fossa that may represent a large loose body. Ankle joint is fairly well preserved. There is no fracture, deformity or gross malalignment. Soft tissues: Difficult to assess due to body habitus. XR/XR tibia fibula LT 2V [id number] IMPRESSION: No acute bony abnormalities.
--- NOTE | 2022-10-29 15:54 | XRR_ITS ---
PROCEDURE INFORMATION: Exam: XR Left Hip Exam date and time: 10/29/2022 4:02 PM Age: 77 years old Clinical indication: Injury or trauma; Fall; Other: Pain; Additional info: Fall with left leg pain TECHNIQUE: Imaging protocol: Radiologic exam of the left hip. Views: 2 or 3 views hip with pelvis when performed. COMPARISON: No relevant prior studies available. FINDINGS: Limitations: Assessment is limited due to body habitus. Bones/joints: Mild degenerative changes left hip joint. No fracture, dislocation or malalignment. Soft tissues: Difficult to assess due to body habitus. XR/XR hip LT 2-3V wo/w pel* [id number] IMPRESSION: Limited examination. No acute bony abnormalities detected.
--- NOTE | 2022-10-29 16:46 | CTR_ITS ---
PROCEDURE INFORMATION: Exam: CT Left Lower Extremity Without Contrast, Knee Exam date and time: 10/29/2022 5:56 PM Age: 77 years old Clinical indication: Injury or trauma; Fall; Sprain or strain; Patella or knee; Left; Additional info: Fall, knee pain, unable to ambulate TECHNIQUE: Imaging protocol: CT of the left lower extremity without contrast was performed. Exam focused on the knee. Radiation optimization: All CT scans at this facility use at least one of these dose optimization techniques: automated exposure control; mA and/or kV adjustment per patient size (includes targeted exams where dose is matched to clinical indication); or iterative reconstruction. REPORTING DATA: Count of CT and Cardiac NM exams in prior 12 months: This patient has received 3 known CTs and 0 known cardiac nuclear medicine studies in the 12 months prior to the current study. COMPARISON: CR XR knee LT 1-2V [id number] 04/15/2022 2:39 PM RADIATION DOSE METRICS: Total DLP (mGy-cm): 443.51 FINDINGS: Bones/joints: Small to moderate joint effusion. 16 mm chronic appearing loose body in the suprapatellar joint space. Severe tricompartmental osteoarthritis of the knee. Soft tissues: Subcutaneous edema about the knee, nonspecific. Other findings: 3.8 cm Hill's cyst. Scattered vascular calcifications. CT/CT knee LT wo con* [id number] IMPRESSION: 1. Negative for fracture or dislocation. 2. 3.8 cm Hill's cyst. 3. Small to moderate joint effusion. 4. 16 mm chronic appearing loose body in the suprapatellar joint space. 5. Severe tricompartmental osteoarthritis of the knee. 6. Subcutaneous edema about the knee, nonspecific. 7. Scattered vascular calcifications.
--- NOTE | 2022-10-29 16:52 | PC.PHAR ---
pt states she has home health with [facility]-pt states she knows her medications also-pt verified medications-pt states she was in the [facility] for therapy and has been out for 2-3 weeks-pt states since she has been out of the [place] she hasnt had her advair diskus inhaler back-ext med history doesnt show all meds filled recently-notes are made in the pharmacy comments
[2022-10-29 17:41] VITALS: RESP 18; O2SAT 95
[2022-10-29] MEDS: oxyCODONE 5 mg IR Tab/Cap PO (17:41)
--- NOTE | 2022-10-29 18:35 | PC.NURSE ---
PATIENT STATED THAT SHE NEED HER BEDS LINEN CHANGED. PATIENT ROLLED OVER TO WIPE AND ACCESS SKIN. PATIENT HAS SKIN BREAKDOWN TO GROIN AND BUTTOCKS. PATIENT ALSO HAD DRIED BOWEL MOVEMENT ACROSS HIPS, BOTTOM, AND BACK. PATIENT STATES THAT SHE LIVES AT HOME AND HER SON DIDN'T COME HOME LAST NIGHT. PATIENT SON IS USUALLY THE ONE TO CLEAN ME UP. PATIENT WIPES USED. PATIENT LINENS CHANGED AND CHUCKS PLACED UNDER PATIENT. PATIENT GIVEN NEW BLANKETS. NO FURTHER NEEDS AT THIS TIME.
[2022-10-29 21:32] VITALS: PULSE 91; RESP 20; O2SAT 95
== END 2022-10-29 20:55 | disposition home or self-care (01) ==
PROVIDERS: Emergency Provider Emergency Medicine; PCP Family Medicine
DX: M71.22 Synovial cyst of popliteal space [Baker], left knee (principal); Z79.82 Long term (current) use of aspirin; I11.0 Hypertensive heart disease with heart failure; I50.9 Heart failure, unspecified; J44.9 Chronic obstructive pulmonary disease, unspecified; E11.9 Type 2 diabetes mellitus without complications; W18.30XA Fall on same level, unspecified, initial encounter
CPT/HCPCS: 73502; 73552; 73590; 73630; 73700; 99284

== ENCOUNTER → 2022-11-24 13:19 | Outpatient (BNVA) | payer MEDICARE, MEDICAID, SELFPAY | PROVIDERS: PCP Family Medicine; Visit Provider Student in an Organized Health Care Education/Training Program | DX: M17.12 Unilateral primary osteoarthritis, left knee (principal); M19.011 Primary osteoarthritis, right shoulder | CPT/HCPCS: 20610; 99214; J3301 ==

== ENCOUNTER 2022-12-30 07:00 | Emergency (ER) | payer MEDICARE, MEDICAID, SELFPAY ==
--- NOTE | 2022-12-30 07:04 | ECG_ITS ---
[facility] Test Date: 2022-12-30 Pat Name: Rossy Brooke Department: Room: Gender: Female Intake Nurse: : 1945 Requested By: Al Leigh Order Number: [id number] Irwin MD: Chidi Benitez M.D. Measurements Intervals [place] Rate: 82 P: 0 NE: 0 QRS: 11 QRSD: 87 T: 18 QT: 355 QTc: 415 Interpretive Statements SINUS RHYTHM WITH FIRST DEGREE AV BLOCK Electronically Signed On 12-31-2022 2:57:06 CDT by Chidi Benitez M.D. [id number]
--- NOTE | 2022-12-30 07:04 | XRR_ITS ---
PROCEDURE INFORMATION: Exam: XR Chest Exam date and time: 12/30/2022 7:34 AM Age: 77 years old Clinical indication: Pain; Angina pectoris; Additional info: Chest pain TECHNIQUE: Imaging protocol: Radiologic exam of the chest. Views: 1 view. COMPARISON: CR (CHEST, ) 09/28/2022 11:47 PM FINDINGS: Lungs: Diminutive inspiratory volume. Bilateral lower lung infiltrates or atelectasis. Pleural spaces: Pleural thickening or small right pleural effusion. Heart/Mediastinum: Accentuation of the mediastinum which may be on the basis of positioning. Accentuation of heart size. Vasculature: Calcified thoracic aorta. Bones/joints: Degenerative changes of both shoulders. XR/XR chest 1V portable [id number] IMPRESSION: 1. Areas of atelectasis or infiltrate lower lungs. Findings are similar on the right and mildly diminished on the left. 2. Pleural thickening or small right pleural effusion. 3. Accentuation of the upper mediastinum. Right mediastinal expansion versus consolidation paramediastinal right upper lobe. Correlation to recent CT of the chest is recommended.
--- NOTE | 2022-12-30 07:04 | W.ED.CHESTPA ---
HPI - Chest Pain General: Chief Complaint: Chest Pain Stated Complaint: chest pain resolved Time Seen by Provider: 12/30/22 07:01 Source: patient Mode of arrival: EMS History of Present Illness: 77-year-old female presents emergency room with complaints of intermittent chest pain at home since about an hour prior to arrival. She has no pain at this time pain was worsened in the field per EMS by palpation no associated shortness of breath or diaphoresis. MD complaint: chest pain Onset (ago): hour(s) Timing of current episode: episodic Prior episodes: Yes Onset: during rest Pain location: left chest Pain radiation: none Severity: mild Quality: sharp Relieving factors: nothing Exacerbating factors: palpation Associated symptoms: Deny abdominal pain, diaphoresis, dyspnea, fever(s), leg edema, nausea, palpitations, sense of impending doom, syncope or vomiting Treatment prior to arrival: none Review of Systems Const: Denies: fever(s), chills, fatigue, malaise or diaphoresis ENMT: Denies: throat pain, ear or mastoid pain, nasal discharge or nasal congestion Card: Reports: chest pain; Denies: palpitations or syncope Resp: Denies: dyspnea GI: Denies: abdominal pain, nausea or vomiting : Denies: flank pain, difficulty voiding, dysuria, urinary frequency or urinary urgency Skin/Breast: Denies: rash or pruritus PFSH ED PFSH: Medical History Acute exacerbation of CHF (congestive heart failure) Acute exacerbation of chronic obstructive pulmonary disease Alkalosis Anemia Arthritis of shoulder region, right, degenerative CHF (congestive heart failure) CHF exacerbation CHF exacerbation Community acquired pneumonia COPD (chronic obstructive pulmonary disease) Diabetes Foot pain, right Hypothyroidism Hypothyroidism Lower extremity edema Metabolic alkalosis Morbid obesity with BMI of 50.0-59.9, adult Multinodular goiter Obesity hypoventilation syndrome Physical deconditioning Pneumonia Requires oxygen therapy Volume overload Surgical History H/O knee surgery Family History Father , at age 81 CAD (coronary artery disease) Mother , at age 82 No problems noted. Social History (Reviewed 12/30/22 @ 11:02 by JEAN PAUL Lopez Smoking and tobacco status: never smoked Alcohol intake: never Substance/Drug Use: never Marital status: Current occupational status: retired Physical Exam Const: GENERAL APPEARANCE: cooperative and comfortable ORIENTATION/CONSCIOUSNESS: Yes awake, Yes oriented to person, Yes oriented to place and Yes oriented to time HENMT: COMMON NORMALS: normocephalic, atraumatic and hearing grossly normal bilaterally HEAD & SCALP: normocephalic and atraumatic Resp: COMMON NORMALS: normal respiratory effort, No retractions, No use of accessory muscles and clear to auscultation bilaterally AUSCULTATION: clear to auscultation bilaterally Cardio: COMMON NORMALS: regular rate, regular rhythm and No murmurs present (Cardio) RATE: regular rate RHYTHM: regular rhythm GI: COMMON NORMALS: Soft to palpation and No hepatosplenomegaly present AUSCULTATION: Yes normoactive bowel sounds PALPATION: Yes Soft to palpation, No Tenderness to palpation present (GI), No Guarding due to palpation present (GI) and Yes No hepatosplenomegaly present Extremity: COMMON NORMALS: normal to inspection, capillary refill normal, no clubbing, cyanosis or edema, no calf tenderness and no pedal edema Neuro: SENSORIUM/ORIENTATION: Yes oriented to person, Yes oriented to place and Yes oriented to time Skin: COMMON NORMALS: no rashes or lesions noted GENERAL SKIN EXAM: no rashes or lesions noted Course Vital Signs: Vital signs: Vital Signs Temperature 97.9 F 12/30/22 07:12 Pulse Rate 77 12/30/22 07:12 Blood Pressure 149/77 12/30/22 07:12 Pulse Oximetry 93 12/30/22 07:12 Oxygen Delivery Me thod Nasal Cannula 12/30/22 07:12 Oxygen Flow Rate 5 12/30/22 07:12 MDM - Chest Pain Medical Decision Making Cardiac enzymes and EKGs are unremarkable patient has had no chest discomfort since arriving here. Will discharge home set up for an outpatient stress test encourage patient to continue baby aspirin other prescribed medications. Return if has further problems. Medical Records I reviewed the patient's medical records. Lab Data I reviewed the patient's lab results. 12/30/22 07:29 12/30/22 07:29 Radiology Impressions Chest X-Ray 12/30/22 07:04 IMPRESSION: 1. Areas of atelectasis or infiltrate lower lungs. Findings are similar on the right and mildly diminished on the left. 2. Pleural thickening or small right pleural effusion. 3. Accentuation of the upper mediastinum. Right mediastinal expansion versus consolidation paramediastinal right upper lobe. Correlation to recent CT of the chest is recommended. Laboratory Results WBC 10.2 10^3/uL (4.0-10.0) H 12/30/22 07:29 RBC 4.39 10^6/uL (4.1-5.3) 12/30/22 07:29 Hgb 11.6 g/dL (11.5-15.3) 12/30/22 07: Hct 41.4 % (37.0-47.0) 12/30/22 07: MCV 94.3 fl (81-99) 12/30/22 07:29 MCH 26.4 pg (28.0-34.0) L 12/30/22 07: MCHC 28.0 g/dL (30.0-36.0) L 12/30/22 07:29 RDW 14.5 % (12.1-15.1) 12/30/22 07:29 Plt Count 172 10^3/cmm (130-400) 12/30/22 07: MPV 9.6 fL (7.4-10.4) 12/30/22 07:29 Neut % (Auto) 81.5 % 12/30/22 07:29 Lymph % (Auto) 9.6 % 12/30/22 07:29 [place] % (Auto) 6.6 % 12/30/22 07:29 Eos % (Auto) 0.7 % 12/30/22 07:29 Baso % (Auto) 0.3 % 12/30/22 07:29 Neut # (Auto) 8.34 10^3/uL (1.8-7.7) H 12/30/22 07:29 Lymph # (Auto) 1.0 10^3/uL (0.8-4.8) 12/30/22 07:29 [place] # (Auto) 0.7 10^3/uL (0.2-0.9) 12/30/22 07:29 Eos # (Auto) 0.1 10^3/uL (0.0-0.8) 12/30/22 07:29 Baso # (Auto) 0.0 10^3/uL (0.0-0.1) 12/30/22 07:29 Nucleated RBC % (auto) 0 % 12/30/22 07:29 Nucleated RBCs # 0.0 /100WBC 12/30/22 07:29 Sodium 133 mmol/L (136-145) L 12/30/22 07:29 Potassium 4.9 mmol/L (3.5-5.1) 12/30/22 07:29 Chloride 87 mmol/L (98-107) L 12/30/22 07:29 Carbon Dioxide 41 mmol/L (22-29) H 12/30/22 07:29 Anion Gap 9.9 (5-19) 12/30/22 07:29 BUN 15 mg/dL (8-23) 12/30/22 07:29 Creatinine 0.6 mg/dL (0.5-0.9) 12/30/22 07:29 GFR Calculation Not Reportable 12/30/22 07:29 Glucose 108 mg/dL (65-115) 12/30/22 07:29 Calculated Osmolality 277 mOsm/kg (285-295) L 12/30/22 07:29 Calcium 8.6 mg/dL (8.5-10.5) 12/30/22 07:29 Total Bilirubin 0.4 mg/dL (0.15-1.2) 12/30/22 07:29 AST 13 U/L (0-32) 12/30/22 07:29 ALT 10 U/L (0-33) 12/30/22 07:29 Alkaline Phosphatase 170 U/L (35-105) H 12/30/22 07:29 Troponin T Baseline 27 ng/L (0-10) H 12/30/22 07:29 Troponin T 120 Minute 24.22 ng/L (0-10) H 12/30/22 09:38 Delta Troponin T -2.78 ABS# (0-10) L 12/30/22 09:38 Total Protein 6.6 g/dL (6.6-8.7) 12/30/22 07:29 Albumin 3.6 g/dL (3.5-5.2) 12/30/22 07:29 Globulin 3.0 g/dL (1.3-4.6) 12/30/22 07:29 Discharge Plan Discharge Patient Disposition: Home Clinical Impression: Chest pain, musculoskeletal Condition: Stable Prescriptions: No Action hyoscyamine sulfate 0.125 mg tablet 0.125 mg PO Q12H Myrbetriq 50 mg tablet extended release 24 hr 50 mg PO DAILY@12 atorvastatin 40 mg tablet 40 mg PO BEDTIME 30 Days Qty: 30 0RF aspirin 81 mg Tablet,Chewable 81 mg PO DAILY 30 Days Qty: 30 0RF albuterol sulfate 2.5 mg /3 mL (0.083 %) solution for nebulization 2.5 mg inhalation TID PRN (Reason: Shortness Of Breath) cetirizine [Zyrtec] 10 mg Tablet 10 mg PO DAILY@12 ascorbic acid (vitamin C) [Vitamin C] 500 mg Tablet 500 mg PO DAILY ferrous sulfate [iron] 325 mg (65 mg iron) Tablet 325 mg PO DAILY@12 esomeprazole magnesium 20 mg capsule,delayed release(DR/EC) 20 mg PO QAM diclofenac sodium [Voltaren Arthritis Pain] 1 % gel 2 g topical QID PRN (Reason: Pain) Rx Instructions: apply topically to left knee levothyroxine 75 mcg tablet 75 mcg PO QAM albuterol sulfate 90 mcg/actuation HFA aerosol inhaler 1 inh inhalation Q4H PRN (Reason: shortness of breath or wheezing) Qty: 8.5 0RF potassium chloride 20 mEq tablet,ER particles/crystals 20 meq PO Q12H 30 Days Qty: 60 0RF trazodone 50 mg tablet 50 mg PO BEDTIME PRN (Reason: Sleep) Januvia 25 mg tablet 25 mg PO DAILY metoprolol tartrate 25 mg tablet 25 mg PO DAILY@12 acetaminophen [Tylenol] 325 mg Capsule 650 mg PO QID PRN (Reason: Pain) Super B Complex Tablet 1 tab PO DAILY Biofreeze 0.2-3.5 % Gel 1 applic TOPICAL DAILY PRN (Reason: Pain) Rx Instructions: rub in gently and completely Lasix 40 mg tablet See Rx Instructions .ROUTE .COMPLEX Rx Instructions: 40mg po qam and 20mg po qpm Discharge Orders: Discharge ED (Routine); Ordered 12/30/22 Ordered By: Al Valdovinos Referrals: Juan Jose Munoz DO [Primary Care Provider] - Discharge Diet: Usual diet Discharge Activity: Increase activity as tolerated Patient Instructions: Opioid Safety, Pain Management Activity Restrictions/Additional Instructions: You are seen today for an episode of chest discomfort. Your cardiac enzymes were negative. Your pain is reproduced with palpation of the chest. EKG was normal. We will set you up for an outpatient Lexiscan sestamibi stress test follow-up with your primary care doctor. Coding Level of Care Code ED [employer] St[employer] And Dies Supervisor for Coby Cintron
[2022-12-30 07:12] VITALS: BP 149/77; PULSE 77; TEMP 36.6; O2SAT 93; BMI 60.5
[2022-12-30] MEDS: aspirin 81 mg Chew Tablet 324 MG PO (07:29)
[2022-12-30 07:42] LABS: Basophils % 0.3 %; Eosinophils # 0.1 10^3/uL (0.0-0.8); Eosinophils % 0.7 %; Hematocrit 41.4 % (37.0-47.0); Hemoglobin 11.6 g/dL (11.5-15.3); Lymphocytes % 9.6 %; Mean Corpuscular Hemoglobin 26.4 pg (28.0-34.0); Mean Corpuscular Volume 94.3 fl (81-99); Mean Platelet Volume 9.6 fL (7.4-10.4); Monocytes # 0.7 10^3/uL (0.2-0.9); Monocytes % 6.6 %; Neutrophils # 8.34 10^3/uL (1.8-7.7); Neutrophils % 81.5 %; Nucleated Red Blood Cells % 0 %; Platelet Count 172 10^3/cmm (130-400); Red Blood Count 4.39 10^6/uL (4.1-5.3); Red Cell Distribution Width 14.5 % (12.1-15.1); White Blood Count 10.2 10^3/uL (4.0-10.0)
[2022-12-30 08:00] LABS: Alanine Aminotransferase 10 U/L (0-33); Albumin Level 3.6 g/dL (3.5-5.2); Alkaline Phosphatase 170 U/L (35-105); Anion Gap 9.9 (5-19); Aspartate Amino Transferase 13 U/L (0-32); Blood Urea Nitrogen 15 mg/dL (8-23); Calcium 8.6 mg/dL (8.5-10.5); Chloride 87 mmol/L (98-107); Glucose 108 mg/dL (65-115); Osmolality Calculated 277 mOsm/kg (285-295); Potassium 4.9 mmol/L (3.5-5.1); Sodium 133 mmol/L (136-145); Total Bilirubin 0.4 mg/dL (0.15-1.2); Total Protein 6.6 g/dL (6.6-8.7)
[2022-12-30 08:02] LABS: Carbon Dioxide 41 mmol/L (22-29)
[2022-12-30 08:12] LABS: Troponin(5th) Baseline 27 ng/L (0-10)
--- NOTE | 2022-12-30 09:27 | ECG_ITS ---
[facility] Test Date: 2022-12-30 Pat Name: Rossy Brooke Department: Room: Gender: Female Bleach Maker: : 1945 Requested By: Al Leigh Order Number: [id number] Irwin MD: Frances Lui M.D. Measurements Intervals [place] Rate: 77 P: 0 [place]: 0 QRS: -6 QRSD: 89 T: 39 QT: 385 QTc: 437 Interpretive Statements SINUS RHYTHM WITH FIRST DEGREE AV BLOCK POSSIBLE ANTERIOR MYOCARDIAL INFARCTION , PROBABLY OLD [30 ms Q WAVE IN V3/V4, OR R < 0.2 mV IN V4] ABNORMAL RHYTHM ECG Compared to ECG 12/30/2022 07:12:30 Myocardial infarct finding now present Electronically Signed On 12-31-2022 6:54:28 CDT by Frances Lui M.D. [id number]
[2022-12-30 10:05] LABS: Troponin 5 2HR 24.22 ng/L (0-10)
[2022-12-30 10:06] LABS: Troponin 5 2HR Delta -2.78 ABS# (0-10)
[2022-12-30 13:14] VITALS: RESP 17; O2SAT 93
== END 2022-12-30 13:15 | disposition home or self-care (01) ==
PROVIDERS: Emergency Provider Family Medicine; PCP Family Medicine
DX: R07.89 Other chest pain (principal)
CPT/HCPCS: 36415; 71045; 80053; 84484; 85025; 93005; 99285

== ENCOUNTER 2023-07-06 23:47 | Emergency (ER) | payer MEDICARE, MEDICAID, SELFPAY ==
[2023-07-06 23:48] VITALS: BP 132/90; PULSE 60; RESP 20; TEMP 36.3; O2SAT 94; BMI 56.6
--- NOTE | 2023-07-07 00:02 | XRR_ITS ---
PROCEDURE INFORMATION: Exam: XR Chest Exam date and time: 07/07/2023 12:13 AM Age: 77 years old Clinical indication: Shortness of breath; Additional info: Dyspnea TECHNIQUE: Imaging protocol: Radiologic exam of the chest. Views: 1 view. COMPARISON: CR XR chest 1V portable [id number] 12/30/2022 7:34 AM FINDINGS: Lungs: Lungs are hypoinflated. No consolidation. Probable subsegmental atelectasis or scarring in the right lung base. Pleural spaces: No large pleural effusion. No pneumothorax. Heart/Mediastinum: Unremarkable cardiomediastinal silhouette. Bones/joints: No acute abnormality. XR/XR chest 1V portable [id number] IMPRESSION: Somewhat limited evaluation due to habitus and lung hypoinflation. No obvious consolidation.
--- NOTE | 2023-07-07 00:11 | ED_ITS ---
HPI - SOB/Dyspnea 2 General: Chief Complaint: Shortness of Breath/Dyspnea Stated Complaint: SOB Time Seen by Provider: 07/07/23 00:02 History of Present Illness: HPI Narrative: 77-year-old female presents via EMS pers onnel from her long-term care facility. Long-term care facility staff state they called EMS because the patient appears to be more lethargic and confused. She will intermittently refuse to wear her BiPAP machine which causes her to retain CO2 and cause her to be acutely confused. Long-term care facility staff state that the patient currently has come to the hospital to be told to wear her BiPAP mask and then will wear it. Review of Systems 2 General: Reports: 10 or more systems reviewed and unremarkable except in HPI and below Resp: Denies: dyspnea Neuro: Reports: other (Confusion) [facility] ED 2 PFSH: Medical History Acute exacerbation of CHF (congestive heart failure) Acute exacerbation of chronic obstructive pulmonary disease Alkalosis Anemia Arthritis of shoulder region, right, degenerative CHF (congestive heart failure) CHF exacerbation CHF exacerbation Community acquired pneumonia COPD (chronic obstructive pulmonary disease) Diabetes Foot pain, right Hypothyroidism Hypothyroidism Lower extremity edema Metabolic alkalosis Morbid obesity with BMI of 50.0-59.9, adult Multinodular goiter Obesity hypoventilation syndrome Physical deconditioning Pneumonia Requires oxygen therapy Volume overload Surgical History H/O knee surgery Family History Father , at age 81 CAD (coronary artery disease) Mother , at age 82 No problems noted. Social History Smoking and tobacco/nicotine status: never used tobacco/nicotine Alcohol intake: never Substance/Drug Use: never Marital status: Current occupational status: retired Physical Exam 2 Narrative: EXAM NARRATIVE: Constitutional: the patient appears well nourished and of normal development. Vital signs as documented. No acute distress at present. Alert and oriented-to person, place, time and situation. Head, eyes, ears, nose, mouth, throat: Normocephalic, atraumatic. Pupils-equal, round, reactive to light. No scleral icterus. Normal-appearing external ears. Normal appearing nasal turbinates, no drainage. No obvious oral lesions, posterior oropharynx without erythema or exudates. Neck: Supple, trachea is midline, no lymphadenopathy, no jugular venous distension, thyromegaly, or carotid bruits. Carotid upstrokes are brisk bilaterally. Lungs: clear to auscultation to all lung sahni. Symmetrical rise and fall of chest, no obvious signs of increased work of breathing at present. Cardiac: Regular rate and rhythm, positive S1, S2. No murmurs, rubs or gallops that I can appreciate Abdomen: Soft, non-tender to palpation, normal active bowel sounds to all quadrants. No palpable masses, no organomegaly and abdominal bruits. Extremities: 2+ pulses in the upper extremities that are equal bilaterally, 2+ pulses in the lower extremities that are equal bilaterally. Non-edematous. Moves all extremities well, sensation to all extremities are noted. Skin: Warm, dry, intact. Course 2 Vital Signs: Vital signs: Vital Signs Temperature 97.4 F L 07/06/23 23:48 Pulse Rate 58 L 07/07/23 01:42 Respiratory Rate 16 07/07/23 01:42 Blood Pressure 103/63 07/07/23 01:42 Pulse Oximetry 93 07/07/23 01:42 Oxygen Delivery Me thod BiPAP 07/07/23 00:53 Oxygen Flow Rate 3 07/06/23 23:48 Fraction of Inspir ed Oxygen 35 07/07/23 00:53 MDM - SOB/Dyspnea Medical Decision Making Physical exam completed, I will obtain laboratory evaluation to include a CBC and a CMP as well as an arterial blood gas and provide the patient with respiratory support to help clear her CO2. I had an extensive discussion with the patient regarding the importance of using her BiPAP machine and she stated that she would use her BiPAP as directed when she gets discharged back to the long-term care facility. Medical Records I reviewed the patient's medical records. Lab Data I reviewed the patient's lab results. 07/07/23 00:07 07/07/23 00:07 Labs/Radiology: Radiology Impressions Chest X-Ray 07/07/23 00:02 IMPRESSION: Somewhat limited evaluation due to habitus and lung hypoinflation. No obvious consolidation. Laboratory Results WBC 11.18 10^3/uL (3.29-11.43) 07/07/23 00:07 RBC 4.23 10^6/uL (3.85-5.65) 07/07/23 00:07 Hgb 11.70 g/dL (11.27-16.99) 07/07/23 00:07 Hct 38.6 % (36-47) 07/07/23 00:07 MCV 91.3 fl (85-98) 07/07/23 00:07 MCH 27.7 pg (27-33) 07/07/23 00:07 MCHC 30.3 g/dL (30-55) 07/07/23 00:07 RDW 14.7 % (12.1-15.1) 07/07/23 00:07 Plt Count 195 10^3/cmm (157-399) 07/07/23 00:07 MPV 8.8 fL (7.4-10.4) 07/07/23 00:07 Neut % (Auto) 69.3 % 07/07/23 00:07 Lymph % (Auto) 18.3 % 07/07/23 00:07 [place] % (Auto) 7.5 % 07/07/23 00:07 Eos % (Auto) 3.7 % 07/07/23 00:07 Baso % (Auto) 0.5 % 07/07/23 00:07 Neut # (Auto) 7.74 10^3/uL (1.8-7.7) H 07/07/23 00:07 Lymph # (Auto) 2.1 10^3/uL (0.8-4.8) 07/07/23 00:07 [place] # (Auto) 0.8 10^3/uL (0.2-0.9) 07/07/23 00:07 Eos # (Auto) 0.4 10^3/uL (0.0-0.8) 07/07/23 00:07 Baso # (Auto) 0.1 10^3/uL (0.0-0.1) 07/07/23 00:07 Nucleated RBC % (auto) 0 % 07/07/23 00:07 Nucleated RBCs # 0.0 /100WBC 07/07/23 00:07 Specimen Type Arterial 07/07/23 00:02 Sample Site Radial, right 07/07/23 00:02 ABG pH 7.38 (7.35-7.45) 07/07/23 00:02 ABG pCO2 79.1 mmHg (35-45) H* 07/07/23 00:02 ABG pO2 88.9 mmHg (80.0-100.0) 07/07/23 00:02 ABG HCO3 46.4 mmol/L (22-26) H 07/07/23 00:02 ABG Base Excess 17.6 mmol/L (-2.0-2.0) H 07/07/23 00:02 Best Test Pos 07/07/23 00:02 Hematocrit 36.0 % (37-47) L 07/07/23 00:02 Hgb O2 Saturation 94.0 % (95-100) L 07/07/23 00:02 Carboxyhemoglobin 1.9 %THgb (0.4-20.1) 07/07/23 00:02 Methemoglobin 0.6 % (0.4-1.5) 07/07/23 00:02 Total Hemoglobin 11.7 g/dL (12-16) L 07/07/23 00:02 O2 Delivery Device Nc 07/07/23 00:02 O2 Liters/Min 3.0 % 07/07/23 00:02 Behavior Interventionist ID [place] 07/07/23 00:02 Sodium 135 mmol/L (136-145) L 07/07/23 00:07 Potassium 3.7 mmol/L (3.5-5.1) 07/07/23 00:07 Chloride 87 mmol/L (98-107) L 07/07/23 00:07 Carbon Dioxide 43 mmol/L (22-29) H* 07/07/23 00:07 Anion Gap 8.7 (5-19) 07/07/23 00:07 BUN 10 mg/dL (8-23) 07/07/23 00:07 Creatinine 0.5 mg/dL (0.5-0.9) 07/07/23 00:07 GFR Calculation Not Reportable 07/07/23 00:07 Glucose 95 mg/dL (65-115) 07/07/23 00:07 Calculated Osmolality 279 mOsm/kg (285-295) L 07/07/23 00:07 Calcium 8.8 mg/dL (8.5-10.5) 07/07/23 00:07 Total Bilirubin 0.4 mg/dL (0.15-1.2) 07/07/23 00:07 AST 18 U/L (0-32) 07/07/23 00:07 ALT 13 U/L (0-33) 07/07/23 00:07 Alkaline Phosphatase 165 U/L (35-105) H 07/07/23 00:07 Total Protein 6.0 g/dL (6.6-8.7) L 07/07/23 00:07 Albumin 2.9 g/dL (3.5-5.2) L 07/07/23 00:07 Globulin 3.1 g/dL (1.3-4.6) 07/07/23 00:07 All radiology interpretation(s) finalized by discharge Critical Care Time 2 Critical Care Time: Critical Care Time: Yes Total Critical Care Time: 60 Attestation: This case had a high probability of a clinically significant, sudden, or life threatening deterioration of this patient's condition which required my full and direct attention, intervention and personal management. Discharge Plan Discharge Patient Disposition: Home Clinical Impression: Hypercapnia, Encephalopathy acute Condition: Stable Prescriptions: No Action hyoscyamine sulfate 0.125 mg tablet 0.125 mg PO Q12H Myrbetriq 50 mg tablet extended release 24 hr 50 mg PO DAILY@12 atorvastatin 40 mg tablet 40 mg PO BEDTIME 30 Days Qty: 30 0RF aspirin 81 mg Tablet,Chewable 81 mg PO DAILY 30 Days Qty: 30 0RF albuterol sulfate 2.5 mg /3 mL (0.083 %) solution for nebulization 2.5 mg inhalation TID PRN (Reason: Shortness Of Breath) cetirizine [Zyrtec] 10 mg Tablet 10 mg PO DAILY@12 ascorbic acid (vitamin C) [Vitamin C] 500 mg Tablet 500 mg PO DAILY ferrous sulfate [iron] 325 mg (65 mg iron) Tablet 325 mg PO DAILY@12 esomeprazole magnesium 20 mg capsule,delayed release(DR/EC) 20 mg PO QAM diclofenac sodium [Voltaren Arthritis Pain] 1 % gel 2 g topical QID PRN (Reason: Pain) Rx Instructions: apply topically to left knee levothyroxine 75 mcg tablet 75 mcg PO QAM albuterol sulfate 90 mcg/actuation HFA aerosol inhaler 1 inh inhalation Q4H PRN (Reason: shortness of breath or wheezing) Qty: 8.5 0RF potassium chloride 20 mEq tablet,ER particles/crystals 20 meq PO Q12H 30 Days Qty: 60 0RF trazodone 50 mg tablet 50 mg PO BEDTIME PRN (Reason: Sleep) Januvia 25 mg tablet 25 mg PO DAILY metoprolol tartrate 25 mg tablet 25 mg PO DAILY@12 acetaminophen [Tylenol] 325 mg Capsule 650 mg PO QID PRN (Reason: Pain) Super B Complex Tablet 1 tab PO DAILY Biofreeze 0.2-3.5 % Gel 1 applic TOPICAL DAILY PRN (Reason: Pain) Rx Instructions: rub in gently and completely Lasix 40 mg tablet See Rx Instructions .ROUTE .COMPLEX Rx Instructions: 40mg po qam and 20mg po qpm Discharge Orders: Discharge ED (Routine); Ordered 07/07/23 Ordered By: Marc Garza Referrals: Juan Jose Munoz, [Primary Care Provider] - Discharge Diet: Advance as tolerated Discharge Activity: Resume usual activity Patient Instructions: Opioid Safety, Pain Management Coding Level of Care Code ED Developmental Mathematics Professor for Coby Cintron
[2023-07-07 00:12] LABS: Basophils # 0.1 10^3/uL (0.0-0.1); Basophils % 0.5 %; Eosinophils # 0.4 10^3/uL (0.0-0.8); Eosinophils % 3.7 %; Hematocrit 38.6 % (36-47); Lymphocytes # 2.1 10^3/uL (0.8-4.8); Lymphocytes % 18.3 %; Mean Corpuscular HGB Conc 30.3 g/dL (30-55); Mean Corpuscular Hemoglobin 27.7 pg (27-33); Mean Corpuscular Volume 91.3 fl (85-98); Mean Platelet Volume 8.8 fL (7.4-10.4); Monocytes # 0.8 10^3/uL (0.2-0.9); Monocytes % 7.5 %; Neutrophils # 7.74 10^3/uL (1.8-7.7); Neutrophils % 69.3 %; Nucleated Red Blood Cells % 0 %; Platelet Count 195 10^3/cmm (157-399); Red Blood Count 4.23 10^6/uL (3.85-5.65); Red Cell Distribution Width 14.7 % (12.1-15.1); White Blood Count 11.18 10^3/uL (3.29-11.43)
[2023-07-07 00:14] LABS: ABG PH Result 7.38 (7.35-7.45); Base Excess ABG 17.6 mmol/L (-2.0-2.0); Blood Gas Allen Test Pos; Blood Gas Operator Identificat WALCI; Blood Gas Sample Site Radial, right; Blood Gas Sample Type Arterial; Carboxyhemoglobin 1.9 %THgb (0.4-20.1); HCO3 ABG 46.4 mmol/L (22-26); Methemoglobin 0.6 % (0.4-1.5); Oxygen Device NC; PO2 ABG 88.9 mmHg (80.0-100.0); Total Hemoglobin 11.7 g/dL (12-16)
[2023-07-07 00:15] LABS: ABG PCO2 79.1 mmHg (35-45)
[2023-07-07 00:30] LABS: Alanine Aminotransferase 13 U/L (0-33); Albumin Level 2.9 g/dL (3.5-5.2); Alkaline Phosphatase 165 U/L (35-105); Anion Gap 8.7 (5-19); Aspartate Amino Transferase 18 U/L (0-32); Blood Urea Nitrogen 10 mg/dL (8-23); Calcium 8.8 mg/dL (8.5-10.5); Chloride 87 mmol/L (98-107); Globulin 3.1 g/dL (1.3-4.6); Glucose 95 mg/dL (65-115); Osmolality Calculated 279 mOsm/kg (285-295); Potassium 3.7 mmol/L (3.5-5.1); Sodium 135 mmol/L (136-145); Total Bilirubin 0.4 mg/dL (0.15-1.2)
[2023-07-07 00:34] VITALS: PULSE 61; RESP 16; O2SAT 97
[2023-07-07 00:36] LABS: Carbon Dioxide 43 mmol/L (22-29)
[2023-07-07 00:53] VITALS: BP 114/58; PULSE 74; RESP 17; O2SAT 91
[2023-07-07 01:42] VITALS: BP 103/63; PULSE 58; RESP 16; O2SAT 93
[2023-07-07 02:44] VITALS: BP 112/42; PULSE 102; RESP 16; O2SAT 98
[2023-07-07 04:00] VITALS: BP 112/42; PULSE 102; RESP 16; TEMP 36.3; O2SAT 98
== END 2023-07-07 04:01 | disposition home or self-care (01) ==
PROVIDERS: Emergency Provider Internal Medicine; PCP Family Medicine
DX: G93.40 Encephalopathy, unspecified (principal); R06.89 Other abnormalities of breathing; Z79.82 Long term (current) use of aspirin; I11.0 Hypertensive heart disease with heart failure; I50.9 Heart failure, unspecified; J44.9 Chronic obstructive pulmonary disease, unspecified; E11.9 Type 2 diabetes mellitus without complications
CPT/HCPCS: 36600; 71045; 80053; 82805; 85025; 94660; 99285

== ENCOUNTER 2023-10-26 09:28 | Inpatient (IN) | payer MEDICARE, MEDICAID, SELFPAY ==
[2023-10-26] VITALS (39 sets, daily range): BP systolic 60–180; BP diastolic 40–153; PULSE 61–90; RESP 14–36; TEMP 36.3–37.5; O2SAT 93–100
--- NOTE | 2023-10-26 09:31 | XRR_ITS ---
PROCEDURE INFORMATION: Exam: XR Chest Exam date and time: 10/26/2023 10:34 AM Age: 78 years old Clinical indication: Cough and dyspnea; Additional info: Dyspnea/cough TECHNIQUE: Imaging protocol: Radiologic exam of the chest. Views: 1 view. COMPARISON: CR XR chest 1V portable [id number] 07/07/2023 12:13 AM FINDINGS: Lungs: Lung volumes are significantly decreased, unchanged likely due to body habitus. There is a large retrocardiac opacity involving the left lower hemithorax that has developed from previous exam that may in part be secondary to atelectasis but difficult to further characterize. There are minor atelectatic changes right lung base, stable. Pleural spaces: Unremarkable. No pleural effusion. No pneumothorax. Heart/Mediastinum: Heart is mildly enlarged, unchanged. Bones/joints: Unremarkable for age. XR/XR chest 1V portable [id number] IMPRESSION: Chronically decreased lung volumes with interval development of large left retrocardiac opacity likely in part due to left lower lobe atelectasis. Recommend follow-up CT chest for further assessment.
--- NOTE | 2023-10-26 09:32 | ED_ITS ---
HPI - SOB/Dyspnea 2 General: Chief Complaint: Shortness of Breath/Dyspnea Stated Complaint: resp failure Time Seen by Provider: 10/26/23 09:31 Source: patient Mode of arrival: EMS Limitations: altered mental status History of Present Illness: HPI Narrative: 78-year-old female presents emergency ro om obtunded. Report from EMS was that [facility] and was in acute respiratory distress on arrival she is on 15 L by nonrebreather receiving a nebulizer treatment. She moans in response to questions but does not give any audible verbal responses. Patient is typically on 3 L by nasal cannula at the [facility]. She is nonambulatory. MD elicited complaint: shortness of breath Pertinent past history: COPD, congestive heart failure and diabetes Onset (ago): hour(s) Timing: constant Severity: severe Exacerbating factors: nothing Relieving factors: nothing Known history of: COPD, congestive heart failure and diabetes Treatment prior to arrival: oxygen and bronchodilator Related Data: Home oxygen amount: 2 liters Review of Systems 2 General: Reports: ROS unobtainable due to mental status PFSH ED 2 PFSH: Medical History Metabolic alkalosis Physical deconditioning CHF (congestive heart failure) Community acquired pneumonia Alkalosis Foot pain, right Anemia Lower extremity edema Acute exacerbation of CHF (congestive heart failure) Obesity hypoventilation syndrome Acute exacerbation of chronic obstructive pulmonary disease Pneumonia Arthritis of shoulder region, right, degenerative Morbid obesity with BMI of 50.0-59.9, adult Hypothyroidism Multinodular goiter Hypothyroidism Diabetes Requires oxygen therapy COPD (chronic obstructive pulmonary disease) CHF exacerbation CHF exacerbation Volume overload Surgical History H/O knee surgery Family History Father , at age 81 CAD (coronary artery disease) Mother , at age 82 No problems noted. Social History Smoking and tobacco/nicotine status: never used tobacco/nicotine Alcohol intake: never Substance/Drug Use: never Marital status: Current occupational status: retired Course 2 Vital Signs: Vital signs: Vital Signs Temperature 97.3 F L 10/26/23 09:33 Pulse Rate 77 10/26/23 12:35 Respiratory Rate 22 H 10/26/23 10:15 Blood Pressure 130/76 10/26/23 14:23 Pulse Oximetry 99 10/26/23 11:30 Oxygen Delivery Me thod BiPAP 10/26/23 11:30 Oxygen Flow Rate 6 10/26/23 09:33 Fraction of Inspir ed Oxygen 40 10/26/23 12:35 MDM - SOB/Dyspnea Medical Decision Making Patient presented hypercapnic respiratory failure shows a large left pleural effusion. CT did not show any PE confirmed pleural effusion and consolidation. Treat for pneumonia. She is significantly improved since arrival on the BiPAP and her hypercapnia was beginning to clear on the second blood gas. Discussed with hospitalist orders written IV antibiotics have been started. She did have an elevated lactic acid she was not given a fluid bolus because she does appear to be in some mild heart failure fluid bolus would worsen and likely significantly degrade her condition Differential Diagnosis Likely congestive heart failure and community acquired pneumonia Medical Records I reviewed the patient's medical records. Lab Data I reviewed the patient's lab results. 10/26/23 10:09 10/26/23 11:04 Labs/Radiology: Radiology Impressions Chest X-Ray 10/26/23 09:31 IMPRESSION: Chronically decreased lung volumes with interval development of large left retrocardiac opacity likely in part due to left lower lobe atelectasis. Recommend follow-up CT chest for further assessment. Laboratory Results WBC 18.68 10^3/uL (3.29-11.43) H 10/26/23 10:09 RBC 3.74 10^6/uL (3.85-5.65) L 10/26/23 10:09 Hgb 10.90 g/dL (11.27-16.99) L 10/26/23 10:09 Hct 33.5 % (36-47) L 10/26/23 10:09 MCV 89.6 fl (85-98) 10/26/23 10:09 MCH 29.1 pg (27-33) 10/26/23 10:09 MCHC 32.5 g/dL (30-55) 10/26/23 10:09 RDW 21.2 % (12.1-15.1) H 10/26/23 10:09 Plt Count 173 10^3/cmm (157-399) 10/26/23 10:09 MPV 9.5 fL (7.4-10.4) 10/26/23 10:09 Neut % (Auto) 89.9 % 10/26/23 10:09 Lymph % (Auto) 5.6 % 10/26/23 10:09 [place] % (Auto) 3.6 % 10/26/23 10:09 Eos % (Auto) 0.0 % 10/26/23 10:09 Baso % (Auto) 0.3 % 10/26/23 10:09 Neut # (Auto) 16.81 10^3/uL (1.8-7.7) H 10/26/23 10:09 Lymph # (Auto) 1.0 10^3/uL (0.8-4.8) 10/26/23 10:09 [place] # (Auto) 0.7 10^3/uL (0.2-0.9) 10/26/23 10:09 Eos # (Auto) 0.0 10^3/uL (0.0-0.8) 10/26/23 10:09 Baso # (Auto) 0.1 10^3/uL (0.0-0.1) 10/26/23 10:09 Nucleated RBC % (auto) 0 % 10/26/23 10:09 Nucleated RBCs # 0.0 /100WBC 10/26/23 10:09 Specimen Type Arterial 10/26/23 11:05 Sample Site Radial, left 10/26/23 11:05 ABG pH 7.27 (7.35-7.45) L 10/26/23 11:05 ABG pCO2 91.0 mmHg (35-45) H* 10/26/23 11:05 ABG pO2 71.7 mmHg (80.0-100.0) L 10/26/23 11:05 ABG PO2/FiO2 Ratio 0 10/26/23 11:05 ABG HCO3 41.9 mmol/L (22-26) H 10/26/23 11:05 ABG O2 Saturation 91.8 10/26/23 09:51 ABG Base Excess 12.1 mmol/L (-2.0-2.0) H 10/26/23 11:05 Bets Test Pos 10/26/23 11:05 A-a O2 Gradient Not Reportable 10/26/23 09:51 Hematocrit 32.7 % (37-47) L 10/26/23 11:05 Hgb O2 Saturation 90.6 % (95-100) L 10/26/23 09:51 Carboxyhemoglobin 1.9 %THgb (0.4-20.1) 10/26/23 09:51 Methemoglobin < 0.0 % (0.4-1.5) L 10/26/23 09:51 Total Hemoglobin 10.3 g/dL (12-16) L 10/26/23 09:51 Sodium 134.0 mmol/L (131-143) 10/26/23 09:51 Potassium 4.4 mmol/L (3.5-5.0) 10/26/23 09:51 Glucose 83.0 mg/dL (70-115) 10/26/23 09:51 Ionized Calcium 1.2 mmol/L (1.1-1.4) 10/26/23 09:51 O2 Delivery Device Bipap 10/26/23 11:05 O2 Liters/Min 3.0 % 10/26/23 09:51 FiO2 40.0 % 10/26/23 11:05 Tidal Volume 0.41 10/26/23 11:05 PEEP 8.0 cmH20 10/26/23 11:05 Microbiology Lab Analyst ID [place] 10/26/23 11:05 Sodium 136 mmol/L (136-145) 10/26/23 11:04 Potassium 4.7 mmol/L (3.5-5.1) 10/26/23 11:04 Chloride 89 mmol/L (98-107) L 10/26/23 11:04 Carbon Dioxide 41 mmol/L (22-29) H 10/26/23 11:04 Anion Gap 10.7 (5-19) 10/26/23 11:04 BUN 25 mg/dL (8-23) H 10/26/23 11:04 Creatinine 0.9 mg/dL (0.5-0.9) 10/26/23 11:04 GFR Calculation Not Reportable 10/26/23 11:04 Glucose 89 mg/dL (65-115) 10/26/23 11:04 Calculated Osmolality 286 mOsm/kg (285-295) 10/26/23 11:04 Lactic Acid Cancelled 10/26/23 10:09 Lactic Acid (Sepsis) 2.8 mmol/L (0.5-2.2) H 10/26/23 13:47 Lactate 2.3 mmol/L (0.5-2.2) H 10/26/23 11:04 Calcium 9.0 mg/dL (8.5-10.5) 10/26/23 11:04 Total Bilirubin 0.8 mg/dL (0.15-1.2) 10/26/23 11:04 AST 34 U/L (0-32) H 10/26/23 11:04 ALT 21 U/L (0-33) 10/26/23 11:04 Alkaline Phosphatase 225 U/L (35-105) H 10/26/23 11:04 Troponin T Baseline 77 ng/L (0-10) H 10/26/23 11:04 Troponin T 120 Minute 68.51 ng/L (0-10) H 10/26/23 13:47 Delta Troponin T -8.49 ABS# (0-10) L 10/26/23 13:47 NT-Pro-B Natriuret Pep 40268 pg/mL (0-450) H 10/26/23 11:04 Total Protein 5.5 g/dL (6.6-8.7) L 10/26/23 11:04 Albumin 2.8 g/dL (3.5-5.2) L 10/26/23 11:04 Globulin 2.7 g/dL (1.3-4.6) 10/26/23 11:04 Urine Color Dark yellow (Yellow) 10/26/23 10:24 Urine Appearance Cloudy (CLEAR) A 10/26/23 10:24 Urine pH 5 (5-7) 10/26/23 10:24 Ur Specific [place] 1.020 (1.005-1.030) 10/26/23 10:24 Urine Protein Trace (Negative) 10/26/23 10:24 Urine Glucose (UA) Norm (Normal) 10/26/23 10:24 Urine Ketones 1+ (Negative) H 10/26/23 10:24 Urine Blood 3+ (Negative) H 10/26/23 10:24 Urine Nitrate Positive (Negative) H 10/26/23 10:24 Urine Bilirubin 1+ (Negative) H 10/26/23 10:24 Urine Urobilinogen Norm mg/dL (Negative) 10/26/23 10:24 Ur Leukocyte Esterase 2+ (Negative) H 10/26/23 10:24 Urine RBC 10-15 /hpf (0-2) H 10/26/23 10:24 Urine WBC 55-80 /hpf (0-5) H 10/26/23 10:24 Ur Squamous Epith Cells 0-4 /hpf (0-5) H 10/26/23 10:24 Calcium Oxalate Crystal 0-4 /hpf H 10/26/23 10:24 Amorphous Sediment 1+ /hpf 10/26/23 10:24 Urine Bacteria 3+ /hpf (NONE) H 10/26/23 10:24 Coronavirus 229E (PCR) Not detected (NOT DETECT) 10/26/23 10:24 Influenza Type A Ag negative (Negative) 10/26/23 10:24 Influenza Type B Ag negative (Negative) 10/26/23 10:24 SARS-CoV-2 (PCR) Not detected (NOT DETECT) 10/26/23 10:24 All radiology interpretation(s) finalized by discharge Discharge Plan Discharge Patient Disposition: Admitted As Inpatient Admit Provider: Sonali Adan Clinical Impression: Acute on chronic respiratory failure with hypoxia and hypercapnia, CHF (congestive heart failure), Community acquired pneumonia, Acute exacerbation of chronic obstructive airways disease Condition: Stable Coding Level of Care Code ED [employer] Teacher for Coby Cintron
--- NOTE | 2023-10-26 09:36 | ECG_ITS ---
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 Measurements Intervals [place] Rate: 62 P: 21 IN: 330 QRS: -18 QRSD: 93 T: 7 QT: 379 QTc: 386 Interpretive Statements SINUS RHYTHM WITH FIRST DEGREE AV BLOCK WITH OCCASIONAL SUPRAVENTRICULAR PREMATURE COMPLEXES POSSIBLE ANTERIOR MYOCARDIAL INFARCTION , PROBABLY OLD [30 ms Q WAVE IN V3/V4, OR R < 0.2 mV IN V4] INTERPRETATION BASED ON A DEFAULT AGE OF 40 YEARS Compared to ECG 12/30/2022 09:27:10 No significant changes Electronically Signed On 10-26-2023 16:26:54 CDT by Emilee Pitts M.D. [email or web address]/store/[id number] f
--- NOTE | 2023-10-26 09:43 | CT_ITS ---
WS: [id number] Examination: CT head wo con* [id number] Reason for Exam: Unresponsive, altered mental status Date: October 26, 2023 Comparison: None. DLP: 1487.[address] scans at [facility] use at least one of these dose optimization techniques: automated e xposure control; mA and/or kV adjustment per patient size (includes targeted exams where dose is matc hed to clinical indication); or iterative reconstruction. Findings: The visualized paranasal sinuses are well-aerated. There is limited dependent opacification of left m astoid air cells. The ventricles and the sulci are within normal limits for the patient's age. There is no midline shif t. There is no hydrocephalus. Mild scattered ischemic microvascular changes suspected. Right pontine hypodensity is also noted. Thi s may be related to white matter changes or previous infarct. There is no intracranial hemorrhage or hematoma. Impression: There is no hemorrhage or hydrocephalus.
[2023-10-26 10:02] LABS: ABG PH Result 7.22 (7.35-7.45); Arterial Blood Gas Hematocrit 31.7 % (37-47); Base Excess ABG 10.9 mmol/L (-2.0-2.0); Blood Gas Allen Test Pos; Blood Gas Operator Identificat WALCI; Blood Gas Sample Site Radial, right; Blood Gas Sample Type Arterial; Carboxyhemoglobin 1.9 %THgb (0.4-20.1); HCO3 ABG 41.6 mmol/L (22-26); HGB O2 Sat 90.6 % (95-100); Ionized Calcium Level - ABG 1.2 mmol/L (1.1-1.4); Methemoglobin < 0.0 % (0.4-1.5); Oxygen Device NC; Oxygen Saturation ABG 91.8; PO2 ABG 67.4 mmHg (80.0-100.0); Potassium Level - ABG 4.4 mmol/L (3.5-5.0); Total Hemoglobin 10.3 g/dL (12-16)
[2023-10-26 10:21] LABS: Basophils # 0.1 10^3/uL (0.0-0.1); Basophils % 0.3 %; Hematocrit 33.5 % (36-47); Lymphocytes % 5.6 %; Mean Corpuscular HGB Conc 32.5 g/dL (30-55); Mean Corpuscular Hemoglobin 29.1 pg (27-33); Mean Corpuscular Volume 89.6 fl (85-98); Mean Platelet Volume 9.5 fL (7.4-10.4); Monocytes # 0.7 10^3/uL (0.2-0.9); Monocytes % 3.6 %; Neutrophils # 16.81 10^3/uL (1.8-7.7); Neutrophils % 89.9 %; Nucleated Red Blood Cells % 0 %; Platelet Count 173 10^3/cmm (157-399); Red Blood Count 3.74 10^6/uL (3.85-5.65); Red Cell Distribution Width 21.2 % (12.1-15.1); White Blood Count 18.68 10^3/uL (3.29-11.43)
[2023-10-26 10:47] LABS: Add Urine Microscopic? YES; Bilirubin Urine 1+ (Negative); Blood Urine 3+ (Negative); Glucose Urine UA Norm (Normal); Ketones Urine 1+ (Negative); Leukocyte Esterase Urine 2+ (Negative); Nitrate Urine Positive (Negative); Protein Urine Trace (Negative); Urine Appearance Cloudy (CLEAR); Urine Color Dark Yellow (Yellow); Urobilinogen Urine Norm (Negative); pH Urine 5 (5-7)
[2023-10-26 10:48] LABS: Amorphous Sediment Urine 1+ /hpf; Bacteria Urine 3+ /hpf; Calcium Oxalate Crystals Urine 0-4 /hpf; Squamous Epithelial Cell Urine 0-4 /hpf (0-5); WBC Urine 55-80 /hpf (0-5)
[2023-10-26 10:49] LABS: Add Urine Culture? Yes
[2023-10-26 10:50] LABS: Influenza A by IFA negative (Negative); Influenza B by IFA negative (Negative)
--- NOTE | 2023-10-26 11:09 | PC.PHAR ---
pt is from [facility] [phone]-ricki nurse from [facility] states the pt had no am or prn meds today 10/26/23-medications entered are from the [facility] that was sent with the pt-
[2023-10-26 11:17] LABS: ABG PH Result 7.27 (7.35-7.45); Arterial Blood Gas Hematocrit 32.7 % (37-47); Base Excess ABG 12.1 mmol/L (-2.0-2.0); Blood Gas Allen Test Pos; Blood Gas Operator Identificat WALCI; Blood Gas Sample Site Radial, left; Blood Gas Sample Type Arterial; Blood Gas Tidal Volume 0.41; HCO3 ABG 41.9 mmol/L (22-26); Oxygen Device BIPAP; PO2 ABG 71.7 mmHg (80.0-100.0); PO2 FiO2 Ratio Arterial Blood 0
[2023-10-26] MEDS: piperacillin-tazobactam 3.375 GM in sodium chloride 0.9% (plus) 50 ML IV ×2 (11:33→20:23)
[2023-10-26 11:36] LABS: Lactate (Lactic Acid level) 2.3 mmol/L (0.5-2.2)
--- NOTE | 2023-10-26 11:36 | CT_ITS ---
WS: [id number] Examination: CT angio chest PE protcl [id number] Reason for Exam: abnormal cxr Date: October 26, 2023 Comparison: September 29, 2022 DLP: 418.[address] scans at [facility] use at least one of these dose optimization techniques: automated e xposure control; mA and/or kV adjustment per patient size (includes targeted exams where dose is matc hed to clinical indication); or iterative reconstruction. Findings: Images are limited due to motion artifact and body habitus.. The depth of inspiration is shallow. There is elevation of the right hemidiaphragm. There is a small left pleural effusion with consolidative change noted in the left base. These appear slightly greater than on the previous study. There is no mediastinal or hilar adenopathy.. The heart is not enlarged. There is extensive coronary artery calcification and disease. There is no filling defect or evidence of pulmonary emboli identified in the main or right and left p ulmonary arteries. The more distal vessels are obscured Images through the extreme upper abdomen demonstrate cholelithiasis. Severe chronic changes of the shoulders are noted. I suspect there may be chronic anterior dislocatio ns. Hypertrophic changes of the thoracic spine are noted. Impression: This is a limited study. No central PE is appreciated however distal segmental and subsegmental vesse ls cannot be adequately evaluated. There is a left pleural effusion and consolidation There is coronary artery calcification disease. There is cholelithiasis.
[2023-10-26 11:39] LABS: Troponin(5th) Baseline 77 ng/L (0-10)
[2023-10-26 11:47] LABS: Alanine Aminotransferase 21 U/L (0-33); Albumin Level 2.8 g/dL (3.5-5.2); Alkaline Phosphatase 225 U/L (35-105); Anion Gap 10.7 (5-19); Aspartate Amino Transferase 34 U/L (0-32); Blood Urea Nitrogen 25 mg/dL (8-23); Chloride 89 mmol/L (98-107); Creatinine Clr Calc Pharmacy 58.5454; Globulin 2.7 g/dL (1.3-4.6); Glucose 89 mg/dL (65-115); NT Pro B Type Natriuretic Pept 13101 pg/mL (0-450); Osmolality Calculated 286 mOsm/kg (285-295); Potassium 4.7 mmol/L (3.5-5.1); Sodium 136 mmol/L (136-145); Total Bilirubin 0.8 mg/dL (0.15-1.2); Total Protein 5.5 g/dL (6.6-8.7)
[2023-10-26 11:50] LABS: Carbon Dioxide 41 mmol/L (22-29)
[2023-10-26] MEDS: FUROsemide 10 mg/mL SDV 10mL 60 MG IVP (12:06)
--- NOTE | 2023-10-26 12:07 | ECG_ITS ---
[facility] Test Date: 2023-10-26 Pat Name: Rossy Brooke Department: Room: Gender: Female Breaker Up: : 1945 Requested By: Al Leigh Order Number: [id number] Irwin MD: Emilee Pitts M.D. Measurements Intervals [place] Rate: 63 P: 0 MA: 0 QRS: -10 QRSD: 85 T: 11 QT: 368 QTc: 378 Interpretive Statements ATRIAL FIBRILLATION ABNORMAL RHYTHM ECG Compared to ECG 10/26/2023 09:36:39 Sinus rhythm no longer present First degree AV block no longer present Myocardial infarct finding no longer present Electronically Signed On 10-26-2023 16:35:54 CDT by Emilee Pitts M.D. [email or web address]/[id number]
[2023-10-26 12:19] LABS: Adenovirus Not Detected (NOT DETECT); Chlamydia Pneumoniae Not Detected (NOT DETECT); Coronavirus 229E,HKU1,NL63,OC4 Not Detected (NOT DETECT); Human Metapneumovirus Not Detected (NOT DETECT); Human Rhinovirus/Enterovirus Not Detected (NOT DETECT); Influenza A Not Detected (NOT DETECT); Influenza A H1 Not Detected (NOT DETECT); Influenza A H1-2009 Not Detected (NOT DETECT); Influenza A H3 Not Detected (NOT DETECT); Influenza B Not Detected (NOT DETECT); Mycoplasma Pneumoniae Not Detected (NOT DETECT); Parainfluenza Virus Type 1 Not Detected (NOT DETECT); Parainfluenza Virus Type 2 Not Detected (NOT DETECT); Parainfluenza Virus Type 3 Not Detected (NOT DETECT); Parainfluenza Virus Type 4 Not Detected (NOT DETECT); Respiratory Syncytial Virus A Not Detected (NOT DETECT); Respiratory Syncytial Virus B Not Detected (NOT DETECT); SARS-COV-2 Not Detected (NOT DETECT)
[2023-10-26 12:56] LABS: Reflex Lactate Order REFLEX LACTIC ORDERD
[2023-10-26] MEDS: iohexol 350 mg/mL 500 mL Btl (per mL) IV (13:36)
[2023-10-26 14:21] LABS: Lactic Acid level (Lactate) 2.8 mmol/L (0.5-2.2)
[2023-10-26 14:23] LABS: Troponin 5 2HR 68.51 ng/L (0-10)
[2023-10-26 14:25] LABS: Troponin 5 2HR Delta -8.49 ABS# (0-10)
--- NOTE | 2023-10-26 15:44 | ECG_ITS ---
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 Measurements Intervals [place] Rate: 75 P: 43 RI: 306 QRS: -15 QRSD: 92 T: 35 QT: 354 QTc: 398 Interpretive Statements SINUS RHYTHM WITH SINUS ARRHYTHMIA WITH FIRST DEGREE AV BLOCK POSSIBLE ANTERIOR MYOCARDIAL INFARCTION , PROBABLY OLD [30 ms Q WAVE IN V3/V4, OR R < 0.2 mV IN V4] Compared to ECG 10/26/2023 12:07:30 First degree AV block now present Myocardial infarct finding now present Atrial fibrillation no longer present Electronically Signed On 10-26-2023 18:32:45 CDT by Emiele Pitts M.D. [id number]
--- NOTE | 2023-10-26 17:59 | PM.HP ---
Providers/Chief Complaint Admitting Physician: Sonali Adan MD Primary Care Provider: Juan Jose Munoz DO Chief Complaint: resp failure History of Present Illness Rossy Brooke is a 78 year old female ith past medical history of obesity hypoventilation syndrome not on home BiPAP, chronically on 3 L, diastolic heart failure brought to the hospital today with encephalopathy and hypoxic hypercapnic respiratory failure. Patient was unable to provide much history upon arrival today. She is a detention resident. She was noted to be in acute respiratory distress, oxygen requirement up to 15 L by nonrebreather while typically she is on 3 L/min typically. Patient is nonambulatory at baseline. She was found to have evidence of hypoxic hypercapnic respiratory failure, CHF exacerbation, chest x-ray and CTA of the chest showing left lower lobe infiltrate with pleural effusion. Review of Systems General: Reports: ROS unobtainable due to medical condition Medications/Allergies Home Medications Medication Instructions Recorded Confirmed Last Taken Type hyoscyamine sulfate 0.125 mg tablet 0.125 mg PO DAILY@11/06/21 10/26/23 10/25/23 History mirabegron 50 mg tablet,extended 50 mg PO DAILY@11/06/21 10/26/23 10/25/23 History release 24 hr (Myrbetriq) albuterol sulfate 2.5 mg/3 mL 2.5 mg inhalation Q4H 05/22/22 10/26/23 10/25/23 History (0.083 %) solution for nebulization ascorbic acid (vitamin C) 500 mg 500 mg PO DAILY@05/22/22 10/26/23 10/25/23 History tablet (Vitamin C) esomeprazole magnesium 20 mg 20 mg PO DAILY@05/22/22 10/26/23 10/25/23 History capsule,delayed release ferrous sulfate 325 mg (65 mg 325 mg PO DAILY@05/22/22 10/26/23 10/25/23 History iron) tablet (iron) levothyroxine 75 mcg tablet 75 mcg PO DAILY@08/22/22 10/26/23 10/25/23 History trazodone 50 mg tablet 50 mg PO BEDTIME@09/16/22 10/26/23 10/25/23 History acetaminophen 325 mg capsule 650 mg PO Q4H PRN Pain 09/29/22 10/26/23 Unknown History (Tylenol) metoprolol tartrate 25 mg tablet 25 mg PO BID@07,09/29/22 10/26/23 10/25/23 History furosemide 40 mg tablet (Lasix) 40 mg PO DAILY@10/29/22 10/26/23 10/25/23 History vitamin B complex 1 tab PO DAILY@10/29/22 10/26/23 10/25/23 History albuterol sulfate 90 mcg/actuation 1 - 2 puff inhalation Q6H PRN 10/26/23 10/26/23 Unknown History aerosol inhaler Wheezing aluminum-mag hydroxide-simethicone 30 ml PO .EVERY 2 HOURS PRN 10/26/23 10/26/23 Unknown History 200 mg-200 mg-20 mg/5 mL oral susp Indigestion amino acids-protein hydrolysate 15 See Rx Instructions .Route .COMPLEX 10/26/23 10/26/23 10/25/23 History gram-101 kcal/30 mL oral liquid aspirin 81 mg chewable tablet 81 mg PO DAILY@10/26/23 10/26/23 10/25/23 History atorvastatin 40 mg tablet 40 mg PO BEDTIME@10/26/23 10/26/23 10/25/23 History bisacodyl 10 mg rectal suppository See Rx Instructions .Route .COMPLEX 10/26/23 10/26/23 Unknown History (Dulcolax (bisacodyl)) bisacodyl 5 mg tablet,delayed 20 mg PO DAILY PRN after mom for 10/26/23 10/26/23 Unknown History release (Dulcolax (bisacodyl)) no bm cyanocobalamin (vitamin B-12) 2,000 mcg PO DAILY@10/26/23 10/26/23 10/25/23 History 1,000 mcg tablet (Vitamin B-12) ergocalciferol (vitamin D2) 1,250 50,000 unit PO Q7D 10/26/23 10/26/23 Unknown History mcg (50,000 unit) capsule (Vitamin D2) formoterol fumarate 20 mcg/2 mL 20 mcg inhalation DAILY@10/26/23 10/26/23 10/25/23 History solution for nebulization loperamide 2 mg capsule 2 mg PO DAILY PRN Loose Stool 10/26/23 10/26/23 Unknown History magnesium hydroxide 400 mg/5 mL 30 ml PO .EVERY 3RD DAY PRN 10/26/23 10/26/23 Unknown History oral suspension (Milk of Magnesia) Constipation naproxen 500 mg tablet 500 mg PO BID@07,19 10/26/23 10/26/23 10/25/23 History nystatin 100,000 unit/gram topical See Rx Instructions .Route .COMPLEX 10/26/23 10/26/23 Unknown History powder polyethylene glycol 3350 17 gram 17 g PO DAILY PRN Constipation 10/26/23 10/26/23 Unknown History oral powder packet (Miralax) Allergies Allergy/AdvReac Type Severity Reaction Status Date / Time cinnamon Allergy Unknown Unknown Verified 07/06/23 23:54 morphine Allergy Unknown Unknown Verified 07/06/23 23:54 Sulfa (Sulfonamide Allergy Unknown Unknown Verified 10/26/23 11:08 Antibiotics) niacin Allergy ADR/ALGY-Fl Verified 07/06/23 23:54 ushing PFSH Acute PFSH: Medical History Metabolic alkalosis Physical deconditioning CHF (congestive heart failure) Community acquired pneumonia Alkalosis Foot pain, right Anemia Lower extremity edema Acute exacerbation of CHF (congestive heart failure) Obesity hypoventilation syndrome Acute exacerbation of chronic obstructive pulmonary disease Pneumonia Arthritis of shoulder region, right, degenerative Morbid obesity with BMI of 50.0-59.9, adult Hypothyroidism Multinodular goiter Hypothyroidism Diabetes Requires oxygen therapy COPD (chronic obstructive pulmonary disease) CHF exacerbation CHF exacerbation Volume overload Surgical History H/O knee surgery Family History Father , at age 81 CAD (coronary artery disease) Mother , at age 82 No problems noted. Social History Smoking and tobacco/nicotine status: never used tobacco/nicotine Alcohol intake: never Substance/Drug Use: never Marital status: Current occupational status: retired Vitals/I&O/Wt Last Vital Signs Temp 97.3 F L 10/26/23 09:33 Pulse 77 10/26/23 12:35 Resp 22 H 10/26/23 10:15 BP 130/76 10/26/23 14:23 Pulse Ox 99 10/26/23 11:30 O2 Del Method Nasal Cannula 10/26/23 16:56 O2 Flow Rate 6 10/26/23 09:33 FiO2 40 10/26/23 12:35 Weight last 48 hrs Weight 125.39 kg Weight 108.862 kg Physical Exam Narrative: General: currently on Bipap HEENT: PERRLA, pupils bilaterally equal and reactive, pallors not present Chest: Normal vesicular breath sounds, no added sounds, equal good air entry bilaterally CVS: S1-S2 regular, no murmurs, no tachycardia, no gallops, no rubs Abdomen: Soft, nontender, no organomegaly, bowel sounds present Neuro: lethargic Data 10/26/23 10:09 10/26/23 11:04 Micro: Microbiology 10/26/23 11:04 Blood Culture - Preliminary Blood SPECIMEN COLLECTED 10/26/23 10:09 Blood Culture - Preliminary Blood SPECIMEN COLLECTED Other data: Radiology Impressions Chest X-Ray 10/26/23 09:31 IMPRESSION: Chronically decreased lung volumes with interval development of large left retrocardiac opacity likely in part due to left lower lobe atelectasis. Recommend follow-up CT chest for further assessment. Laboratory Results WBC 18.68 10^3/uL (3.29-11.43) H 10/26/23 10:09 RBC 3.74 10^6/uL (3.85-5.65) L 10/26/23 10:09 Hgb 10.90 g/dL (11.27-16.99) L 10/26/23 10:09 Hct 33.5 % (36-47) L 10/26/23 10:09 MCV 89.6 fl (85-98) 10/26/23 10:09 MCH 29.1 pg (27-33) 10/26/23 10:09 MCHC 32.5 g/dL (30-55) 10/26/23 10:09 RDW 21.2 % (12.1-15.1) H 10/26/23 10:09 Plt Count 173 10^3/cmm (157-399) 10/26/23 10:09 MPV 9.5 fL (7.4-10.4) 10/26/23 10:09 Neut % (Auto) 89.9 % 10/26/23 10:09 Lymph % (Auto) 5.6 % 10/26/23 10:09 [place] % (Auto) 3.6 % 10/26/23 10:09 Eos % (Auto) 0.0 % 10/26/23 10:09 Baso % (Auto) 0.3 % 10/26/23 10:09 Neut # (Auto) 16.81 10^3/uL (1.8-7.7) H 10/26/23 10:09 Lymph # (Auto) 1.0 10^3/uL (0.8-4.8) 10/26/23 10:09 [place] # (Auto) 0.7 10^3/uL (0.2-0.9) 10/26/23 10:09 Eos # (Auto) 0.0 10^3/uL (0.0-0.8) 10/26/23 10:09 Baso # (Auto) 0.1 10^3/uL (0.0-0.1) 10/26/23 10:09 Nucleated RBC % (auto) 0 % 10/26/23 10:09 Nucleated RBCs # 0.0 /100WBC 10/26/23 10:09 Specimen Type Arterial 10/26/23 11:05 Sample Site Radial, left 10/26/23 11:05 ABG pH 7.27 (7.35-7.45) L 10/26/23 11:05 ABG pCO2 91.0 mmHg (35-45) H* 10/26/23 11:05 ABG pO2 71.7 mmHg (80.0-100.0) L 10/26/23 11:05 ABG PO2/FiO2 Ratio 0 10/26/23 11:05 ABG HCO3 41.9 mmol/L (22-26) H 10/26/23 11:05 ABG O2 Saturation 91.8 10/26/23 09:51 ABG Base Excess 12.1 mmol/L (-2.0-2.0) H 10/26/23 11:05 Best Test Pos 10/26/23 11:05 A-a O2 Gradient Not Reportable 10/26/23 09:51 Hematocrit 32.7 % (37-47) L 10/26/23 11:05 Hgb O2 Saturation 90.6 % (95-100) L 10/26/23 09:51 Carboxyhemoglobin 1.9 %THgb (0.4-20.1) 10/26/23 09:51 Methemoglobin < 0.0 % (0.4-1.5) L 10/26/23 09:51 Total Hemoglobin 10.3 g/dL (12-16) L 10/26/23 09:51 Sodium 134.0 mmol/L (131-143) 10/26/23 09:51 Potassium 4.4 mmol/L (3.5-5.0) 10/26/23 09:51 Glucose 83.0 mg/dL (70-115) 10/26/23 09:51 Ionized Calcium 1.2 mmol/L (1.1-1.4) 10/26/23 09:51 O2 Delivery Device Bipap 10/26/23 11:05 O2 Liters/Min 3.0 % 10/26/23 09:51 FiO2 40.0 % 10/26/23 11:05 Tidal Volume 0.41 10/26/23 11:05 PEEP 8.0 cmH20 10/26/23 11:05 Petrophysical Engineer ID [place] 10/26/23 11:05 Sodium 136 mmol/L (136-145) 10/26/23 11:04 Potassium 4.7 mmol/L (3.5-5.1) 10/26/23 11:04 Chloride 89 mmol/L (98-107) L 10/26/23 11:04 Carbon Dioxide 41 mmol/L (22-29) H 10/26/23 11:04 Anion Gap 10.7 (5-19) 10/26/23 11:04 BUN 25 mg/dL (8-23) H 10/26/23 11:04 Creatinine 0.9 mg/dL (0.5-0.9) 10/26/23 11:04 GFR Calculation Not Reportable 10/26/23 11:04 Glucose 89 mg/dL (65-115) 10/26/23 11:04 Calculated Osmolality 286 mOsm/kg (285-295) 10/26/23 11:04 Lactic Acid Cancelled 10/26/23 10:09 Lactic Acid (Sepsis) 2.8 mmol/L (0.5-2.2) H 10/26/23 13:47 Lactate 2.3 mmol/L (0.5-2.2) H 10/26/23 11:04 Calcium 9.0 mg/dL (8.5-10.5) 10/26/23 11:04 Total Bilirubin 0.8 mg/dL (0.15-1.2) 10/26/23 11:04 AST 34 U/L (0-32) H 10/26/23 11:04 ALT 21 U/L (0-33) 10/26/23 11:04 Alkaline Phosphatase 225 U/L (35-105) H 10/26/23 11:04 Troponin T Baseline 77 ng/L (0-10) H 10/26/23 11:04 Troponin T 120 Minute 68.51 ng/L (0-10) H 10/26/23 13:47 Delta Troponin T -8.49 ABS# (0-10) L 10/26/23 13:47 NT-Pro-B Natriuret Pep 37637 pg/mL (0-450) H 10/26/23 11:04 Total Protein 5.5 g/dL (6.6-8.7) L 10/26/23 11:04 Albumin 2.8 g/dL (3.5-5.2) L 10/26/23 11:04 Globulin 2.7 g/dL (1.3-4.6) 10/26/23 11:04 Urine Color Dark yellow (Yellow) 10/26/23 10:24 Urine Appearance Cloudy (CLEAR) A 10/26/23 10:24 Urine pH 5 (5-7) 10/26/23 10:24 Ur Specific [place] 1.020 (1.005-1.030) 10/26/23 10:24 Urine Protein Trace (Negative) 10/26/23 10:24 Urine Glucose (UA) Norm (Normal) 10/26/23 10:24 Urine Ketones 1+ (Negative) H 10/26/23 10:24 Urine Blood 3+ (Negative) H 10/26/23 10:24 Urine Nitrate Positive (Negative) H 10/26/23 10:24 Urine Bilirubin 1+ (Negative) H 10/26/23 10:24 Urine Urobilinogen Norm mg/dL (Negative) 10/26/23 10:24 Ur Leukocyte Esterase 2+ (Negative) H 10/26/23 10:24 Urine RBC 10-15 /hpf (0-2) H 10/26/23 10:24 Urine WBC 55-80 /hpf (0-5) H 10/26/23 10:24 Ur Squamous Epith Cells 0-4 /hpf (0-5) H 10/26/23 10:24 Calcium Oxalate Crystal 0-4 /hpf H 10/26/23 10:24 Amorphous Sediment 1+ /hpf 10/26/23 10:24 Urine Bacteria 3+ /hpf (NONE) H 10/26/23 10:24 Coronavirus 229E (PCR) Not detected (NOT DETECT) 10/26/23 10:24 Influenza Type A Ag negative (Negative) 10/26/23 10:24 Influenza Type B Ag negative (Negative) 10/26/23 10:24 SARS-CoV-2 (PCR) Not detected (NOT DETECT) 10/26/23 10:24 A&P Assessment and plan (1) Acute on chronic respiratory failure with hypoxia and hypercapnia: (2) Community acquired pneumonia: (3) Acute exacerbation of chronic obstructive airways disease: Plan [id number]-year-old lady presenting to the hospital with respiratory distress and acute encephalopathy. Found to have evidence of hypoxic hypercapnic respiratory failure. pCO2 greater than 100 upon arrival, placed on BiPAP ventilation, following which pCO2 was trending down in the 90s. Continue BiPAP ventilation and repeat ABG. Overall clinical impression is that of acute on chronic COPD exacerbation, likely precipitated by pneumonia as seen on CTA. For her left lower lobe consolidation and pneumonia, start empiric antibiotic coverage with piperacillin/tazobactam and vancomycin. Additionally adding coverage with Levaquin given past history of stenotrophomonas noted on sputum cultures. Levaquin will provide atypical coverage additionally. Start methylprednisolone 40 mg IV every 8 hours for COPD exacerbation Schedule DuoNeb inhalation every 6 hours, budesonide 0.5 mg twice daily inhalation. Lactate noted to be elevated at 2.8, obtain repeat assessment. Elevated BNP at 13,000, Rales on exam, concerning for acute on chronic diastolic CHF exacerbation. Received Lasix 40 mg IV in the emergency room. Continue with Lasix 40 mg IV every 12 hours. Closely monitor urine output. Blood pressure noted to be fluctuating. Initially patient was hypotensive upon arrival, thereafter blood pressure went up to 1 30-1 70 systolic. Target MAP of 65 mmHg. Supplemental O2 to keep saturation close to 90%. Check urine bacterial antigen, urine Legionella antigen, MRSA nares Negative COVID and influenza. DVT prophylaxis: Lovenox Attestations Medical Necessity Statement*: Greater than 2 midnight admission is anticipated due to need for incentive respiratory support. Critical Care Time: The high probability of a clinically significant, sudden or life threatening deterioration of the patient's [respiratory, cardiac] system(s) required my full and direct attention, intervention and personal management. The critical care time is as shown. This time is in addition to time spent performing any reported procedures but includes the following: [x] Data and vital sign review and interpretation [x] Patient assessment, examination and intervention [x] Documentation [x] Medication orders and management Critical Care Time (min): 50 Coding Level of Care Code Critical Care >/= 30 minutes Critical care time (in minutes): 50 The high probability of a clinically significant, sudden or life threatening deterioration, as referenced in this documentation, required my full and direct attention, intervention and personal management. The critical care time shown is in addition to time spent performing any reported separately billable procedures and includes the following: [x] Data and vital sign review and interpretation [x] Patient assessment, examination and intervention [x] Medication orders and management [x] Patient/Family updates as able [x] Care Coordination and Documentation. Diagnoses Acute on chronic respiratory failure with hypoxia and hypercapnia J96.21; J96.22 Community acquired pneumonia J18.9 Acute exacerbation of chronic obstructive airways disease J44.1
[2023-10-26] MEDS: enoxaparin 40 mg/0.4 mL Syringe SUBCUT (18:24)
[2023-10-26] MEDS: levofloxacin-dextrose 5 % 500 MG/100 ML PREMIX 100 MG IV (18:25)
[2023-10-26] MEDS: methylPREDNISolone sod succ 40 mg/mL INJ IVP (18:25)
[2023-10-26 19:50] LABS: Lactic Sepsis W/Reflex 1.5 mmol/L (0.5-2.2)
[2023-10-26] MEDS: budesonide 0.5 mg/2 mL Neb INHALATION (20:16)
[2023-10-26] MEDS: ipratropium-albuterol 3 mL Neb INHALATION (20:17)
[2023-10-26] MEDS: FUROsemide 10 mg/mL SDV 4mL 40 MG IVP (20:19)
[2023-10-26] MEDS: vancomycin 1,000 MG in sodium chloride 0.9% 250 ML 250 MG IV (20:19)
[2023-10-26 21:29] LABS: ABG PH Result 7.47 (7.35-7.45); Arterial Blood Gas Hematocrit 34.5 % (37-47); Base Excess ABG 17.6 mmol/L (-2.0-2.0); Blood Gas Operator Identificat JB; Blood Gas Sample Site Brachial, left; Blood Gas Sample Type Arterial; Oxygen Device BIPAP; PO2 ABG 74.1 mmHg (80.0-100.0); PO2 FiO2 Ratio Arterial Blood 0
[2023-10-26 21:30] LABS: Blood Gas Tidal Volume 0.41
--- NOTE | 2023-10-26 21:45 | PC.NURSE ---
Called and spoke with regarding patient screaming that she is in pain, yelling about pain in her legs, arms, butt, and all over. Dr mcnulty ordered one time dose of IV toradol and to see how patient tolerates it.
[2023-10-26] MEDS: ketorolac 30 mg/mL INJ 15 MG IVP (21:49)
[2023-10-26 22:51] LABS: ABG PCO2 60.4 mmHg (35-45)
--- NOTE | 2023-10-26 22:52 | PC.NURSE ---
Spoke with regarding patient is still yelling out in pain, IV toradol did not appear to help. said to try one time dose of dilaudid, aware or morphine allergy.
[2023-10-26] MEDS: HYDROmorphone 1 mg/mL INJ 1 mL 0.25 MG IVP (22:59)
--- NOTE | 2023-10-26 23:55 | PC.NURSE ---
Spoke with regarding patient continues to yell and scream that she is in pain. The nurse asked patient if the pain medication helped with her pain and she said yes but then immediately starts yelling that she is in pain again. Attempted repositioning but does not appear to be helping. ordered another one time dose of dilaudid IVP.
[2023-10-27] VITALS (33 sets, daily range): BP systolic 85–149; BP diastolic 52–81; PULSE 69–131; RESP 14–34; TEMP 36.9–37.9; O2SAT 90–98
[2023-10-27] MEDS: HYDROmorphone 1 mg/mL INJ 1 mL 0.25 MG IVP (00:42)
[2023-10-27] MEDS: methylPREDNISolone sod succ 40 mg/mL INJ IVP ×3 (01:48→17:05)
[2023-10-27] MEDS: piperacillin-tazobactam 3.375 GM in sodium chloride 0.9% (plus) 50 ML IV ×3 (01:48→17:48)
[2023-10-27] MEDS: ipratropium-albuterol 3 mL Neb INHALATION ×4 (02:41→20:12)
[2023-10-27 03:55] LABS: Basophils % 0.2 %; Hematocrit 31.3 % (36-47); Lymphocytes # 0.6 10^3/uL (0.8-4.8); Lymphocytes % 5.3 %; Mean Corpuscular HGB Conc 31.3 g/dL (30-55); Mean Corpuscular Hemoglobin 28.6 pg (27-33); Mean Corpuscular Volume 91.3 fl (85-98); Mean Platelet Volume 9.2 fL (7.4-10.4); Monocytes # 0.2 10^3/uL (0.2-0.9); Neutrophils # 11.14 10^3/uL (1.8-7.7); Nucleated Red Blood Cells % 0 %; Platelet Count 140 10^3/cmm (157-399); Red Blood Count 3.43 10^6/uL (3.85-5.65); Red Cell Distribution Width 13.8 % (12.1-15.1)
--- NOTE | 2023-10-27 03:58 | PC.NURSE ---
Patient chronic diop was changed due to diop leaking but diop continues to leak. The diop from the senior care was a 16french with a 30cc balloon. Diop was replaced with a 16french with 10cc balloon. Nurse replaced diop again this time using 18 nauruan diop with 10cc balloon. Will continue to monitor for signs of leaking.
[2023-10-27 04:13] LABS: Alanine Aminotransferase 18 U/L (0-33); Albumin Level 2.6 g/dL (3.5-5.2); Alkaline Phosphatase 192 U/L (35-105); Aspartate Amino Transferase 24 U/L (0-32); Blood Urea Nitrogen 27 mg/dL (8-23); Calcium 8.9 mg/dL (8.5-10.5); Carbon Dioxide 38 mmol/L (22-29); Chloride 90 mmol/L (98-107); Creatinine Clr Calc Pharmacy 72.0099; Globulin 3.2 g/dL (1.3-4.6); Glucose 90 mg/dL (65-115); Osmolality Calculated 291 mOsm/kg (285-295); Sodium 138 mmol/L (136-145); Total Bilirubin 0.8 mg/dL (0.15-1.2); Total Protein 5.8 g/dL (6.6-8.7)
[2023-10-27] MEDS: FUROsemide 10 mg/mL SDV 4mL 40 MG IVP ×2 (05:06→17:05)
[2023-10-27] MEDS: budesonide 0.5 mg/2 mL Neb INHALATION ×2 (07:30→20:12)
[2023-10-27] MEDS: acetaminophen 325 mg Tablet 650 MG PO (08:27)
[2023-10-27] MEDS: pantoprazole DR 40 mg Tablet PO (08:28)
--- NOTE | 2023-10-27 13:19 | P.PN_ITS ---
Subjective 2 Subjective: Awake alert today, able to have a conversation. Correctly tells me her name, age, date of . However does laugh inappropriately and veers out of context several times during conversation. Hypercapnia is much improved. Back to baseline in the 60s. Medications: Reviewed: Yes Vitals/I&O/Wt Last Vital Signs Temp 99.2 F 10/27/23 08:00 Pulse 75 10/27/23 12:00 Resp 22 H 10/27/23 12:00 BP 121/70 10/27/23 12:00 Pulse Ox 95 10/27/23 12:00 O2 Del Method Nasal Cannula 10/27/23 12:00 O2 Flow Rate 6 10/27/23 12:00 FiO2 40 10/27/23 07:33 10/26/23 10/27/23 10/27/23 22:59 06:59 14:59 Intake Total 400 / 400 100 / 500 30 / 30 Output Total 1150 / 1150 350 / 1500 Balance -750 / -750 -250 / -1000 30 / 30 Weight last 48 hrs Weight 122.062 kg Weight 125.39 kg Weight 108.862 kg Physical Exam 2 Narrative: General: awake, alert HEENT: PERRLA, pupils bilaterally equal and reactive, pallors not present Chest: Normal vesicular breath sounds, no added sounds, equal good air entry bilaterally CVS: S1-S2 regular, no murmurs, no tachycardia, no gallops, no rubs Abdomen: Soft, nontender, no organomegaly, bowel sounds present Neuro: awake, alert, follows Urinary Catheter Management: Quijano: Cath Placed During This Visit: yes, but has since been removed by the nurse Reason for Continuing Indwelling Catheter: Chronic Indwelling Urinary Catheter on Admission Urinary Catheter Date of Insertion: 10/27/23 Urinary Catheter Time of Insertion: 03:40 Date Urinary Catheter Removed: 10/27/23 Time Urinary Catheter Discontinued: 03:15 Data 10/27/23 03:45 10/27/23 03:45 Micro: Microbiology 10/26/23 11:04 Blood Culture - Preliminary Blood NEGATIVE TO DATE 10/26/23 10:09 Blood Culture - Preliminary Blood NEGATIVE TO DATE 10/26/23 10:24 Urine Culture - Preliminary Urine,Clean Catch Gram Negative Rods Gram Negative Rods#2 10/26/23 10:24 Bacterial Antigens - Final Urine,Voided 10/26/23 20:35 Legionella Urinary Antigen - Final Urine,Voided A&P Assessment and plan (1) Acute on chronic respiratory failure with hypoxia and hypercapnia: (2) Community acquired pneumonia: (3) Acute exacerbation of chronic obstructive airways disease: Plan [id number]-year-old lady presenting to the hospital with respiratory distress and acute encephalopathy. Found to have evidence of hypoxic hypercapnic respiratory failure. pCO2 greater than 100 upon arrival, placed on BiPAP ventilation, following which pCO2 was trending down in the 90s. Continue BiPAP ventilation and repeat ABG. Overall clinical impression is that of acute on chronic COPD exacerbation, likely precipitated by pneumonia as seen on CTA. For her left lower lobe consolidation and pneumonia, start empiric antibiotic coverage with piperacillin/tazobactam and vancomycin. Additionally adding coverage with Levaquin given past history of stenotrophomonas noted on sputum cultures. Levaquin will provide atypical coverage additionally. Start methylprednisolone 40 mg IV every 8 hours for COPD exacerbation Schedule DuoNeb inhalation every 6 hours, budesonide 0.5 mg twice daily inhalation. Lactate noted to be elevated at 2.8, obtain repeat assessment. Elevated BNP at 13,000, Rales on exam, concerning for acute on chronic diastolic CHF exacerbation. Received Lasix 40 mg IV in the emergency room. Continue with Lasix 40 mg IV every 12 hours. Closely monitor urine output. Blood pressure noted to be fluctuating. Initially patient was hypotensive upon arrival, thereafter blood pressure went up to 1 30-1 70 systolic. Target MAP of 65 mmHg. Supplemental O2 to keep saturation close to 90%. Check urine bacterial antigen, urine Legionella antigen, MRSA nares Negative COVID and influenza. DVT prophylaxis: Lovenox Plan for today October 27, 2023: Urine culture showing gram-negative rods, pending further identification. Continue empirically piperacillin/tazobactam and vancomycin for pneumonia and UTI. Pending results of MRSA PCR and blood cultures. Leukocytosis is improving. Patient is much more awake alert and oriented. This is related to improving hypercapnia. Continue Lasix 40 mg IV every 12 hours. Monitor urine output and kidney function. Continue high-dose steroids and scheduled inhalation. BiPAP at nighttime. Called family to update regarding progress, left voicemail. Can be transferred out of ICU to [facility] today. Attestations 2 Medical Necessity Statement*: continued admission for iv abx, iv diuretics,iv steroids and monitoring of respiratory status. Coding Level of Care Code Acute Code for Chg Fwd High MDM includes number and complexity of problems actively addressed during encounter, amount and/or complexity of data reviewed/ordered and described risk of complication, morbidity or mortality of management as documented Diagnoses Acute on chronic respiratory failure with hypoxia and hypercapnia J96.21; J96.22 Community acquired pneumonia J18.9 Acute exacerbation of chronic obstructive airways disease J44.1
--- NOTE | 2023-10-27 14:04 | PC.NURSE ---
Report called to KIMBERLYN Llamas. Receiving nurse will call back when room is ready. Family called and notified of transfer.
--- NOTE | 2023-10-27 15:41 | PC.NURSE ---
Patient and belongings taken to [facility] room 108-1. Beside report/updates given to KIMBERLYN Llamas.
--- NOTE | 2023-10-27 15:57 | PC.NURSE ---
Patient transferred to [facility] from ICU via a bed at 1430.
[2023-10-27] MEDS: enoxaparin 40 mg/0.4 mL Syringe SUBCUT (17:09)
[2023-10-27] MEDS: levofloxacin-dextrose 5 % 500 MG/100 ML PREMIX 100 MG IV (17:10)
[2023-10-27] MEDS: vancomycin 1,000 MG in sodium chloride 0.9% 250 ML 250 MG IV (17:48)
[2023-10-27] MEDS: trazodone 50 mg Tablet PO (19:16)
[2023-10-27] MEDS: atorvastatin 40 mg Tablet PO (19:16)
[2023-10-27] MEDS: metoprolol tartrate 25 mg Tablet 12.5 MG PO (19:16)
[2023-10-27 20:56] LABS: Glucose Point of Care 132 mg/dL (70-110)
[2023-10-28] VITALS (16 sets, daily range): BP systolic 114–141; BP diastolic 46–79; PULSE 55–89; RESP 18–26; TEMP 36.6–37.2; O2SAT 90–97; BMI 52.5
[2023-10-28] MEDS: methylPREDNISolone sod succ 40 mg/mL INJ IVP ×3 (02:05→17:38)
[2023-10-28] MEDS: piperacillin-tazobactam 3.375 GM in sodium chloride 0.9% (plus) 50 ML IV ×3 (02:06→17:38)
[2023-10-28] MEDS: ipratropium-albuterol 3 mL Neb INHALATION ×4 (02:30→19:37)
[2023-10-28 04:48] LABS: Basophils % 0.1 %; Hematocrit 28.5 % (36-47); Lymphocytes # 0.6 10^3/uL (0.8-4.8); Lymphocytes % 7.7 %; Mean Corpuscular HGB Conc 31.6 g/dL (30-55); Mean Corpuscular Hemoglobin 28.4 pg (27-33); Mean Corpuscular Volume 89.9 fl (85-98); Mean Platelet Volume 9.6 fL (7.4-10.4); Monocytes # 0.3 10^3/uL (0.2-0.9); Monocytes % 4.2 %; Neutrophils % 87.5 %; Nucleated Red Blood Cells % 0 %; Platelet Count 157 10^3/cmm (157-399); Red Blood Count 3.17 10^6/uL (3.85-5.65); Red Cell Distribution Width 14.3 % (12.1-15.1); White Blood Count 7.55 10^3/uL (3.29-11.43)
[2023-10-28 05:02] LABS: Alanine Aminotransferase 15 U/L (0-33); Albumin Level 2.5 g/dL (3.5-5.2); Alkaline Phosphatase 161 U/L (35-105); Anion Gap 11.1 (5-19); Aspartate Amino Transferase 21 U/L (0-32); Blood Urea Nitrogen 25 mg/dL (8-23); Calcium 8.6 mg/dL (8.5-10.5); Carbon Dioxide 40 mmol/L (22-29); Chloride 89 mmol/L (98-107); Creatinine Clr Calc Pharmacy 70.7723; Globulin 3.2 g/dL (1.3-4.6); Glucose 144 mg/dL (65-115); Osmolality Calculated 291 mOsm/kg (285-295); Potassium 3.1 mmol/L (3.5-5.1); Sodium 137 mmol/L (136-145); Total Bilirubin 0.5 mg/dL (0.15-1.2); Total Protein 5.7 g/dL (6.6-8.7)
[2023-10-28] MEDS: FUROsemide 10 mg/mL SDV 4mL 40 MG IVP (06:18)
[2023-10-28 06:35] LABS: Glucose Point of Care 130 mg/dL (70-110)
[2023-10-28] MEDS: metoprolol tartrate 25 mg Tablet 12.5 MG PO ×2 (07:15→19:18)
[2023-10-28] MEDS: levothyroxine 75 mcg Tablet PO (07:15)
[2023-10-28] MEDS: aspirin 81 mg Chew Tablet PO (07:15)
[2023-10-28] MEDS: hyoscyamine ODT 0.125 mg Tablet PO (07:15)
[2023-10-28] MEDS: budesonide 0.5 mg/2 mL Neb INHALATION ×2 (07:29→19:37)
[2023-10-28] MEDS: pantoprazole DR 40 mg Tablet PO (08:52)
--- NOTE | 2023-10-28 12:04 | PC.SOCIAL ---
IMM Update pg 2 of IMM updated and reviewed w/ patient. Copy provided and copy dated, initialed and placed in chart.
--- NOTE | 2023-10-28 12:18 | P.PN_ITS ---
Subjective 2 Subjective: Patient is awake alert and oriented today. Able to have a full lucid conversation. Intermittent bradycardia with heart rate in the 50s. Asymptomatic. States that she feels her breathing is back at baseline today. Leukocytosis has now resolved. Tmax 100.1 Fahrenheit last 24 hours. Medications: Reviewed: Yes Vitals/I&O/Wt Last Vital Signs Temp 98.4 F 10/28/23 07:27 Pulse 58 L 10/28/23 07:29 Resp 24 H 10/28/23 07:29 BP 132/64 10/28/23 07:27 Pulse Ox 96 10/28/23 07:29 O2 Del Method Nasal Cannula 10/28/23 07:29 O2 Flow Rate 6 10/28/23 07:29 FiO2 40 10/27/23 07:33 10/27/23 10/28/23 10/28/23 22:59 06:59 14:59 Intake Total 636 / 716 50 / 766 236 / 236 Output Total 500 / 1250 650 / 1900 Balance 136 / -534 -600 / -1134 236 / 236 Weight last 48 hrs Weight 122.062 kg Weight 122.062 kg Weight 125.39 kg Physical Exam 2 Narrative: General: No acute distress, AO x3 HEENT: PERRLA, pupils bilaterally equal and reactive, pallors not present Chest: Normal vesicular breath sounds, no added sounds, equal good air entry bilaterally CVS: S1-S2 regular, no murmurs, no tachycardia, no gallops, no rubs Abdomen: Soft, nontender, no organomegaly, bowel sounds present Neuro: No focal deficits, no facial deformity, AO x3, power 5/5 in all limbs, improving LE edema Urinary Catheter Management: Quijano: Cath Placed During This Visit: yes, but has since been removed by the nurse Reason for Continuing Indwelling Catheter: Accurate Measurement of Urinary Output in Critically Ill Patients Urinary Catheter Date of Insertion: 10/27/23 Urinary Catheter Time of Insertion: 03:40 Date Urinary Catheter Removed: 10/27/23 Time Urinary Catheter Discontinued: 03:15 Data 10/28/23 03:58 10/28/23 03:58 Micro: Microbiology 10/27/23 14:50 Occult Blood (FIT) - Final Stool - Stool Aspirate 10/26/23 11:04 Blood Culture - Preliminary Blood NEGATIVE TO DATE 10/26/23 10:09 Blood Culture - Preliminary Blood NEGATIVE TO DATE 10/26/23 10:24 Urine Culture - Preliminary Urine,Clean Catch Gram Negative Rods Gram Negative Rods#2 10/26/23 10:24 Bacterial Antigens - Final Urine,Voided A&P Assessment and plan (1) Acute on chronic respiratory failure with hypoxia and hypercapnia: (2) Community acquired pneumonia: (3) Acute exacerbation of chronic obstructive airways disease: Plan [id number]-year-old lady presenting to the hospital with respiratory distress and acute encephalopathy. Found to have evidence of hypoxic hypercapnic respiratory failure. pCO2 greater than 100 upon arrival, placed on BiPAP ventilation, following which pCO2 was trending down in the 90s. Continue BiPAP ventilation and repeat ABG. Overall clinical impression is that of acute on chronic COPD exacerbation, likely precipitated by pneumonia as seen on CTA. For her left lower lobe consolidation and pneumonia, start empiric antibiotic coverage with piperacillin/tazobactam and vancomycin. Additionally adding coverage with Levaquin given past history of stenotrophomonas noted on sputum cultures. Levaquin will provide atypical coverage additionally. Start methylprednisolone 40 mg IV every 8 hours for COPD exacerbation Schedule DuoNeb inhalation every 6 hours, budesonide 0.5 mg twice daily inhalation. Lactate noted to be elevated at 2.8, obtain repeat assessment. Elevated BNP at 13,000, Rales on exam, concerning for acute on chronic diastolic CHF exacerbation. Received Lasix 40 mg IV in the emergency room. Continue with Lasix 40 mg IV every 12 hours. Closely monitor urine output. Blood pressure noted to be fluctuating. Initially patient was hypotensive upon arrival, thereafter blood pressure went up to 1 30-1 70 systolic. Target MAP of 65 mmHg. Supplemental O2 to keep saturation close to 90%. Check urine bacterial antigen, urine Legionella antigen, MRSA nares Negative COVID and influenza. DVT prophylaxis: Lovenox Plan for today October 27, 2023: Urine culture showing gram-negative rods, pending further identification. Continue empirically piperacillin/tazobactam and vancomycin for pneumonia and UTI. Pending results of MRSA PCR and blood cultures. Leukocytosis is improving. Patient is much more awake alert and oriented. This is related to improving hypercapnia. Continue Lasix 40 mg IV every 12 hours. Monitor urine output and kidney function. Continue high-dose steroids and scheduled inhalation. BiPAP at nighttime. Called family to update regarding progress, left voicemail. Can be transferred out of ICU to [facility] today. Plan for today October 28, 2023. Urine culture still pending identification. Continue piperacillin/tazobactam and vancomycin empirically. She is clinically improving today. Awake alert oriented x 3. No longer encephalopathic. Discontinue IV Lasix and switch to p.o. Lasix 60 mg twice daily. Assess for clinical response with this change. Pending results of urine culture and respiratory cultures to transition IV to oral antibiotics. Blood culture negative to date. Patient's son Pineda Brooke updated. Attestations 2 Medical Necessity Statement*: Transition IV to oral diuretics today, assess for response, awaiting results of cultures to finalize antibiotics. Coding Level of Care Code Acute Code for Chg Fwd High MDM includes number and complexity of problems actively addressed during encounter, amount and/or complexity of data reviewed/ordered and described risk of complication, morbidity or mortality of management as documented Diagnoses Acute on chronic respiratory failure with hypoxia and hypercapnia J96.21; J96.22 Community acquired pneumonia J18.9 Acute exacerbation of chronic obstructive airways disease J44.1
[2023-10-28 12:29] LABS: Glucose Point of Care 166 mg/dL (70-110)
[2023-10-28] MEDS: potassium chloride ER 20 mEq Tablet 40 MEQ PO (12:59)
[2023-10-28 14:05] LABS: Methicillin-Resist S.aureu PCR DETECTED (NOT DETECTED)
[2023-10-28] MEDS: FUROsemide 40 mg Tablet 60 MG PO (16:49)
[2023-10-28] MEDS: enoxaparin 40 mg/0.4 mL Syringe SUBCUT (17:37)
[2023-10-28] MEDS: vancomycin 1,000 MG in sodium chloride 0.9% 250 ML 2502 MG IV (17:38)
[2023-10-28] MEDS: atorvastatin 40 mg Tablet PO (19:18)
[2023-10-28] MEDS: trazodone 50 mg Tablet PO (19:18)
[2023-10-29] VITALS (16 sets, daily range): BP systolic 125–168; BP diastolic 64–83; PULSE 54–82; RESP 14–25; TEMP 36.4–37; O2SAT 92–99
[2023-10-29] MEDS: methylPREDNISolone sod succ 40 mg/mL INJ IVP ×2 (01:14→10:36)
[2023-10-29] MEDS: piperacillin-tazobactam 3.375 GM in sodium chloride 0.9% (plus) 50 ML IV ×2 (01:16→10:36)
[2023-10-29] MEDS: ipratropium-albuterol 3 mL Neb INHALATION ×4 (02:16→19:56)
[2023-10-29 03:38] LABS: Basophils % 0.2 %; Hematocrit 31.6 % (36-47); Lymphocytes # 0.6 10^3/uL (0.8-4.8); Lymphocytes % 11.7 %; Mean Corpuscular HGB Conc 29.7 g/dL (30-55); Mean Corpuscular Hemoglobin 28.7 pg (27-33); Mean Corpuscular Volume 96.6 fl (85-98); Mean Platelet Volume 9.8 fL (7.4-10.4); Monocytes # 0.3 10^3/uL (0.2-0.9); Monocytes % 5.3 %; Neutrophils # 4.33 10^3/uL (1.8-7.7); Neutrophils % 81.5 %; Nucleated Red Blood Cells % 0 %; Platelet Count 139 10^3/cmm (157-399); Red Blood Count 3.27 10^6/uL (3.85-5.65); Red Cell Distribution Width 14.2 % (12.1-15.1); White Blood Count 5.31 10^3/uL (3.29-11.43)
[2023-10-29 03:56] LABS: Alanine Aminotransferase 13 U/L (0-33); Albumin Level 2.5 g/dL (3.5-5.2); Alkaline Phosphatase 138 U/L (35-105); Anion Gap 11.2 (5-19); Aspartate Amino Transferase 16 U/L (0-32); Blood Urea Nitrogen 19 mg/dL (8-23); Calcium 8.7 mg/dL (8.5-10.5); Chloride 89 mmol/L (98-107); Creatinine Clr Calc Pharmacy 70.7723; Globulin 3.2 g/dL (1.3-4.6); Glucose 141 mg/dL (65-115); Osmolality Calculated 291 mOsm/kg (285-295); Potassium 3.2 mmol/L (3.5-5.1); Sodium 138 mmol/L (136-145); Total Bilirubin 0.3 mg/dL (0.15-1.2); Total Protein 5.7 g/dL (6.6-8.7)
[2023-10-29 04:17] LABS: Carbon Dioxide 41 mmol/L (22-29)
[2023-10-29] MEDS: levothyroxine 75 mcg Tablet PO (05:52)
[2023-10-29] MEDS: hyoscyamine ODT 0.125 mg Tablet PO (05:52)
[2023-10-29] MEDS: aspirin 81 mg Chew Tablet PO (05:52)
[2023-10-29] MEDS: budesonide 0.5 mg/2 mL Neb INHALATION ×2 (08:02→19:56)
[2023-10-29] MEDS: pantoprazole DR 40 mg Tablet PO (08:20)
[2023-10-29] MEDS: FUROsemide 40 mg Tablet 60 MG PO ×2 (08:20→15:23)
--- NOTE | 2023-10-29 16:24 | P.PN_ITS ---
Subjective 2 Subjective: She remains afebrile and hemodynamically stable today. Alert awake and oriented. No new interim events. Continues to feel that her breathing is at baseline now. Net -2.4 L since admission. Medications: Reviewed: Yes Vitals/I&O/Wt Last Vital Signs Temp 98.3 F 10/29/23 15:47 Pulse 61 10/29/23 15:47 Resp 16 10/29/23 15:47 BP 164/83 10/29/23 15:47 Pulse Ox 94 10/29/23 15:47 O2 Del Method Nasal Cannula 10/29/23 15:47 O2 Flow Rate 3 10/29/23 13:38 FiO2 40 10/27/23 07:33 10/29/23 10/29/23 10/29/23 06:59 14:59 22:59 Intake Total 810 / 1876 650 / 650 Output Total 1350 / 1900 Balance -540 / -24 650 / 650 Weight last 48 hrs Weight 122.697 kg Weight 122.062 kg Physical Exam 2 Narrative: General: No acute distress, AO x3 HEENT: PERRLA, pupils bilaterally equal and reactive, pallors not present Chest: Normal vesicular breath sounds, no added sounds, equal good air entry bilaterally CVS: S1-S2 regular, no murmurs, no tachycardia, no gallops, no rubs Abdomen: Soft, nontender, no organomegaly, bowel sounds present Neuro: No focal deficits, no facial deformity, AO x3, power 5/5 in all limbs, improving LE edema Urinary Catheter Management: Quijano: Cath Placed During This Visit: yes, but has since been removed by the nurse Reason for Continuing Indwelling Catheter: Accurate Measurement of Urinary Output in Critically Ill Patients Urinary Catheter Date of Insertion: 10/27/23 Urinary Catheter Time of Insertion: 03:40 Date Urinary Catheter Removed: 10/27/23 Time Urinary Catheter Discontinued: 03:15 Data 10/29/23 03:20 10/29/23 03:20 Micro: Microbiology 10/26/23 10:24 Urine Culture - Final Urine,Clean Catch Providencia stuartii Escherichia coli A&P Assessment and plan (1) Acute on chronic respiratory failure with hypoxia and hypercapnia: (2) Community acquired pneumonia: (3) Acute exacerbation of chronic obstructive airways disease: Plan [id number]-year-old lady presenting to the hospital with respiratory distress and acute encephalopathy. Found to have evidence of hypoxic hypercapnic respiratory failure. pCO2 greater than 100 upon arrival, placed on BiPAP ventilation, following which pCO2 was trending down in the 90s. Continue BiPAP ventilation and repeat ABG. Overall clinical impression is that of acute on chronic COPD exacerbation, likely precipitated by pneumonia as seen on CTA. For her left lower lobe consolidation and pneumonia, start empiric antibiotic coverage with piperacillin/tazobactam and vancomycin. Additionally adding coverage with Levaquin given past history of stenotrophomonas noted on sputum cultures. Levaquin will provide atypical coverage additionally. Start methylprednisolone 40 mg IV every 8 hours for COPD exacerbation Schedule DuoNeb inhalation every 6 hours, budesonide 0.5 mg twice daily inhalation. Lactate noted to be elevated at 2.8, obtain repeat assessment. Elevated BNP at 13,000, Rales on exam, concerning for acute on chronic diastolic CHF exacerbation. Received Lasix 40 mg IV in the emergency room. Continue with Lasix 40 mg IV every 12 hours. Closely monitor urine output. Blood pressure noted to be fluctuating. Initially patient was hypotensive upon arrival, thereafter blood pressure went up to 1 30-1 70 systolic. Target MAP of 65 mmHg. Supplemental O2 to keep saturation close to 90%. Check urine bacterial antigen, urine Legionella antigen, MRSA nares Negative COVID and influenza. DVT prophylaxis: Lovenox Plan for today October 27, 2023: Urine culture showing gram-negative rods, pending further identification. Continue empirically piperacillin/tazobactam and vancomycin for pneumonia and UTI. Pending results of MRSA PCR and blood cultures. Leukocytosis is improving. Patient is much more awake alert and oriented. This is related to improving hypercapnia. Continue Lasix 40 mg IV every 12 hours. Monitor urine output and kidney function. Continue high-dose steroids and scheduled inhalation. BiPAP at nighttime. Called family to update regarding progress, left voicemail. Can be transferred out of ICU to [facility] today. Plan for today October 28, 2023. Urine culture still pending identification. Continue piperacillin/tazobactam and vancomycin empirically. She is clinically improving today. Awake alert oriented x 3. No longer encephalopathic. Discontinue IV Lasix and switch to p.o. Lasix 60 mg twice daily. Assess for clinical response with this change. Pending results of urine culture and respiratory cultures to transition IV to oral antibiotics. Blood culture negative to date. Patient's son Pineda Brooke updated. Plan for today October 29, 2023. Urine culture now updated to reflect E. coli and procidentia. Susceptible to Zosyn. MRSA PCR additionally positive. Patient continues to improve clinically. Transition IV to oral steroids today. Continue oral Lasix. Will plan on discharging patient with IV ceftriaxone for 5 days at [facility] plus oral linezolid for treatment of pneumonia and UTI. Unfortunately no oral agent available to cover both gram-negative rods isolated from the urine. Respiratory cultures remain pending at this time. Anticipate discharge in the upcoming 24 hours. Attestations 2 Medical Necessity Statement*: Continued admission for IV antibiotics, transition IV to oral steroids and monitor for any changes in clinical status. Coding Level of Care Code Acute Code for Chg Fwd High MDM includes number and complexity of problems actively addressed during encounter, amount and/or complexity of data reviewed/ordered and described risk of complication, morbidity or mortality of management as documented Diagnoses Acute on chronic respiratory failure with hypoxia and hypercapnia J96.21; J96.22 Community acquired pneumonia J18.9 Acute exacerbation of chronic obstructive airways disease J44.1
[2023-10-29] MEDS: enoxaparin 40 mg/0.4 mL Syringe SUBCUT (17:40)
[2023-10-29] MEDS: predniSONE 20 mg Tablet 40 MG PO (17:40)
[2023-10-29] MEDS: potassium chloride ER 20 mEq Tablet 40 MEQ PO (17:40)
[2023-10-29] MEDS: linezolid 600 mg Tablet PO (19:39)
[2023-10-29] MEDS: atorvastatin 40 mg Tablet PO (19:39)
[2023-10-29] MEDS: trazodone 50 mg Tablet PO (21:12)
[2023-10-29] MEDS: cefTRIAXone 1,000 MG in sodium chloride 0.9% (plus) 50 ML 100 MG IV (22:46)
[2023-10-30] VITALS (9 sets, daily range): BP systolic 148–158; BP diastolic 72–80; PULSE 60–96; RESP 14–25; TEMP 36.6–37; O2SAT 93–96
[2023-10-30] MEDS: ipratropium-albuterol 3 mL Neb INHALATION ×2 (02:10→07:50)
[2023-10-30 03:31] LABS: Basophils % 0.3 %; Hematocrit 31.2 % (36-47); Lymphocytes # 0.6 10^3/uL (0.8-4.8); Lymphocytes % 10.4 %; Mean Corpuscular HGB Conc 30.8 g/dL (30-55); Mean Corpuscular Hemoglobin 28.8 pg (27-33); Mean Corpuscular Volume 93.7 fl (85-98); Mean Platelet Volume 9.8 fL (7.4-10.4); Monocytes # 0.4 10^3/uL (0.2-0.9); Monocytes % 7.3 %; Neutrophils % 77.5 %; Nucleated Red Blood Cells % 0 %; Platelet Count 144 10^3/cmm (157-399); Red Blood Count 3.33 10^6/uL (3.85-5.65); Red Cell Distribution Width 13.4 % (12.1-15.1); White Blood Count 6.06 10^3/uL (3.29-11.43)
[2023-10-30 03:44] LABS: Alanine Aminotransferase 13 U/L (0-33); Albumin Level 2.8 g/dL (3.5-5.2); Alkaline Phosphatase 132 U/L (35-105); Aspartate Amino Transferase 15 U/L (0-32); Blood Urea Nitrogen 16 mg/dL (8-23); Calcium 8.4 mg/dL (8.5-10.5); Chloride 85 mmol/L (98-107); Creatinine Clr Calc Pharmacy 71.0084; Globulin 3.1 g/dL (1.3-4.6); Glucose 137 mg/dL (65-115); Osmolality Calculated 293 mOsm/kg (285-295); Sodium 140 mmol/L (136-145); Total Bilirubin 0.2 mg/dL (0.15-1.2); Total Protein 5.9 g/dL (6.6-8.7)
[2023-10-30 03:53] LABS: Carbon Dioxide 46 mmol/L (22-29)
[2023-10-30] MEDS: hyoscyamine ODT 0.125 mg Tablet PO (05:55)
[2023-10-30] MEDS: linezolid 600 mg Tablet PO (05:56)
[2023-10-30] MEDS: levothyroxine 75 mcg Tablet PO (05:56)
[2023-10-30] MEDS: aspirin 81 mg Chew Tablet PO (05:57)
[2023-10-30] MEDS: budesonide 0.5 mg/2 mL Neb INHALATION (07:50)
[2023-10-30] MEDS: pantoprazole DR 40 mg Tablet PO (08:29)
[2023-10-30] MEDS: predniSONE 20 mg Tablet 40 MG PO (08:29)
[2023-10-30] MEDS: FUROsemide 40 mg Tablet 60 MG PO (08:30)
--- NOTE | 2023-10-30 10:39 | PM.DCS ---
Discharge Providers Date of Admission: 10/26/23 15:07 Date of Discharge: October 30, 2023 Attending Provider at Admission: Sonali Adan MD Attending Provider at Discharge: Sonali Adan MD Primary Care Provider: Juan Jose Munoz DO Diagnoses at Discharge Discharge Diagnosis (1) Acute on chronic respiratory failure with hypoxia and hypercapnia: Status: Acute (2) Community acquired pneumonia: Status: Acute (3) Acute exacerbation of chronic obstructive airways disease: Status: Acute Reason for Visit Reason for Visit: resp failure Hospital Course Hospital Course Rossy Brooke is a 78 year old female ith past medical history of obesity hypoventilation syndrome not on home BiPAP, chronically on 3 L, diastolic heart failure brought to the hospital today with encephalopathy and hypoxic hypercapnic respiratory failure. She was noted to be in acute respiratory distress, oxygen requirement up to 15 L by nonrebreather while typically she is on 3 L/min typically. Patient is nonambulatory at baseline. She was found to have evidence of hypoxic hypercapnic respiratory failure with Pco2 102 , CHF exacerbation, chest x-ray and CTA of the chest showing left lower lobe infiltrate with pleural effusion. She was treated by being placed on continuous BiPAP for the first night of admission. She improved significantly. Hypercapnia resolved. With resolution of hypercapnia she has been alert awake and oriented. For her pneumonia she was on treatment with piperacillin/tazobactam and vancomycin initially. She also received Levaquin for atypical coverage. Respiratory cultures are pending at the time of discharge. She did test positive for MRSA PCR. She also had evidence of UTI with [place] she had an E. coli. She is being discharged with recommendations to continue ceftriaxone 1 g IV daily for 5 days plus linezolid 600 mg p.o. twice daily which would be coverage for both pneumonia and her UTI. For her CHF exacerbation she was diuresed with IV Lasix, transition to oral Lasix 40 mg p.o. twice daily at the time of discharge. Recommended to continue twice daily dosing for the next week and then reduce dose to 40 mg p.o. daily as she does at baseline. For her COPD exacerbation she received treatment initially with IV steroids, now transition to prednisone 40 mg p.o. daily for the next 5 days. Given her severity of hypercapnia, recommended to continue BiPAP use at nighttime at [facility], however it appears patient does not like wearing the BiPAP and may not be compliant with the same. Physical Exam Narrative: General: No acute distress, AO x3 HEENT: PERRLA, pupils bilaterally equal and reactive, pallors not present Chest: Normal vesicular breath sounds, no added sounds, equal good air entry bilaterally CVS: S1-S2 regular, no murmurs, no tachycardia, no gallops, no rubs Abdomen: Soft, nontender, no organomegaly, bowel sounds present Neuro: No focal deficits, no facial deformity, AO x3, power 5/5 in all limbs Extremities: improved LE edema Urinary Catheter Management: Quijano: Cath Placed During This Visit: yes, but has since been removed by the nurse Reason for Continuing Indwelling Catheter: Accurate Measurement of Urinary Output in Critically Ill Patients Urinary Catheter Date of Insertion: 10/27/23 Urinary Catheter Time of Insertion: 03:40 Date Urinary Catheter Removed: 10/27/23 Time Urinary Catheter Discontinued: 03:15 Discharge Data Studies Completed and Pending Completed Studies During Hospitalization Category Date Time Status CT angio chest PE protcl 74029 Stat Cat Scan 10/26/23 11:[address] head wo con* [id number] Stat Cat Scan 10/26/23 09:43 Completed XR chest 1V portable [id number] Stat Exams 10/26/23 09:31 Completed Pending at discharge Category Date Time Status Blood Culture Stat Lab 10/26/23 11:04 Results Sputum Culture and Gram Stain Routine Lab 10/29/23 13:38 Received Radiology Impressions Chest X-Ray 10/26/23 09:31 IMPRESSION: Chronically decreased lung volumes with interval development of large left retrocardiac opacity likely in part due to left lower lobe atelectasis. Recommend follow-up CT chest for further assessment. Laboratory Results WBC 6.06 10^3/uL (3.29-11.43) 10/30/23 03:25 RBC 3.33 10^6/uL (3.85-5.65) L 10/30/23 03:25 Hgb 9.60 g/dL (11.27-16.99) L 10/30/23 03:25 Hct 31.2 % (36-47) L 10/30/23 03:25 MCV 93.7 fl (85-98) 10/30/23 03:25 MCH 28.8 pg (27-33) 10/30/23 03:25 MCHC 30.8 g/dL (30-55) 10/30/23 03:25 RDW 13.4 % (12.1-15.1) 10/30/23 03:25 Plt Count 144 10^3/cmm (157-399) L 10/30/23 03:25 MPV 9.8 fL (7.4-10.4) 10/30/23 03:25 Neut % (Auto) 77.5 % 10/30/23 03:25 Lymph % (Auto) 10.4 % 10/30/23 03:25 [place] % (Auto) 7.3 % 10/30/23 03:25 Eos % (Auto) 0.0 % 10/30/23 03:25 Baso % (Auto) 0.3 % 10/30/23 03:25 Neut # (Auto) 4.70 10^3/uL (1.8-7.7) 10/30/23 03:25 Lymph # (Auto) 0.6 10^3/uL (0.8-4.8) L 10/30/23 03:25 [place] # (Auto) 0.4 10^3/uL (0.2-0.9) 10/30/23 03:25 Eos # (Auto) 0.0 10^3/uL (0.0-0.8) 10/30/23 03:25 Baso # (Auto) 0.0 10^3/uL (0.0-0.1) 10/30/23 03:25 Nucleated RBC % (auto) 0 % 10/30/23 03:25 Nucleated RBCs # 0.0 /100WBC 10/30/23 03:25 Specimen Type Arterial 10/26/23 21:17 Sample Site Brachial, left 10/26/23 21:17 ABG pH 7.47 (7.35-7.45) H 10/26/23 21:17 ABG pCO2 60.4 mmHg (35-45) H* 10/26/23 21:17 ABG pO2 74.1 mmHg (80.0-100.0) L 10/26/23 21:17 ABG PO2/FiO2 Ratio 0 10/26/23 21:17 ABG HCO3 44.0 mmol/L (22-26) H 10/26/23 21:17 ABG O2 Saturation 91.8 10/26/23 09:51 ABG Base Excess 17.6 mmol/L (-2.0-2.0) H 10/26/23 21:17 Best Test N/a 10/26/23 21:17 A-a O2 Gradient Not Reportable 10/26/23 09:51 Hematocrit 34.5 % (37-47) L 10/26/23 21:17 Hgb O2 Saturation 90.6 % (95-100) L 10/26/23 09:51 Carboxyhemoglobin 1.9 %THgb (0.4-20.1) 10/26/23 09:51 Methemoglobin < 0.0 % (0.4-1.5) L 10/26/23 09:51 Total Hemoglobin 10.3 g/dL (12-16) L 10/26/23 09:51 Sodium 134.0 mmol/L (131-143) 10/26/23 09:51 Potassium 4.4 mmol/L (3.5-5.0) 10/26/23 09:51 Glucose 83.0 mg/dL (70-115) 10/26/23 09:51 Ionized Calcium 1.2 mmol/L (1.1-1.4) 10/26/23 09:51 O2 Delivery Device Bipap 10/26/23 21:17 O2 Liters/Min 3.0 % 10/26/23 09:51 FiO2 40.0 % 10/26/23 21:17 Tidal Volume 0.41 10/26/23 21:17 PEEP 8.0 cmH20 10/26/23 21:17 Hydro Operator ID Anam 10/26/23 21:17 Sodium 140 mmol/L (136-145) 10/30/23 03:25 Potassium 3.0 mmol/L (3.5-5.1) L 10/30/23 03:25 Chloride 85 mmol/L (98-107) L 10/30/23 03:25 Carbon Dioxide 46 mmol/L (22-29) H* 10/30/23 03:25 Anion Gap 12.0 (5-19) 10/30/23 03:25 BUN 16 mg/dL (8-23) 10/30/23 03:25 Creatinine 0.6 mg/dL (0.5-0.9) 10/30/23 03:25 GFR Calculation Not Reportable 10/30/23 03:25 Glucose 137 mg/dL (65-115) H 10/30/23 03:25 POC Glucose 166 mg/dL (70-110) H 10/28/23 12:10 Calculated Osmolality 293 mOsm/kg (285-295) 10/30/23 03:25 Lactic Acid 1.5 mmol/L (0.5-2.2) 10/26/23 19:17 Lactic Acid (Sepsis) 2.8 mmol/L (0.5-2.2) H 10/26/23 13:47 Lactate 2.3 mmol/L (0.5-2.2) H 10/26/23 11:04 Calcium 8.4 mg/dL (8.5-10.5) L 10/30/23 03:25 Total Bilirubin 0.2 mg/dL (0.15-1.2) 10/30/23 03:25 AST 15 U/L (0-32) 10/30/23 03:25 ALT 13 U/L (0-33) 10/30/23 03:25 Alkaline Phosphatase 132 U/L (35-105) H 10/30/23 03:25 Troponin T Baseline 77 ng/L (0-10) H 10/26/23 11:04 Troponin T 120 Minute 68.51 ng/L (0-10) H 10/26/23 13:47 Delta Troponin T -8.49 ABS# (0-10) L 10/26/23 13:47 Troponin T Hi Sens 6Hr 66.10 ng/L (0-10) H 10/26/23 17:11 Troponin T Hi Sens 6Hr Delta -10.90 ng/L (0-12) L 10/26/23 17:11 NT-Pro-B Natriuret Pep 72371 pg/mL (0-450) H 10/26/23 11:04 Total Protein 5.9 g/dL (6.6-8.7) L 10/30/23 03:25 Albumin 2.8 g/dL (3.5-5.2) L 10/30/23 03:25 Globulin 3.1 g/dL (1.3-4.6) 10/30/23 03:25 Urine Color Dark yellow (Yellow) 10/26/23 10:24 Urine Appearance Cloudy (CLEAR) A 10/26/23 10:24 Urine pH 5 (5-7) 10/26/23 10:24 Ur Specific [place] 1.020 (1.005-1.030) 10/26/23 10:24 Urine Protein Trace (Negative) 10/26/23 10:24 Urine Glucose (UA) Norm (Normal) 10/26/23 10:24 Urine Ketones 1+ (Negative) H 10/26/23 10:24 Urine Blood 3+ (Negative) H 10/26/23 10:24 Urine Nitrate Positive (Negative) H 10/26/23 10:24 Urine Bilirubin 1+ (Negative) H 10/26/23 10:24 Urine Urobilinogen Norm mg/dL (Negative) 10/26/23 10:24 Ur Leukocyte Esterase 2+ (Negative) H 10/26/23 10:24 Urine RBC 10-15 /hpf (0-2) H 10/26/23 10:24 Urine WBC 55-80 /hpf (0-5) H 10/26/23 10:24 Ur Squamous Epith Cells 0-4 /hpf (0-5) H 10/26/23 10:24 Calcium Oxalate Crystal 0-4 /hpf H 10/26/23 10:24 Amorphous Sediment 1+ /hpf 10/26/23 10:24 Urine Bacteria 3+ /hpf (NONE) H 10/26/23 10:24 Coronavirus 229E (PCR) Not detected (NOT DETECT) 10/26/23 10:24 Influenza Type A Ag negative (Negative) 10/26/23 10:24 Influenza Type B Ag negative (Negative) 10/26/23 10:24 SARS-CoV-2 (PCR) Not detected (NOT DETECT) 10/26/23 10:24 MRSA (PCR) Detected (NOT DETECTED) A 10/26/23 21:26 Spec #: [id number] [place]: 10/26/23-1023 Status: COMP Req #: [id number] Recd: 10/26/23-[address]: Al Valdovinos DO Src: Urine CC SpDesc: Ordered: Procedure Result Verified Site Urine Culture Final 10/28/23-1722 Organism 1 Providencia stuartii [place] Count >100,000 CFU/ml Organism 2 Escherichia coli [place] Count >100,000 CFU/ml DAY 2 P stuartii E coli M.I.C. RX M.I.C. RX --------- ------ --------- ------ * Amikacin <=16 S <=16 S * Amoxicillin/Clavulanate >16/8 R <=8/4 S * Ampicillin >16 R <=8 S * Ampicillin/Sulbactam 16/8 I <=8/4 S * Aztreonam <=4 S <=4 S * Cefepime <=8 S <=8 S * Ceftriaxone <=1 S <=1 S * Cefuroxime 16 I <=4 S * Ciprofloxacin <=1 S >2 R * Gentamicin 4 R <=2 S * Imipenem 2 I <=1 S * Levofloxacin <=2 S >4 R * Nitrofurantoin >64 R <=32 S * Tetracycline >8 R <=4 S * Tobramycin <=4 R * Trimethoprim/Sulfamethoxazole <=2/38 S <=2/38 S * Piperacillin/Tazobactam <=16 S <=16 S Urine Culture Preliminary (changed) 10/27/23-934 Organism 1 Gram Negative Rods [place] Count >100,000 CFU/ml Organism 2 Gram Negative Rods#2 [place] Count >100,000 CFU/ml DAY 1, RESULTS TO FOLLOW Vitals Last Vital Signs Temp 97.8 F 10/30/23 07:57 Pulse 69 10/30/23 08:02 Resp 14 10/30/23 07:57 BP 158/80 10/30/23 07:57 Pulse Ox 96 10/30/23 07:57 O2 Del Method Nasal Cannula 10/30/23 07:57 O2 Flow Rate 4 10/30/23 07:52 FiO2 40 10/29/23 20:06 Discharge Plan Discharge Patient Disposition: Xfer SNF Condition: Stable Prescriptions: New prednisone 20 mg Tablet 40 mg PO DAILY 5 Days Qty: 10 0RF linezolid 600 mg Tablet 600 mg PO Q12H 5 Days Qty: 10 0RF Continued hyoscyamine sulfate 0.125 mg tablet 0.125 mg PO DAILY@07 Myrbetriq 50 mg tablet extended release 24 hr 50 mg PO DAILY@07 albuterol sulfate 2.5 mg /3 mL (0.083 %) solution for nebulization 2.5 mg inhalation Q4H ascorbic acid (vitamin C) [Vitamin C] 500 mg Tablet 500 mg PO DAILY@07 ferrous sulfate [iron] 325 mg (65 mg iron) Tablet 325 mg PO DAILY@07 esomeprazole magnesium 20 mg capsule,delayed release(DR/EC) 20 mg PO DAILY@07 levothyroxine 75 mcg tablet 75 mcg PO DAILY@07 trazodone 50 mg tablet 50 mg PO BEDTIME@19 metoprolol tartrate 25 mg tablet 25 mg PO BID@07,19 acetaminophen [Tylenol] 325 mg Capsule 650 mg PO Q4H PRN (Reason: Pain) vitamin B complex [Super B Complex] Tablet 1 tab PO DAILY@07 Vitamin B-12 1,000 mcg Tablet 2,000 mcg PO DAILY@07 Vitamin D2 1,250 mcg (50,000 unit) Capsule 50,000 unit PO Q7D Rx Instructions: on aspirin 81 mg tablet,chewable 81 mg PO DAILY@07 Imodium 2 mg Capsule 2 mg PO DAILY PRN (Reason: Loose Stool) Miralax 17 gram Powder In Packet 17 g PO DAILY PRN (Reason: Constipation) Milk of Magnesia 400 mg/5 mL Suspension 30 ml PO .EVERY 3RD DAY PRN (Reason: Constipation) Dulcolax (bisacodyl) 10 mg Suppository See Rx Instructions .ROUTE .COMPLEX Rx Instructions: 10 mg rectally after mom if no bm as needed (use only if tabs are refused) Dulcolax (bisacodyl) 5 mg Tablet,Delayed Release (Dr/Ec) 20 mg PO DAILY PRN (Reason: after mom for no bm) Mylanta 200-200-20 mg/5 mL Suspension 30 ml PO .EVERY 2 HOURS PRN (Reason: Indigestion) nystatin 100,000 unit/gram Powder See Rx Instructions .ROUTE .COMPLEX Rx Instructions: apply to red areas on skin folds bid and as needed formoterol fumarate 20 mcg/2 mL Solution For Nebulization 20 mcg INHALATION DAILY@07 Pro-Stat 101 15-101 gram-kcal/30 mL Liquid See Rx Instructions .ROUTE .COMPLEX Rx Instructions: 30ml po bid atorvastatin 40 mg tablet 40 mg PO BEDTIME@19 albuterol sulfate 90 mcg/actuation HFA aerosol inhaler 1 - 2 puff inhalation Q6H PRN (Reason: Wheezing) Changed furosemide [Lasix] 40 mg tablet 40 mg PO BID 15 Days Qty: 30 0RF Discontinued naproxen 500 mg Tablet 500 mg PO BID@, Discharge Orders: Discharge Order (Routine); Ordered 10/30/23 Ordered By: Sonali Adan Referrals: [facility] [Outside] Juan Jose Munoz DO [Primary Care Provider] - Discharge Diet: Usual diet Discharge Activity: Resume usual activity Patient Instructions: Furosemide (By mouth) (Lasix), Prednisone (By mouth) (predniSONE Intensol, Prednicot, Deltasone, New), Linezolid (By mouth) (Zyvox), Heart Failure (DC), CHF Stoplight, Opioid Safety Discharge Attestations Time Spent in Discharge Care*: greater than 30 min Quality Metrics Clinical Quality Measures [ No reported AMI, CVA or VTE this stay] Coding Level of Care Code Acute Code for Chg Fwd Diagnoses Acute on chronic respiratory failure with hypoxia and hypercapnia J96.21; J96.22 Community acquired pneumonia J18.9 Acute exacerbation of chronic obstructive airways disease J44.1
[2023-10-30] MEDS: potassium chloride ER 20 mEq Tablet 60 MEQ PO (11:08)
[2023-10-30] MEDS: acetaZOLAMIDE 250 mg Tablet PO (11:08)
--- NOTE | 2023-10-30 12:11 | PC.SOCIAL ---
IMM Update pg 2 of IMM updated and reviewed w/ patient. Copy provided and copy dated, initialed and placed in chart.
--- NOTE | 2023-10-30 14:00 | PC.NURSE ---
Patient left via [facility] for transport to [facility] at 1400. Report was called to Jane.
== END 2023-10-30 14:04 | disposition skilled nursing facility (03) | DRG 193 ==
LOC: ER 11:05 → ICU 15:23 → CSU 10-27 15:27
PROVIDERS: Admitting Provider Student in an Organized Health Care Education/Training Program; Emergency Provider Family Medicine; PCP Family Medicine; Visit Provider Student in an Organized Health Care Education/Training Program
DX: J18.9 Pneumonia, unspecified organism (principal); G93.41 Metabolic encephalopathy; J96.22 Acute and chronic respiratory failure with hypercapnia; I50.33 Acute on chronic diastolic (congestive) heart failure; J96.21 Acute and chronic respiratory failure with hypoxia; E66.2 Morbid (severe) obesity with alveolar hypoventilation; J44.0 Chronic obstructive pulmonary disease with (acute) lower respiratory infection; J44.1 Chronic obstructive pulmonary disease with (acute) exacerbation; N39.0 Urinary tract infection, site not specified; Z68.43 Body mass index [BMI] 50.0-59.9, adult; E03.9 Hypothyroidism, unspecified; E11.9 Type 2 diabetes mellitus without complications; R00.1 Bradycardia, unspecified; B95.62 Methicillin resistant Staphylococcus aureus infection as the cause of diseases classified elsewhere; B96.20 Unspecified Escherichia coli [E. coli] as the cause of diseases classified elsewhere; Z11.52 Encounter for screening for COVID-19; Z99.81 Dependence on supplemental oxygen; Z79.82 Long term (current) use of aspirin; Z87.01 Personal history of pneumonia (recurrent)
CPT/HCPCS: 36415; 36416; 36569; 36573; 36600; 51702; 70450; 71045; 71275; 80051; 80053; 81001; 82274; 82330; 82803; 82805; 82962; 83605; 83880; 84484; 85025; 86403; 87040; 87070; 87077; 87086; 87186; 87205; 87449; 87635; 87641; 87804; 93005; 94640; 94660; 94664; 96365; 96367; 96372; 96375; 96376; 99291; J0696; J1170; J1650; J1885; J1940; J1956; J2543; J2920; J3370; J7050; J7512; J7626; Q9967